=== PATIENT | female | born 1940 | race Hispanic/Latino ===

== ENCOUNTER 2018-08-01 18:04 | Emergency (ER) | payer OTHER ==
--- OUTSIDE RECORDS SUMMARY | 2018-08-01 18:07 | XMS REPORT | Clinical Summary ---
:1940 Author Organization [facility] Address [address] [place] [address] Care Team Providers Name Role Phone Asked, No Pcp Primary Care Provider Unavailable Allergies No Known Allergies Medications Medication Sig Dispensed Refills Start Date End Date Status traMADol (ULTRAM) 50 Take 50 mg by 0 Active mg tablet mouth every 6 (six) hours as needed for moderate pain. amLODIPine (NORVASC) Take 10 mg by 0 Active 10 MG tablet mouth daily. linagliptin Take 5 mg by mouth 0 Active (TRADJENTA) 5 mg daily with tablet breakfast. pantoprazole Take 40 mg by 0 Active (PROTONIX) 40 MG EC mouth daily. tablet aspirin (ECOTRIN) 81 Take 81 mg by 0 Active MG enteric coated mouth daily. tablet citalopram (CeleXA) 20 Take 20 mg by 0 Active MG tablet mouth daily. meloxicam (MOBIC) 7.5 Take 7.5 mg by 0 Active mg tablet mouth 2 (two) times a day. losartan (COZAAR) 25 Take 25 mg by 0 Active MG tablet mouth daily. Active Problems Problem Noted Date UTI (urinary tract infection) 02/22/2017 Lower GI bleed 09/24/2015 Social History Tobacco Use Types Packs/Day Years Used Date Never Smoker Smokeless Tobacco: Never Used Alcohol Use Drinks/Week oz/Week Comments No Sex Assigned at Date Recorded Not on file Job Start Date Occupation Industry Not on file Not on file Not on file Travel History Travel Start Travel End No recent travel history available. Last Filed Vital Signs Not on file Plan of Treatment Health Maintenance Due Date Last Done Comments COLONOSCOPY SCREENING 1992 SHINGLES VACCINES (#1) 1992 65+ PNEUMOCOCCAL VACCINE (1 of 2 - PCV13) 06/15/2007 INFLUENZA VACCINE 09/10/2018 Results Not on fileafter 07/31/2017 Insurance Payer Benefit Plan / Subscriber ID Effective Dates Phone Address Type Group [employer] [facility] Advance Directives Patient has advance care planning documents, and code status on file. For more information, please contact:Alireza Ford[address] [place] [id number] Code Status Date Activated Date Inactivated Comments Full Code 02/23/2017 9:24 AM 02/24/2017 7:40 PM Code Status decision reached by: Patient Full Code 09/24/2015 8:26 AM 09/29/2015 3:26 PM Code Status decision reached by: Patient
--- OUTSIDE RECORDS SUMMARY | 2018-08-01 18:08 | XMS REPORT | Clinical Summary ---
:1940 Author Organization [facility] Address [address] [place] [address] Care Team Providers Name Role Phone Sharpchava Primary Care Provider Allergies No Known Allergies Medications Medication Sig Dispensed Refills Start Date End Date Status metoprolol Take 50 mg by 0 Active (LOPRESSOR) 50 MG mouth 2 (two) tablet times daily. losartan (COZAAR) Take 100 mg by 0 Active 100 MG tablet mouth daily. citalopram Take 20 mg by 0 Active (CELEXA) 20 MG mouth daily. tablet rosuvastatin Take 10 mg by 0 Active (CRESTOR) 10 MG mouth daily. tablet amLODIPine Take 10 mg by 0 Active (NORVASC) 10 MG mouth daily. tablet acetaminophen-code Take 1 tablet 15 tablet 0 03/27/2015 Active ine (TYLENOL #3) by mouth 3 300-30 mg per (three) times tablet daily as needed for Pain. linagliptin Take 5 mg by 0 Active (TRADJENTA) 5 mg mouth. Tab metFORMIN Take 500 mg by 0 Active (GLUCOPHAGE) 500 mouth 2 (two) MG tablet times daily with breakfast and dinner. atorvastatin Take 10 mg by 0 Active (LIPITOR) 10 MG mouth daily. tablet aspirin 81 MG EC Take 81 mg by 0 Active tablet mouth daily. pantoprazole Take 40 mg by 0 Active (PROTONIX) 40 MG mouth daily. tablet cloNIDine HCl Take 0.1 mg by 0 Active (CATAPRES) 0.1 MG mouth 2 (two) tablet times daily. traMADol (ULTRAM) Take 50 mg by 0 Discontinued 50 mg tablet mouth every 6 8 (six) hours as needed for Pain. traMADol (ULTRAM) Take 1 tablet 15 tablet 0 08/22/2014 Discontinued 50 mg tablet (50 mg total) 8 by mouth every 6 (six) hours as needed for Pain (WARNING CAUSES SEDATION) for up to 15 doses. naproxen Take 500 mg by 0 Discontinued (NAPROSYN) 500 MG mouth 2 (two) 8 tablet times daily with breakfast and dinner. amoxicillin Take 500 mg by 0 Discontinued (AMOXIL) 500 MG mouth 3 (three) 8 capsule times daily. magnesium oxide Take 1 tablet 14 tablet 0 08/26/2017 (MAG-OX) 400 mg (400 mg total) 8 tablet by mouth daily for 14 doses. hydrALAZINE Take 1 tablet 60 tablet 0 08/26/2017 (APRESOLINE) 25 MG (25 mg total) 8 tablet by mouth 2 (two) times daily for 30 days. indomethacin Take 1 capsule 30 capsule 0 08/26/2017 (INDOCIN) 25 MG (25 mg total) 8 capsule by mouth 3 (three) times daily with meals for 10 days. Active Problems Problem Noted Date Small bowel obstruction 08/21/2017 Diabetes mellitus, type 2 08/21/2017 Hypertension 08/21/2017 Depression 08/21/2017 Renal insufficiency 08/21/2017 Encounters Date Type Specialty Care Team Description 08/21/2017 - Hospital Encounter General Internal Colin Sanchez Small bowel obstruction (HCC) (Primary Dx); 08/26/2017 Medicine MD Francesco Depression, unspecified depression type; Antonino Martin Type 2 diabetes mellitus with complication, without long- term current use of insulin (HCC); MD Kristopher Essential hypertension; Shamsee, Hypomagnesemia; Emanuel-Bennie Acute pain of left shoulder; MD Nimesh History of breast cancer; Hypokalemia after 07/31/2017 Social History Tobacco Use Types Packs/Day Years Used Date Never Smoker Smokeless Tobacco: Never Used Alcohol Use Drinks/Week oz/Week Comments No Sex Assigned at Date Recorded Not on file Job Start Date Occupation Industry Not on file Not on file Not on file Travel History Travel Start Travel End No recent travel history available. Last Filed Vital Signs Vital Sign Reading Time Taken Blood Pressure 161/67 08/26/2017 3:55 PM CDT Pulse 45 08/26/2017 3:55 PM CDT Temperature 36.7 C (98.1 F) 08/26/2017 3:55 PM CDT Respiratory Rate 19 08/26/2017 3:55 PM CDT Oxygen Saturation 98% 08/26/2017 3:55 PM CDT Inhaled Oxygen Concentration - - Weight 79.4 kg (175 lb 0.7 oz) 08/25/2017 6:26 AM CDT Height 152.4 cm (5') 08/21/2017 1:29 AM CDT Body Mass Index 34.19 08/25/2017 6:26 AM CDT Plan of Treatment Not on file Procedures Procedure Name Priority Date/Time Associated Comments Diagnosis POCT-GLUCOSE METER Routine 08/26/2017 12:24 Results for this PM CDT procedure are in the results section. POCT-GLUCOSE METER Routine 08/26/2017 8:07 Results for this AM CDT procedure are in the results section. MAGNESIUM Routine 08/26/2017 2:54 Results for this AM CDT procedure are in the results section. BASIC METABOLIC PANEL Routine 08/26/2017 2:54 Results for this (7) AM CDT procedure are in the results section. POCT-GLUCOSE METER Routine 08/25/2017 8:55 Results for this PM CDT procedure are in the results section. POCT-GLUCOSE METER Routine 08/25/2017 5:35 Results for this PM CDT procedure are in the results section. XR SHOULDER LEFT Routine 08/25/2017 12:53 Results for this COMPLETE MIN 2 VIEWS PM CDT procedure are in the results section. POCT-GLUCOSE METER Routine 08/25/2017 11:38 Results for this AM CDT procedure are in the results section. POCT-GLUCOSE METER Routine 08/25/2017 8:02 Results for this AM CDT procedure are in the results section. MAGNESIUM Routine 08/25/2017 5:53 Results for this AM CDT procedure are in the results section. BASIC METABOLIC PANEL Routine 08/25/2017 5:53 Results for this (7) AM CDT procedure are in the results section. POCT-GLUCOSE METER Routine 08/24/2017 8:49 Results for this PM CDT procedure are in the results section. POCT-GLUCOSE METER Routine 08/24/2017 4:51 Results for this PM CDT procedure are in the results section. POCT-GLUCOSE METER Routine 08/24/2017 12:01 Results for this PM CDT procedure are in the results section. XR SHOULDER LEFT Routine 08/24/2017 11:17 Results for this COMPLETE MIN 2 VIEWS AM CDT procedure are in the results section. POCT-GLUCOSE METER Routine 08/24/2017 7:32 Results for this AM CDT procedure are in the results section. CBC W/PLT COUNT & Routine 08/24/2017 4:38 Results for this AUTO DIFFERENTIAL AM CDT procedure are in the results section. CBC W/PLT COUNT & Routine 08/24/2017 4:38 Results for this AUTO DIFFERENTIAL AM CDT procedure are in the results section. MAGNESIUM Routine 08/24/2017 4:38 Results for this AM CDT procedure are in the results section. PHOSPHORUS Routine 08/24/2017 4:38 Results for this AM CDT procedure are in the results section. HEPATIC FUNCTION Routine 08/24/2017 4:38 Results for this PANEL AM CDT procedure are in the results section. BASIC METABOLIC PANEL Routine 08/24/2017 4:38 Results for this (7) AM CDT procedure are in the results section. POCT-GLUCOSE METER Routine 08/23/2017 8:20 Results for this PM CDT procedure are in the results section. POCT-GLUCOSE METER Routine 08/23/2017 5:16 Results for this PM CDT procedure are in the results section. POCT-GLUCOSE METER Routine 08/23/2017 12:06 Results for this PM CDT procedure are in the results section. POCT-GLUCOSE METER Routine 08/23/2017 7:49 Results for this AM CDT procedure are in the results section. CBC W/PLT COUNT & Routine 08/23/2017 4:43 Results for this AUTO DIFFERENTIAL AM CDT procedure are in the results section. CBC W/PLT COUNT & Routine 08/23/2017 4:43 Results for this AUTO DIFFERENTIAL AM CDT procedure are in the results section. MAGNESIUM Routine 08/23/2017 4:43 Results for this AM CDT procedure are in the results section. PHOSPHORUS Routine 08/23/2017 4:43 Results for this AM CDT procedure are in the results section. HEPATIC FUNCTION Routine 08/23/2017 4:43 Results for this PANEL AM CDT procedure are in the results section. BASIC METABOLIC PANEL Routine 08/23/2017 4:43 Results for this (7) AM CDT procedure are in the results section. POCT-GLUCOSE METER Routine 08/22/2017 9:17 Results for this PM CDT procedure are in the results section. POCT-GLUCOSE METER Routine 08/22/2017 4:25 Results for this PM CDT procedure are in the results section. POCT-GLUCOSE METER Routine 08/22/2017 12:43 Results for this PM CDT procedure are in the results section. XR CHEST 1 VIEW STAT 08/22/2017 9:16 Results for this PORTABLE/BEDSIDE AM CDT procedure are in the results section. ECG 12-LEAD STAT 08/22/2017 8:52 Results for this AM CDT procedure are in the results section. POCT-GLUCOSE METER Routine 08/22/2017 5:50 Results for this AM CDT procedure are in the results section. CBC W/PLT COUNT & Routine 08/22/2017 5:09 Results for this AUTO DIFFERENTIAL AM CDT procedure are in the results section. CBC W/PLT COUNT & Routine 08/22/2017 5:09 Results for this AUTO DIFFERENTIAL AM CDT procedure are in the results section. MAGNESIUM Routine 08/22/2017 5:09 Results for this AM CDT procedure are in the results section. PHOSPHORUS Routine 08/22/2017 5:09 Results for this AM CDT procedure are in the results section. HEPATIC FUNCTION Routine 08/22/2017 5:09 Results for this PANEL AM CDT procedure are in the results section. BASIC METABOLIC PANEL Routine 08/22/2017 5:09 Results for this (7) AM CDT procedure are in the results section. POCT-GLUCOSE METER Routine 08/21/2017 10:55 Results for this PM CDT procedure are in the results section. POCT-GLUCOSE METER Routine 08/21/2017 5:32 Results for this PM CDT procedure are in the results section. CREATINE KINASE (CK), Routine 08/21/2017 3:25 Results for this TOTAL AND MB PM CDT procedure are in the results section. TROPONIN I Routine 08/21/2017 3:25 Results for this PM CDT procedure are in the results section. POCT-GLUCOSE METER Routine 08/21/2017 2:19 Results for this PM CDT procedure are in the results section. C-REACTIVE PROTEIN Routine 08/21/2017 6:33 Results for this AM CDT procedure are in the results section. TSH/FREE T4 IF Routine 08/21/2017 6:33 Results for this INDICATED AM CDT procedure are in the results section. CREATINE KINASE (CK), Routine 08/21/2017 6:33 Results for this TOTAL AND MB AM CDT procedure are in the results section. TROPONIN I Routine 08/21/2017 6:33 Results for this AM CDT procedure are in the results section. HEMOGLOBIN A1C Routine 08/21/2017 6:33 Results for this AM CDT procedure are in the results section. LIPID PANEL Routine 08/21/2017 6:33 Results for this AM CDT procedure are in the results section. XR ABDOMEN 1 VIEW STAT 08/21/2017 5:55 Results for this AM CDT procedure are in the results section. CT ABDOMEN/PELVIS STAT 08/21/2017 4:26 Results for this WITHOUT IV CONTRAST AM CDT procedure are in the results section. CBC W/PLT COUNT & STAT 08/21/2017 2:25 Results for this AUTO DIFFERENTIAL AM CDT procedure are in the results section. CBC W/PLT COUNT & STAT 08/21/2017 2:25 Results for this AUTO DIFFERENTIAL AM CDT procedure are in the results section. LIPASE STAT 08/21/2017 2:25 Results for this AM CDT procedure are in the results section. AMYLASE STAT 08/21/2017 2:25 Results for this AM CDT procedure are in the results section. HEPATIC FUNCTION STAT 08/21/2017 2:25 Results for this PANEL AM CDT procedure are in the results section. BASIC METABOLIC PANEL STAT 08/21/2017 2:25 Results for this (7) AM CDT procedure are in the results section. after 07/31/2017 Results POC-Glucose meter (08/26/2017 12:24 PM CDT)Only the most recent of21 resultswithin the time period is included. POC-Glucose Meter 271 (H)Comment: TESTED AT 70 - 110 mg/dL [facility] [address] [facility] [address] Specimen Blood Performing Organization Address City/State/Zipcode Phone Number [address] [address] CENTER Magnesium (08/26/2017 2:54 AM CDT)Only the most recent of5 resultswithin the time period is included. Magnesium 1.7 1.6 - 2.6 mg/dL [facility] Specimen Blood Performing Organization Address City/[facility]/Zipcode Phone Number [address] [phone] [place] Basic Metabolic Panel (08/26/2017 2:54 AM CDT)Only the most recent of6 resultswithin the time period is included. Sodium 136 136 - 145 meq/L [facility] Potassium 3.8 3.5 - 5.1 meq/L [facility] Chloride 105 98 - 107 meq/L [facility] CO2 22 22 - 29 meq/L [facility] BUN 11 7 - 21 mg/dL [facility] Creatinine 0.81 0.57 - 1.25 mg/dL [facility] Glucose 131 (H) 70 - 105 mg/dL [facility] Calcium 8.6 8.4 - 10.2 mg/dL [facility] EGFR 69Comment: ESTIMATED GFR IS mL/min/1.73 sq m [facility] NOT ACCURATE CREATININE [facility] CLEARANCE IN PREDICTING GLOMERULAR FILTRATION RATE. ESTIMATED GFR IS NOT APPLICABLE FOR DIALYSIS PATIENTS. Specimen Blood Performing Organization Address City/[facility]/Zipcode Phone Number [address] [address] [phone] [place] XR shoulder complete 2 views min left (08/25/2017 12:53 PM CDT)Only the most recent of2 resultswithin the time period is included. Specimen Narrative Performed At FINAL REPORT [facility] Two axillary left shoulder images. Normal glenohumeral articulation. Chronic changes are seen about the greater tuberosity and the AC joint. No visible fracture, dislocation, destructive lesion. Signed: Yovani Zarate MD Report Verified Date/Time:08/25/2017 14:00:20 Reading Location: [facility] B1 [id number] Consult Reading Room Procedure Note Interface, External Ris In - 08/25/2017 2:02 PM CDT FINAL REPORT Two axillary left shoulder images. Normal glenohumeral articulation. Chronic changes are seen about the greater tuberosity and the AC joint. No visible fracture, dislocation, destructive lesion. Signed: Yovani Zarate MD Report Verified Date/Time: 08/25/2017 14:00:20 Reading Location: [facility] B1 [id number] Consult Reading Room Performing Organization Address City/State/Zipcode Phone Number GE RIS CBC with platelet count + automated diff (08/24/2017 4:38 AM CDT)Only the most recent of4 resultswithin the time period is included. WBC 7.9 3.5 - 10.5 K/L [facility] RBC 2.90 (L) 3.93 - 5.22 M/L [facility] Hemoglobin 8.8 (L) 11.2 - 15.7 GM/DL [facility] Hematocrit 27.9 (L) 34.1 - 44.9 % [facility] MCV 96.2 (H) 79.4 - 94.8 fL [facility] MCH 30.3 25.6 - 32.2 pg [facility] MCHC 31.5 (L) 32.2 - 35.5 GM/DL [facility] RDW 12.6 11.7 - 14.4 % [facility] Platelets 179 150 - 450 K/CU MM [facility] MPV 10.7 9.4 - 12.3 fL [facility] nRBC 0 0 - 0 /100 WBC [facility] % Neutros 60 % [facility] % Lymphs 27 % [facility] % Monos 10 % [facility] % Eos 2 % [facility] % Baso 0 % [facility] # Neutros 4.77 1.56 - 6.13 K/L [facility] # Lymphs 2.10 1.18 - 3.74 K/L [facility] # Monos 0.81 (H) 0.24 - 0.36 K/L [facility] # Eos 0.16 0.04 - 0.36 K/L [facility] # Baso 0.03 0.01 - 0.08 K/L [facility] Immature Granulocytes-Relative 0 0 - 1 % [facility] Specimen Blood Performing Organization Address City/State/Zipcode Phone Number [address] [address] [phone] CENTER Phosphorus (08/24/2017 4:38 AM CDT)Only the most recent of3 resultswithin the time period is included. Phosphorus 2.3 2.3 - 4.7 mg/dL [facility] Specimen Blood Performing Organization Address City/State/Zipcode Phone Number [address] [address] [phone] [place] Hepatic function panel (08/24/2017 4:38 AM CDT)Only the most recent of4 resultswithin the time period is included. Protein, Total 6.0 6.0 - 8.3 gm/dL [facility] Albumin 3.0 (L) 3.5 - 5.0 g/dL [facility] Total Bilirubin 0.8 0.2 - 1.2 mg/dL [facility] Bilirubin, Direct 0.4 0.1 - 0.5 mg/dL [facility] Alkaline Phosphatase 52 40 - 150 U/L [facility] AST 22 5 - 34 U/L [facility] ALT 10 6 - 55 U/L [facility] Specimen Blood Performing Organization Address City/State/Zipcode Phone Number [facility] [address] [place] [address] CENTER XR chest 1 view portable / bedside (08/22/2017 9:16 AM CDT) Specimen Narrative Performed At FINAL REPORT Se[facility] Chest one view compared to May 17, 2017 Discussion: There is mild cardiac prominence. Lungs clear. No effusion or pneumothorax. Mild degenerative shoulder changes. 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 IMPRESSIONS: No specific evidence of acute abnormal L2. Signed: Yovani Zarate MD Report Verified Date/Time:08/22/2017 10:00:44 Reading Location: [facility] Radiology Reading Room Procedure Note Interface, External Ris In - 08/22/2017 10:02 AM CDT FINAL REPORT Chest one view compared to May 17, 2017 Discussion: There is mild cardiac prominence. Lungs clear. No effusion or pneumothorax. Mild degenerative shoulder changes. 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 IMPRESSIONS: No specific evidence of acute abnormal L2. Signed: Yovani Zarate MD Report Verified Date/Time: 08/22/2017 10:00:44 Reading Location: [facility] Radiology Reading Room Performing Organization Address City/State/Zipcode Phone Number Seeder ECG 12 lead (08/22/2017 8:52 AM CDT) Specimen Narrative Performed At Ventricular Rate 60 BPM GE MUSE Atrial Rate 60 BPM P-R Interval 150 ms QRS Duration 92 ms Q-T Interval 300 ms QTC Calculation(Bazett) 300 ms P Chester 28 degrees R Chester -32 degrees T Chester 103 degrees Normal sinus rhythm Left axis deviation Nonspecific T wave abnormality Abnormal ECG When compared with ECG of 17-MAY-2017 02:13, Nonspecific T wave abnormality has replaced inverted T waves in Inferior leads Nonspecific T wave abnormality, worse in Lateral leads QT has shortened Confirmed by MD Hinds Roberto ([id number]) on 08/22/2017 1:24:26 PM Procedure Note Interface, External Ris In - 08/22/2017 1:24 PM CDT Ventricular Rate 60 BPM Atrial Rate 60 BPM P-R Interval 150 ms QRS Duration 92 ms Q-T Interval 300 ms QTC Calculation(Bazett) 300 ms P Chester 28 degrees R Chester -32 degrees T Chester 103 degrees Normal sinus rhythm Left axis deviation Nonspecific T wave abnormality Abnormal ECG When compared with ECG of 17-MAY-2017 02:13, Nonspecific T wave abnormality has replaced inverted T waves in Inferior leads Nonspecific T wave abnormality, worse in Lateral leads QT has shortened Confirmed by MD Hinds Roberto ([id number]) on 08/22/2017 1:24:26 PM Performing Organization Address City/[facility] Phone Number [facility] Troponin I (08/21/2017 3:25 PM CDT)Only the most recent of2 resultswithin the time period is included. Troponin I 0.01 0.00 - 0.03 ng/mL [facility] Specimen Blood Narrative Performed At [facility] Troponin I (TnI) levels must be interpreted in the context of the presenting symptoms and the clinical findings. Elevated TnI levels indicate myocardial damage, but are not specific for ischemic heart disease. Elevated TnI levels are seen in patients with other cardiac conditions (including myocarditis and congestive heart failure), and slight TnI elevations occur in patients with other conditions, including sepsis, renal failure, acidosis, acute neurological disease, and persistent tachyarrhythmia. Performing Organization Address City/[facility]/Zipcode Phone Number [facility] MED[facility] [address] [place] [phone] CENTER Creatine Kinase (CK), Total and MB (08/21/2017 3:25 PM CDT)Only the most recent of2 resultswithin the time period is included. Total CK 170 29 - 200 U/L [facility] CK-MB 3.7 0.0 - 6.6 ng/mL [facility] MB Relative Index 2.2 % [facility] Specimen Blood Narrative Performed At CK-MB Reference Range: [facility] <6.7Normal 6.7-10.0Borderline >10.0 Abnormal Performing Organization Address City/[facility] Cent[facility] Phone Number [address] [address] [place] TSH/Free T4 If Indicated (08/21/2017 6:33 AM CDT) TSH 3.77 0.35 - 4.94 uIU/mL [facility] Specimen Blood Performing Organization Address City/[facility] Phone Number [address] [address] CENTER C-Reactive Protein (08/21/2017 6:33 AM CDT) CRP 0.47 0.00 - 0.50 mg/dL [facility] Specimen Blood Performing Organization Address City/[facility] Phone Number [address] [address] CENTER Hemoglobin A1c (08/21/2017 6:33 AM CDT) Hemoglobin A1C 7.2 (H) 4.3 - 6.1 % [facility] Specimen Blood Performing Organization Address City/[facility] Phone Number [address] [address] CENTER Lipid panel (08/21/2017 6:33 AM CDT) Triglycerides 67 mg/dL [facility] Cholesterol 135 mg/dL [facility] HDL 47 mg/dL [facility] LDL Calculated 75 mg/dL [facility] Specimen Blood Narrative Performed At [facility] Triglyceride Reference Range: Low Risk <150 [id number] High Risk 200-499 Very High Risk>=500 Cholesterol Reference Range: Low Risk <200 [id number] High Risk>240 HDL Cholesterol Reference Range: Low Risk >=60 High Risk <40 LDL Cholesterol Reference Range: Optimal<100 Near [id number] [id number] Lysc199-150 Very High >=190 Performing Organization Address City/State/Zipcode Phone Number [facility] [address] [place] [address] [phone] CENTER XR abdomen / KUB 1 view (08/21/2017 5:55 AM CDT) Specimen Narrative Performed At FINAL REPORT GE RIS RAD, ABDOMEN/KUB, 1 VIEW AP CLINICAL INDICATION:"ABDOMINAL PAIN ng tube" COMPARISON: CT abdomen and pelvis from earlier tonight TECHNIQUE: 2 frontal radiographs of the abdomen. IMPRESSION: NG tube is curled in the expected location of the GE junction. This should be advanced by at least 7 cm. Dilated loops of small bowel in the abdomen. No pneumatosis or obvious pneumoperitoneum. No acute osseous abnormality. Signed: Leana Trevino MD Report Verified Date/Time:08/21/2017 06:00:54 Reading Location: [address] Transitional Reading Room Procedure Note Interface, External Ris In - 08/21/2017 6:03 AM CDT FINAL REPORT RAD, ABDOMEN/KUB, 1 VIEW AP CLINICAL INDICATION: "ABDOMINAL PAIN ng tube" COMPARISON: CT abdomen and pelvis from earlier tonight TECHNIQUE: 2 frontal radiographs of the abdomen. IMPRESSION: NG tube is curled in the expected location of the GE junction. This should be advanced by at least 7 cm. Dilated loops of small bowel in the abdomen. No pneumatosis or obvious pneumoperitoneum. No acute osseous abnormality. Signed: Leana Trevino MD Report Verified Date/Time: 08/21/2017 06:00:54 Reading Location: [facility] C0[facility] Transitional Reading Room Performing Organization Address City/State/Zipcode Phone Number GE RIS CT abdomen pelvis without contrast (08/21/2017 4:26 AM CDT) Specimen Narrative Performed At FINAL REPORT GE RIS CT, ABDOMEN \\T\\ PELVIS, WITHOUT IV CONTRAST INDICATION: "Abdominal pain, unspecified ABDOMINAL PAIN" COMPARISON: CT abdomen and pelvis in 2014 TECHNIQUE: Noncontrast axially oriented images were obtained from the diaphragms through the pelvis. Coronal and sagittal reformats were provided. DOSE REDUCTION: Dose modulation, iterative reconstruction, and/or weight-based adjustment of the mA/kV was utilized to reduce the radiation dose to as low as reasonably achievable. FINDINGS: Lung bases are grossly clear. No acute abnormality of the solid abdominal viscera. Surgically absent gallbladder. Early versus partial small bowel obstruction. The transition point is in the anterior, mid abdomen on axial image 50. No pneumatosis or pneumoperitoneum. The colon is unremarkable. No focal lytic or destructive bony process. IMPRESSION: Early versus partial small bowel obstruction. No pneumatosis or pneumoperitoneum. Signed: Leana Trevino MD Report Verified Date/Time:08/21/2017 04:39:32 Reading Location: [address] Transitional Reading Room Procedure Note Interface, External Ris In - 08/21/2017 10:[address] FINAL REPORT CT, ABDOMEN \\T\\ PELVIS, WITHOUT IV CONTRAST INDICATION: "Abdominal pain, unspecified ABDOMINAL PAIN" COMPARISON: CT abdomen and pelvis in 2014 TECHNIQUE: Noncontrast axially oriented images were obtained from the diaphragms through the pelvis. Coronal and sagittal reformats were provided. DOSE REDUCTION: Dose modulation, iterative reconstruction, and/or weight-based adjustment of the mA/kV was utilized to reduce the radiation dose to as low as reasonably achievable. FINDINGS: Lung bases are grossly clear. No acute abnormality of the solid abdominal viscera. Surgically absent gallbladder. Early versus partial small bowel obstruction. The transition point is in the anterior, mid abdomen on axial image 50. No pneumatosis or pneumoperitoneum. The colon is unremarkable. No focal lytic or destructive bony process. IMPRESSION: Early versus partial small bowel obstruction. No pneumatosis or pneumoperitoneum. Signed: Leana Trevino MD Report Verified Date/Time: 08/21/2017 04:39:32 Reading Location: [facility] Transitional Reading Room Performing Organization Address City/State/Zipcode Phone Number [facility] Lipase (08/21/2017 2:25 AM CDT) Lipase 43 8 - 78 U/L [facility] Specimen Blood Performing Organization Address City/State/Zipcode Phone Number [facility] [address] [place] [address] CENTER Amylase (08/21/2017 2:25 AM CDT) Amylase 97 25 - 125 U/L [facility] Specimen Blood Performing Organization Address [facility] Phone [facility] [address] [place] [address] [phone] CENTER after 07/31/2017 Insurance Payer Benefit Plan / Group Subscriber ID Type Phone Address [employer] - MEDICARE AARP/MEDICARE COMPLETE xxxxxxxxx [facility] CARE Advance Directives For more information, please contact:[address] [phone] Code Status Date Activated Date Inactivated Comments Full Code 08/21/2017 6:04 AM 08/26/2017 8:02 PM This code status was determined by: Patient
--- OUTSIDE RECORDS SUMMARY | 2018-08-01 18:09 | XMS REPORT ---
:1940 [facility] Gel[address] [place] [address] Care Team Providers Name Role Phone LIZANDRO ARAUJO Unavailable Unavailable Problems This patient has no known problems. Allergies, Adverse Reactions, Alerts This patient has no known allergies or adverse reactions. Medications This patient has no known medications. Results Test Description Test Time Test Comments Text Results Atomic Results Result Comments POCT-GLUCOSE METER 2017-08-26 12:26:00 Test Item Value Reference Range Comments POC-GLUCOSE METER (BEAKER) (test 271 mg/dL 70-110 TESTED AT [address] rysi=7220) [facility] [address] POCT-GLUCOSE [id number] 08:10:00 Test Item Value Reference Range Comments POC-GLUCOSE METER (BEAKER) 118 mg/dL 70-110 TESTED AT [address] (test zhzf=6413) [facility] [address] [id number] 03:40:00 Test Item Value Reference Range Comments MAGNESIUM (BEAKER) (test rjhs=841) 1.7 mg/dL 1.6-2.6 BASIC METABOLIC [id number] 03:40:00 Test Item Value Reference Range Comments SODIUM (BEAKER) (test 136 meq/L 136-145 kypo=913) POTASSIUM (BEAKER) (test 3.8 meq/L 3.5-5.1 jbto=606) CHLORIDE (BEAKER) (test 105 meq/L 98-107 shfy=848) CO2 (BEAKER) (test 22 meq/L 22-29 ixmd=463) BLOOD UREA NITROGEN 11 mg/dL 7-21 (BEAKER) (test gaib=595) CREATININE (BEAKER) (test 0.81 mg/dL 0.57-1.25 jtjl=123) GLUCOSE RANDOM (BEAKER) 131 mg/dL 70-105 (test iytu=244) CALCIUM (BEAKER) (test 8.6 mg/dL 8.4-10.2 znxo=664) EGFR (BEAKER) (test 69 mL/min/1.73 sq m ESTIMATED GFR IS NOT zmgd=4915) ACCURATE CREATININE CLEARANCE IN PREDICTING GLOMERULAR FILTRATION RATE. ESTIMATED GFR IS NOT APPLICABLE FOR DIALYSIS PATIENTS. POCT-GLUCOSE [id number] 21:00:00 Test Item Value Reference Range Comments POC-GLUCOSE METER (BEAKER) 169 mg/dL 70-110 TESTED AT [address] (test tbai=4074) [place] [address] POCT-GLUCOSE [id number] 17:46:00 Test Item Value Reference Range Comments POC-GLUCOSE METER (BEAKER) 201 mg/dL 70-110 TESTED AT [address] (test wfoy=8169) [place] [address] RAD, SHOULDER, COMPLETE (MIN 2 VIEWS), [id number] 14:00:00Reason for exam:-& gt;shoulder painReason for exam:->please obtain axillary lateral and call when completeFINAL REPORT Two axillary left shoulder images. Normal glenohumeral articulation. Chronic changes are seen about the greater tuberosity and the AC joint. No visible fracture, dislocation , destructive lesion. Signed: Yovani Zarate Verified Date/Time: 2017 14:00:20 Reading Location: [address] Consult Reading Room POCT- GLUCOSE [id number] 12:12:00 Test Item Value Reference Range Comments POC-GLUCOSE METER (BEAKER) 161 mg/dL 70-110 TESTED AT [address] (test jzco=1156) [place] [address] POCT-GLUCOSE [id number] 08:42:00 Test Item Value Reference Range Comments POC-GLUCOSE METER (BEAKER) 157 mg/dL 70-110 TESTED AT [address] (test hipg=3005) [place] [address] [id number] 06:27:00 Test Item Value Reference Range Comments MAGNESIUM (BEAKER) (test kdox=165) 1.7 mg/dL 1.6-2.6 BASIC METABOLIC [id number] 06:27:00 Test Item Value Reference Range Comments SODIUM (BEAKER) (test 134 meq/L 136-145 oekl=655) POTASSIUM (BEAKER) (test 3.7 meq/L 3.5-5.1 nkyq=448) CHLORIDE (BEAKER) (test 103 meq/L 98-107 qelt=968) CO2 (BEAKER) (test 22 meq/L 22-29 sxdx=524) BLOOD UREA NITROGEN 12 mg/dL 7-21 (BEAKER) (test schh=423) CREATININE (BEAKER) (test 0.84 mg/dL 0.57-1.25 tbyo=188) GLUCOSE RANDOM (BEAKER) 149 mg/dL 70-105 (test jmju=615) CALCIUM (BEAKER) (test 8.6 mg/dL 8.4-10.2 hxjy=934) EGFR (BEAKER) (test 66 mL/min/1.73 sq m ESTIMATED GFR IS NOT cxnn=3260) ACCURATE CREATININE CLEARANCE IN PREDICTING GLOMERULAR FILTRATION RATE. ESTIMATED GFR IS NOT APPLICABLE FOR DIALYSIS PATIENTS. POCT-GLUCOSE [id number] 21:07:00 Test Item Value Reference Range Comments POC-GLUCOSE METER (BEAKER) 233 mg/dL 70-110 TESTED AT [place] [id number] (test mvmh=9813) [place] [address] POCT-GLUCOSE [id number] 16:55:00 Test Item Value Reference Range Comments POC-GLUCOSE METER (BEAKER) 354 mg/dL 70-110 TESTED AT [address] (test mxef=4578) [place] [address] POCT-GLUCOSE [id number] 12:38:00 Test Item Value Reference Range Comments POC-GLUCOSE METER (BEAKER) 152 mg/dL 70-110 TESTED AT [address] (test sqvg=5559) [facility] [address] RAD, SHOULDER, COMPLETE (MIN 2 VIEWS), [id number] 12:21:00Reason for exam:-& gt;shoulder painFINAL REPORT COMPARISON: None TECHNIQUE: 3 views of the left shoulder. FINDINGS: There are no acute fractures or dislocations. No radiopaque foreign bodies. Joint spaces are maintained. No lytic or blastic lesions. Degenerative changes of the AC joint noted. IMPRESSION : No acute bony abnormality. Signed: Kerwin Canchola MDReport Verified Date/ Time: 08/24/2017 12:21:37 Reading Location: [address] Transitional Reading Room POCT-GLUCOSE [id number] 07:45:00 Test Item Value Reference Range Comments POC-GLUCOSE METER (BEAKER) 148 mg/dL 70-110 TESTED AT [facility] [address] [facility] (test ggvv=7499) [facility] [address] [id number] 06:06:00 Test Item Value Reference Range Comments PHOSPHORUS (BEAKER) (test ifhq=829) 2.3 mg/dL 2.3-4.7 [id number] 06:06:00 Test Item Value Reference Range Comments MAGNESIUM (BEAKER) (test daho=901) 1.8 mg/dL 1.6-2.6 BASIC METABOLIC [id number] 06:06:00 Test Item Value Reference Range Comments SODIUM (BEAKER) (test 136 meq/L 136-145 phrt=010) POTASSIUM (BEAKER) (test 3.5 meq/L 3.5-5.1 ipdd=645) CHLORIDE (BEAKER) (test 104 meq/L 98-107 wnox=654) CO2 (BEAKER) (test 24 meq/L 22-29 xcni=635) BLOOD UREA NITROGEN 10 mg/dL 7-21 (BEAKER) (test qdya=487) CREATININE (BEAKER) (test 0.81 mg/dL 0.57-1.25 ebpa=351) GLUCOSE RANDOM (BEAKER) 133 mg/dL 70-105 (test jdot=063) CALCIUM (BEAKER) (test 8.3 mg/dL 8.4-10.2 gmrw=842) EGFR (BEAKER) (test 69 mL/min/1.73 sq m ESTIMATED GFR IS NOT togm=7836) ACCURATE CREATININE CLEARANCE IN PREDICTING GLOMERULAR FILTRATION RATE. ESTIMATED GFR IS NOT APPLICABLE FOR DIALYSIS PATIENTS. HEPATIC FUNCTION [id number] 06:06:00 Test Item Value Reference Range Comments TOTAL PROTEIN (BEAKER) (test pfos=507) 6.0 gm/dL 6.0-8.3 ALBUMIN (BEAKER) (test ewpn=2065) 3.0 g/dL 3.5-5.0 BILIRUBIN TOTAL (BEAKER) (test xudu=024) 0.8 mg/dL 0.2-1.2 BILIRUBIN DIRECT (BEAKER) (test gsrq=701) 0.4 mg/dL 0.1-0.5 ALKALINE PHOSPHATASE (BEAKER) (test iftb=515) 52 U/L 40-150 AST (SGOT) (BEAKER) (test fbiq=377) 22 U/L 5-34 ALT (SGPT) (BEAKER) (test gqpm=961) 10 U/L 6-55 CBC W/PLT COUNT & AUTO [id number] 05:28:00 Test Item Value Reference Range Comments WHITE BLOOD CELL COUNT (BEAKER) (test vwvb=432) 7.9 K/ L 3.5-10.5 RED BLOOD CELL COUNT (BEAKER) (test hfwh=101) 2.90 M/ L 3.93-5.22 HEMOGLOBIN (BEAKER) (test qqpt=553) 8.8 GM/DL 11.2-15.7 HEMATOCRIT (BEAKER) (test utny=364) 27.9 % 34.1-44.9 MEAN CORPUSCULAR VOLUME (BEAKER) (test rryd=762) 96.2 fL 79.4-94.8 MEAN CORPUSCULAR HEMOGLOBIN (BEAKER) (test 30.3 pg 25.6-32.2 rhfy=449) MEAN CORPUSCULAR HEMOGLOBIN CONC (BEAKER) (test 31.5 GM/DL 32.2-35.5 ufod=014) RED CELL DISTRIBUTION WIDTH (BEAKER) (test 12.6 % 11.7-14.4 eytw=763) PLATELET COUNT (BEAKER) (test tfpp=874) 179 K/CU MM 150-450 MEAN PLATELET VOLUME (BEAKER) (test vxyj=439) 10.7 fL 9.4-12.3 NUCLEATED RED BLOOD CELLS (BEAKER) (test 0 /100 WBC 0-0 deiq=934) NEUTROPHILS RELATIVE PERCENT (BEAKER) (test 60 % uofo=258) LYMPHOCYTES RELATIVE PERCENT (BEAKER) (test 27 % smhx=118) MONOCYTES RELATIVE PERCENT (BEAKER) (test 10 % htri=595) EOSINOPHILS RELATIVE PERCENT (BEAKER) (test 2 % eiti=720) BASOPHILS RELATIVE PERCENT (BEAKER) (test 0 % ztib=511) NEUTROPHILS ABSOLUTE COUNT (BEAKER) (test 4.77 K/ L 1.56-6.13 knvh=905) LYMPHOCYTES ABSOLUTE COUNT (BEAKER) (test 2.10 K/ L 1.18-3.74 agfs=929) MONOCYTES ABSOLUTE COUNT (BEAKER) (test 0.81 K/ L 0.24-0.36 etly=133) EOSINOPHILS ABSOLUTE COUNT (BEAKER) (test 0.16 K/ L 0.04-0.36 hsgb=850) BASOPHILS ABSOLUTE COUNT (BEAKER) (test 0.03 K/ L 0.01-0.08 qxgd=821) IMMATURE GRANULOCYTES-RELATIVE PERCENT (BEAKER) 0 % 0-1 (test zwjx=7884) POCT-GLUCOSE [id number] 20:25:00 Test Item Value Reference Range Comments POC-GLUCOSE METER (BEAKER) 222 mg/dL 70-110 TESTED AT [address] (test rglz=5177) [place] [id number] POCT-GLUCOSE [id number] 17:25:00 Test Item Value Reference Range Comments POC-GLUCOSE METER (BEAKER) 153 mg/dL 70-110 TESTED AT [address] (test jgrd=3853) [place] [address] POCT-GLUCOSE [id number] 12:23:00 Test Item Value Reference Range Comments POC-GLUCOSE METER (BEAKER) 206 mg/dL 70-110 TESTED AT [address] (test tsyw=3913) [place] [address] POCT-GLUCOSE [id number] 07:52:00 Test Item Value Reference Range Comments POC-GLUCOSE METER (BEAKER) 143 mg/dL 70-110 TESTED AT [address] (test fscz=0980) [place] [address] [id number] 06:35:00 Test Item Value Reference Range Comments PHOSPHORUS (BEAKER) (test tnid=884) 2.3 mg/dL 2.3-4.7 [id number] 06:35:00 Test Item Value Reference Range Comments MAGNESIUM (BEAKER) (test hdli=695) 2.2 mg/dL 1.6-2.6 BASIC METABOLIC [id number] 06:35:00 Test Item Value Reference Range Comments SODIUM (BEAKER) (test 135 meq/L 136-145 jphp=973) POTASSIUM (BEAKER) (test 4.0 meq/L 3.5-5.1 kbft=106) CHLORIDE (BEAKER) (test 103 meq/L 98-107 zvip=849) CO2 (BEAKER) (test 25 meq/L 22-29 fidv=744) BLOOD UREA NITROGEN 11 mg/dL 7-21 (BEAKER) (test cohm=656) CREATININE (BEAKER) (test 0.79 mg/dL 0.57-1.25 cssx=980) GLUCOSE RANDOM (BEAKER) 132 mg/dL 70-105 (test avqz=344) CALCIUM (BEAKER) (test 8.3 mg/dL 8.4-10.2 wlep=352) EGFR (BEAKER) (test 71 mL/min/1.73 sq m ESTIMATED GFR IS NOT ykkg=0466) ACCURATE CREATININE CLEARANCE IN PREDICTING GLOMERULAR FILTRATION RATE. ESTIMATED GFR IS NOT APPLICABLE FOR DIALYSIS PATIENTS. HEPATIC FUNCTION [id number] 06:35:00 Test Item Value Reference Range Comments TOTAL PROTEIN (BEAKER) (test nfiz=096) 6.4 gm/dL 6.0-8.3 ALBUMIN (BEAKER) (test jupc=7366) 3.3 g/dL 3.5-5.0 BILIRUBIN TOTAL (BEAKER) (test kaqz=417) 0.8 mg/dL 0.2-1.2 BILIRUBIN DIRECT (BEAKER) (test ihbf=569) 0.4 mg/dL 0.1-0.5 ALKALINE PHOSPHATASE (BEAKER) (test tdll=223) 54 U/L 40-150 AST (SGOT) (BEAKER) (test sqjs=375) 20 U/L 5-34 ALT (SGPT) (BEAKER) (test vpxu=415) 8 U/L 6-55 CBC W/PLT COUNT & AUTO [id number] 06:28:00 Test Item Value Reference Range Comments WHITE BLOOD CELL COUNT (BEAKER) (test udcv=287) 8.8 K/ L 3.5-10.5 RED BLOOD CELL COUNT (BEAKER) (test fzbd=277) 3.11 M/ L 3.93-5.22 HEMOGLOBIN (BEAKER) (test oskm=056) 9.7 GM/DL 11.2-15.7 HEMATOCRIT (BEAKER) (test rmlt=419) 30.3 % 34.1-44.9 MEAN CORPUSCULAR VOLUME (BEAKER) (test qpdx=416) 97.4 fL 79.4-94.8 MEAN CORPUSCULAR HEMOGLOBIN (BEAKER) (test 31.2 pg 25.6-32.2 mliq=361) MEAN CORPUSCULAR HEMOGLOBIN CONC (BEAKER) (test 32.0 GM/DL 32.2-35.5 dbfi=275) RED CELL DISTRIBUTION WIDTH (BEAKER) (test 12.9 % 11.7-14.4 kvse=351) PLATELET COUNT (BEAKER) (test zkfc=818) 185 K/CU MM 150-450 MEAN PLATELET VOLUME (BEAKER) (test qfrz=544) 10.8 fL 9.4-12.3 NUCLEATED RED BLOOD CELLS (BEAKER) (test 0 /100 WBC 0-0 nrqj=387) NEUTROPHILS RELATIVE PERCENT (BEAKER) (test 67 % frlp=700) LYMPHOCYTES RELATIVE PERCENT (BEAKER) (test 22 % yqea=296) MONOCYTES RELATIVE PERCENT (BEAKER) (test 9 % jwtl=103) EOSINOPHILS RELATIVE PERCENT (BEAKER) (test 1 % gftp=544) BASOPHILS RELATIVE PERCENT (BEAKER) (test 0 % ddov=861) NEUTROPHILS ABSOLUTE COUNT (BEAKER) (test 5.93 K/ L 1.56-6.13 voho=679) LYMPHOCYTES ABSOLUTE COUNT (BEAKER) (test 1.95 K/ L 1.18-3.74 ctxp=115) MONOCYTES ABSOLUTE COUNT (BEAKER) (test 0.77 K/ L 0.24-0.36 yxfc=671) EOSINOPHILS ABSOLUTE COUNT (BEAKER) (test 0.12 K/ L 0.04-0.36 fgul=818) BASOPHILS ABSOLUTE COUNT (BEAKER) (test 0.02 K/ L 0.01-0.08 rcrk=824) IMMATURE GRANULOCYTES-RELATIVE PERCENT (BEAKER) 0 % 0-1 (test udqk=5903) POCT-GLUCOSE [id number] 21:33:00 Test Item Value Reference Range Comments POC-GLUCOSE METER (BEAKER) 123 mg/dL 70-110 TESTED AT [facility] [address] [facility] (test biyp=9902) [facility] [address] POCT-GLUCOSE [id number] 17:46:00 Test Item Value Reference Range Comments POC-GLUCOSE METER (BEAKER) 213 mg/dL 70-110 TESTED AT [facility] [address] [facility] (test soly=4967) [facility] [address] POCT-GLUCOSE [id number] 13:10:00 Test Item Value Reference Range Comments POC-GLUCOSE METER (BEAKER) 103 mg/dL 70-110 TESTED AT [facility] [address] [facility] (test tqyc=4557) [facility] [address] RAD, CHEST, 1 VIEW, NON [id number] 10:00:00Reason for exam:->sudden onset shoulder painShould this be performed at the bedside?->YesFINAL REPORT Chest one view compared to May 17, 2017 Discussion: There is mild cardiac prominence. Lungs clear. No effusion or pneumothorax. Mild degenerative shoulder changes. 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 IMPRESSIONS: No specific evidence of acute abnormal L2. Signed: Yovani Zarate Verified Date/Time: 08/22/2017 10:00:44 Reading Location: [facility] Radiology Reading Room [id number] 06:52:00 Test Item Value Reference Range Comments PHOSPHORUS (BEAKER) (test putx=940) 2.6 mg/dL 2.3-4.7 [id number] 06:52:00 Test Item Value Reference Range Comments MAGNESIUM (BEAKER) (test uvmg=642) 1.8 mg/dL 1.6-2.6 BASIC METABOLIC [id number] 06:52:00 Test Item Value Reference Range Comments SODIUM (BEAKER) (test 138 meq/L 136-145 zzqw=119) POTASSIUM (BEAKER) (test 3.9 meq/L 3.5-5.1 damx=997) CHLORIDE (BEAKER) (test 106 meq/L 98-107 nflo=767) CO2 (BEAKER) (test 24 meq/L 22-29 nxtw=409) BLOOD UREA NITROGEN 15 mg/dL 7-21 (BEAKER) (test nshy=199) CREATININE (BEAKER) (test 0.83 mg/dL 0.57-1.25 tvug=890) GLUCOSE RANDOM (BEAKER) 117 mg/dL 70-105 (test dcsk=546) CALCIUM (BEAKER) (test 8.3 mg/dL 8.4-10.2 epfd=685) EGFR (BEAKER) (test 67 mL/min/1.73 sq m ESTIMATED GFR IS NOT perf=0367) ACCURATE CREATININE CLEARANCE IN PREDICTING GLOMERULAR FILTRATION RATE. ESTIMATED GFR IS NOT APPLICABLE FOR DIALYSIS PATIENTS. HEPATIC FUNCTION [id number] 06:52:00 Test Item Value Reference Range Comments TOTAL PROTEIN (BEAKER) (test jsdt=941) 6.5 gm/dL 6.0-8.3 ALBUMIN (BEAKER) (test lgtz=1328) 3.4 g/dL 3.5-5.0 BILIRUBIN TOTAL (BEAKER) (test hqys=864) 0.7 mg/dL 0.2-1.2 BILIRUBIN DIRECT (BEAKER) (test sflp=486) 0.3 mg/dL 0.1-0.5 ALKALINE PHOSPHATASE (BEAKER) (test xiwk=882) 76 U/L 40-150 AST (SGOT) (BEAKER) (test fetk=205) 19 U/L 5-34 ALT (SGPT) (BEAKER) (test vfcq=175) < U/L 6-55 POCT-GLUCOSE [id number] 06:02:00 Test Item Value Reference Range Comments POC-GLUCOSE METER (BEAKER) 126 mg/dL 70-110 TESTED AT [facility] [address] [facility] (test tgte=9759) [facility] [address] CBC W/PLT COUNT & AUTO [id number] 05:32:00 Test Item Value Reference Range Comments WHITE BLOOD CELL COUNT (BEAKER) (test aewl=646) 7.7 K/ L 3.5-10.5 RED BLOOD CELL COUNT (BEAKER) (test uvkj=182) 3.25 M/ L 3.93-5.22 HEMOGLOBIN (BEAKER) (test ykfm=074) 9.9 GM/DL 11.2-15.7 HEMATOCRIT (BEAKER) (test krto=951) 32.1 % 34.1-44.9 MEAN CORPUSCULAR VOLUME (BEAKER) (test nmmu=092) 98.8 fL 79.4-94.8 MEAN CORPUSCULAR HEMOGLOBIN (BEAKER) (test 30.5 pg 25.6-32.2 pxpj=547) MEAN CORPUSCULAR HEMOGLOBIN CONC (BEAKER) (test 30.8 GM/DL 32.2-35.5 smdr=013) RED CELL DISTRIBUTION WIDTH (BEAKER) (test 13.2 % 11.7-14.4 efzm=973) PLATELET COUNT (BEAKER) (test gdnq=447) 215 K/CU MM 150-450 MEAN PLATELET VOLUME (BEAKER) (test mmrq=488) 10.4 fL 9.4-12.3 NUCLEATED RED BLOOD CELLS (BEAKER) (test 0 /100 WBC 0-0 qlka=463) NEUTROPHILS RELATIVE PERCENT (BEAKER) (test 61 % usbl=242) LYMPHOCYTES RELATIVE PERCENT (BEAKER) (test 27 % txqh=162) MONOCYTES RELATIVE PERCENT (BEAKER) (test 9 % jvco=206) EOSINOPHILS RELATIVE PERCENT (BEAKER) (test 3 % tgmp=562) BASOPHILS RELATIVE PERCENT (BEAKER) (test 0 % nqcw=840) NEUTROPHILS ABSOLUTE COUNT (BEAKER) (test 4.66 K/ L 1.56-6.13 tqqa=291) LYMPHOCYTES ABSOLUTE COUNT (BEAKER) (test 2.09 K/ L 1.18-3.74 yqez=740) MONOCYTES ABSOLUTE COUNT (BEAKER) (test 0.67 K/ L 0.24-0.36 oaeq=448) EOSINOPHILS ABSOLUTE COUNT (BEAKER) (test 0.22 K/ L 0.04-0.36 xpdz=636) BASOPHILS ABSOLUTE COUNT (BEAKER) (test 0.03 K/ L 0.01-0.08 nknw=967) IMMATURE GRANULOCYTES-RELATIVE PERCENT (BEAKER) 0 % 0-1 (test mems=1288) POCT-GLUCOSE [id number] 23:06:00 Test Item Value Reference Range Comments POC-GLUCOSE METER (BEAKER) 115 mg/dL 70-110 TESTED AT [address] (test kcpf=2696) [facility] [address] POCT-GLUCOSE [id number] 17:34:00 Test Item Value Reference Range Comments POC-GLUCOSE METER (BEAKER) 104 mg/dL 70-110 TESTED AT [address] (test treo=9674) [facility] [address] CREATINE KINASE (CK), TOTAL AND [id number] 16:09:00 Test Item Value Reference Range Comments CREATINE KINASE TOTAL (BEAKER) (test djfn=798) 170 U/L 29-200 CREATINE KINASE-MB (BEAKER) (test xcak=278) 3.7 ng/mL 0.0-6.6 CREATINE KINASE-MB INDEX (BEAKER) (test qwad=618) 2.2 % CK-MB Reference Range:<6.7 Normal6.7-10.0 Borderline>10.0 AbnormalTROPONIN [id number] 16:09:00 Test Item Value Reference Range Comments TROPONIN I (BEAKER) (test unpq=660) 0.01 ng/mL 0.00-0.03 Troponin I (TnI) levels must be interpreted [...] failure, acidosis, acute neurological disease, and persistent tachyarrhythmia.POCT-GLUCOSE [id number] 14:22:00 Test Item Value Reference Range Comments POC-GLUCOSE METER (BEAKER) 112 mg/dL 70-110 TESTED AT [facility] [address] [facility] (test gbpr=1188) [facility] [address] HEMOGLOBIN [id number] 13:25:00 Test Item Value Reference Range Comments HEMOGLOBIN A1C (BEAKER) (test khwe=912) 7.2 % 4.3-6.1 TSH/FREE T4 IF [id number] 07:32:00 Test Item Value Reference Range Comments THYROID STIMULATING HORMONE (BEAKER) (test 3.77 uIU/mL 0.35-4.94 slsh=545) CREATINE KINASE (CK), TOTAL AND [id number] 07:16:00 Test Item Value Reference Range Comments CREATINE KINASE TOTAL (BEAKER) (test kdzo=118) 137 U/L 29-200 CREATINE KINASE-MB (BEAKER) (test apol=807) 3.6 ng/mL 0.0-6.6 CREATINE KINASE-MB INDEX (BEAKER) (test dait=853) 2.6 % CK-MB Reference Range:<6.7 Normal6.7-10.0 Borderline>10.0 AbnormalTROPONIN [id number] 07:16:00 Test Item Value Reference Range Comments TROPONIN I (AKER) (test acml=816) < ng/mL 0.00-0.03 Troponin I (TnI) levels must be interpreted [...] failure, acidosis, acute neurological disease, and persistent tachyarrhythmia.LIPID [id number] 07:08:00 Test Item Value Reference Range Comments TRIGLYCERIDES (AKER) (test iujk=383) 67 mg/dL CHOLESTEROL (AKER) (test pixy=492) 135 mg/dL HDL CHOLESTEROL (AKER) (test tmku=941) 47 mg/dL LDL CHOLESTEROL CALCULATED (AKER) (test 75 mg/dL xjkx=630) Triglyceride Reference Range: Low Risk <150 Borderline 150- 199 High Risk 200-499 Very High Risk >=500Cholesterol Reference Range: Low Risk <200 Borderline 200-239 High Risk > 240HDL Cholesterol Reference Range: Low Risk >=60 High Risk <40LDL Cholesterol Reference Range: Optimal <100 Near Optimal 100-129 Borderline 130-159 High 160-189 Very High >=190C-REACTIVE [id number] 07:08:00 Test Item Value Reference Range Comments C-REACTIVE PROTEIN (AKER) (test wbbp=214) 0.47 mg/dL 0.00-0.50 RAD, ABDOMEN/KUB, 1 VIEW [id number] 06:00:00Reason for exam:->ABDOMINAL PAINReason for exam:->ng tubeFINAL REPORT RAD, ABDOMEN /KUB, 1 VIEW AP CLINICAL INDICATION: "ABDOMINAL PAINng tube" COMPARISON: CT abdomen and pelvis from earlier tonight TECHNIQUE: 2 frontal radiographs of the abdomen. IMPRESSION: NG tube is curled in the expected location of the GE junction. This should be advanced by at least 7 cm.Dilated loops of small bowel in the abdomen.No pneumatosis or obvious pneumoperitoneum.No acute osseous abnormality. Signed: Leana Sherwood MDReport Verified Date/Time: 08/21/2017 06 :00:54 Reading Location: [address] Transitional Reading Room CT, [id number] 04:39:00Reason for exam:->ABDOMINAL PAINWhat is the patient 's sedation requirement?->No SedationFINAL REPORT CT, ABDOMEN \\T\\ PELVIS, WITHOUT IV CONTRAST INDICATION: "Abdominal pain, unspecifiedABDOMINAL PAIN" COMPARISON: CT abdomen and pelvis in 2014 TECHNIQUE: Noncontrast axially oriented images were obtained from the diaphragms through the pelvis. Coronal and sagittal reformats were provided. DOSE REDUCTION: Dose modulation, iterative reconstruction, and/or weight-basedadjustment of the mA/ kV was utilized to reduce the radiation dose to as low as reasonably achievable. FINDINGS: Lung bases are grossly clear. No acute abnormality of the solid abdominal viscera.Surgically absent gallbladder. Early versus partial small bowel obstruction. The transition point is in the anterior, mid abdomen on axial image 50. No pneumatosis or pneumoperitoneum.The colon is unremarkable. No focal lytic or destructive bony process. IMPRESSION:Early versus partial small bowel obstruction.No pneumatosis or pneumoperitoneum. Signed: Leana Sherwood MDReport Verified Date/Time: 08/21/2017 04:39:32 Reading Location: [address] Transitional Reading Room [id number] 03:02:00 Test Item Value Reference Range Comments LIPASE (BEAKER) (test ydur=986) 43 U/L 8-78 [id number] 03:02:00 Test Item Value Reference Range Comments AMYLASE (BEAKER) (test xrjs=648) 97 U/L 25-125 BASIC METABOLIC [id number] 03:02:00 Test Item Value Reference Range Comments SODIUM (BEAKER) (test 135 meq/L 136-145 ydku=405) POTASSIUM (BEAKER) (test 4.4 meq/L 3.5-5.1 ymgh=416) CHLORIDE (BEAKER) (test 99 meq/L 98-107 whta=741) CO2 (BEAKER) (test 22 meq/L 22-29 hftj=970) BLOOD UREA NITROGEN 29 mg/dL 7-21 (BEAKER) (test ebug=297) CREATININE (BEAKER) (test 1.36 mg/dL 0.57-1.25 lmus=460) GLUCOSE RANDOM (BEAKER) 201 mg/dL 70-105 (test kzny=677) CALCIUM (BEAKER) (test 10.7 mg/dL 8.4-10.2 vlwk=789) EGFR (BEAKER) (test 38 mL/min/1.73 sq m ESTIMATED GFR IS NOT dblg=9616) ACCURATE CREATININE CLEARANCE IN PREDICTING GLOMERULAR FILTRATION RATE. ESTIMATED GFR IS NOT APPLICABLE FOR DIALYSIS PATIENTS. HEPATIC FUNCTION [id number] 03:02:00 Test Item Value Reference Range Comments TOTAL PROTEIN (BEAKER) (test zrby=338) 8.4 gm/dL 6.0-8.3 ALBUMIN (BEAKER) (test slam=6207) 4.3 g/dL 3.5-5.0 BILIRUBIN TOTAL (BEAKER) (test swzp=962) 0.5 mg/dL 0.2-1.2 BILIRUBIN DIRECT (BEAKER) (test onem=024) 0.2 mg/dL 0.1-0.5 ALKALINE PHOSPHATASE (BEAKER) (test rbia=419) 68 U/L 40-150 AST (SGOT) (BEAKER) (test kjhr=461) 20 U/L 5-34 ALT (SGPT) (BEAKER) (test ieze=352) 9 U/L 6-55 CBC W/PLT COUNT & AUTO [id number] 02:34:00 Test Item Value Reference Range Comments WHITE BLOOD CELL COUNT (BEAKER) (test qwsa=149) 10.9 K/ L 3.5-10.5 RED BLOOD CELL COUNT (BEAKER) (test pliu=256) 3.86 M/ L 3.93-5.22 HEMOGLOBIN (BEAKER) (test eilw=424) 11.8 GM/DL 11.2-15.7 HEMATOCRIT (BEAKER) (test gzib=459) 37.3 % 34.1-44.9 MEAN CORPUSCULAR VOLUME (BEAKER) (test rxpm=899) 96.6 fL 79.4-94.8 MEAN CORPUSCULAR HEMOGLOBIN (BEAKER) (test 30.6 pg 25.6-32.2 mqfm=339) MEAN CORPUSCULAR HEMOGLOBIN CONC (BEAKER) (test 31.6 GM/DL 32.2-35.5 nhay=997) RED CELL DISTRIBUTION WIDTH (BEAKER) (test 13.1 % 11.7-14.4 azwl=127) PLATELET COUNT (BEAKER) (test mfue=695) 254 K/CU MM 150-450 MEAN PLATELET VOLUME (BEAKER) (test llbd=254) 10.6 fL 9.4-12.3 NUCLEATED RED BLOOD CELLS (BEAKER) (test 0 /100 WBC 0-0 htey=619) NEUTROPHILS RELATIVE PERCENT (BEAKER) (test 77 % xxbm=603) LYMPHOCYTES RELATIVE PERCENT (BEAKER) (test 17 % usln=415) MONOCYTES RELATIVE PERCENT (BEAKER) (test 4 % edqr=253) EOSINOPHILS RELATIVE PERCENT (BEAKER) (test 1 % kgjq=618) BASOPHILS RELATIVE PERCENT (BEAKER) (test 1 % keho=964) NEUTROPHILS ABSOLUTE COUNT (BEAKER) (test 8.42 K/ L 1.56-6.13 gcje=683) LYMPHOCYTES ABSOLUTE COUNT (BEAKER) (test 1.84 K/ L 1.18-3.74 errl=506) MONOCYTES ABSOLUTE COUNT (BEAKER) (test 0.45 K/ L 0.24-0.36 lirc=607) EOSINOPHILS ABSOLUTE COUNT (BEAKER) (test 0.10 K/ L 0.04-0.36 tvts=644) BASOPHILS ABSOLUTE COUNT (BEAKER) (test 0.05 K/ L 0.01-0.08 qnka=422) IMMATURE GRANULOCYTES-RELATIVE PERCENT (BEAKER) 0 % 0-1 (test dqkn=0742) RAD, CHEST, 2 [id number] 01:32:00Reason for exam:->HYPERTENSIONReason for exam:->arm/chest painFINAL REPORT INDICATION: HYPERTENSIONarm/chest pain COMPARISON: March 27, 2015 TECHNIQUE: Frontal and lateral views of the chest. FINDINGS: Lungs and pleura: Clear lungs. No effusion.Heart and mediastinum: Increasing size of cardiac silhouette compared to the prior exam. Unremarkable mediastinal contours.Osseous structures: No acute abnormality.Additional findings: None. IMPRESSION: No acute intrathoracic abnormality. Worsening cardiomegaly. Signed: JR Frank, Cathy Dai Verified Date/Time: 05/17/2017 01:32:40 Reading Location: [facility] B1 C013Y CT Body Reading Room TROPONIN [id number] 01:30:00 Test Item Value Reference Range Comments TROPONIN I (BEAKER) (test chyp=353) < ng/mL 0.00-0.03 Troponin I (TnI) levels must be interpreted [...] failure, acidosis, acute neurological disease, and persistent tachyarrhythmia.BASIC METABOLIC [id number] 01:22:00 Test Item Value Reference Range Comments SODIUM (BEAKER) (test 137 meq/L 136-145 nkyq=104) POTASSIUM (BEAKER) (test 4.5 meq/L 3.5-5.1 rata=434) CHLORIDE (BEAKER) (test 105 meq/L 98-107 aisb=135) CO2 (BEAKER) (test 23 meq/L 22-29 piqw=794) BLOOD UREA NITROGEN 26 mg/dL 7-21 (BEAKER) (test gzmm=272) CREATININE (BEAKER) (test 1.03 mg/dL 0.57-1.25 wapx=843) GLUCOSE RANDOM (BEAKER) 92 mg/dL 70-105 (test abqt=616) CALCIUM (BEAKER) (test 9.3 mg/dL 8.4-10.2 jsbd=513) EGFR (BEAKER) (test 52 mL/min/1.73 sq m ESTIMATED GFR IS NOT ylbm=0146) ACCURATE CREATININE CLEARANCE IN PREDICTING GLOMERULAR FILTRATION RATE. ESTIMATED GFR IS NOT APPLICABLE FOR DIALYSIS PATIENTS. CBC W/PLT COUNT & AUTO [id number] 01:06:00 Test Item Value Reference Range Comments WHITE BLOOD CELL COUNT (BEAKER) (test izdl=751) 7.4 K/ L 3.5-10.5 RED BLOOD CELL COUNT (BEAKER) (test mnct=926) 3.51 M/ L 3.93-5.22 HEMOGLOBIN (BEAKER) (test qmeh=340) 10.8 GM/DL 11.2-15.7 HEMATOCRIT (BEAKER) (test xgpa=393) 33.7 % 34.1-44.9 MEAN CORPUSCULAR VOLUME (BEAKER) (test jpod=369) 96.0 fL 79.4-94.8 MEAN CORPUSCULAR HEMOGLOBIN (BEAKER) (test 30.8 pg 25.6-32.2 aiyk=913) MEAN CORPUSCULAR HEMOGLOBIN CONC (BEAKER) (test 32.0 GM/DL 32.2-35.5 hfzc=137) RED CELL DISTRIBUTION WIDTH (BEAKER) (test 13.6 % 11.7-14.4 rhpl=014) PLATELET COUNT (BEAKER) (test ubar=155) 207 K/CU MM 150-450 MEAN PLATELET VOLUME (BEAKER) (test hidb=535) 10.3 fL 9.4-12.3 NUCLEATED RED BLOOD CELLS (BEAKER) (test 0 /100 WBC 0-0 vmco=277) NEUTROPHILS RELATIVE PERCENT (BEAKER) (test 47 % voki=248) LYMPHOCYTES RELATIVE PERCENT (BEAKER) (test 40 % jctt=634) MONOCYTES RELATIVE PERCENT (BEAKER) (test 7 % jxtz=014) EOSINOPHILS RELATIVE PERCENT (BEAKER) (test 5 % qtye=429) BASOPHILS RELATIVE PERCENT (BEAKER) (test 1 % kthn=521) NEUTROPHILS ABSOLUTE COUNT (BEAKER) (test 3.42 K/ L 1.56-6.13 nher=519) LYMPHOCYTES ABSOLUTE COUNT (BEAKER) (test 2.97 K/ L 1.18-3.74 urom=833) MONOCYTES ABSOLUTE COUNT (BEAKER) (test 0.54 K/ L 0.24-0.36 kxga=668) EOSINOPHILS ABSOLUTE COUNT (BEAKER) (test 0.37 K/ L 0.04-0.36 holr=192) BASOPHILS ABSOLUTE COUNT (BEAKER) (test 0.07 K/ L 0.01-0.08 wmhf=682) IMMATURE GRANULOCYTES-RELATIVE PERCENT (BEAKER) 0 % 0-1 (test exlh=3342)
[2018-08-01] MEDS ORDERED: MEPERIDINE HCL 50 MG/ML AMP ONE (19:01)
[2018-08-01] MEDS ORDERED: PROMETHAZINE 25 MG/ML VIAL ONE (19:02)
--- NOTE | 2018-08-01 21:19 | ER ---
Nurse's Notes [facility] Name: Divya Parr Age: 78 yrs Sex: Female : 1940 Arrival Date: 08/01/2018 Time: 18:07 Bed 23 Private MD: Diagnosis: Fall due to bumping against object;2-part fracture of surgical neck of humerus Presentation: 08/01 18:29 Presenting complaint: Patient states: fell yesterday, from standing, feel onto right iw side, c/o increasing pain to right shoulder, right elbow and forearm, denies head or neck pain, pain 10/10, states she can't her arm up. Transition of care: patient was not received from another setting of care. Onset of symptoms was July 31, 2018. Risk Assessment: Do you want to hurt yourself or someone else? Patient reports no desire to harm self or others. Initial Sepsis Screen: Does the patient meet any 2 criteria? No. Patient's initial sepsis screen is negative. Does the patient have a suspected source of infection? No. Patient's initial sepsis screen is negative. Care prior to arrival: None. 18:29 Method Of Arrival: Wheelchair iw 18:29 Acuity: YVETTE 4 iw Historical: - Allergies: 18:29 NKDA; iw - Home Meds: 18:29 amlodipine 10 mg oral tab once daily [Active]; aspirin 81 mg Oral chew 1 tab once daily iw [Active]; gabapentin 300 mg oral cap 1 cap 3 times per day [Active]; losartan-hydrochlorothiazide 100-25 mg oral tab 1 tab once daily [Active]; ranitidine HCl 150 mg Oral cap 1 cap 2 times per day [Active]; sertraline 100 mg oral tab 1 tab once daily [Active]; - PMHx: 18:29 Cancer, Breast; Diabetes - NIDDM; Hypertension; iw - PSHx: 18:29 Hernia repair; Mastectomy, Right; iw - Immunization history: Last tetanus immunization: unknown. - Social history:: Smoking status: Patient/guardian denies using tobacco. - Ebola Screening: : Patient negative for fever greater than or equal to 101.5 degrees Fahrenheit, and additional compatible Ebola Virus Disease symptoms Patient denies exposure to infectious person Patient denies travel to an Ebola-affected area in the 21 days before illness onset No symptoms or risks identified at this time. - Family history:: not pertinent. Screenin:35 Abuse screen: Denies threats or abuse. Denies injuries from another. Nutritional ca1 screening: No deficits noted. Tuberculosis screening: No symptoms or risk factors identified. Fall Risk Fall in past 12 months (25 points). Assessment: 18:35 General: Appears in no apparent distress. uncomfortable, Behavior is calm, cooperative, ca1 appropriate for age. Pain: Complains of pain in right arm, right shoulder, back Pain currently is 10 out of 10 on a pain scale. Pain began 0300 today Aggravated by repositioning. Neuro: Level of Consciousness is awake, alert, obeys commands, Oriented to person, place, time, situation. Cardiovascular: Heart tones S1 S2 present Capillary refill < 3 seconds Patient's skin is warm and dry. Pulses are all present. Respiratory: Airway is patent Respiratory effort is even, unlabored, Respiratory pattern is regular, symmetrical, Breath sounds are clear bilaterally. Derm: Skin is intact, is healthy with good turgor, Skin is pink, warm \T\ dry. Musculoskeletal: Circulation, motion, and sensation intact. Capillary refill < 3 seconds, Range of motion: limited in right shoulder. 18:50 Reassessment: Ice pack applied to R shoulder. ca1 19:16 Reassessment: Patient appears in no apparent distress at this time. Patient and/or ca1 family updated on plan of care and expected duration. Pain level reassessed. Patient is alert, oriented x 3, equal unlabored respirations, skin warm/dry/pink. Pending Xray. Family at bedside. 20:15 Reassessment: Patient appears in no apparent distress at this time. Patient is alert, ca1 oriented x 3, equal unlabored respirations, skin warm/dry/pink. 21:18 Reassessment: Patient appears in no apparent distress at this time. Patient is alert, ca1 oriented x 3, equal unlabored respirations, skin warm/dry/pink. 21:50 Reassessment: Patient appears in no apparent distress at this time. Patient is alert, ca1 oriented x 3, equal unlabored respirations, skin warm/dry/pink. Pt requested Tylenol for pain before going home. Notified provider. Vital Signs: 18:35 BP 137 / 82; Pulse 52; Resp 18; Temp 98.2; Pulse Ox 97% on R/A; Weight 72.57 kg; Height iw 5 ft. 2 in. (157.48 cm); Pain 10/10; 19:15 BP 137 / 50; Pulse 52; Resp 16 S; Pulse Ox 98% on R/A; ca1 20:18 BP 113 / 52; Pulse 51; Resp 16 S; Temp 98(O); Pulse Ox 98% on R/A; ca1 21:19 BP 125 / 51; Pulse 52; Resp 17 S; Temp 98.1(O); Pulse Ox 99% ; ca1 21:50 BP 131 / 59; Pulse 55; Resp 16 S; Temp 98(O); Pulse Ox 97% on R/A; ca1 18:35 Body Mass Index 29.26 (72.57 kg, 157.48 cm) iw ED Course: 18:07 Patient arrived in ED. mr 18:18 Epifanio Rea MD is Attending Physician. anh 18:29 Mary Wilson, RN is Primary Nurse. ca1 18:35 Triage completed. iw 18:36 Arm band placed on. iw 18:37 Patient has correct armband on for positive identification. Bed in low position. Call ca1 light in reach. Side rails up X 1. Pulse ox on. NIBP on. Warm blanket given. 18:37 No provider procedures requiring assistance completed. ca1 18:54 Shoulder immobilizer applied on right shoulder. ca1 19:33 Georgi Kinsey PA is PHCP. jmm 19:48 Shoulder Right (2 View) XRAY In Process Unspecified. EDMS 19:48 Humerus Right XRAY In Process Unspecified. EDMS 20:12 Elbow Right 3 View XRAY In Process Unspecified. EDMS 21:11 Darinel wrap to right elbow and right wrist Orthoglass splint: posterior long arm splint jp3 applied to the right arm. Patient maintains SpO2 saturation greater than 95% on room air. 21:19 Frank Gaona MD is Referral Physician. jmm 21:58 Patient did not have IV access during this emergency room visit. ca1 Administered Medications: 18:45 Drug: Phenergan 25 mg Route: IM; Site: right deltoid; ca1 21:20 Follow up: Response: No adverse reaction; Nausea is decreased ca1 18:50 Drug: Demerol 50 mg Route: IM; Site: left deltoid; ca1 21:20 Follow up: Response: No adverse reaction; Pain is decreased ca1 21:57 Drug: Tylenol 650 mg Route: PO; ca1 21:57 Follow up: Response: Medication administered at discharge. ca1 Outcome: 21:19 Discharge ordered by . radha 21:58 Discharged to home via wheelchair, with family. ca1 21:58 Condition: stable 21:58 Discharge instructions given to patient, family, son-in-law Instructed on discharge instructions, follow up and referral plans. medication usage, Demonstrated understanding of instructions, follow-up care, medications, Prescriptions given X 2. 21:59 Patient left the ED. ca1 Signatures: Dispatcher [employer] EDMS Epifanio Rea MD MD cha Mickail, Joel, PA PA jmm Rivera, Mary mr Maki Martinez, RN RN iw Julio C Muñoz Cheryl, RN RN ca1 Corrections: (The following items were deleted from the chart) 18:38 18:35 Patient has correct armband on for positive identification. Bed in low position. ca1 Call light in reach. Side rails up X 1. ca1 18:38 18:35 Pulse ox on. NIBP on. ca1 ca1 18:38 18:35 Warm blanket given. ca1 ca1
--- NOTE | 2018-08-01 21:20 | EDPHYS ---
Physician Documentation [facility] Name: Divya Parr Age: 78 yrs Sex: Female : 1940 Arrival Date: 08/01/2018 Time: 18:07 Bed 23 Private MD: ED Physician Epifanio Rea HPI: 08/01 18:43 This 78 yrs old Female presents to ER via Wheelchair with complaints of Fall anh Injury. 18:43 Details of fall: The patient fell from an upright position, while walking. Onset: The anh symptoms/episode began/occurred just prior to arrival. Associated injuries: The patient sustained no obvious injury. Severity of symptoms: At their worst the symptoms were moderate, in the emergency department the symptoms are unchanged. The patient has not experienced similar symptoms in the past. Historical: - Allergies: 18:29 NKDA; iw - Home Meds: 18:29 amlodipine 10 mg oral tab once daily [Active]; aspirin 81 mg Oral chew 1 tab once daily iw [Active]; gabapentin 300 mg oral cap 1 cap 3 times per day [Active]; losartan-hydrochlorothiazide 100-25 mg oral tab 1 tab once daily [Active]; ranitidine HCl 150 mg Oral cap 1 cap 2 times per day [Active]; sertraline 100 mg oral tab 1 tab once daily [Active]; - PMHx: 18:29 Cancer, Breast; Diabetes - NIDDM; Hypertension; iw - PSHx: 18:29 Hernia repair; Mastectomy, Right; iw - Immunization history: Last tetanus immunization: unknown. - Social history:: Smoking status: Patient/guardian denies using tobacco. - Ebola Screening: : Patient negative for fever greater than or equal to 101.5 degrees Fahrenheit, and additional compatible Ebola Virus Disease symptoms Patient denies exposure to infectious person Patient denies travel to an Ebola-affected area in the 21 days before illness onset No symptoms or risks identified at this time. - Family history:: not pertinent. ROS: 18:43 Constitutional: Negative for fever, chills, and weight loss, Eyes: Negative for injury, anh pain, redness, and discharge, ENT: Negative for injury, pain, and discharge, Neck: Negative for injury, pain, and swelling, Cardiovascular: Negative for chest pain, palpitations, and edema, Respiratory: Negative for shortness of breath, cough, wheezing, and pleuritic chest pain, Abdomen/GI: Negative for abdominal pain, nausea, vomiting, diarrhea, and constipation, Back: Negative for injury and pain, : Negative for injury, bleeding, discharge, and swelling, Skin: Negative for injury, rash, and discoloration, Neuro: Negative for headache, weakness, numbness, tingling, and seizure, Psych: Negative for depression, anxiety, suicide ideation, homicidal ideation, and hallucinations, Allergy/Immunology: Negative for hives, rash, and allergies, Endocrine: Negative for neck swelling, polydipsia, polyuria, polyphagia, and marked weight changes, Hematologic/Lymphatic: Negative for swollen nodes, abnormal bleeding, and unusual bruising. 18:43 MS/extremity: Positive for decreased range of motion, pain, tenderness, of the anterior aspect of right shoulder and posterior aspect of right shoulder. Exam: 18:43 Constitutional: This is a well developed, well nourished patient who is awake, alert, anh and in no acute distress. Head/Face: Normocephalic, atraumatic. Eyes: Pupils equal round and reactive to light, extra-ocular motions intact. Lids and lashes normal. Conjunctiva and sclera are non-icteric and not injected. Cornea within normal limits. Periorbital areas with no swelling, redness, or edema. ENT: Nares patent. No nasal discharge, no septal abnormalities noted. Tympanic membranes are normal and external auditory canals are clear. Oropharynx with no redness, swelling, or masses, exudates, or evidence of obstruction, uvula midline. Mucous membranes moist. Neck: Trachea midline, no thyromegaly or masses palpated, and no cervical lymphadenopathy. Supple, full range of motion without nuchal rigidity, or vertebral point tenderness. No Meningismus. Chest/axilla: Normal chest wall appearance and motion. Nontender with no deformity. No lesions are appreciated. Cardiovascular: Regular rate and rhythm with a normal S1 and S2. No gallops, murmurs, or rubs. Normal PMI, no JVD. No pulse deficits. Respiratory: Lungs have equal breath sounds bilaterally, clear to auscultation and percussion. No rales, rhonchi or wheezes noted. No increased work of breathing, no retractions or nasal flaring. Abdomen/GI: Soft, non-tender, with normal bowel sounds. No distension or tympany. No guarding or rebound. No evidence of tenderness throughout. Back: No spinal tenderness. No costovertebral tenderness. Full range of motion. Skin: Warm, dry with normal turgor. Normal color with no rashes, no lesions, and no evidence of cellulitis. Neuro: Awake and alert, GCS 15, oriented to person, place, time, and situation. Cranial nerves II-XII grossly intact. Motor strength 5/5 in all extremities. Sensory grossly intact. Cerebellar exam normal. Normal gait. Psych: Awake, alert, with orientation to person, place and time. Behavior, mood, and affect are within normal limits. 18:43 Musculoskeletal/extremity: ROM: limited active range of motion due to pain, limited passive range of motion due to pain, in the anterior aspect of right shoulder, right antecubital area, posterior aspect of right shoulder and right elbow, Circulation is intact in all extremities. Sensation intact. Compartment Syndrome exam of affected extremity: is normal. DVT Exam: negative Homans' sign noted on exam, no appreciated bluish discoloration, no erythema, no increased warmth, pain, swelling, tenderness, that is moderate, of the anterior aspect of right shoulder, right antecubital area, posterior aspect of right shoulder and right elbow. Vital Signs: 18:35 BP 137 / 82; Pulse 52; Resp 18; Temp 98.2; Pulse Ox 97% on R/A; Weight 72.57 kg; Height iw 5 ft. 2 in. (157.48 cm); Pain 10/10; 19:15 BP 137 / 50; Pulse 52; Resp 16 S; Pulse Ox 98% on R/A; ca1 20:18 BP 113 / 52; Pulse 51; Resp 16 S; Temp 98(O); Pulse Ox 98% on R/A; ca1 21:19 BP 125 / 51; Pulse 52; Resp 17 S; Temp 98.1(O); Pulse Ox 99% ; ca1 21:50 BP 131 / 59; Pulse 55; Resp 16 S; Temp 98(O); Pulse Ox 97% on R/A; ca1 18:35 Body Mass Index 29.26 (72.57 kg, 157.48 cm) MDM: 18:29 Patient medically screened. [facility] 18:45 Data reviewed: vital signs, nurses notes, radiologic studies, plain films. [facility] 08/01 18:43 Order name: Shoulder Right (2 View) XRAY; Complete Time: 13:43 [facility] 08/01 18:43 Order name: Humerus Right XRAY; Complete Time: 13:43 [facility] 08/01 18:43 Order name: Elbow Right 3 View XRAY; Complete Time: 13:43 [facility] 08/01 18:43 Order name: Ice pack; Complete Time: 18:45 [facility] 08/01 18:43 Order name: Shoulder Immobilizer; Complete Time: 18:45 [facility] 08/01 19:55 Order name: Posterior Elbow Splint; Complete Time: 21:12 [facility] Administered Medications: 18:45 Drug: Phenergan 25 mg Route: IM; Site: right deltoid; ca1 21:20 Follow up: Response: No adverse reaction; Nausea is decreased ca1 18:50 Drug: Demerol 50 mg Route: IM; Site: left deltoid; ca1 21:20 Follow up: Response: No adverse reaction; Pain is decreased ca1 21:57 Drug: Tylenol 650 mg Route: PO; ca1 21:57 Follow up: Response: Medication administered at discharge. ca1 Disposition: 08/01/18 21:19 Discharged to Home. Impression: Fall due to bumping against object, 2-part fracture of surgical neck of humerus. - Condition is Stable. - Discharge Instructions: Fall Prevention in the Home, Humerus Fracture Treated With Immobilization, Shoulder Pain, Humerus Fracture Treated With Immobilization, Dibl-vn-Bsvt, Shoulder Pain, Wmvg-na-Ktds, Fall Prevention in the Home, Omax-fq-Ebkx. - Prescriptions for Ibuprofen 600 mg Oral Tablet - take 1 tablet by ORAL route every 8 hours As needed take with food; 21 tablet. Tylenol- Codeine #3 300-30 mg Oral Tablet - take 2 tablet by ORAL route every 6 hours As needed; 30 tablet. - Medication Reconciliation Form, Thank You Letter, Antibiotic Education, Prescription Opioid Use form. - Follow up: Private Physician; When: 2 - 3 days; Reason: Recheck today's complaints, Continuance of care, Re-evaluation by your physician. Follow up: Frank Gaona; When: 2 - 3 days; Reason: Recheck today's complaints, Continuance of care, Re-evaluation by your physician. - Problem is new. - Symptoms have improved. Signatures: Dispatcher [employer] EDMS ÁlvaroEpifanio MD MD cha Mickail, Joel, PA PA jmm Williams, Irene, MARIE RN iw Mary Wilson RN RN ca1 Corrections: (The following items were deleted from the chart) 21:59 21:19 08/01/2018 21:19 Discharged to Home. Impression: Fall due to bumping against ca1 object; 2-part fracture of surgical neck of humerus. Condition is Stable. Discharge Instructions: Fall Prevention in the Home, Humerus Fracture Treated With Immobilization, Shoulder Pain, Humerus Fracture Treated With Immobilization, Roxe-wo-Cybw, Shoulder Pain, Ditg-cs-Oqzy, Fall Prevention in the Home, Bzzn-xo-Qhnm. Prescriptions for Ibuprofen 600 mg Oral Tablet - take 1 tablet by ORAL route every 8 hours As needed take with food; 21 tablet, Tylenol-Codeine #3 300-30 mg Oral Tablet - take 2 tablet by ORAL route every 6 hours As needed; 30 tablet. and Forms are Medication Reconciliation Form, Thank You Letter, Antibiotic Education, Prescription Opioid Use. Follow up: Private Physician; When: 2 - 3 days; Reason: Recheck today's complaints, Continuance of care, Re-evaluation by your physician. Follow up: Frank Gaona; When: 2 - 3 days; Reason: Recheck today's complaints, Continuance of care, Re-evaluation by your physician. Problem is new. Symptoms have improved. radha
[2018-08-01] MEDS ORDERED: ACETAMINOPHEN 325 MG TABLET ONE (22:04)
[2018-08-01 23:07] VITALS: BP 131/59; TEMP 98; O2SAT 97
--- NOTE | 2018-08-02 08:01 | RAD REPORT ---
EXAM DESCRIPTION: RAD - Elbow Right 3 View - 08/01/2018 8:12 pm CLINICAL HISTORY: Fall, right elbow pain COMPARISON: November 2013 FINDINGS: No fracture is identified and no elevated posterior fat pad. There is no dislocation or pe riosteal reaction noted. No foreign body or other soft tissue abnormality. Vascular calcifications ar e present. IMPRESSION: No fracture confirmed and no acute joint effusion evident. Repeat imaging of the elbow can be performed in 7 days if the patient remains symptomatic for fractur e.
--- NOTE | 2018-08-02 08:03 | RAD REPORT ---
EXAM DESCRIPTION: Shoulder Right 2 View - 08/01/2018 7:48 pm CLINICAL HISTORY: Fall, shoulder pain, decreased range of motion COMPARISON: November 2013 right shoulder TECHNIQUE: Internal and external rotation views of the right shoulder were obtained. FINDINGS: No acute fracture seen and no dislocation. Patient has prominent degenerative change at t he AC joint and along the undersurface of the acromion. Soft tissue calcifications seen lateral aspec t of the acromial humeral joint space. Soft tissue calcifications and degenerative changes are signif icantly progressive from 2014. IMPRESSION: No fracture or dislocation identified. 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 Degenerative or posttraumatic tendon calcinosis. Rotator cuff tear is certainly possible. Follow-up M R imaging can be performed as clinical findings warrant.
--- NOTE | 2018-08-02 08:04 | RAD REPORT ---
EXAM DESCRIPTION: RAD - Humerus Right - 08/01/2018 7:48 pm CLINICAL HISTORY: Fall, arm pain COMPARISON: November 2013 FINDINGS: Elbow joint and shoulder joint are separately detailed. Shaft of the right humerus shows n o fracture or acute finding.
== END 2018-08-01 21:59 | disposition home or self-care (01) ==
LOC: ER 18:04
PROC: 2W38X1Z Immobilization of Right Upper Extremity using Splint (ICD-10-PCS; principal; 2018-08-01)
DX: S42.221A 2-part displaced fracture of surgical neck of right humerus, initial encounter for closed fracture (principal); W18.00XA Striking against unspecified object with subsequent fall, initial encounter; Y93.9 Activity, unspecified; Y92.9 Unspecified place or not applicable; Z79.82 Long term (current) use of aspirin; Z85.3 Personal history of malignant neoplasm of breast; Z90.11 Acquired absence of right breast and nipple; I10 Essential (primary) hypertension; E11.9 Type 2 diabetes mellitus without complications
CPT/HCPCS: 73080; 73060; 73030; 29105; J2550; J2175; 96372; 99284

== ENCOUNTER 2018-09-03 18:13 | Emergency (ER) | payer OTHER ==
--- OUTSIDE RECORDS SUMMARY | 2018-09-03 18:15 | XMS REPORT | Clinical Summary ---
:1940 Author Organization [employer] [facility] Address [address] [place] [address] Care Team Providers Name Role Phone Asked, [...] INFLUENZA VACCINE 09/10/2018 Results Not on fileafter 09/02/2017 Insurance Payer Benefit Plan / Subscriber ID Effective Dates Phone Address Type Group [employer] x[facility]xxx [facility] Advance Directives Patient has advance care planning documents, and code status on file. For more information, please contact:Alireza Ford[address] [place] [id number] Code Status Date Activated Date Inactivated Comments Full Code 02/23/2017 9:24 AM 02/24/2017 7:40 PM Code Status decision reached by: Patient Full Code 09/24/2015 8:26 AM 09/29/2015 3:26 PM Code Status decision reached by: Patient
--- OUTSIDE RECORDS SUMMARY | 2018-09-03 18:16 | XMS REPORT | Clinical Summary ---
:1940 Author Organization [facility] Address [address] [place] [address] Care Team Providers Name Role Phone Sharpchava Primary Care Provider Allergies No Known Allergies Medications Medication Sig Dispensed Refills Start Date End Date Status metoprolol Take 50 mg by 0 Active (LOPRESSOR) 50 MG mouth 2 (two) tablet times daily. losartan (COZAAR) Take 100 mg by 0 Active 100 MG tablet mouth daily. citalopram (CELEXA) Take 20 mg by 0 Active 20 MG tablet mouth daily. rosuvastatin Take 10 mg by 0 Active (CRESTOR) 10 MG mouth daily. tablet amLODIPine (NORVASC) Take 10 mg by 0 Active 10 MG tablet mouth daily. acetaminophen-codein Take 1 tablet by 15 tablet 0 03/27/2015 Active e (TYLENOL #3) mouth 3 (three) 300-30 mg per tablet times daily as needed for Pain. linagliptin Take 5 mg by 0 Active (TRADJENTA) 5 mg Tab mouth. metFORMIN Take 500 mg by 0 Active (GLUCOPHAGE) 500 MG mouth 2 (two) tablet times daily with breakfast and dinner. atorvastatin Take 10 mg by 0 Active (LIPITOR) 10 MG mouth daily. tablet aspirin 81 MG EC Take 81 mg by 0 Active tablet mouth daily. pantoprazole Take 40 mg by 0 Active (PROTONIX) 40 MG mouth daily. tablet cloNIDine HCl Take 0.1 mg by 0 Active (CATAPRES) 0.1 MG mouth 2 (two) tablet times daily. magnesium oxide Take 1 tablet 14 tablet 0 08/26/2017 09/09/2017 (MAG-OX) 400 mg (400 mg total) tablet by mouth daily for 14 doses. hydrALAZINE Take 1 tablet 60 tablet 0 08/26/2017 09/25/2017 (APRESOLINE) 25 MG (25 mg total) by tablet mouth 2 (two) times daily for 30 days. indomethacin Take 1 capsule 30 capsule 0 08/26/2017 09/05/2017 (INDOCIN) 25 MG (25 mg total) by capsule mouth 3 (three) times daily with meals for 10 days. Active Problems Problem Noted Date Small bowel obstruction 08/21/2017 Diabetes mellitus, type 2 08/21/2017 Hypertension 08/21/2017 Depression 08/21/2017 Renal insufficiency 08/21/2017 Social History Tobacco Use Types Packs/Day Years [...] Signs Not on file Plan of Treatment Not on file Results Not on fileafter 09/02/2017 Insurance Payer Benefit Plan / Group Subscriber ID Type Phone Address [employer] - MEDICARE AARP/MEDICARE COMPLETE xxxxxxxxx [facility] Advance Directives For more information, please contact:[address] [phone] Code Status Date Activated Date Inactivated Comments Full Code 08/21/2017 6:04 AM 08/26/2017 8:02 PM This code status was determined by: Patient
--- OUTSIDE RECORDS SUMMARY | 2018-09-03 18:17 | XMS REPORT ---
:1940 [facility] Gelacio Cotter [address] [place] [address] Care Team Providers Name Role Phone LIZANDRO [...] (BEAKER) (test 271 mg/dL 70-110 TESTED AT [address] aoic=4494) [facility] [address] POCT-GLUCOSE [id number] 08:10:00 Test Item Value Reference Range Comments POC-GLUCOSE METER (BEAKER) 118 mg/dL 70-110 TESTED AT [address] (test jbju=2583) [facility] [address] [id number] 03:40:00 Test Item Value Reference Range Comments MAGNESIUM (BEAKER) (test axjj=691) 1.7 mg/dL 1.6-2.6 BASIC METABOLIC [id number] 03:40:00 Test Item Value Reference Range Comments SODIUM (BEAKER) (test 136 meq/L 136-145 icoz=342) POTASSIUM (BEAKER) (test 3.8 meq/L 3.5-5.1 becu=891) CHLORIDE (BEAKER) (test 105 meq/L 98-107 jgjb=401) CO2 (BEAKER) (test 22 meq/L 22-29 kunj=586) BLOOD UREA NITROGEN 11 mg/dL 7-21 (BEAKER) (test oudt=693) CREATININE (BEAKER) (test 0.81 mg/dL 0.57-1.25 qopz=954) GLUCOSE RANDOM (BEAKER) 131 mg/dL 70-105 (test whno=462) CALCIUM (BEAKER) (test 8.6 mg/dL 8.4-10.2 cfcn=196) EGFR (BEAKER) (test 69 mL/min/1.73 sq m ESTIMATED GFR IS NOT elsg=4632) ACCURATE CREATININE CLEARANCE IN PREDICTING GLOMERULAR FILTRATION RATE. ESTIMATED GFR IS NOT APPLICABLE FOR DIALYSIS PATIENTS. POCT-GLUCOSE [id number] 21:00:00 Test Item Value Reference Range Comments POC-GLUCOSE METER (BEAKER) 169 mg/dL 70-110 TESTED AT [address] (test rvee=7263) [place] [address] POCT-GLUCOSE [id number] 17:46:00 Test Item Value Reference Range Comments POC-GLUCOSE METER (BEAKER) 201 mg/dL 70-110 TESTED AT [address] (test semn=7630) [place] [address] RAD, SHOULDER, COMPLETE (MIN 2 VIEWS), [id number] 14:00:00Reason for exam:-& gt;shoulder painReason for exam:->please obtain axillary lateral and call when completeFINAL REPORT Two axillary left shoulder images. Normal glenohumeral articulation. Chronic changes are seen about the greater tuberosity and the AC joint. No visible fracture, dislocation , destructive lesion. Signed: Yovani Zarate Verified Date/Time: 2017 14:00:20 Reading Location: [address] Consult Reading Room POCT- GLUCOSE [id number] 12:12:00 Test Item Value Reference Range Comments POC-GLUCOSE METER (BEAKER) 161 mg/dL 70-110 TESTED AT [address] (test hypj=2054) [place] [address] POCT-GLUCOSE [id number] 08:42:00 Test Item Value Reference Range Comments POC-GLUCOSE METER (BEAKER) 157 mg/dL 70-110 TESTED AT [address] (test zgew=6784) [place] [address] [id number] 06:27:00 Test Item Value Reference Range Comments MAGNESIUM (BEAKER) (test gtjn=861) 1.7 mg/dL 1.6-2.6 BASIC METABOLIC [id number] 06:27:00 Test Item Value Reference Range Comments SODIUM (BEAKER) (test 134 meq/L 136-145 ozct=361) POTASSIUM (BEAKER) (test 3.7 meq/L 3.5-5.1 ikhb=366) CHLORIDE (BEAKER) (test 103 meq/L 98-107 piti=840) CO2 (BEAKER) (test 22 meq/L 22-29 wymf=245) BLOOD UREA NITROGEN 12 mg/dL 7-21 (BEAKER) (test bwse=463) CREATININE (BEAKER) (test 0.84 mg/dL 0.57-1.25 yuwc=017) GLUCOSE RANDOM (BEAKER) 149 mg/dL 70-105 (test tdbz=649) CALCIUM (BEAKER) (test 8.6 mg/dL 8.4-10.2 szzi=091) EGFR (BEAKER) (test 66 mL/min/1.73 sq m ESTIMATED GFR IS NOT pwfr=3465) ACCURATE CREATININE CLEARANCE IN PREDICTING GLOMERULAR FILTRATION RATE. ESTIMATED GFR IS NOT APPLICABLE FOR DIALYSIS PATIENTS. POCT-GLUCOSE [id number] 21:07:00 Test Item Value Reference Range Comments POC-GLUCOSE METER (BEAKER) 233 mg/dL 70-110 TESTED AT [place] [id number] [facility] (test mhxb=7647) [place] [address] POCT-GLUCOSE [id number] 16:55:00 Test Item Value Reference Range Comments POC-GLUCOSE METER (BEAKER) 354 mg/dL 70-110 TESTED AT [address] (test nzeo=8197) [place] [address] POCT-GLUCOSE [id number] 12:38:00 Test Item Value Reference Range Comments POC-GLUCOSE METER (BEAKER) 152 mg/dL 70-110 TESTED AT [address] (test vvso=7981) [facility] [address] RAD, SHOULDER, COMPLETE (MIN 2 VIEWS), [id number] 12:21:00Reason for exam:-& gt;shoulder painFINAL REPORT COMPARISON: None TECHNIQUE: 3 views of the left shoulder. FINDINGS: There are no acute fractures or dislocations. No radiopaque foreign bodies. Joint spaces are maintained. No lytic or blastic lesions. Degenerative changes of the AC joint noted. IMPRESSION : No acute bony abnormality. Signed: Kerwin Canchola MDReport Verified Date/ Time: 08/24/2017 12:21:37 Reading Location: [facility] Transitional Reading Room POCT-GLUCOSE [id number] 07:45:00 Test Item Value Reference Range Comments POC-GLUCOSE METER (BEAKER) 148 mg/dL 70-[address] [facility] [address] [facility] (test fnoa=1156) [facility] [address] [id number] 06:06:00 Test Item Value Reference Range Comments PHOSPHORUS (BEAKER) (test mroj=389) 2.3 mg/dL 2.3-4.7 [id number] 06:06:00 Test Item Value Reference Range Comments MAGNESIUM (BEAKER) (test yefh=320) 1.8 mg/dL 1.6-2.6 BASIC METABOLIC [id number] 06:06:00 Test Item Value Reference Range Comments SODIUM (BEAKER) (test 136 meq/L 136-145 bgem=210) POTASSIUM (BEAKER) (test 3.5 meq/L 3.5-5.1 tlrc=382) CHLORIDE (BEAKER) (test 104 meq/L 98-107 aiiv=867) CO2 (BEAKER) (test 24 meq/L 22-29 djbv=757) BLOOD UREA NITROGEN 10 mg/dL 7-21 (BEAKER) (test wbqe=302) CREATININE (BEAKER) (test 0.81 mg/dL 0.57-1.25 zsmn=378) GLUCOSE RANDOM (BEAKER) 133 mg/dL 70-105 (test vgdb=592) CALCIUM (BEAKER) (test 8.3 mg/dL 8.4-10.2 lkhn=415) EGFR (BEAKER) (test 69 mL/min/1.73 sq m ESTIMATED GFR IS NOT kkjx=8901) ACCURATE CREATININE CLEARANCE IN PREDICTING GLOMERULAR FILTRATION RATE. ESTIMATED GFR IS NOT APPLICABLE FOR DIALYSIS PATIENTS. HEPATIC FUNCTION [id number] 06:06:00 Test Item Value Reference Range Comments TOTAL PROTEIN (BEAKER) (test qfyz=771) 6.0 gm/dL 6.0-8.3 ALBUMIN (BEAKER) (test ijag=6299) 3.0 g/dL 3.5-5.0 BILIRUBIN TOTAL (BEAKER) (test ibho=376) 0.8 mg/dL 0.2-1.2 BILIRUBIN DIRECT (BEAKER) (test rlpa=918) 0.4 mg/dL 0.1-0.5 ALKALINE PHOSPHATASE (BEAKER) (test psvk=212) 52 U/L 40-150 AST (SGOT) (BEAKER) (test rebb=180) 22 U/L 5-34 ALT (SGPT) (BEAKER) (test qxqg=554) 10 U/L 6-55 CBC W/PLT COUNT & AUTO [id number] 05:28:00 Test Item Value Reference Range Comments WHITE BLOOD CELL COUNT (BEAKER) (test nple=167) 7.9 K/ L 3.5-10.5 RED BLOOD CELL COUNT (BEAKER) (test ihyf=265) 2.90 M/ L 3.93-5.22 HEMOGLOBIN (BEAKER) (test bndt=025) 8.8 GM/DL 11.2-15.7 HEMATOCRIT (BEAKER) (test vlqx=200) 27.9 % 34.1-44.9 MEAN CORPUSCULAR VOLUME (BEAKER) (test thdz=980) 96.2 fL 79.4-94.8 MEAN CORPUSCULAR HEMOGLOBIN (BEAKER) (test 30.3 pg 25.6-32.2 tfwt=425) MEAN CORPUSCULAR HEMOGLOBIN CONC (BEAKER) (test 31.5 GM/DL 32.2-35.5 rmon=659) RED CELL DISTRIBUTION WIDTH (BEAKER) (test 12.6 % 11.7-14.4 zhct=846) PLATELET COUNT (BEAKER) (test hvbp=321) 179 K/CU MM 150-450 MEAN PLATELET VOLUME (BEAKER) (test mgli=253) 10.7 fL 9.4-12.3 NUCLEATED RED BLOOD CELLS (BEAKER) (test 0 /100 WBC 0-0 xana=976) NEUTROPHILS RELATIVE PERCENT (BEAKER) (test 60 % vgfy=492) LYMPHOCYTES RELATIVE PERCENT (BEAKER) (test 27 % fvxv=441) MONOCYTES RELATIVE PERCENT (BEAKER) (test 10 % gyah=634) EOSINOPHILS RELATIVE PERCENT (BEAKER) (test 2 % adkj=892) BASOPHILS RELATIVE PERCENT (BEAKER) (test 0 % ewaz=437) NEUTROPHILS ABSOLUTE COUNT (BEAKER) (test 4.77 K/ L 1.56-6.13 yrwf=137) LYMPHOCYTES ABSOLUTE COUNT (BEAKER) (test 2.10 K/ L 1.18-3.74 ivna=276) MONOCYTES ABSOLUTE COUNT (BEAKER) (test 0.81 K/ L 0.24-0.36 temt=915) EOSINOPHILS ABSOLUTE COUNT (BEAKER) (test 0.16 K/ L 0.04-0.36 jvnb=679) BASOPHILS ABSOLUTE COUNT (BEAKER) (test 0.03 K/ L 0.01-0.08 wjio=751) IMMATURE GRANULOCYTES-RELATIVE PERCENT (BEAKER) 0 % 0-1 (test hbig=3069) POCT-GLUCOSE [id number] 20:25:00 Test Item Value Reference Range Comments POC-GLUCOSE METER (BEAKER) 222 mg/dL 70-110 TESTED AT [address] (test dmdr=6686) [place] [address] POCT-GLUCOSE [id number] 17:25:00 Test Item Value Reference Range Comments POC-GLUCOSE METER (BEAKER) 153 mg/dL 70-110 TESTED AT [address] (test ijba=3236) [place] [address] POCT-GLUCOSE [id number] 12:23:00 Test Item Value Reference Range Comments POC-GLUCOSE METER (BEAKER) 206 mg/dL 70-110 TESTED AT [address] (test roih=5217) [place] [address] POCT-GLUCOSE [id number] 07:52:00 Test Item Value Reference Range Comments POC-GLUCOSE METER (BEAKER) 143 mg/dL 70-110 TESTED AT [address] (test tksc=7094) [place] [address] [id number] 06:35:00 Test Item Value Reference Range Comments PHOSPHORUS (BEAKER) (test cjfk=294) 2.3 mg/dL 2.3-4.7 [id number] 06:35:00 Test Item Value Reference Range Comments MAGNESIUM (BEAKER) (test ojyi=114) 2.2 mg/dL 1.6-2.6 BASIC METABOLIC [id number] 06:35:00 Test Item Value Reference Range Comments SODIUM (BEAKER) (test 135 meq/L 136-145 lels=930) POTASSIUM (BEAKER) (test 4.0 meq/L 3.5-5.1 ljhz=631) CHLORIDE (BEAKER) (test 103 meq/L 98-107 ahpp=617) CO2 (BEAKER) (test 25 meq/L 22-29 zwqq=490) BLOOD UREA NITROGEN 11 mg/dL 7-21 (BEAKER) (test qqcx=380) CREATININE (BEAKER) (test 0.79 mg/dL 0.57-1.25 bdxs=873) GLUCOSE RANDOM (BEAKER) 132 mg/dL 70-105 (test vzah=089) CALCIUM (BEAKER) (test 8.3 mg/dL 8.4-10.2 ptjl=393) EGFR (BEAKER) (test 71 mL/min/1.73 sq m ESTIMATED GFR IS NOT pecl=7771) ACCURATE CREATININE CLEARANCE IN PREDICTING GLOMERULAR FILTRATION RATE. ESTIMATED GFR IS NOT APPLICABLE FOR DIALYSIS PATIENTS. HEPATIC FUNCTION [id number] 06:35:00 Test Item Value Reference Range Comments TOTAL PROTEIN (BEAKER) (test cnrh=717) 6.4 gm/dL 6.0-8.3 ALBUMIN (BEAKER) (test oyiy=1264) 3.3 g/dL 3.5-5.0 BILIRUBIN TOTAL (BEAKER) (test jtxu=069) 0.8 mg/dL 0.2-1.2 BILIRUBIN DIRECT (BEAKER) (test dkye=064) 0.4 mg/dL 0.1-0.5 ALKALINE PHOSPHATASE (BEAKER) (test vhay=682) 54 U/L 40-150 AST (SGOT) (BEAKER) (test husj=322) 20 U/L 5-34 ALT (SGPT) (BEAKER) (test koce=545) 8 U/L 6-55 CBC W/PLT COUNT & AUTO [id number] 06:28:00 Test Item Value Reference Range Comments WHITE BLOOD CELL COUNT (BEAKER) (test scol=212) 8.8 K/ L 3.5-10.5 RED BLOOD CELL COUNT (BEAKER) (test xgbi=937) 3.11 M/ L 3.93-5.22 HEMOGLOBIN (BEAKER) (test zelf=622) 9.7 GM/DL 11.2-15.7 HEMATOCRIT (BEAKER) (test xnge=958) 30.3 % 34.1-44.9 MEAN CORPUSCULAR VOLUME (BEAKER) (test yvhh=261) 97.4 fL 79.4-94.8 MEAN CORPUSCULAR HEMOGLOBIN (BEAKER) (test 31.2 pg 25.6-32.2 jvry=079) MEAN CORPUSCULAR HEMOGLOBIN CONC (BEAKER) (test 32.0 GM/DL 32.2-35.5 icbv=479) RED CELL DISTRIBUTION WIDTH (BEAKER) (test 12.9 % 11.7-14.4 aczl=949) PLATELET COUNT (BEAKER) (test lthh=643) 185 K/CU MM 150-450 MEAN PLATELET VOLUME (BEAKER) (test qdpd=140) 10.8 fL 9.4-12.3 NUCLEATED RED BLOOD CELLS (BEAKER) (test 0 /100 WBC 0-0 hrfj=003) NEUTROPHILS RELATIVE PERCENT (BEAKER) (test 67 % cnlw=530) LYMPHOCYTES RELATIVE PERCENT (BEAKER) (test 22 % adss=478) MONOCYTES RELATIVE PERCENT (BEAKER) (test 9 % wxwc=282) EOSINOPHILS RELATIVE PERCENT (BEAKER) (test 1 % gffc=681) BASOPHILS RELATIVE PERCENT (BEAKER) (test 0 % kthc=169) NEUTROPHILS ABSOLUTE COUNT (BEAKER) (test 5.93 K/ L 1.56-6.13 pcnf=580) LYMPHOCYTES ABSOLUTE COUNT (BEAKER) (test 1.95 K/ L 1.18-3.74 cewm=055) MONOCYTES ABSOLUTE COUNT (BEAKER) (test 0.77 K/ L 0.24-0.36 qmyv=576) EOSINOPHILS ABSOLUTE COUNT (BEAKER) (test 0.12 K/ L 0.04-0.36 qblb=390) BASOPHILS ABSOLUTE COUNT (BEAKER) (test 0.02 K/ L 0.01-0.08 nuww=305) IMMATURE GRANULOCYTES-RELATIVE PERCENT (BEAKER) 0 % 0-1 (test qfeh=1462) POCT-GLUCOSE [id number] 21:33:00 Test Item Value Reference Range Comments POC-GLUCOSE METER (BEAKER) 123 mg/dL 70-[address] [facility] [address] [facility] (test cnbb=4439) [facility] [address] POCT-GLUCOSE [id number] 17:46:00 Test Item Value Reference Range Comments POC-GLUCOSE METER (BEAKER) 213 mg/dL 70-[address] [facility] [address] [facility] (test vdbf=9451) [facility] [address] POCT-GLUCOSE [id number] 13:10:00 Test Item Value Reference Range Comments POC-GLUCOSE METER (BEAKER) 103 mg/dL 70-[address] [facility] [address] [facility] (test gfom=8601) [facility] [address] RAD, CHEST, 1 VIEW, NON [id number] 10:00:00Reason for exam:->sudden onset shoulder painShould this be performed at the bedside?->YesFINAL REPORT Chest one view compared to May 17, 2017 Discussion: There is mild cardiac prominence. Lungs clear. No effusion or pneumothorax. Mild degenerative shoulder changes. 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 IMPRESSIONS: No specific evidence of acute abnormal L2. Signed: Yovani Zarate Verified Date/Time: 08/22/2017 10:00:44 Reading Location: [facility] Radiology Reading Room [id number] 06:52:00 Test Item Value Reference Range Comments PHOSPHORUS (BEAKER) (test vbmb=094) 2.6 mg/dL 2.3-4.7 [id number] 06:52:00 Test Item Value Reference Range Comments MAGNESIUM (BEAKER) (test erdj=537) 1.8 mg/dL 1.6-2.6 BASIC METABOLIC [id number] 06:52:00 Test Item Value Reference Range Comments SODIUM (BEAKER) (test 138 meq/L 136-145 uawq=442) POTASSIUM (BEAKER) (test 3.9 meq/L 3.5-5.1 hqql=904) CHLORIDE (BEAKER) (test 106 meq/L 98-107 sfnk=532) CO2 (BEAKER) (test 24 meq/L 22-29 ghia=514) BLOOD UREA NITROGEN 15 mg/dL 7-21 (BEAKER) (test yagc=045) CREATININE (BEAKER) (test 0.83 mg/dL 0.57-1.25 zuki=967) GLUCOSE RANDOM (BEAKER) 117 mg/dL 70-105 (test qjbs=283) CALCIUM (BEAKER) (test 8.3 mg/dL 8.4-10.2 oiak=721) EGFR (BEAKER) (test 67 mL/min/1.73 sq m ESTIMATED GFR IS NOT clre=5504) ACCURATE CREATININE CLEARANCE IN PREDICTING GLOMERULAR FILTRATION RATE. ESTIMATED GFR IS NOT APPLICABLE FOR DIALYSIS PATIENTS. HEPATIC FUNCTION [id number] 06:52:00 Test Item Value Reference Range Comments TOTAL PROTEIN (BEAKER) (test xmto=144) 6.5 gm/dL 6.0-8.3 ALBUMIN (BEAKER) (test oczp=5291) 3.4 g/dL 3.5-5.0 BILIRUBIN TOTAL (BEAKER) (test bmda=318) 0.7 mg/dL 0.2-1.2 BILIRUBIN DIRECT (BEAKER) (test bnef=044) 0.3 mg/dL 0.1-0.5 ALKALINE PHOSPHATASE (BEAKER) (test jbtv=100) 76 U/L 40-150 AST (SGOT) (BEAKER) (test fvzc=669) 19 U/L 5-34 ALT (SGPT) (BEAKER) (test zkrb=346) < U/L 6-55 POCT-GLUCOSE [id number] 06:02:00 Test Item Value Reference Range Comments POC-GLUCOSE METER (BEAKER) 126 mg/dL 70-[address] [facility] [address] [facility] (test crsp=2870) [facility] [address] CBC W/PLT COUNT & AUTO [id number] 05:32:00 Test Item Value Reference Range Comments WHITE BLOOD CELL COUNT (BEAKER) (test qhjb=157) 7.7 K/ L 3.5-10.5 RED BLOOD CELL COUNT (BEAKER) (test gkie=936) 3.25 M/ L 3.93-5.22 HEMOGLOBIN (BEAKER) (test nvag=181) 9.9 GM/DL 11.2-15.7 HEMATOCRIT (BEAKER) (test twml=891) 32.1 % 34.1-44.9 MEAN CORPUSCULAR VOLUME (BEAKER) (test xvil=402) 98.8 fL 79.4-94.8 MEAN CORPUSCULAR HEMOGLOBIN (BEAKER) (test 30.5 pg 25.6-32.2 jhly=642) MEAN CORPUSCULAR HEMOGLOBIN CONC (BEAKER) (test 30.8 GM/DL 32.2-35.5 wcbx=657) RED CELL DISTRIBUTION WIDTH (BEAKER) (test 13.2 % 11.7-14.4 rqrj=924) PLATELET COUNT (BEAKER) (test lqvy=606) 215 K/CU MM 150-450 MEAN PLATELET VOLUME (BEAKER) (test ekyw=003) 10.4 fL 9.4-12.3 NUCLEATED RED BLOOD CELLS (BEAKER) (test 0 /100 WBC 0-0 xkzy=904) NEUTROPHILS RELATIVE PERCENT (BEAKER) (test 61 % clnp=142) LYMPHOCYTES RELATIVE PERCENT (BEAKER) (test 27 % fhwc=534) MONOCYTES RELATIVE PERCENT (BEAKER) (test 9 % jrkf=683) EOSINOPHILS RELATIVE PERCENT (BEAKER) (test 3 % ykop=294) BASOPHILS RELATIVE PERCENT (BEAKER) (test 0 % qznv=002) NEUTROPHILS ABSOLUTE COUNT (BEAKER) (test 4.66 K/ L 1.56-6.13 kaon=213) LYMPHOCYTES ABSOLUTE COUNT (BEAKER) (test 2.09 K/ L 1.18-3.74 itmf=014) MONOCYTES ABSOLUTE COUNT (BEAKER) (test 0.67 K/ L 0.24-0.36 hqhq=488) EOSINOPHILS ABSOLUTE COUNT (BEAKER) (test 0.22 K/ L 0.04-0.36 sfww=416) BASOPHILS ABSOLUTE COUNT (BEAKER) (test 0.03 K/ L 0.01-0.08 rtiz=132) IMMATURE GRANULOCYTES-RELATIVE PERCENT (BEAKER) 0 % 0-1 (test ctcw=8724) POCT-GLUCOSE [id number] 23:06:00 Test Item Value Reference Range Comments POC-GLUCOSE METER (BEAKER) 115 mg/dL 70-110 TESTED AT [address] (test ydug=6667) [facility] [address] POCT-GLUCOSE [id number] 17:34:00 Test Item Value Reference Range Comments POC-GLUCOSE METER (BEAKER) 104 mg/dL 70-110 TESTED AT [address] (test kool=8283) [facility] [address] CREATINE KINASE (CK), TOTAL AND [id number] 16:09:00 Test Item Value Reference Range Comments CREATINE KINASE TOTAL (BEAKER) (test buvf=947) 170 U/L 29-200 CREATINE KINASE-MB (BEAKER) (test qeqw=560) 3.7 ng/mL 0.0-6.6 CREATINE KINASE-MB INDEX (BEAKER) (test hjqt=704) 2.2 % CK-MB Reference Range:<6.7 Normal6.7-10.0 Borderline>10.0 AbnormalTROPONIN [id number] 16:09:00 Test Item Value Reference Range Comments TROPONIN I (BEAKER) (test qvmz=475) 0.01 ng/mL 0.00-0.03 Troponin I (TnI) levels [...] acidosis, acute neurological disease, and persistent tachyarrhythmia.POCT-GLUCOSE [id number] 14:22:00 Test Item Value Reference Range Comments POC-GLUCOSE METER (BEAKER) 112 mg/dL 70-[address] [facility] [address] [place] [address] (test aqeg=7358) [facility] [address] HEMOGLOBIN [id number] 13:25:00 Test Item Value Reference Range Comments HEMOGLOBIN A1C (BEAKER) (test djkw=428) 7.2 % 4.3-6.1 TSH/FREE T4 IF [id number] 07:32:00 Test Item Value Reference Range Comments THYROID STIMULATING HORMONE (BEAKER) (test 3.77 uIU/mL 0.35-4.94 gpyq=624) CREATINE KINASE (CK), TOTAL AND [id number] 07:16:00 Test Item Value Reference Range Comments CREATINE KINASE TOTAL (BEAKER) (test opet=288) 137 U/L 29-200 CREATINE KINASE-MB (BEAKER) (test fwtr=009) 3.6 ng/mL 0.0-6.6 CREATINE KINASE-MB INDEX (BEAKER) (test vqhn=289) 2.6 % CK-MB Reference Range:<6.7 Normal6.7-10.0 Borderline>10.0 AbnormalTROPONIN [id number] 07:16:00 Test Item Value Reference Range Comments TROPONIN I (CESILIAAKER) (test ihby=751) < ng/mL 0.00-0.03 Troponin I (TnI) levels [...] acidosis, acute neurological disease, and persistent tachyarrhythmia.LIPID [id number] 07:08:00 Test Item Value Reference Range Comments TRIGLYCERIDES (CESILIAAKER) (test vatd=308) 67 mg/dL CHOLESTEROL (AKER) (test nocj=665) 135 mg/dL HDL CHOLESTEROL (AKER) (test jfje=112) 47 mg/dL LDL CHOLESTEROL CALCULATED (AKER) (test 75 mg/dL ctfy=994) Triglyceride Reference Range: Low Risk <150 Borderline 150- 199 High Risk 200-499 Very High Risk >=500Cholesterol Reference Range: Low Risk <200 Borderline 200-239 High Risk > 240HDL Cholesterol Reference Range: Low Risk >=60 High Risk <40LDL Cholesterol Reference Range: Optimal <100 Near Optimal 100-129 Borderline 130-159 High 160-189 Very High >=190C-REACTIVE [id number] 07:08:00 Test Item Value Reference Range Comments C-REACTIVE PROTEIN (CESILIAAKER) (test ivhr=046) 0.47 mg/dL 0.00-0.50 RAD, ABDOMEN/KUB, 1 VIEW [id number] 06:00:00Reason for exam:->ABDOMINAL PAINReason for exam:->ng tubeFINAL [...] Verified Date/Time: 08/21/2017 06 :00:54 Reading Location: [address] Transitional Reading Room CT, [id number] 04:39:00Reason for exam:->ABDOMINAL PAINWhat is the patient [...] bowel obstruction.No pneumatosis or pneumoperitoneum. Signed: Leana hSerwood MDReport Verified Date/Time: 08/21/2017 04:39:32 Reading Location: [address] Transitional Reading Room [id number] 03:02:00 Test Item Value Reference Range Comments LIPASE (BEAKER) (test ztqk=792) 43 U/L 8-78 [id number] 03:02:00 Test Item Value Reference Range Comments AMYLASE (BEAKER) (test zoxm=292) 97 U/L 25-125 BASIC METABOLIC [id number] 03:02:00 Test Item Value Reference Range Comments SODIUM (BEAKER) (test 135 meq/L 136-145 sakh=463) POTASSIUM (BEAKER) (test 4.4 meq/L 3.5-5.1 dnpb=448) CHLORIDE (BEAKER) (test 99 meq/L 98-107 txzw=257) CO2 (BEAKER) (test 22 meq/L 22-29 rpkg=508) BLOOD UREA NITROGEN 29 mg/dL 7-21 (BEAKER) (test mbeq=627) CREATININE (BEAKER) (test 1.36 mg/dL 0.57-1.25 plhh=422) GLUCOSE RANDOM (BEAKER) 201 mg/dL 70-105 (test gist=842) CALCIUM (BEAKER) (test 10.7 mg/dL 8.4-10.2 sxmp=205) EGFR (BEAKER) (test 38 mL/min/1.73 sq m ESTIMATED GFR IS NOT vywg=1940) ACCURATE CREATININE CLEARANCE IN PREDICTING GLOMERULAR FILTRATION RATE. ESTIMATED GFR IS NOT APPLICABLE FOR DIALYSIS PATIENTS. HEPATIC FUNCTION [id number] 03:02:00 Test Item Value Reference Range Comments TOTAL PROTEIN (BEAKER) (test iqbw=538) 8.4 gm/dL 6.0-8.3 ALBUMIN (BEAKER) (test kocy=0019) 4.3 g/dL 3.5-5.0 BILIRUBIN TOTAL (BEAKER) (test jhhe=276) 0.5 mg/dL 0.2-1.2 BILIRUBIN DIRECT (BEAKER) (test rohx=691) 0.2 mg/dL 0.1-0.5 ALKALINE PHOSPHATASE (BEAKER) (test joic=171) 68 U/L 40-150 AST (SGOT) (BEAKER) (test tdcq=193) 20 U/L 5-34 ALT (SGPT) (BEAKER) (test uvab=159) 9 U/L 6-55 CBC W/PLT COUNT & AUTO [id number] 02:34:00 Test Item Value Reference Range Comments WHITE BLOOD CELL COUNT (BEAKER) (test ydbd=054) 10.9 K/ L 3.5-10.5 RED BLOOD CELL COUNT (BEAKER) (test jncm=078) 3.86 M/ L 3.93-5.22 HEMOGLOBIN (BEAKER) (test jguo=902) 11.8 GM/DL 11.2-15.7 HEMATOCRIT (BEAKER) (test qklk=041) 37.3 % 34.1-44.9 MEAN CORPUSCULAR VOLUME (BEAKER) (test zwnq=360) 96.6 fL 79.4-94.8 MEAN CORPUSCULAR HEMOGLOBIN (BEAKER) (test 30.6 pg 25.6-32.2 auyv=849) MEAN CORPUSCULAR HEMOGLOBIN CONC (BEAKER) (test 31.6 GM/DL 32.2-35.5 kvtq=791) RED CELL DISTRIBUTION WIDTH (BEAKER) (test 13.1 % 11.7-14.4 regq=893) PLATELET COUNT (BEAKER) (test pell=861) 254 K/CU MM 150-450 MEAN PLATELET VOLUME (BEAKER) (test seod=435) 10.6 fL 9.4-12.3 NUCLEATED RED BLOOD CELLS (BEAKER) (test 0 /100 WBC 0-0 mues=436) NEUTROPHILS RELATIVE PERCENT (BEAKER) (test 77 % ozqo=960) LYMPHOCYTES RELATIVE PERCENT (BEAKER) (test 17 % ttfi=131) MONOCYTES RELATIVE PERCENT (BEAKER) (test 4 % mbhr=610) EOSINOPHILS RELATIVE PERCENT (BEAKER) (test 1 % iwqq=324) BASOPHILS RELATIVE PERCENT (BEAKER) (test 1 % rqnp=031) NEUTROPHILS ABSOLUTE COUNT (BEAKER) (test 8.42 K/ L 1.56-6.13 tbll=599) LYMPHOCYTES ABSOLUTE COUNT (BEAKER) (test 1.84 K/ L 1.18-3.74 ojwi=375) MONOCYTES ABSOLUTE COUNT (BEAKER) (test 0.45 K/ L 0.24-0.36 tmge=159) EOSINOPHILS ABSOLUTE COUNT (BEAKER) (test 0.10 K/ L 0.04-0.36 ayyx=826) BASOPHILS ABSOLUTE COUNT (BEAKER) (test 0.05 K/ L 0.01-0.08 zfbi=431) IMMATURE GRANULOCYTES-RELATIVE PERCENT (BEAKER) 0 % 0-1 (test zutk=9608) RAD, CHEST, 2 [id number] 01:32:00Reason for exam:->HYPERTENSIONReason for exam:->arm/chest painFINAL REPORT [...] Dai Verified Date/Time: 05/17/2017 01:32:40 Reading Location: [facility] B1 C013Y CT Body Reading Room TROPONIN [id number] 01:30:00 Test Item Value Reference Range Comments TROPONIN I (BEAKER) (test ybgd=341) < ng/mL 0.00-0.03 Troponin I (TnI) levels [...] acute neurological disease, and persistent tachyarrhythmia.BASIC METABOLIC [id number] 01:22:00 Test Item Value Reference Range Comments SODIUM (BEAKER) (test 137 meq/L 136-145 jrvb=694) POTASSIUM (BEAKER) (test 4.5 meq/L 3.5-5.1 gehg=850) CHLORIDE (BEAKER) (test 105 meq/L 98-107 ufyc=862) CO2 (BEAKER) (test 23 meq/L 22-29 hynw=683) BLOOD UREA NITROGEN 26 mg/dL 7-21 (BEAKER) (test fogm=102) CREATININE (BEAKER) (test 1.03 mg/dL 0.57-1.25 afmy=197) GLUCOSE RANDOM (BEAKER) 92 mg/dL 70-105 (test misl=468) CALCIUM (BEAKER) (test 9.3 mg/dL 8.4-10.2 ijya=805) EGFR (BEAKER) (test 52 mL/min/1.73 sq m ESTIMATED GFR IS NOT nidi=3536) ACCURATE CREATININE CLEARANCE IN PREDICTING GLOMERULAR FILTRATION RATE. ESTIMATED GFR IS NOT APPLICABLE FOR DIALYSIS PATIENTS. CBC W/PLT COUNT & AUTO [id number] 01:06:00 Test Item Value Reference Range Comments WHITE BLOOD CELL COUNT (BEAKER) (test lgmf=880) 7.4 K/ L 3.5-10.5 RED BLOOD CELL COUNT (BEAKER) (test yxnf=422) 3.51 M/ L 3.93-5.22 HEMOGLOBIN (BEAKER) (test cfvz=310) 10.8 GM/DL 11.2-15.7 HEMATOCRIT (BEAKER) (test uyku=024) 33.7 % 34.1-44.9 MEAN CORPUSCULAR VOLUME (BEAKER) (test hvsh=518) 96.0 fL 79.4-94.8 MEAN CORPUSCULAR HEMOGLOBIN (BEAKER) (test 30.8 pg 25.6-32.2 isil=041) MEAN CORPUSCULAR HEMOGLOBIN CONC (BEAKER) (test 32.0 GM/DL 32.2-35.5 nhmn=516) RED CELL DISTRIBUTION WIDTH (BEAKER) (test 13.6 % 11.7-14.4 oamg=517) PLATELET COUNT (BEAKER) (test tqkw=869) 207 K/CU MM 150-450 MEAN PLATELET VOLUME (BEAKER) (test rgto=583) 10.3 fL 9.4-12.3 NUCLEATED RED BLOOD CELLS (BEAKER) (test 0 /100 WBC 0-0 uoeq=121) NEUTROPHILS RELATIVE PERCENT (BEAKER) (test 47 % skle=894) LYMPHOCYTES RELATIVE PERCENT (BEAKER) (test 40 % zvxj=656) MONOCYTES RELATIVE PERCENT (BEAKER) (test 7 % nult=472) EOSINOPHILS RELATIVE PERCENT (BEAKER) (test 5 % hqxc=678) BASOPHILS RELATIVE PERCENT (BEAKER) (test 1 % arni=286) NEUTROPHILS ABSOLUTE COUNT (BEAKER) (test 3.42 K/ L 1.56-6.13 fyyi=782) LYMPHOCYTES ABSOLUTE COUNT (BEAKER) (test 2.97 K/ L 1.18-3.74 vaft=364) MONOCYTES ABSOLUTE COUNT (BEAKER) (test 0.54 K/ L 0.24-0.36 ggpt=996) EOSINOPHILS ABSOLUTE COUNT (BEAKER) (test 0.37 K/ L 0.04-0.36 jehz=065) BASOPHILS ABSOLUTE COUNT (BEAKER) (test 0.07 K/ L 0.01-0.08 ibey=475) IMMATURE GRANULOCYTES-RELATIVE PERCENT (BEAKER) 0 % 0-1 (test utho=6430) MRI BRAIN WOCLINICAL INDICATION: R26.81 Unsteadiness on feet, history breast cancerMODALITY: [employer] [place] 1.2 Radha High Field Open MRITECHNIQUE: Multiplanar SE, FSE and inversion recovery pulse sequences of the brain were performed without contrast enhancement. Diffusion weighted imaging was utilized. There is some limitation due to motion.IMPRESSION:1. Numerous periventricular and subcortical nonspecific white matter hyperintense foci which can be seen with chronic microvascular ischemic changes stable. No evidence of acute intracranial pathology.2. No evidence of metastatic disease to the brain.FINDINGS:COMPARISON: noneNumerous periventricular and subcortical nonspecific white matter hyperintensefoci which can be seen with chronic small vessel ischemic changes.The ventricles, cisterns, fissuresand sulci are of normal caliber and contour. There is no evidence of mass, mass effect or extra- axial collection. The midline structures including the corpus callosum, pituitary and pineal region areunremarkable.Visualized portions of the orbits are normal. The cranio-cervical junction is normal.No significant white matter abnormalities are identified.Normal flow voids are seen intracranially in carotid and vertebrobasilar systems, as well as, the sagittal sinus.No evidence of abnormal diffusionrestriction.CR - XRAY XRAY DEXA BONE DENSITYCLINICAL INDICATION: R26.81 Unsteadiness on feet TECHNIQUE: Bone densitometry is performed using the Hologic Dexa. Imaging of the spine and hip are performed. Quantitative analysis is accomplished.FINDINGS:COMPARISON: NoneThe BMD at the left femoral neck is 0.7 gms/cm.sq. This is consistent withyoung adult T-score of -1.0 and age matched Z-score of 1.0.The BMD at the right femoral neck is 0.8 gms/cm.sq. This is consistent with young adult T-score of 0.6 and age matched Z- score of 1.6.Average bone mineral density of L1 - L4 is 1.1 gms/cm.sq. This is consistent with young adult T-score of 0.6 and age matched Z-score of 3.0.IMPRESSION:WHO diagnostic category is normal based upon lumbar spine and osteopenia for the femoral neck..Recommendation: Follow-up in 2 years for reevaluation. -0.5CT ABDOMEN AND PELVIS W/O CONTRASTCLINICAL INDICATION: R10.9 Unspecified abdominal painMODALITY: ticckle CT (Iterative dose reduction techniques are utilized.)TECHNIQUE: Helical imaging of the abdomen and pelvis is performed. Oral contrast is administered. Computed Tomography Dose Index: 22.39 mGy. IMPRESSION:1. Mild thickening of the duodenum and proximal jejunum. Consider duodenitis/jejunitis2. Apparent changes of right mastectomy.3. Status post cholecystectomy.FINDINGS:COMPARISON: NoneThe lung bases are clear. No pleural disease is present. Changes of right mastectomy are noted. The heart size is mildly enlarged.The liver is normal in size and contour with no focal attenuation defect suspicious for replacement lesion. Hepatic veins, portal venous system and biliary tree are normal. The gallbladder is absent; cholecystectomy clips are visible.Stomach is unremarkable. The spleen is normal in size and contour. Nopancreatic mass, pancreatic duct dilatation or peripancreatic edema is visible.Adrenal glands and kidneys are normal. There are no renal calculi, hydronephrosis or masses noted. Neither retrocrural norretroperitoneal adenopathy is present. Vascular structures are within normal limits.There is mild diffuse thickening of the duodenum and proximal jejunum. Contrast traverses beyond this region into thedistal ileum. The terminal ileum is not opacified by contrast. The visualized colon is unremarkable.A normal appendix is seen. Omentum and mesentery are unremarkable.The uterus is unremarkable. No adnexal masses are visible.Abdominal wall is intact.No ascites visualized.No lytic or blastic osseous lesions are observed.PQRS 436: [id number] (For official use only.)
--- NOTE | 2018-09-03 19:02 | RAD REPORT ---
EXAM DESCRIPTION: CT - Head C Spine Mpr Wo Con - 09/03/2018 6:45 pm CLINICAL HISTORY: Head and neck injury status post fall. Head and neck pain COMPARISON: 2013 TECHNIQUE: Computed axial tomography of the head and cervical spine was obtained. Sagittal and coronal reconstruction was performed. All CT scans are performed using dose optimization technique as appropriate and may include automated exposure control or mA/KV adjustment according to patient size. FINDINGS: An intracranial bleed is not seen. Mild low-density areas within periventricular, deep and subcortical white matter may represent ischemic changes secondary to small vessel disease. The ventricles are normal in caliber. An extra-axial fluid collection is not noted.Fluid within the v isualized sinuses and mastoids is not seen A cervical fracture is not visualized. No dislocation is noted. Spondylosis involves the cervical spi ne IMPRESSION: No acute intracranial abnormality is seen. A cervical fracture is not visualized. If the patient continues to have symptoms to suggest intracra nial /spinal cord pathology then MRI would be recommended
--- NOTE | 2018-09-03 19:21 | EDPHYS ---
Physician Documentation [facility] Name: Divya Parr Age: 78 yrs Sex: Female : 1940 Arrival Date: 09/03/2018 Time: 18:17 Bed 23 Private MD: ED Physician Stephon Farley HPI: 09/03 18:31 This 78 yrs old Female presents to ER via Ambulatory with complaints of Neck pm1 and Upper Back Pain. 18:31 The patient or guardian complains of pain. The symptoms are located diffusely. Onset: pm1 The symptoms/episode began/occurred 3 day(s) ago. Context: The problem was sustained at the hospital, The neck injury/problem resulted from Fall backwards while sitting on chair. Associated signs and symptoms: The patient has no apparent associated signs or symptoms, Pertinent positives: pain radiates down both arms, Pertinent negatives: fever, headache, numbness, tingling, weakness. Severity of symptoms: in the emergency department the symptoms are unchanged. The patient has not experienced similar symptoms in the past. Historical: - Allergies: 18:21 NKDA; hj - PMHx: 18:21 Cancer, Breast; Diabetes - NIDDM; Hypertension; hj - PSHx: 18:21 Hernia repair; Mastectomy, Right; hj - Immunization history:: Flu vaccine status is unknown. - Social history:: Smoking status: unknown. - Ebola Screening: : No symptoms or risks identified at this time. ROS: 18:31 Constitutional: Negative for fever, chills, and weight loss, Eyes: Negative for injury, pm1 pain, redness, and discharge, ENT: Negative for injury, pain, and discharge. 18:31 Cardiovascular: Negative for chest pain, palpitations, and edema, Respiratory: Negative for shortness of breath, cough, wheezing, and pleuritic chest pain, Abdomen/GI: Negative for abdominal pain, nausea, vomiting, diarrhea, and constipation, Back: Negative for injury and pain, MS/Extremity: Negative for injury and deformity, Skin: Negative for injury, rash, and discoloration. 18:31 Neuro: Negative for headache, weakness, numbness, tingling, and seizure. 18:31 Neck: Positive for of the left trapezius and right trapezius. Exam: 18:31 Constitutional: This is a well developed, well nourished patient who is awake, alert, pm1 and in no acute distress. Head/Face: Normocephalic, atraumatic. Chest/axilla: Normal chest wall appearance and motion. Nontender with no deformity. No lesions are appreciated. Cardiovascular: Regular rate and rhythm with a normal S1 and S2. No gallops, murmurs, or rubs. Normal PMI, no JVD. No pulse deficits. Respiratory: Lungs have equal breath sounds bilaterally, clear to auscultation and percussion. No rales, rhonchi or wheezes noted. No increased work of breathing, no retractions or nasal flaring. Abdomen/GI: Soft, non-tender, with normal bowel sounds. No distension or tympany. No guarding or rebound. No evidence of tenderness throughout. 18:31 Back: No spinal tenderness. No costovertebral tenderness. Full range of motion. Skin: Warm, dry with normal turgor. Normal color with no rashes, no lesions, and no evidence of cellulitis. MS/ Extremity: Pulses equal, no cyanosis. Neurovascular intact. Full, normal range of motion. 18:31 Neck: External neck: tenderness, of the left trapezius and right trapezius, C-spine: vertebral tenderness, is not appreciated. 18:31 Neuro: Orientation: is normal, Motor: moves all fours, strength is 5/5 in all extremities. Vital Signs: 18:22 BP 187 / 97; Pulse 58; Resp 18; Temp 97.2; Pulse Ox 100% on R/A; Weight 72.57 kg; hj Height 5 ft. 1 in. (154.94 cm); Pain 8/10; 19:43 BP 175 / 70; Pulse 58; Resp 18; Temp 98; Pulse Ox 100% on R/A; mg2 18:22 Body Mass Index 30.23 (72.57 kg, 154.94 cm) hj MDM: 18:26 Patient medically screened. pm1 19:20 Data reviewed: vital signs. Data interpreted: Pulse oximetry: on room air is 100 %. pm1 Interpretation: normal. Counseling: I had a detailed discussion with the patient and/or guardian regarding: the historical points, exam findings, and any diagnostic results supporting the discharge/admit diagnosis, radiology results, the need for outpatient follow up, to return to the emergency department if symptoms worsen or persist or if there are any questions or concerns that arise at home. 09/03 18:29 Order name: CT Head C Spine; Complete Time: 19:13 pm1 Administered Medications: 19:42 Drug: traMADol 50 mg Route: PO; mg2 19:43 Follow up: Response: No adverse reaction; Medication administered at discharge. mg2 Disposition: 09/04 06:59 Co-signature as Attending Physician, Stephon Farley MD I agree with the assessment and kdr plan of care. Disposition: 09/03/18 19:21 Discharged to Home. Impression: Contusion of unspecified part of neck, Radiculopathy, cervical region. - Condition is Stable. - Discharge Instructions: Cervical Radiculopathy, Neck Contusion. - Prescriptions for Tramadol 50 mg Oral Tablet - take 1 tablet by ORAL route every 8 hours as needed; 12 tablet. - Medication Reconciliation Form, Thank You Letter, Antibiotic Education, Prescription Opioid Use form. - Follow up: Emergency Department; When: As needed; Reason: Worsening of condition. Follow up: Private Physician; When: 2 - 3 days; Reason: Recheck today's complaints, Continuance of care, Re-evaluation by your physician. - Problem is new. - Symptoms have improved. Signatures: Dispatcher [employer] EDMS Stephon Farley MD MD [facility] Tristan Rosales RN RN Lito Kelsey NP CLINICAL TEAM MANAGER pm1 Jae Henriquez RN RN mg2 Corrections: (The following items were deleted from the chart) 09/03 19:23 19:21 09/03/2018 19:21 Discharged to Home. Impression: Contusion of unspecified part of pm1 neck. Condition is Stable. Forms are Medication Reconciliation Form, Thank You Letter, Antibiotic Education, Prescription Opioid Use. Follow up: Emergency Department; When: As needed; Reason: Worsening of condition. Follow up: Private Physician; When: 2 - 3 days; Reason: Recheck today's complaints, Continuance of care, Re-evaluation by your physician. Problem is new. Symptoms have improved. pm1 19:49 19:23 09/03/2018 19:21 Discharged to Home. Impression: Contusion of unspecified part of mg2 neck; Radiculopathy, cervical region. Condition is Stable. Discharge Instructions: Cervical Radiculopathy, Neck Contusion. Forms are Medication Reconciliation Form, Thank You Letter, Antibiotic Education, Prescription Opioid Use. Follow up: Emergency Department; When: As needed; Reason: Worsening of condition. Follow up: Private Physician; When: 2 - 3 days; Reason: Recheck today's complaints, Continuance of care, Re-evaluation by your physician. Problem is new. Symptoms have improved. pm1
--- NOTE | 2018-09-03 19:21 | ER ---
Nurse's Notes [facility] Name: Divya Parr Age: 78 yrs Sex: Female : 1940 Arrival Date: 09/03/2018 Time: 18:17 Bed 23 Private MD: Diagnosis: Contusion of unspecified part of neck;Radiculopathy, cervical region Presentation: 09/03 18:17 Presenting complaint: Patient states: canadian speaking only (language line being used): hj my neck is hurting and my upper back area and my arms are hurting as well, it started days ago; i fell, i fall back in a chair and hit the area, denies LOC;. Transition of care: patient was not received from another setting of care. Onset of symptoms was September 03, 2018. Risk Assessment: Do you want to hurt yourself or someone else? Patient reports no desire to harm self or others. Initial Sepsis Screen: Does the patient meet any 2 criteria? No. Patient's initial sepsis screen is negative. Does the patient have a suspected source of infection? No. Patient's initial sepsis screen is negative. Care prior to arrival: None. 18:17 Method Of Arrival: Ambulatory 18:17 Acuity: YVETTE 4 hj Historical: - Allergies: 18:21 NKDA; hj - PMHx: 18:21 Cancer, Breast; Diabetes - NIDDM; Hypertension; hj - PSHx: 18:21 Hernia repair; Mastectomy, Right; hj - Immunization history:: Flu vaccine status is unknown. - Social history:: Smoking status: unknown. - Ebola Screening: : No symptoms or risks identified at this time. Screenin:04 Abuse screen: Denies threats or abuse. Denies injuries from another. Nutritional mg2 screening: No deficits noted. Tuberculosis screening: No symptoms or risk factors identified. Fall Risk Assessment: 19:04 General: Appears in no apparent distress. comfortable, Behavior is calm, cooperative. mg2 Pain: Complains of pain in neck and upper back Pain does not radiate. Pain Quality of pain is described as aching. Neuro: Level of Consciousness is awake, alert, obeys commands, Oriented to person, place, time, situation. Cardiovascular: Capillary refill < 3 seconds Patient's skin is warm and dry. Respiratory: Airway is patent Respiratory effort is even, unlabored, Respiratory pattern is regular, symmetrical. GI: No signs and/or symptoms were reported involving the gastrointestinal system. : No signs and/or symptoms were reported regarding the genitourinary system. EENT: No signs and/or symptoms were reported regarding the EENT system. Derm: Skin is intact, is healthy with good turgor, Skin is pink, warm \T\ dry. normal. Musculoskeletal: Circulation, motion, and sensation intact. Capillary refill < 3 seconds, Reports pain in back and neck. 19:42 Reassessment: online chief concierge used for discharging the patient. mg2 Vital Signs: 18:22 BP 187 / 97; Pulse 58; Resp 18; Temp 97.2; Pulse Ox 100% on R/A; Weight 72.57 kg; hj Height 5 ft. 1 in. (154.94 cm); Pain 8/10; 19:43 BP 175 / 70; Pulse 58; Resp 18; Temp 98; Pulse Ox 100% on R/A; mg2 18:22 Body Mass Index 30.23 (72.57 kg, 154.94 cm) ED Course: 18:17 Patient arrived in ED. as 18:21 Triage completed. 18:22 Arm band placed on left wrist. 18:26 Lito Kelsey NP is PHCP. pm1 18:26 Stephon Farley MD is Attending Physician. pm1 18:[address] or 18:47 CT Head C Spine In Process Unspecified. EDMS 19:03 Jae Henriquez RN is Primary Nurse. mg2 19:04 No provider procedures requiring assistance completed. Patient did not have IV access mg2 during this emergency room visit. 19:09 Patient has correct armband on for positive identification. mg2 Administered Medications: 19:42 Drug: traMADol 50 mg Route: PO; mg2 19:43 Follow up: Response: No adverse reaction; Medication administered at discharge. mg2 Outcome: 19:21 Discharge ordered by . pm1 19:49 Patient left the ED. mg2 Signatures: Dispatcher [employer] EDMS Ambika Rothman Henry, RN RN Lito Kelsey NP TELETYPE CLERK pm1 Tay Adrian Michele, RN RN mg2 Corrections: (The following items were deleted from the chart) 18:23 18:17 Presenting complaint: Patient states: canadian speaking only (language line being hj used): my neck is hurting and my arms are hurting as well, it started days ago; i fell, i fall back in a chair and hit the area, denies LOC; hj 18:24 18:22 72.57 kg; Height 5 ft. 1 in.; BMI: 30.2; Pain 8/10; hj hj 18:25 18:22 Pulse 58bpm; Resp 18bpm; Pulse Ox 97% RA; Temp 97.2F; 72.57 kg; Height 5 ft. 1 hj in.; BMI: 30.2; Pain 8/10; hj
[2018-09-03] MEDS ORDERED: TRAMADOL HCL 50 MG TAB ONE (19:45)
[2018-09-03 20:25] VITALS: O2SAT 100
[2018-09-03 20:27] VITALS: BP 175/70; TEMP 98
== END 2018-09-03 19:49 | disposition home or self-care (01) ==
LOC: ER 18:13
DX: S10.93XA Contusion of unspecified part of neck, initial encounter (principal); W18.30XA Fall on same level, unspecified, initial encounter; M54.12 Radiculopathy, cervical region; E11.9 Type 2 diabetes mellitus without complications; I10 Essential (primary) hypertension
CPT/HCPCS: 70450; 72125; 99284

== ENCOUNTER 2018-12-13 17:22 | Emergency (ER) | payer MEDICARE, OTHER ==
[2018-12-13] MEDS ORDERED: ACETAMINOPHEN 325 MG TABLET ONE (18:21)
[2018-12-13] MEDS ORDERED: TRAMADOL HCL 50 MG TAB ONE (18:21)
[2018-12-13] MEDS ORDERED: IBUPROFEN 400 MG TAB ONE (18:21)
--- NOTE | 2018-12-13 18:58 | RAD REPORT ---
EXAM DESCRIPTION: RAD - Knee Right 3 View - 12/13/2018 6:44 pm CLINICAL HISTORY: PAIN Pain and swelling to right knee COMPARISON: Knee Right 2 View dated 02/15/2011 FINDINGS: Mild to moderate tricompartmental osteoarthritis with mild meniscal chondrocalcinosis. A s mall suprapatellar joint effusion. No fracture or dislocation seen.
--- NOTE | 2018-12-13 18:59 | RAD REPORT ---
EXAM DESCRIPTION: RAD - Knee Left 3 View - 12/13/2018 6:44 pm CLINICAL HISTORY: PAIN COMPARISON: Knee Left 2 View dated 02/15/2011 FINDINGS: Advanced osteoarthritis of the medial joint compartment is seen with near [id number]. Sm all suprapatellar joint effusion. No acute fracture or dislocation.
--- NOTE | 2018-12-13 19:28 | RAD REPORT ---
EXAM DESCRIPTION: US - Extrem Venous W Compress Tarik - 12/13/2018 7:21 pm CLINICAL HISTORY: PAIN Bilateral leg edema and swelling. COMPARISON: <Comparisons> TECHNIQUE: Real-time sonographic interrogation of the left and right lower extremity deep venous sys tems was performed. FINDINGS: Normal compressibility, flow augmentation, phasic flow and spontaneous flow is identified in both the left and right lower extremity deep venous systems. IMPRESSION: No sonographic evidence of left or right lower extremity deep venous thrombosis.
--- NOTE | 2018-12-13 19:32 | ER ---
Nurse's Notes [facility] Name: Divya Parr Age: 78 yrs Sex: Female : 1940 Arrival Date: 12/13/2018 Time: 17:23 Bed 17 Private MD: Unknown, Unknown Diagnosis: Pain in knee-bilateral Presentation: 12/13 17:28 Presenting complaint: Patient states: throbbing pain in hao knees X 3 days, today was iw worse, has been taking tylenol, pain increases with standing. Transition of care: patient was not received from another setting of care. Onset of symptoms was December 10, 2018. Risk Assessment: Do you want to hurt yourself or someone else? Patient reports no desire to harm self or others. Initial Sepsis Screen: Does the patient meet any 2 criteria? No. Patient's initial sepsis screen is negative. Does the patient have a suspected source of infection? No. Patient's initial sepsis screen is negative. Care prior to arrival: None. 17:28 Method Of Arrival: Wheelchair iw 17:28 Acuity: YVETTE 4 iw Historical: - Allergies: 17:31 NKDA; iw - Home Meds: 17:31 amlodipine 10 mg tab once daily [Active]; aspirin 81 mg Oral chew 1 tab once daily iw [Active]; citalopram 20 mg tab 1 tab once daily [Active]; gabapentin 300 mg Oral cap 1 cap 3 times per day [Active]; losartan 100 mg Oral tab 1 tab once daily [Active]; lisinopril Oral [Active]; losartan-hydrochlorothiazide 100-25 mg Oral tab 1 tab once daily [Active]; Lyrica Oral [Active]; meloxicam 15 mg Oral tab 1 tab once daily [Active]; metformin 1,000 mg Oral tab 0.5 tab 2 times per day [Active]; metoprolol tartrate 25 mg Oral tab 2 times per day [Active]; ranitidine HCl 150 mg Oral cap 1 cap 2 times per day [Active]; sertraline 100 mg Oral tab 1 tab once daily [Active]; tramadol 50 mg Oral tab 1 tab every 6 hours [Active]; - PMHx: 17:31 Cancer, Breast; Diabetes - NIDDM; Hypertension; iw - PSHx: 17:31 Hernia repair; Mastectomy, Right; iw - Immunization history:: Adult Immunizations up to date. - Social history:: Smoking status: Patient/guardian denies using tobacco. - Ebola Screening: : Patient negative for fever greater than or equal to 101.5 degrees Fahrenheit, and additional compatible Ebola Virus Disease symptoms Patient denies exposure to infectious person Patient denies travel to an Ebola-affected area in the 21 days before illness onset No symptoms or risks identified at this time. Screenin:00 Abuse screen: Denies threats or abuse. Denies injuries from another. Nutritional em screening: No deficits noted. Tuberculosis screening: No symptoms or risk factors identified. Fall Risk None identified. Assessment: 18:00 General: Appears in no apparent distress. uncomfortable, Behavior is calm, cooperative. em Pain: Complains of pain in right leg Pain currently is 8 out of 10 on a pain scale. Neuro: Level of Consciousness is awake, alert, obeys commands, Oriented to person, place, time, situation, Appropriate for age. Cardiovascular: Capillary refill < 3 seconds Patient's skin is warm and dry. Respiratory: Airway is patent Respiratory effort is even, unlabored, Respiratory pattern is regular, symmetrical. Derm: Skin is intact, is healthy with good turgor, Skin is pink, warm \T\ dry. Musculoskeletal: Capillary refill < 3 seconds, Range of motion: limited in right knee Reports tripping about 1 week ago Denies. 19:15 Reassessment: Patient appears in no apparent distress at this time. Patient and/or cc3 family updated on plan of care and expected duration. Pain level reassessed. Patient is alert, oriented x 3, equal unlabored respirations, skin warm/dry/pink. Received this female patient from morning shift [facility] as a case of right leg pain, electromechanical assembly technician at bedside. No IV cannula in situ. Patient denies pain at this time. Patient states feeling better. Patient states symptoms have improved. General: Appears in no apparent distress. comfortable, Behavior is calm, cooperative, appropriate for age. Pain: Complains of pain in right knee and right leg. Neuro: Level of Consciousness is awake, alert, obeys commands, Oriented to person, place, time, situation, Appropriate for age. Cardiovascular: Denies chest pain, Heart tones S1 S2 present Capillary refill < 3 seconds in bilateral fingers Patient's skin is warm and dry. Respiratory: Airway is patent Respiratory effort is even, unlabored, Respiratory pattern is regular, symmetrical, Breath sounds are clear bilaterally. GI: Abdomen is round non-distended, Bowel sounds present X 4 quads. : No signs and/or symptoms were reported regarding the genitourinary system. EENT: No signs and/or symptoms were reported regarding the EENT system. Derm: Skin is intact, is healthy with good turgor, Skin is pink, warm \T\ dry. normal. Musculoskeletal: Circulation, motion, and sensation intact. Range of motion: limited in right leg and right knee. 19:55 Reassessment: Patient appears in no apparent distress at this time. Patient and/or cc3 family updated on plan of care and expected duration. Pain level reassessed. Patient is alert, oriented x 3, equal unlabored respirations, skin warm/dry/pink. STERLING Lagos discharged the patient home with prescriptions given. No IV cannula in situ. Patient's daughter informed that the patient is discharged home. Patient left ER vitally stable by wheelchair escorted by technician assistant [place] and patient's family. No valuables left in the patient's room. Patient denies pain at this time. Patient states feeling better. Patient states symptoms have improved. Vital Signs: 17:31 BP 153 / 67; Pulse 89; Resp 16; Temp 99.1; Pulse Ox 97% on R/A; Weight 72.57 kg; Height iw 4 ft. 10 in. (147.32 cm); Pain 10/10; 18:26 BP 180 / 67; Pulse 59; Resp 18; Pulse Ox 99% on R/A; Pain 8/10; em 19:58 BP 102 / 83; Pulse 56; Resp 18; Pulse Ox 98% on R/A; wh 17:31 Body Mass Index 33.44 (72.57 kg, 147.32 cm) iw ED Course: 17:23 Patient arrived in ED. ag5 17:24 Unknown, Unknown is Private Physician. ag5 17:30 Triage completed. iw 17:31 Arm band placed on. iw 17:40 Epifanio Lagos PA is PHCP. cp 17:40 Demetris Dennison MD is Attending Physician. cp 17:51 Jack Metz LVN is Primary Nurse. em 18:00 Patient has correct armband on for positive identification. Bed in low position. Call em light in reach. Side rails up X2. Adult w/ patient. Pulse ox on. NIBP on. 18:45 XRAY Knee LEFT 3 view In Process Unspecified. EDMS 18:45 XRAY Knee RIGHT 3 view In Process Unspecified. EDMS 19:22 US Extremity Venous W Compression Hao In Process Unspecified. EDMS 19:31 Frank Gaona MD is Referral Physician. cp 19:56 No provider procedures requiring assistance completed. Patient did not have IV access during this emergency room visit. Administered Medications: 18:32 Drug: Ibuprofen 800 mg Route: PO; em 19:57 Follow up: Response: No adverse reaction; Pain is decreased 18:32 Drug: traMADol 50 mg Route: PO; em 19:57 Follow up: Response: No adverse reaction; Pain is decreased 19:57 Follow up: Response: RASS: Alert and Calm (0) 18:32 Drug: Tylenol 650 mg Route: PO; em 19:57 Follow up: Response: No adverse reaction; Pain is decreased Outcome: 19:32 Discharge ordered by MD. cp 19:56 Discharged to home via wheelchair, with family. 19:56 Condition: stable 19:56 Discharge instructions given to patient, family, Instructed on discharge instructions, follow up and referral plans. no drinking with medication, no driving heavy equipment, medication usage, POC Knee pain translated through phone call with nimarvin Demonstrated understanding of instructions, follow-up care, medications, POC Prescriptions given X 2. 19:57 Patient left the ED. Signatures: Dispatcher [employer] EDDC Jack Metz, COMMISSARY PRODUCTION SUPERVISOR COMMISSARY PRODUCTION SUPERVISOR em Maki Martinez, MARIE RN Epifanio Valero, STERLING PA Kannan Funes Mary Ardon 3 Teresita, Judy 5
--- NOTE | 2018-12-13 19:32 | EDPHYS ---
Physician Documentation [facility] Name: Divya Parr Age: 78 yrs Sex: Female : 1940 Arrival Date: 12/13/2018 Time: 17:23 Bed 17 Private MD: Unknown, Unknown ED Physician Demetris Dennison HPI: 12/13 18:20 This 78 yrs old Female presents to ER via Wheelchair with complaints of Leg cp Pain. 18:20 The patient presents with pain, that is acute, tenderness. cp 18:20 The complaints affect the right knee and right leg, left knee and left lower leg. cp Context: resulted from an unknown cause, the patient can fully bear weight, the patient is able to ambulate, with mild difficulty, Problem is a result from a previous injury: No. Onset: The symptoms/episode began/occurred 3 day(s) ago. Modifying factors: the symptoms are aggravated by movement, weight bearing. Associated signs and symptoms: Pertinent positives: calf tenderness, Pertinent negatives fever, numbness, warmth, chills. Treatment prior to arrival includes: over the counter medications, Tylenol. Severity of symptoms: in the emergency department the symptoms are unchanged, despite home interventions. Historical: - Allergies: 17:31 NKDA; iw - Home Meds: 17:31 amlodipine 10 mg tab once daily [Active]; aspirin 81 mg Oral chew 1 tab once daily iw [Active]; citalopram 20 mg tab 1 tab once daily [Active]; gabapentin 300 mg Oral cap 1 cap 3 times per day [Active]; losartan 100 mg Oral tab 1 tab once daily [Active]; lisinopril Oral [Active]; losartan-hydrochlorothiazide 100-25 mg Oral tab 1 tab once daily [Active]; Lyrica Oral [Active]; meloxicam 15 mg Oral tab 1 tab once daily [Active]; metformin 1,000 mg Oral tab 0.5 tab 2 times per day [Active]; metoprolol tartrate 25 mg Oral tab 2 times per day [Active]; ranitidine HCl 150 mg Oral cap 1 cap 2 times per day [Active]; sertraline 100 mg Oral tab 1 tab once daily [Active]; tramadol 50 mg Oral tab 1 tab every 6 hours [Active]; - PMHx: 17:31 Cancer, Breast; Diabetes - NIDDM; Hypertension; iw - PSHx: 17:31 Hernia repair; Mastectomy, Right; iw - Immunization history:: Adult Immunizations up to date. - Social history:: Smoking status: Patient/guardian denies using tobacco. - Ebola Screening: : Patient negative for fever greater than or equal to 101.5 degrees Fahrenheit, and additional compatible Ebola Virus Disease symptoms Patient denies exposure to infectious person Patient denies travel to an Ebola-affected area in the 21 days before illness onset No symptoms or risks identified at this time. ROS: 18:30 Constitutional: Negative for body aches, chills, fever, poor PO intake. cp 18:30 Eyes: Negative for injury, pain, redness, and discharge. cp 18:30 ENT: Negative for drainage from ear(s), ear pain, sore throat, difficulty swallowing, difficulty handling secretions. 18:30 Cardiovascular: Negative for chest pain, palpitations. 18:30 Respiratory: Negative for cough, shortness of breath, wheezing. 18:30 Abdomen/GI: Negative for abdominal pain, nausea, vomiting, and diarrhea. 18:30 Back: Negative for pain at rest, pain with movement. 18:30 MS/extremity: Positive for pain, tenderness, of the right knee and right lower leg and left knee and left lower leg, Negative for injury or acute deformity, decreased range of motion, paresthesias. 18:30 Skin: Negative for rash. 18:30 Neuro: Negative for altered mental status, dizziness, headache, weakness. 18:30 All other systems are negative. Exam: 18:35 Constitutional: The patient appears in no acute distress, alert, awake, non-toxic, well cp developed, well nourished. 18:35 Head/Face: Normocephalic, atraumatic. cp 18:35 Eyes: Periorbital structures: appear normal, Conjunctiva: normal, no exudate, no injection, Sclera: no appreciated abnormality, Lids and lashes: appear normal, bilaterally. 18:35 ENT: External ear(s): are unremarkable, Nose: is normal, Mouth: Lips: moist, Oral mucosa: pink and intact, moist, Posterior pharynx: is normal, airway is patent, no erythema, no exudate. 18:35 Neck: ROM/movement: is normal, is supple, without pain, no range of motions limitations, no nuchal rigidity. 18:35 Chest/axilla: Inspection: normal. 18:35 Cardiovascular: Rate: bradycardic, Rhythm: regular, Edema: is not appreciated, JVD: is not appreciated. 18:35 Respiratory: the patient does not display signs of respiratory distress, Respirations: normal, no use of accessory muscles, no retractions, no splinting, no tachypnea, labored breathing, is not present. 18:35 Abdomen/GI: Exam negative for discomfort, distension, guarding, Inspection: abdomen appears normal. 18:35 Back: pain, is absent, ROM is normal. 18:35 Musculoskeletal/extremity: Joints: All joints are normal except the left knee and right knee displays painful range of motion, swelling, tenderness, DVT Exam: no erythema, no increased warmth, pain, that is mild, of the right leg, of the left leg, tenderness, that is mild, of the right leg, of the left leg, positive Homans' sign noted on exam. 18:35 Skin: cellulitis, is not appreciated, no rash present. 18:35 Neuro: Orientation: to person, place \T\ time. Mentation: is normal, Motor: moves all fours, strength is normal. Vital Signs: 17:31 BP 153 / 67; Pulse 89; Resp 16; Temp 99.1; Pulse Ox 97% on R/A; Weight 72.57 kg; Height iw 4 ft. 10 in. (147.32 cm); Pain 10/10; 18:26 BP 180 / 67; Pulse 59; Resp 18; Pulse Ox 99% on R/A; Pain 8/10; em 19:58 BP 102 / 83; Pulse 56; Resp 18; Pulse Ox 98% on R/A; wh 17:31 Body Mass Index 33.44 (72.57 kg, 147.32 cm) iw MDM: 18:04 Patient medically screened. cp 18:40 Differential diagnosis: closed fracture, tendonitis, DVT, cellulitis. cp 19:29 ED course: US tech reports US of lower extremities negative for DVT. cp 19:31 Data reviewed: vital signs, nurses notes, radiologic studies, plain films. cp 19:31 Test interpretation: by ED physician or midlevel provider: plain radiologic studies. cp Counseling: I had a detailed discussion with the patient and/or guardian regarding: the historical points, exam findings, and any diagnostic results supporting the discharge/admit diagnosis, radiology results, the need for outpatient follow up, a orthopedic surgeon, to return to the emergency department if symptoms worsen or persist or if there are any questions or concerns that arise at home. Response to treatment: the patient's symptoms have markedly improved after treatment, VSS. Pain improved with meds. Will discharge to home for continued monitoring. 12/13 18:14 Order name: XRAY Knee LEFT 3 view; Complete Time: 19:28 cp 12/13 19:29 Interpretation: Report reviewed. cp 12/13 18:14 Order name: XRAY Knee RIGHT 3 view; Complete Time: 19:28 cp 12/13 19:29 Interpretation: Report reviewed. cp 12/13 18:14 Order name: US Extremity Venous W Compression Tarik; Complete Time: 19:33 cp 12/13 19:33 Interpretation: Report reviewed. cp Administered Medications: 18:32 Drug: Ibuprofen 800 mg Route: PO; em 19:57 Follow up: Response: No adverse reaction; Pain is decreased wh 18:32 Drug: traMADol 50 mg Route: PO; em 19:57 Follow up: Response: No adverse reaction; Pain is decreased wh 19:57 Follow up: Response: RASS: Alert and Calm (0) wh 18:32 Drug: Tylenol 650 mg Route: PO; em 19:57 Follow up: Response: No adverse reaction; Pain is decreased wh Disposition: 12/13/18 19:32 Discharged to Home. Impression: Pain in knee - bilateral. - Condition is Stable. - Discharge Instructions: Knee Pain. - Prescriptions for Mobic 7.5 mg Oral Tablet - take 1 tablet by ORAL route once daily take with food; 30 tablet. Tramadol 50 mg Oral Tablet - take 1 tablet by ORAL route every 8 hours as needed; 20 tablet. - Medication Reconciliation Form, Thank You Letter, Antibiotic Education, Prescription Opioid Use form. - Follow up: Frank Gaona MD; When: 2 - 3 days; Reason: Recheck today's complaints. - Problem is new. - Symptoms have improved. Addendum: 12/16/2018 00:43 Co-signature as Attending Physician, Demetris Dennison MD. r n Signatures: Dispatcher [employer] Jack Jon, PERSONAL PROPERTY ASSESSOR PERSONAL PROPERTY ASSESSOR em Maki Martinez RN RN iw Nieto, Roman, MD MD rn Page, Corey PA PA cp Kannan Lamb Corrections: (The following items were deleted from the chart) 12/13 19:57 19:32 12/13/2018 19:32 Discharged to Home. Impression: Pain in knee - bilateral. Condition is Stable. Forms are Medication Reconciliation Form, Thank You Letter, Antibiotic Education, Prescription Opioid Use. Follow up: Frank Gaona; When: 2 - 3 days; Reason: Recheck today's complaints. Problem is new. Symptoms have improved. cp
[2018-12-13 22:16] VITALS: TEMP 99.1
[2018-12-13 22:27] VITALS: BP 102/83; O2SAT 98
== END 2018-12-13 19:57 | disposition home or self-care (01) ==
LOC: ER 17:22
DX: M25.562 Pain in left knee (principal); M25.561 Pain in right knee; E11.9 Type 2 diabetes mellitus without complications; I10 Essential (primary) hypertension; Z85.3 Personal history of malignant neoplasm of breast
CPT/HCPCS: 93970; 99284

== ENCOUNTER 2019-04-03 15:09 | Emergency (ER) | payer MEDICARE ==
--- OUTSIDE RECORDS SUMMARY | 2019-04-03 15:12 | XMS REPORT ---
:1940 [facility] [address] [place] [address] Care Team Providers Name Role Phone YOVANI THOMAS SANGITA Unavailable Unavailable Leny, Carol Foster Unavailable Unavailable SAMWAYS, LIZANDRO MAYS Unavailable Unavailable Problems This patient has no known problems. Allergies, Adverse Reactions, Alerts This patient has no known allergies or adverse reactions. Medications This patient has no known medications. Results Test Description Test Time Test Comments Text Results Atomic Results Result Comments POCT-GLUCOSE METER 2019-01-26 09:21:00 Test Item Value Reference Range Comments POC-GLUCOSE METER (BEAKER) 129 mg/dL 70-110 : TESTED AT [facility] [address] (test dflo=8876) [place], [address]: Department Operations Manager/Utility Worker [place] UX=[id number] for AUSTEN CHRISTIAN [id number] 04:31:00 Test Item Value Reference Range Comments MAGNESIUM (BEAKER) (test hwmx=747) 1.7 mg/dL 1.6-2.6 BASIC METABOLIC [id number] 04:31:00 Test Item Value Reference Range Comments SODIUM (BEAKER) (test 139 meq/L 136-145 ajpa=430) POTASSIUM (BEAKER) (test 3.9 meq/L 3.5-5.1 kwin=178) CHLORIDE (BEAKER) (test 108 meq/L 98-107 wura=186) CO2 (BEAKER) (test 27 meq/L 22-29 uhxo=748) BLOOD UREA NITROGEN 9 mg/dL 7-21 (BEAKER) (test ayaz=630) CREATININE (BEAKER) (test 0.82 mg/dL 0.57-1.25 qbow=253) GLUCOSE RANDOM (BEAKER) 124 mg/dL 70-105 (test hgla=542) CALCIUM (BEAKER) (test 8.3 mg/dL 8.4-10.2 ftvz=097) EGFR (BEAKER) (test 68 mL/min/1.73 sq m ESTIMATED GFR IS NOT edjz=9192) ACCURATE CREATININE CLEARANCE IN PREDICTING GLOMERULAR FILTRATION RATE. ESTIMATED GFR IS NOT APPLICABLE FOR DIALYSIS PATIENTS. CBC W/PLT COUNT & AUTO [id number] 04:01:00 Test Item Value Reference Range Comments WHITE BLOOD CELL COUNT (BEAKER) (test gqwc=605) 6.0 K/ L 3.5-10.5 RED BLOOD CELL COUNT (BEAKER) (test mhdi=388) 3.07 M/ L 3.93-5.22 HEMOGLOBIN (BEAKER) (test vdum=378) 9.6 GM/DL 11.2-15.7 HEMATOCRIT (BEAKER) (test pljk=719) 30.1 % 34.1-44.9 MEAN CORPUSCULAR VOLUME (BEAKER) (test svvk=959) 98.0 fL 79.4-94.8 MEAN CORPUSCULAR HEMOGLOBIN (BEAKER) (test 31.3 pg 25.6-32.2 gnxh=103) MEAN CORPUSCULAR HEMOGLOBIN CONC (BEAKER) (test 31.9 GM/DL 32.2-35.5 vple=144) RED CELL DISTRIBUTION WIDTH (BEAKER) (test 12.8 % 11.7-14.4 eylk=925) PLATELET COUNT (BEAKER) (test cokc=083) 197 K/CU MM 150-450 MEAN PLATELET VOLUME (BEAKER) (test zyft=544) 10.1 fL 9.4-12.3 NUCLEATED RED BLOOD CELLS (BEAKER) (test 0 /100 WBC 0-0 lxms=887) NEUTROPHILS RELATIVE PERCENT (BEAKER) (test 54 % hjaw=053) LYMPHOCYTES RELATIVE PERCENT (BEAKER) (test 32 % hnzq=120) MONOCYTES RELATIVE PERCENT (BEAKER) (test 7 % vdax=126) EOSINOPHILS RELATIVE PERCENT (BEAKER) (test 6 % yzlx=958) BASOPHILS RELATIVE PERCENT (BEAKER) (test 1 % ziqh=828) NEUTROPHILS ABSOLUTE COUNT (BEAKER) (test 3.25 K/ L 1.56-6.13 jyqz=116) LYMPHOCYTES ABSOLUTE COUNT (BEAKER) (test 1.95 K/ L 1.18-3.74 hqkn=777) MONOCYTES ABSOLUTE COUNT (BEAKER) (test 0.41 K/ L 0.24-0.36 swyq=894) EOSINOPHILS ABSOLUTE COUNT (BEAKER) (test 0.36 K/ L 0.04-0.36 dybi=269) BASOPHILS ABSOLUTE COUNT (BEAKER) (test 0.05 K/ L 0.01-0.08 xbrj=936) IMMATURE GRANULOCYTES-RELATIVE PERCENT (BEAKER) 0 % 0-1 (test eprm=4996) POCT-GLUCOSE [id number] 01:14:00 Test Item Value Reference Range Comments POC-GLUCOSE METER (BEAKER) 108 mg/dL 70-110 : TESTED AT [address] (test qxgd=1465) [facility], [address]: Department Operations Manager/Utility Worker [place] QZ=[id number] for KRAMER, ABDI POCT-GLUCOSE [id number] 17:50:00 Test Item Value Reference Range Comments POC-GLUCOSE METER (BEAKER) 139 mg/dL 70-110 : TESTED AT [address] (test kcep=4920) [facility], [address]: Department Operations Manager/Utility Worker [place] [id number] for AUSTEN CHRISTIAN POCT-GLUCOSE [id number] 12:22:00 Test Item Value Reference Range Comments POC-GLUCOSE METER (BEAKER) 213 mg/dL 70-110 : TESTED AT [address] (test tjka=5099) [facility], [address]: Department Operations Manager/Utility Worker [place] GZ=[id number] for MICHAEL - THUAN, AUSTEN [id number] 08:25:00 Test Item Value Reference Range Comments PHOSPHORUS (BEAKER) (test nzbd=076) 2.1 mg/dL 2.3-4.7 [id number] 08:25:00 Test Item Value Reference Range Comments MAGNESIUM (BEAKER) (test xbck=909) 1.6 mg/dL 1.6-2.6 BASIC METABOLIC [id number] 08:25:00 Test Item Value Reference Range Comments SODIUM (BEAKER) (test 142 meq/L 136-145 urbc=966) POTASSIUM (BEAKER) (test 3.4 meq/L 3.5-5.1 cqge=348) CHLORIDE (BEAKER) (test 110 meq/L 98-107 bhjz=980) CO2 (BEAKER) (test 28 meq/L 22-29 cvxb=363) BLOOD UREA NITROGEN 9 mg/dL 7-21 (BEAKER) (test mqtp=614) CREATININE (BEAKER) (test 0.75 mg/dL 0.57-1.25 gbqx=867) GLUCOSE RANDOM (BEAKER) 145 mg/dL 70-105 (test huhr=960) CALCIUM (BEAKER) (test 8.2 mg/dL 8.4-10.2 cmnt=418) EGFR (BEAKER) (test 75 mL/min/1.73 sq m ESTIMATED GFR IS NOT fuaj=7019) ACCURATE CREATININE CLEARANCE IN PREDICTING GLOMERULAR FILTRATION RATE. ESTIMATED GFR IS NOT APPLICABLE FOR DIALYSIS PATIENTS. POCT-GLUCOSE [id number] 06:48:00 Test Item Value Reference Range Comments POC-GLUCOSE METER (BEAKER) 132 mg/dL 70-110 : TESTED AT [facility] [address] [facility] (test jbeu=6332) [facility], [address]: Department Operations Manager/Utility Worker [place] SQ=[id number] for MARICRUZ YOSSI CBC W/PLT COUNT & AUTO [id number] 06:17:00 Test Item Value Reference Range Comments WHITE BLOOD CELL COUNT (BEAKER) (test ifpk=854) 5.9 K/ L 3.5-10.5 RED BLOOD CELL COUNT (BEAKER) (test ibme=532) 3.16 M/ L 3.93-5.22 HEMOGLOBIN (BEAKER) (test qqms=611) 9.8 GM/DL 11.2-15.7 HEMATOCRIT (BEAKER) (test zqdp=455) 31.5 % 34.1-44.9 MEAN CORPUSCULAR VOLUME (BEAKER) (test ujbi=302) 99.7 fL 79.4-94.8 MEAN CORPUSCULAR HEMOGLOBIN (BEAKER) (test 31.0 pg 25.6-32.2 knhz=466) MEAN CORPUSCULAR HEMOGLOBIN CONC (BEAKER) (test 31.1 GM/DL 32.2-35.5 gipp=099) RED CELL DISTRIBUTION WIDTH (BEAKER) (test 12.8 % 11.7-14.4 ytwt=477) PLATELET COUNT (BEAKER) (test ovge=498) 185 K/CU MM 150-450 MEAN PLATELET VOLUME (BEAKER) (test mjlb=914) 10.4 fL 9.4-12.3 NUCLEATED RED BLOOD CELLS (BEAKER) (test 0 /100 WBC 0-0 noww=712) NEUTROPHILS RELATIVE PERCENT (BEAKER) (test 57 % ospn=981) LYMPHOCYTES RELATIVE PERCENT (BEAKER) (test 28 % lmzc=282) MONOCYTES RELATIVE PERCENT (BEAKER) (test 9 % uazc=326) EOSINOPHILS RELATIVE PERCENT (BEAKER) (test 5 % lnsd=403) BASOPHILS RELATIVE PERCENT (BEAKER) (test 1 % yldb=632) NEUTROPHILS ABSOLUTE COUNT (BEAKER) (test 3.33 K/ L 1.56-6.13 qfxv=315) LYMPHOCYTES ABSOLUTE COUNT (BEAKER) (test 1.66 K/ L 1.18-3.74 nuxf=562) MONOCYTES ABSOLUTE COUNT (BEAKER) (test 0.54 K/ L 0.24-0.36 dlqw=790) EOSINOPHILS ABSOLUTE COUNT (BEAKER) (test 0.31 K/ L 0.04-0.36 rdrc=992) BASOPHILS ABSOLUTE COUNT (BEAKER) (test 0.03 K/ L 0.01-0.08 kcps=787) IMMATURE GRANULOCYTES-RELATIVE PERCENT (BEAKER) 0 % 0-1 (test dwmq=6629) CALCIUM, [id number] 06:02:00 Test Item Value Reference Range Comments CALCIUM IONIZED (BEAKER) (test gtpz=700) 1.10 mmol/L 1.12-1.27 PH, BLOOD (BEAKER) (test ebin=0676) 7.44 POCT-GLUCOSE [id number] 01:23:00 Test Item Value Reference Range Comments POC-GLUCOSE METER (BEAKER) 137 mg/dL 70-110 : TESTED AT [address] (test guyo=9625) [facility], [address]: Department Operations Manager/Utility Worker [place] AD=[id number] for YOSSI ALCANTARA POCT-GLUCOSE [id number] 18:24:00 Test Item Value Reference Range Comments POC-GLUCOSE METER (BEAKER) 168 mg/dL 70-110 : TESTED AT [place] [id number] [facility] (test arte=3627) [facility], [address]: Department Operations Manager/Utility Worker [place] EL=[id number] for SERINA ELIZABETH DECLAN, SMALL BOWEL [id number] 11:18:00Reason for exam:->Small bowel obstructionFINAL REPORT Small bowel follow-through. Clinical history: Small bowel obstruction. COMPARISON STUDY: CT scan dated October 23, 2018. FINDINGS: Quality Improvement Coordinator radiograph demonstrates a nasogastric tube in place. There are mildly dilated small bowel loops measuring up to 3.5 cm. Gas is seen in the colon. Cholecystectomy clips are noted. Degenerative changes are seen. This film is insensitive for the detection of free air. 240 cc of Gastrografin was instilled through the patient's nasogastric tube. There is rapid transit of progression through the small bowel into the colon with contrast entering the colon at approximately 40 minutes. Contrast is present in the rectum at one hour. IMPRESSION:1. No evidence of residual small bowel obstruction with normal transit time. No fluoroscopy was utilized. Signed: Mike Travis MDReport Verified Date/Time: 01/24/2019 11:18:59 Reading Location: [place] [id number] [facility] Consult Reading Room POCT-GLUCOSE [id number] 00:42: 00 Test Item Value Reference Range Comments POC-GLUCOSE METER (BEAKER) 148 mg/dL 70-110 : TESTED AT [address] (test rhaw=6201) [facility], [address]: Department Operations Manager/Utility Worker [place] OK=[id number] for YOSSI ALCANTARA POCT-GLUCOSE [id number] 21:22:00 Test Item Value Reference Range Comments POC-GLUCOSE METER (BEAKER) 159 mg/dL 70-110 : TESTED AT [address] (test ptmh=3032) [facility], [address]: Department Operations Manager/Utility Worker [place] IT=[id number] for NASH FIELD POCT-GLUCOSE [id number] 17:25:00 Test Item Value Reference Range Comments POC-GLUCOSE METER (BEAKER) 129 mg/dL 70-110 : TESTED AT [address] (test nxal=2060) [facility], [address]: Department Operations Manager/Utility Worker [place] JD=[id number] for NASH FIELD HEMOGLOBIN [id number] 09:20:00 Test Item Value Reference Range Comments HEMOGLOBIN A1C (BEAKER) (test zlrj=911) 6.3 % 4.3-6.1 POCT-GLUCOSE [id number] 06:04:00 Test Item Value Reference Range Comments POC-GLUCOSE METER (BEAKER) 172 mg/dL 70-110 : TESTED AT [facility] [address] (test nvff=6108) [facility], [address]: Department Operations Manager/Utility Worker [place] GB=[id number] for GHADA DIOR [id number] 05:51:00 Test Item Value Reference Range Comments MAGNESIUM (BEAKER) (test 1.9 mg/dL 1.6-2.6 Specimen moderately hemolyzed iksu=979) [id number] 05:51:00 Test Item Value Reference Range Comments PHOSPHORUS (BEAKER) (test 3.2 mg/dL 2.3-4.7 Specimen moderately hemolyzed zhlc=649) BASIC METABOLIC [id number] 05:51:00 Test Item Value Reference Range Comments SODIUM (BEAKER) (test 135 meq/L 136-145 rjtl=639) POTASSIUM (BEAKER) (test 4.9 meq/L 3.5-5.1 Specimen moderately tnkb=235) hemolyzed CHLORIDE (BEAKER) (test 101 meq/L 98-107 bkxo=660) CO2 (BEAKER) (test 29 meq/L 22-29 ljch=733) BLOOD UREA NITROGEN 27 mg/dL 7-21 (BEAKER) (test pbeo=665) CREATININE (BEAKER) (test 1.05 mg/dL 0.57-1.25 Specimen moderately ntjh=364) hemolyzed GLUCOSE RANDOM (BEAKER) 202 mg/dL 70-105 (test cnuj=473) CALCIUM (BEAKER) (test 8.6 mg/dL 8.4-10.2 eqeo=692) EGFR (BEAKER) (test 51 mL/min/1.73 sq m ESTIMATED GFR IS NOT saud=8063) ACCURATE CREATININE CLEARANCE IN PREDICTING GLOMERULAR FILTRATION RATE. ESTIMATED GFR IS NOT APPLICABLE FOR DIALYSIS PATIENTS. LIPID [id number] 05:51:00 Test Item Value Reference Range Comments TRIGLYCERIDES (BEAKER) (test 109 mg/dL Specimen moderately ixju=536) hemolyzed CHOLESTEROL (BEAKER) (test 183 mg/dL Specimen moderately nbsa=181) hemolyzed HDL CHOLESTEROL (BEAKER) (test 49 mg/dL bhge=699) LDL CHOLESTEROL CALCULATED 112 mg/dL (BEAKER) (test jmsg=488) Triglyceride Reference Range: Low Risk <150 Borderline 150- 199 High Risk 200-499 Very High Risk >=500Cholesterol Reference Range: Low Risk <200 Borderline 200-239 High Risk > 240HDL Cholesterol Reference Range: Low Risk >=60 High Risk <40LDL Cholesterol Reference Range: Optimal <100 Near Optimal 100-129 Borderline 130-159 High 160-189 Very High >=190CALCIUM, [id number] 05:47:00 Test Item Value Reference Range Comments CALCIUM IONIZED (BEAKER) (test wkyg=627) 1.12 mmol/L 1.12-1.27 PH, BLOOD (BEAKER) (test fkku=4249) 7.32 CBC W/PLT COUNT & AUTO [id number] 05:24:00 Test Item Value Reference Range Comments WHITE BLOOD CELL COUNT (BEAKER) (test ugoy=747) 7.6 K/ L 3.5-10.5 RED BLOOD CELL COUNT (BEAKER) (test dimp=182) 3.35 M/ L 3.93-5.22 HEMOGLOBIN (BEAKER) (test vngo=323) 10.6 GM/DL 11.2-15.7 HEMATOCRIT (BEAKER) (test lzux=594) 33.4 % 34.1-44.9 MEAN CORPUSCULAR VOLUME (BEAKER) (test rkdr=828) 99.7 fL 79.4-94.8 MEAN CORPUSCULAR HEMOGLOBIN (BEAKER) (test 31.6 pg 25.6-32.2 qysi=426) MEAN CORPUSCULAR HEMOGLOBIN CONC (BEAKER) (test 31.7 GM/DL 32.2-35.5 yxez=062) RED CELL DISTRIBUTION WIDTH (BEAKER) (test 13.0 % 11.7-14.4 dtfy=519) PLATELET COUNT (BEAKER) (test ivbh=305) 227 K/CU MM 150-450 MEAN PLATELET VOLUME (BEAKER) (test lzpi=334) 10.2 fL 9.4-12.3 NUCLEATED RED BLOOD CELLS (BEAKER) (test 0 /100 WBC 0-0 bjbn=036) NEUTROPHILS RELATIVE PERCENT (BEAKER) (test 77 % hhaz=245) LYMPHOCYTES RELATIVE PERCENT (BEAKER) (test 13 % xmib=872) MONOCYTES RELATIVE PERCENT (BEAKER) (test 8 % urxx=392) EOSINOPHILS RELATIVE PERCENT (BEAKER) (test 1 % ckmi=031) BASOPHILS RELATIVE PERCENT (BEAKER) (test 0 % hcww=017) NEUTROPHILS ABSOLUTE COUNT (BEAKER) (test 5.85 K/ L 1.56-6.13 lubw=399) LYMPHOCYTES ABSOLUTE COUNT (BEAKER) (test 1.01 K/ L 1.18-3.74 oufb=990) MONOCYTES ABSOLUTE COUNT (BEAKER) (test 0.62 K/ L 0.24-0.36 vrhr=985) EOSINOPHILS ABSOLUTE COUNT (BEAKER) (test 0.09 K/ L 0.04-0.36 wdxi=536) BASOPHILS ABSOLUTE COUNT (BEAKER) (test 0.03 K/ L 0.01-0.08 gzfd=465) IMMATURE GRANULOCYTES-RELATIVE PERCENT (BEAKER) 0 % 0-1 (test nmhi=2364) POCT-GLUCOSE [id number] 23:54:00 Test Item Value Reference Range Comments POC-GLUCOSE METER (BEAKER) 178 mg/dL 70-110 : TESTED AT [facility] [address] [place] [address] (test zubm=0574) [facility], [address]: Department Operations Manager/Utility Worker [place] [id number] for GHADA DIOR POCT-GLUCOSE [id number] 18:40:00 Test Item Value Reference Range Comments POC-GLUCOSE METER (BEAKER) 166 mg/dL 70-110 : TESTED AT [address] (test yqkf=1793) [facility], [address]: Department Operations Manager/Utility Worker [place] EB=[id number] for NASH FIELD CT, [id number] 13:08:00Reason for exam:->ABDOMINAL PAINWhat is the patient's sedation requirement?->No SedationFINAL REPORT INDICATION:Periumbilical abdominal pain. COMPARISON: August 21, 2017 TECHNIQUE: CT of the Abdomen and Pelvis WITH intravenous contrast. Enteric contrast was not used. The exam was performed according to our department dose- optimization protocol, which includes automated exposure control, adjustments of mA and kV according to patient size. Iterative reconstructions are also sometimes employed. FINDINGS:There is a small bowel obstruction with transition point in the anterior mid abdomen and completely collapsed distal small bowel with little gas in the colon. No hypoenhancing small bowel, pneumatosis, or peritoneal fluid is demonstrated. Patient is status post cholecystectomy and there is no biliary ductal dilation. Liver, pancreas, spleen, adrenal glands, kidneys,bladder, and uterus are unremarkable. Lower thorax and osseous structures unremarkable. IMPRESSION: High-grade small bowel obstruction. Signed : Crow Jarrell MDReport Verified Date/Time: 01/22/201913:08:05 Reading Location: [facility] B1 C013Y CT Body Reading Room [id number] 09:34:00 Test Item Value Reference Range Comments LIPASE (BEAKER) (test vrit=558) 30 U/L 8-78 BASIC METABOLIC [id number] 09:34:00 Test Item Value Reference Range Comments SODIUM (BEAKER) (test 133 meq/L 136-145 aifc=775) POTASSIUM (BEAKER) (test 4.7 meq/L 3.5-5.1 Specimen slightly qavo=435) hemolyzed CHLORIDE (BEAKER) (test 97 meq/L 98-107 ghbf=375) CO2 (BEAKER) (test 27 meq/L 22-29 hojl=269) BLOOD UREA NITROGEN 37 mg/dL 7-21 (BEAKER) (test gbxf=963) CREATININE (BEAKER) (test 1.30 mg/dL 0.57-1.25 Specimen slightly pftz=277) hemolyzed GLUCOSE RANDOM (BEAKER) 174 mg/dL 70-105 (test cwel=424) CALCIUM (BEAKER) (test 9.0 mg/dL 8.4-10.2 roql=791) EGFR (BEAKER) (test 40 mL/min/1.73 sq m ESTIMATED GFR IS NOT ddur=3811) ACCURATE CREATININE CLEARANCE IN PREDICTING GLOMERULAR FILTRATION RATE. ESTIMATED GFR IS NOT APPLICABLE FOR DIALYSIS PATIENTS. HEPATIC FUNCTION [id number] 09:34:00 Test Item Value Reference Range Comments TOTAL PROTEIN (BEAKER) (test 7.4 gm/dL 6.0-8.3 Specimen slightly hemolyzed rfhi=886) ALBUMIN (BEAKER) (test 3.8 g/dL 3.5-5.0 Specimen slightly hemolyzed kclp=0825) BILIRUBIN TOTAL (BEAKER) (test 0.5 mg/dL 0.2-1.2 Specimen slightly hemolyzed ldax=528) BILIRUBIN DIRECT (BEAKER) (test 0.2 mg/dL 0.1-0.5 Specimen slightly hemolyzed jaig=593) ALKALINE PHOSPHATASE (BEAKER) 62 U/L 40-150 (test naky=368) AST (SGOT) (BEAKER) (test 29 U/L 5-34 Specimen slightly hemolyzed ivty=404) ALT (SGPT) (BEAKER) (test 16 U/L 6-55 Specimen slightly hemolyzed twwf=666) URINALYSIS W/ REFLEX URINE [id number] 09:30:00 Test Item Value Reference Range Comments COLOR (BEAKER) (test dyjd=984) Yellow CLARITY (BEAKER) (test nqtq=755) Clear SPECIFIC GRAVITY UA (BEAKER) (test tgas=469) 1.023 1.001-1.035 PH UA (BEAKER) (test eumi=236) 5.5 5.0-8.0 PROTEIN UA (BEAKER) (test dtxw=647) 20 mg/dL Negative GLUCOSE UA (BEAKER) (test fuaj=406) Negative Negative KETONES UA (BEAKER) (test gigr=312) Negative Negative BILIRUBIN UA (BEAKER) (test qbss=571) Negative Negative BLOOD UA (BEAKER) (test jzud=975) Negative Negative NITRITE UA (BEAKER) (test mgcs=969) Negative Negative LEUKOCYTE ESTERASE UA (BEAKER) (test kpqy=926) Small Negative UROBILINOGEN UA (BEAKER) (test uzmy=606) 0.2 mg/dL 0.2-1.0 RBC UA (BEAKER) (test kydo=373) < /HPF WBC UA (BEAKER) (test xgqx=902) 1 /HPF MUCUS (BEAKER) (test kiti=2506) Rare SQUAMOUS EPITHELIAL (BEAKER) (test butv=289) 2 /HPF HYALINE CASTS (BEAKER) (test hghy=596) 1 /LPF SOURCE(BEAKER) (test ztfx=6825) CBC W/PLT COUNT & AUTO [id number] 09:06:00 Test Item Value Reference Range Comments WHITE BLOOD CELL COUNT (BEAKER) (test ppcq=774) 8.5 K/ L 3.5-10.5 RED BLOOD CELL COUNT (BEAKER) (test wbkm=567) 3.55 M/ L 3.93-5.22 HEMOGLOBIN (BEAKER) (test ulyb=937) 11.0 GM/DL 11.2-15.7 HEMATOCRIT (BEAKER) (test kfpz=483) 35.1 % 34.1-44.9 MEAN CORPUSCULAR VOLUME (BEAKER) (test vmoa=605) 98.9 fL 79.4-94.8 MEAN CORPUSCULAR HEMOGLOBIN (BEAKER) (test 31.0 pg 25.6-32.2 vcnr=468) MEAN CORPUSCULAR HEMOGLOBIN CONC (BEAKER) (test 31.3 GM/DL 32.2-35.5 lrdf=882) RED CELL DISTRIBUTION WIDTH (BEAKER) (test 12.9 % 11.7-14.4 xwci=126) PLATELET COUNT (BEAKER) (test tobt=167) 226 K/CU MM 150-450 MEAN PLATELET VOLUME (BEAKER) (test noaa=210) 10.3 fL 9.4-12.3 NUCLEATED RED BLOOD CELLS (BEAKER) (test 0 /100 WBC 0-0 yljn=959) NEUTROPHILS RELATIVE PERCENT (BEAKER) (test 80 % mgez=638) LYMPHOCYTES RELATIVE PERCENT (BEAKER) (test 14 % ierx=269) MONOCYTES RELATIVE PERCENT (BEAKER) (test 5 % wdni=896) EOSINOPHILS RELATIVE PERCENT (BEAKER) (test 0 % jqwf=681) BASOPHILS RELATIVE PERCENT (BEAKER) (test 0 % ksly=416) NEUTROPHILS ABSOLUTE COUNT (BEAKER) (test 6.77 K/ L 1.56-6.13 oecd=309) LYMPHOCYTES ABSOLUTE COUNT (BEAKER) (test 1.18 K/ L 1.18-3.74 zbkd=089) MONOCYTES ABSOLUTE COUNT (BEAKER) (test 0.46 K/ L 0.24-0.36 qahn=165) EOSINOPHILS ABSOLUTE COUNT (BEAKER) (test 0.03 K/ L 0.04-0.36 uofr=009) BASOPHILS ABSOLUTE COUNT (BEAKER) (test 0.03 K/ L 0.01-0.08 fvpj=255) IMMATURE GRANULOCYTES-RELATIVE PERCENT (BEAKER) 0 % 0-1 (test qqwe=8490) US CAROTID [id number] 20:10:03CLINICAL INDICATION: I10 Essential ( primary) hypertensionTECHNIQUE: Realtime sonographic imaging, color and spectral doppler evaluation of the extracranial carotid circulation of the neck were performed bilaterally using the Siemens Elizabeth . Intima-media thickness determination is performed as well.COMPARISON: No prior study.FINDINGS:There are no significant visualized carotid stenoses noted in either right or left carotid systems.Velocities in both right and left common and internal carotidarteries are as follows:Peak systolic velocity, right CCA, 85 cm/sec. Right ICA, 65 cm/sec. Less than 50% stenosis.Peak systolic velocity, left CCA, 69 cm/sec. Left ICA, 74 cm/sec. Less than 50% stenosis.The flow velocity ratio is right 0.76, left 1.07. There are no visible arterial dissections.External carotid arteries are patent and normal.Vertebral flow is antegrade and normal bilaterally.Carotid intima-media thickness is 0.7-0.8 mm right, 0.8-1.0 mm left.IMPRESSION:1. Right: ICA stenosis less than 50 % by velocity criteria.2. Left: ICA stenosis less than 50 % by velocity criteria. Consensus Panel Doppler US Criteria for diagnosis of ICA stenosis 50%: ICA PSV 125 cm/sec, ICA/CCA ratio 2.050-69%:ICA PSV 125-230 cm/sec, ICA/CCA ratio 2.0-4.0 70%: ICA PSV 230 cm/sec, ICA/CCA ratio 4.0Carotid stenosis measurement - PQRS 195: 3100F For official use onlyPOCT-GLUCOSE [id number] 12:26:00 Test Item Value Reference Range Comments POC-GLUCOSE METER (BEAKER) 271 mg/dL 70-110 TESTED AT [address] (test ovzu=4568) [facility] [address] POCT-GLUCOSE [id number] 08:10:00 Test Item Value Reference Range Comments POC-GLUCOSE METER (BEAKER) 118 mg/dL 70-110 TESTED AT [address] (test fyko=1483) [place] [id number] 03:40:00 Test Item Value Reference Range Comments MAGNESIUM (BEAKER) (test apdg=241) 1.7 mg/dL 1.6-2.6 BASIC METABOLIC [id number] 03:40:00 Test Item Value Reference Range Comments SODIUM (BEAKER) (test 136 meq/L 136-145 mtwg=350) POTASSIUM (BEAKER) (test 3.8 meq/L 3.5-5.1 bqnh=015) CHLORIDE (BEAKER) (test 105 meq/L 98-107 vxdb=287) CO2 (BEAKER) (test 22 meq/L 22-29 pkrr=650) BLOOD UREA NITROGEN 11 mg/dL 7-21 (BEAKER) (test ejrd=989) CREATININE (BEAKER) (test 0.81 mg/dL 0.57-1.25 nrxr=881) GLUCOSE RANDOM (BEAKER) 131 mg/dL 70-105 (test xyjw=514) CALCIUM (BEAKER) (test 8.6 mg/dL 8.4-10.2 knru=286) EGFR (BEAKER) (test 69 mL/min/1.73 sq m ESTIMATED GFR IS NOT gjxs=3751) ACCURATE CREATININE CLEARANCE IN PREDICTING GLOMERULAR FILTRATION RATE. ESTIMATED GFR IS NOT APPLICABLE FOR DIALYSIS PATIENTS. POCT-GLUCOSE [id number] 21:00:00 Test Item Value Reference Range Comments POC-GLUCOSE METER (BEAKER) 169 mg/dL 70-[address] [facility] [address] [facility] (test mqjq=3548) [place] [address] POCT-GLUCOSE [id number] 17:46:00 Test Item Value Reference Range Comments POC-GLUCOSE METER (BEAKER) 201 mg/dL 70-110 TESTED AT [place] [id number] [facility] (test hhhy=5645) [place] [id number] RAD, SHOULDER, COMPLETE (MIN 2 VIEWS), [id number] 14:00:00Reason for exam:-& gt;shoulder painReason for exam:->please obtain axillary lateral and call [phone] when completeFINAL REPORT Two axillary left shoulder images. Normal glenohumeral articulation. Chronic changes are seen about the greater tuberosity and the AC joint. No visible fracture, dislocation , destructive lesion. Signed: Yovani Zarateort Verified Date/Time: 2017 14:00:20 Reading Location: [facility] C0[facility] Consult Reading Room POCT- GLUCOSE [id number] 12:12:00 Test Item Value Reference Range Comments POC-GLUCOSE METER (BEAKER) 161 mg/dL 70-110 TESTED AT [address] (test ctyk=8799) [place] [id number] POCT-GLUCOSE [id number] 08:42:00 Test Item Value Reference Range Comments POC-GLUCOSE METER (BEAKER) 157 mg/dL 70-110 TESTED AT [address] (test lqwb=5193) [place] [address] [id number] 06:27:00 Test Item Value Reference Range Comments MAGNESIUM (BEAKER) (test uhsk=844) 1.7 mg/dL 1.6-2.6 BASIC METABOLIC [id number] 06:27:00 Test Item Value Reference Range Comments SODIUM (BEAKER) (test 134 meq/L 136-145 cimi=521) POTASSIUM (BEAKER) (test 3.7 meq/L 3.5-5.1 ckag=551) CHLORIDE (BEAKER) (test 103 meq/L 98-107 qouk=828) CO2 (BEAKER) (test 22 meq/L 22-29 iccf=486) BLOOD UREA NITROGEN 12 mg/dL 7-21 (BEAKER) (test rgei=748) CREATININE (BEAKER) (test 0.84 mg/dL 0.57-1.25 zshv=424) GLUCOSE RANDOM (BEAKER) 149 mg/dL 70-105 (test sdvv=894) CALCIUM (BEAKER) (test 8.6 mg/dL 8.4-10.2 taig=667) EGFR (BEAKER) (test 66 mL/min/1.73 sq m ESTIMATED GFR IS NOT nvkh=0120) ACCURATE CREATININE CLEARANCE IN PREDICTING GLOMERULAR FILTRATION RATE. ESTIMATED GFR IS NOT APPLICABLE FOR DIALYSIS PATIENTS. POCT-GLUCOSE [id number] 21:07:00 Test Item Value Reference Range Comments POC-GLUCOSE METER (BEAKER) 233 mg/dL 70-110 TESTED AT [address] (test lrcp=0594) [facility] [address] POCT-GLUCOSE [id number] 16:55:00 Test Item Value Reference Range Comments POC-GLUCOSE METER (BEAKER) 354 mg/dL 70-110 TESTED AT [address] (test xmdm=4089) [facility] [address] POCT-GLUCOSE [id number] 12:38:00 Test Item Value Reference Range Comments POC-GLUCOSE METER (BEAKER) 152 mg/dL 70-110 TESTED AT [address] (test tfwo=4983) [facility] [address] RAD, SHOULDER, COMPLETE (MIN 2 VIEWS), [id number] 12:21:00Reason for exam:-& gt;shoulder painFINAL REPORT COMPARISON: None TECHNIQUE: 3 views of the left shoulder. FINDINGS: There are no acute fractures or dislocations. No radiopaque foreign bodies. Joint spaces are maintained. No lytic or blastic lesions. Degenerative changes of the AC joint noted. IMPRESSION : No acute bony abnormality. Signed: Nakul Canchola Verified Date/ Time: 08/24/2017 12:21:37 Reading Location: [address] Transitional Reading Room POCT-GLUCOSE [id number] 07:45:00 Test Item Value Reference Range Comments POC-GLUCOSE METER (BEAKER) 148 mg/dL 70-110 TESTED AT [address] (test gpit=0014) [place] [address] [id number] 06:06:00 Test Item Value Reference Range Comments PHOSPHORUS (BEAKER) (test ctdz=586) 2.3 mg/dL 2.3-4.7 [id number] 06:06:00 Test Item Value Reference Range Comments MAGNESIUM (BEAKER) (test fmqo=689) 1.8 mg/dL 1.6-2.6 BASIC METABOLIC [id number] 06:06:00 Test Item Value Reference Range Comments SODIUM (BEAKER) (test 136 meq/L 136-145 htuo=749) POTASSIUM (BEAKER) (test 3.5 meq/L 3.5-5.1 hcyz=722) CHLORIDE (BEAKER) (test 104 meq/L 98-107 vaxm=132) CO2 (BEAKER) (test 24 meq/L 22-29 qfcz=500) BLOOD UREA NITROGEN 10 mg/dL 7-21 (BEAKER) (test mjev=466) CREATININE (BEAKER) (test 0.81 mg/dL 0.57-1.25 uxmt=661) GLUCOSE RANDOM (BEAKER) 133 mg/dL 70-105 (test vlhn=693) CALCIUM (BEAKER) (test 8.3 mg/dL 8.4-10.2 rdka=757) EGFR (BEAKER) (test 69 mL/min/1.73 sq m ESTIMATED GFR IS NOT fbmk=1821) ACCURATE CREATININE CLEARANCE IN PREDICTING GLOMERULAR FILTRATION RATE. ESTIMATED GFR IS NOT APPLICABLE FOR DIALYSIS PATIENTS. HEPATIC FUNCTION [id number] 06:06:00 Test Item Value Reference Range Comments TOTAL PROTEIN (BEAKER) (test nwxj=422) 6.0 gm/dL 6.0-8.3 ALBUMIN (BEAKER) (test hkpm=7512) 3.0 g/dL 3.5-5.0 BILIRUBIN TOTAL (BEAKER) (test cjfi=890) 0.8 mg/dL 0.2-1.2 BILIRUBIN DIRECT (BEAKER) (test mmer=374) 0.4 mg/dL 0.1-0.5 ALKALINE PHOSPHATASE (BEAKER) (test ftkm=183) 52 U/L 40-150 AST (SGOT) (BEAKER) (test nrlh=032) 22 U/L 5-34 ALT (SGPT) (BEAKER) (test pxsa=436) 10 U/L 6-55 CBC W/PLT COUNT & AUTO [id number] 05:28:00 Test Item Value Reference Range Comments WHITE BLOOD CELL COUNT (BEAKER) (test undd=770) 7.9 K/ L 3.5-10.5 RED BLOOD CELL COUNT (BEAKER) (test gzej=692) 2.90 M/ L 3.93-5.22 HEMOGLOBIN (BEAKER) (test dsqa=531) 8.8 GM/DL 11.2-15.7 HEMATOCRIT (BEAKER) (test wlha=484) 27.9 % 34.1-44.9 MEAN CORPUSCULAR VOLUME (BEAKER) (test gaar=800) 96.2 fL 79.4-94.8 MEAN CORPUSCULAR HEMOGLOBIN (BEAKER) (test 30.3 pg 25.6-32.2 hvex=518) MEAN CORPUSCULAR HEMOGLOBIN CONC (BEAKER) (test 31.5 GM/DL 32.2-35.5 fguf=806) RED CELL DISTRIBUTION WIDTH (BEAKER) (test 12.6 % 11.7-14.4 wdgu=097) PLATELET COUNT (BEAKER) (test ibrc=586) 179 K/CU MM 150-450 MEAN PLATELET VOLUME (BEAKER) (test jwjf=107) 10.7 fL 9.4-12.3 NUCLEATED RED BLOOD CELLS (BEAKER) (test 0 /100 WBC 0-0 wokx=770) NEUTROPHILS RELATIVE PERCENT (BEAKER) (test 60 % odjx=647) LYMPHOCYTES RELATIVE PERCENT (BEAKER) (test 27 % cknj=505) MONOCYTES RELATIVE PERCENT (BEAKER) (test 10 % drpv=583) EOSINOPHILS RELATIVE PERCENT (BEAKER) (test 2 % jfnq=862) BASOPHILS RELATIVE PERCENT (BEAKER) (test 0 % zzhp=017) NEUTROPHILS ABSOLUTE COUNT (BEAKER) (test 4.77 K/ L 1.56-6.13 erhv=622) LYMPHOCYTES ABSOLUTE COUNT (BEAKER) (test 2.10 K/ L 1.18-3.74 spba=322) MONOCYTES ABSOLUTE COUNT (BEAKER) (test 0.81 K/ L 0.24-0.36 cpwe=440) EOSINOPHILS ABSOLUTE COUNT (BEAKER) (test 0.16 K/ L 0.04-0.36 gpqv=958) BASOPHILS ABSOLUTE COUNT (BEAKER) (test 0.03 K/ L 0.01-0.08 flkz=485) IMMATURE GRANULOCYTES-RELATIVE PERCENT (BEAKER) 0 % 0-1 (test esrl=8970) POCT-GLUCOSE [id number] 20:25:00 Test Item Value Reference Range Comments POC-GLUCOSE METER (BEAKER) 222 mg/dL 70-110 TESTED AT [address] (test cbou=0319) [facility] [address] POCT-GLUCOSE [id number] 17:25:00 Test Item Value Reference Range Comments POC-GLUCOSE METER (BEAKER) 153 mg/dL 70-110 TESTED AT [address] (test ytex=3644) [facility] [address] POCT-GLUCOSE [id number] 12:23:00 Test Item Value Reference Range Comments POC-GLUCOSE METER (BEAKER) 206 mg/dL 70-110 TESTED AT [address] (test lwmn=1388) [place] [id number] POCT-GLUCOSE [id number] 07:52:00 Test Item Value Reference Range Comments POC-GLUCOSE METER (BEAKER) 143 mg/dL 70-[address] [facility] [address] [facility] (test wcsa=1916) [facility] [address] [id number] 06:35:00 Test Item Value Reference Range Comments PHOSPHORUS (BEAKER) (test fkvl=775) 2.3 mg/dL 2.3-4.7 [id number] 06:35:00 Test Item Value Reference Range Comments MAGNESIUM (BEAKER) (test jfqf=547) 2.2 mg/dL 1.6-2.6 BASIC METABOLIC [id number] 06:35:00 Test Item Value Reference Range Comments SODIUM (BEAKER) (test 135 meq/L 136-145 czqt=900) POTASSIUM (BEAKER) (test 4.0 meq/L 3.5-5.1 kkwb=930) CHLORIDE (BEAKER) (test 103 meq/L 98-107 rywd=031) CO2 (BEAKER) (test 25 meq/L 22-29 xzmv=063) BLOOD UREA NITROGEN 11 mg/dL 7-21 (BEAKER) (test mhfq=516) CREATININE (BEAKER) (test 0.79 mg/dL 0.57-1.25 fkfs=977) GLUCOSE RANDOM (BEAKER) 132 mg/dL 70-105 (test ueam=115) CALCIUM (BEAKER) (test 8.3 mg/dL 8.4-10.2 brri=652) EGFR (BEAKER) (test 71 mL/min/1.73 sq m ESTIMATED GFR IS NOT kjsh=4787) ACCURATE CREATININE CLEARANCE IN PREDICTING GLOMERULAR FILTRATION RATE. ESTIMATED GFR IS NOT APPLICABLE FOR DIALYSIS PATIENTS. HEPATIC FUNCTION [id number] 06:35:00 Test Item Value Reference Range Comments TOTAL PROTEIN (BEAKER) (test qmpl=372) 6.4 gm/dL 6.0-8.3 ALBUMIN (BEAKER) (test ipoe=8605) 3.3 g/dL 3.5-5.0 BILIRUBIN TOTAL (BEAKER) (test vlvg=861) 0.8 mg/dL 0.2-1.2 BILIRUBIN DIRECT (BEAKER) (test akbp=159) 0.4 mg/dL 0.1-0.5 ALKALINE PHOSPHATASE (BEAKER) (test auhs=645) 54 U/L 40-150 AST (SGOT) (BEAKER) (test pqmx=917) 20 U/L 5-34 ALT (SGPT) (BEAKER) (test mcuw=540) 8 U/L 6-55 CBC W/PLT COUNT & AUTO [id number] 06:28:00 Test Item Value Reference Range Comments WHITE BLOOD CELL COUNT (BEAKER) (test rvtc=090) 8.8 K/ L 3.5-10.5 RED BLOOD CELL COUNT (BEAKER) (test mnza=107) 3.11 M/ L 3.93-5.22 HEMOGLOBIN (BEAKER) (test ztgx=554) 9.7 GM/DL 11.2-15.7 HEMATOCRIT (BEAKER) (test zfni=451) 30.3 % 34.1-44.9 MEAN CORPUSCULAR VOLUME (BEAKER) (test lhsb=355) 97.4 fL 79.4-94.8 MEAN CORPUSCULAR HEMOGLOBIN (BEAKER) (test 31.2 pg 25.6-32.2 rjkf=076) MEAN CORPUSCULAR HEMOGLOBIN CONC (BEAKER) (test 32.0 GM/DL 32.2-35.5 kokp=866) RED CELL DISTRIBUTION WIDTH (BEAKER) (test 12.9 % 11.7-14.4 aiis=699) PLATELET COUNT (BEAKER) (test aofr=166) 185 K/CU MM 150-450 MEAN PLATELET VOLUME (BEAKER) (test vkmp=430) 10.8 fL 9.4-12.3 NUCLEATED RED BLOOD CELLS (BEAKER) (test 0 /100 WBC 0-0 xgde=043) NEUTROPHILS RELATIVE PERCENT (BEAKER) (test 67 % ldsn=237) LYMPHOCYTES RELATIVE PERCENT (BEAKER) (test 22 % wwyk=341) MONOCYTES RELATIVE PERCENT (BEAKER) (test 9 % nkmk=712) EOSINOPHILS RELATIVE PERCENT (BEAKER) (test 1 % eefy=803) BASOPHILS RELATIVE PERCENT (BEAKER) (test 0 % dmkw=312) NEUTROPHILS ABSOLUTE COUNT (BEAKER) (test 5.93 K/ L 1.56-6.13 pmiz=299) LYMPHOCYTES ABSOLUTE COUNT (BEAKER) (test 1.95 K/ L 1.18-3.74 oefo=020) MONOCYTES ABSOLUTE COUNT (BEAKER) (test 0.77 K/ L 0.24-0.36 znku=465) EOSINOPHILS ABSOLUTE COUNT (BEAKER) (test 0.12 K/ L 0.04-0.36 vpru=664) BASOPHILS ABSOLUTE COUNT (BEAKER) (test 0.02 K/ L 0.01-0.08 jgpj=392) IMMATURE GRANULOCYTES-RELATIVE PERCENT (BEAKER) 0 % 0-1 (test lrdy=2639) POCT-GLUCOSE [id number] 21:33:00 Test Item Value Reference Range Comments POC-GLUCOSE METER (BEAKER) 123 mg/dL 70-110 TESTED AT [address] (test azwv=3213) [place] [id number] POCT-GLUCOSE [id number] 17:46:00 Test Item Value Reference Range Comments POC-GLUCOSE METER (BEAKER) 213 mg/dL 70-110 TESTED AT [address] (test slzm=9352) [place] [address] POCT-GLUCOSE [id number] 13:10:00 Test Item Value Reference Range Comments POC-GLUCOSE METER (BEAKER) 103 mg/dL 70-110 TESTED AT [address] (test uwvs=3400) [facility] [address] RAD, CHEST, 1 VIEW, NON [id number] 10:00:00Reason for exam:->sudden onset shoulder painShould this be performed at the bedside?->YesFINAL REPORT Chest one view compared to May 17, 2017 Discussion: There is mild cardiac prominence. Lungs clear. No effusion or pneumothorax. Mild degenerative shoulder changes. 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 IMPRESSIONS: No specific evidence of acute abnormal L2. Signed: Yovani Zarate Verified Date/Time: 08/22/2017 10:00:44 Reading Location: [facility] Radiology Reading Room [id number] 06:52:00 Test Item Value Reference Range Comments PHOSPHORUS (BEAKER) (test dsyu=096) 2.6 mg/dL 2.3-4.7 [id number] 06:52:00 Test Item Value Reference Range Comments MAGNESIUM (BEAKER) (test qkmr=296) 1.8 mg/dL 1.6-2.6 BASIC METABOLIC [id number] 06:52:00 Test Item Value Reference Range Comments SODIUM (BEAKER) (test 138 meq/L 136-145 ygah=879) POTASSIUM (BEAKER) (test 3.9 meq/L 3.5-5.1 rfnl=785) CHLORIDE (BEAKER) (test 106 meq/L 98-107 kyke=159) CO2 (BEAKER) (test 24 meq/L 22-29 offm=568) BLOOD UREA NITROGEN 15 mg/dL 7-21 (BEAKER) (test espf=661) CREATININE (BEAKER) (test 0.83 mg/dL 0.57-1.25 bdnj=147) GLUCOSE RANDOM (BEAKER) 117 mg/dL 70-105 (test jaxq=031) CALCIUM (BEAKER) (test 8.3 mg/dL 8.4-10.2 doxt=347) EGFR (BEAKER) (test 67 mL/min/1.73 sq m ESTIMATED GFR IS NOT mrlh=5962) ACCURATE CREATININE CLEARANCE IN PREDICTING GLOMERULAR FILTRATION RATE. ESTIMATED GFR IS NOT APPLICABLE FOR DIALYSIS PATIENTS. HEPATIC FUNCTION [id number] 06:52:00 Test Item Value Reference Range Comments TOTAL PROTEIN (BEAKER) (test ojjx=673) 6.5 gm/dL 6.0-8.3 ALBUMIN (BEAKER) (test cybe=0227) 3.4 g/dL 3.5-5.0 BILIRUBIN TOTAL (BEAKER) (test mmaq=922) 0.7 mg/dL 0.2-1.2 BILIRUBIN DIRECT (BEAKER) (test tvnl=184) 0.3 mg/dL 0.1-0.5 ALKALINE PHOSPHATASE (BEAKER) (test wivw=408) 76 U/L 40-150 AST (SGOT) (BEAKER) (test hkwm=763) 19 U/L 5-34 ALT (SGPT) (BEAKER) (test yevw=449) < U/L 6-55 POCT-GLUCOSE [id number] 06:02:00 Test Item Value Reference Range Comments POC-GLUCOSE METER (BEAKER) 126 mg/dL 70-[address] [facility] [address] [facility] (test riag=9395) [facility] [address] CBC W/PLT COUNT & AUTO [id number] 05:32:00 Test Item Value Reference Range Comments WHITE BLOOD CELL COUNT (BEAKER) (test ugbw=255) 7.7 K/ L 3.5-10.5 RED BLOOD CELL COUNT (BEAKER) (test dwxu=157) 3.25 M/ L 3.93-5.22 HEMOGLOBIN (BEAKER) (test tzhb=402) 9.9 GM/DL 11.2-15.7 HEMATOCRIT (BEAKER) (test lqcz=402) 32.1 % 34.1-44.9 MEAN CORPUSCULAR VOLUME (BEAKER) (test svje=820) 98.8 fL 79.4-94.8 MEAN CORPUSCULAR HEMOGLOBIN (BEAKER) (test 30.5 pg 25.6-32.2 ktmc=623) MEAN CORPUSCULAR HEMOGLOBIN CONC (BEAKER) (test 30.8 GM/DL 32.2-35.5 crvc=386) RED CELL DISTRIBUTION WIDTH (BEAKER) (test 13.2 % 11.7-14.4 swiq=550) PLATELET COUNT (BEAKER) (test hbjt=374) 215 K/CU MM 150-450 MEAN PLATELET VOLUME (BEAKER) (test vqsv=353) 10.4 fL 9.4-12.3 NUCLEATED RED BLOOD CELLS (BEAKER) (test 0 /100 WBC 0-0 desz=761) NEUTROPHILS RELATIVE PERCENT (BEAKER) (test 61 % wlku=813) LYMPHOCYTES RELATIVE PERCENT (BEAKER) (test 27 % vcee=101) MONOCYTES RELATIVE PERCENT (BEAKER) (test 9 % juix=554) EOSINOPHILS RELATIVE PERCENT (BEAKER) (test 3 % vlkx=251) BASOPHILS RELATIVE PERCENT (BEAKER) (test 0 % zebu=944) NEUTROPHILS ABSOLUTE COUNT (BEAKER) (test 4.66 K/ L 1.56-6.13 asmy=965) LYMPHOCYTES ABSOLUTE COUNT (BEAKER) (test 2.09 K/ L 1.18-3.74 ojcq=843) MONOCYTES ABSOLUTE COUNT (BEAKER) (test 0.67 K/ L 0.24-0.36 vhjy=384) EOSINOPHILS ABSOLUTE COUNT (BEAKER) (test 0.22 K/ L 0.04-0.36 pmaw=135) BASOPHILS ABSOLUTE COUNT (BEAKER) (test 0.03 K/ L 0.01-0.08 egel=844) IMMATURE GRANULOCYTES-RELATIVE PERCENT (BEAKER) 0 % 0-1 (test ydxq=5707) POCT-GLUCOSE [id number] 23:06:00 Test Item Value Reference Range Comments POC-GLUCOSE METER (BEAKER) 115 mg/dL 70-110 TESTED AT [address] (test bmfy=4359) [place] [address] POCT-GLUCOSE [id number] 17:34:00 Test Item Value Reference Range Comments POC-GLUCOSE METER (BEAKER) 104 mg/dL 70-110 TESTED AT [address] (test ijdj=9797) [place] [address] CREATINE KINASE (CK), TOTAL AND [id number] 16:09:00 Test Item Value Reference Range Comments CREATINE KINASE TOTAL (BEAKER) (test rpum=173) 170 U/L 29-200 CREATINE KINASE-MB (BEAKER) (test rfew=250) 3.7 ng/mL 0.0-6.6 CREATINE KINASE-MB INDEX (BEAKER) (test pmtq=400) 2.2 % CK-MB Reference Range:<6.7 Normal6.7-10.0 Borderline>10.0 AbnormalTROPONIN [id number] 16:09:00 Test Item Value Reference Range Comments TROPONIN I (BEAKER) (test snxz=569) 0.01 ng/mL 0.00-0.03 Troponin I (TnI) levels [...] acidosis, acute neurological disease, and persistent tachyarrhythmia.POCT-GLUCOSE [id number] 14:22:00 Test Item Value Reference Range Comments POC-GLUCOSE METER (BEAKER) 112 mg/dL 70-110 TESTED AT [address] (test eatl=5870) [place] [address] HEMOGLOBIN [id number] 13:25:00 Test Item Value Reference Range Comments HEMOGLOBIN A1C (BEAKER) (test czkx=421) 7.2 % 4.3-6.1 TSH/FREE T4 IF [id number] 07:32:00 Test Item Value Reference Range Comments THYROID STIMULATING HORMONE (BEAKER) (test 3.77 uIU/mL 0.35-4.94 vuwl=288) CREATINE KINASE (CK), TOTAL AND [id number] 07:16:00 Test Item Value Reference Range Comments CREATINE KINASE TOTAL (BEAKER) (test dehi=103) 137 U/L 29-200 CREATINE KINASE-MB (BEAKER) (test swqz=665) 3.6 ng/mL 0.0-6.6 CREATINE KINASE-MB INDEX (BEAKER) (test olsl=654) 2.6 % CK-MB Reference Range:<6.7 Normal6.7-10.0 Borderline>10.0 AbnormalTROPONIN [id number] 07:16:00 Test Item Value Reference Range Comments TROPONIN I (BEAKER) (test ffme=886) < ng/mL 0.00-0.03 Troponin I (TnI) levels [...] acidosis, acute neurological disease, and persistent tachyarrhythmia.LIPID [id number] 07:08:00 Test Item Value Reference Range Comments TRIGLYCERIDES (BEAKER) (test nddn=099) 67 mg/dL CHOLESTEROL (BEAKER) (test luol=333) 135 mg/dL HDL CHOLESTEROL (BEAKER) (test mego=971) 47 mg/dL LDL CHOLESTEROL CALCULATED (BEAKER) (test 75 mg/dL bhsg=553) Triglyceride Reference Range: Low Risk <150 Borderline 150- 199 High Risk 200-499 Very High Risk >=500Cholesterol Reference Range: Low Risk <200 Borderline 200-239 High Risk > 240HDL Cholesterol Reference Range: Low Risk >=60 High Risk <40LDL Cholesterol Reference Range: Optimal <100 Near Optimal 100-129 Borderline 130-159 High 160-189 Very High >=190C-REACTIVE [id number] 07:08:00 Test Item Value Reference Range Comments C-REACTIVE PROTEIN (SARAH) (test znve=022) 0.47 mg/dL 0.00-0.50 RAD, ABDOMEN/KUB, 1 VIEW [id number] 06:00:00Reason for exam:->ABDOMINAL PAINReason for exam:->ng tubeFINAL [...] Verified Date/Time: 08/21/2017 06 :00:54 Reading Location: [address] Transitional Reading Room CT, [id number] 04:39:00Reason for exam:->ABDOMINAL PAINWhat is the patient [...] MDReport Verified Date/Time: 08/21/2017 04:39:32 Reading Location: [place] [id number] Transitional Reading Room [id number] 03:02:00 Test Item Value Reference Range Comments LIPASE (BEAKER) (test papy=568) 43 U/L 8-78 [id number] 03:02:00 Test Item Value Reference Range Comments AMYLASE (BEAKER) (test uqff=134) 97 U/L 25-125 BASIC METABOLIC [id number] 03:02:00 Test Item Value Reference Range Comments SODIUM (BEAKER) (test 135 meq/L 136-145 fles=310) POTASSIUM (BEAKER) (test 4.4 meq/L 3.5-5.1 rapo=438) CHLORIDE (BEAKER) (test 99 meq/L 98-107 zikc=033) CO2 (BEAKER) (test 22 meq/L 22-29 awgo=933) BLOOD UREA NITROGEN 29 mg/dL 7-21 (BEAKER) (test bfcy=786) CREATININE (BEAKER) (test 1.36 mg/dL 0.57-1.25 pbfy=734) GLUCOSE RANDOM (BEAKER) 201 mg/dL 70-105 (test epce=791) CALCIUM (BEAKER) (test 10.7 mg/dL 8.4-10.2 pbee=792) EGFR (BEAKER) (test 38 mL/min/1.73 sq m ESTIMATED GFR IS NOT gniw=2962) ACCURATE CREATININE CLEARANCE IN PREDICTING GLOMERULAR FILTRATION RATE. ESTIMATED GFR IS NOT APPLICABLE FOR DIALYSIS PATIENTS. HEPATIC FUNCTION [id number] 03:02:00 Test Item Value Reference Range Comments TOTAL PROTEIN (BEAKER) (test pdhn=860) 8.4 gm/dL 6.0-8.3 ALBUMIN (BEAKER) (test bypf=4577) 4.3 g/dL 3.5-5.0 BILIRUBIN TOTAL (BEAKER) (test nvli=233) 0.5 mg/dL 0.2-1.2 BILIRUBIN DIRECT (BEAKER) (test whhp=958) 0.2 mg/dL 0.1-0.5 ALKALINE PHOSPHATASE (BEAKER) (test lith=368) 68 U/L 40-150 AST (SGOT) (BEAKER) (test myay=556) 20 U/L 5-34 ALT (SGPT) (BEAKER) (test qwiw=566) 9 U/L 6-55 CBC W/PLT COUNT & AUTO [id number] 02:34:00 Test Item Value Reference Range Comments WHITE BLOOD CELL COUNT (BEAKER) (test phup=960) 10.9 K/ L 3.5-10.5 RED BLOOD CELL COUNT (BEAKER) (test joky=002) 3.86 M/ L 3.93-5.22 HEMOGLOBIN (BEAKER) (test dhnj=821) 11.8 GM/DL 11.2-15.7 HEMATOCRIT (BEAKER) (test ijng=235) 37.3 % 34.1-44.9 MEAN CORPUSCULAR VOLUME (BEAKER) (test sqxr=519) 96.6 fL 79.4-94.8 MEAN CORPUSCULAR HEMOGLOBIN (BEAKER) (test 30.6 pg 25.6-32.2 sudc=393) MEAN CORPUSCULAR HEMOGLOBIN CONC (BEAKER) (test 31.6 GM/DL 32.2-35.5 avuh=886) RED CELL DISTRIBUTION WIDTH (BEAKER) (test 13.1 % 11.7-14.4 miji=754) PLATELET COUNT (BEAKER) (test mzny=554) 254 K/CU MM 150-450 MEAN PLATELET VOLUME (BEAKER) (test ncon=031) 10.6 fL 9.4-12.3 NUCLEATED RED BLOOD CELLS (BEAKER) (test 0 /100 WBC 0-0 sgbk=107) NEUTROPHILS RELATIVE PERCENT (BEAKER) (test 77 % huva=786) LYMPHOCYTES RELATIVE PERCENT (BEAKER) (test 17 % slqh=102) MONOCYTES RELATIVE PERCENT (BEAKER) (test 4 % amgd=543) EOSINOPHILS RELATIVE PERCENT (BEAKER) (test 1 % ihmu=735) BASOPHILS RELATIVE PERCENT (BEAKER) (test 1 % nrne=792) NEUTROPHILS ABSOLUTE COUNT (BEAKER) (test 8.42 K/ L 1.56-6.13 qtsy=071) LYMPHOCYTES ABSOLUTE COUNT (BEAKER) (test 1.84 K/ L 1.18-3.74 stpo=366) MONOCYTES ABSOLUTE COUNT (BEAKER) (test 0.45 K/ L 0.24-0.36 shbi=787) EOSINOPHILS ABSOLUTE COUNT (BEAKER) (test 0.10 K/ L 0.04-0.36 oxip=213) BASOPHILS ABSOLUTE COUNT (BEAKER) (test 0.05 K/ L 0.01-0.08 bwbr=588) IMMATURE GRANULOCYTES-RELATIVE PERCENT (BEAKER) 0 % 0-1 (test ntvc=9879) RAD, CHEST, 2 [id number] 01:32:00Reason for exam:->HYPERTENSIONReason for exam:->arm/chest painFINAL REPORT INDICATION: HYPERTENSIONarm/chest pain COMPARISON: March 27, 2015 TECHNIQUE: Frontal and lateral views of the chest. FINDINGS: Lungs and pleura: Clear lungs. No effusion.Heart and mediastinum: Increasing size of cardiac silhouette compared to the prior exam. Unremarkable mediastinal contours.Osseous structures: No acute abnormality.Additional findings: None. IMPRESSION: No acute intrathoracic abnormality. Worsening cardiomegaly. Signed: JR Marie Robert MDReport Verified Date/Time: 05/17/2017 01:32:40 Reading Location: [address] Body Reading Room TROPONIN [id number] 01:30:00 Test Item Value Reference Range Comments TROPONIN I (BEAKER) (test self=622) < ng/mL 0.00-0.03 Troponin I (TnI) levels [...] acute neurological disease, and persistent tachyarrhythmia.BASIC METABOLIC [id number] 01:22:00 Test Item Value Reference Range Comments SODIUM (BEAKER) (test 137 meq/L 136-145 tumb=710) POTASSIUM (BEAKER) (test 4.5 meq/L 3.5-5.1 fhaw=183) CHLORIDE (BEAKER) (test 105 meq/L 98-107 kbbs=792) CO2 (BEAKER) (test 23 meq/L 22-29 pizd=613) BLOOD UREA NITROGEN 26 mg/dL 7-21 (BEAKER) (test lgtq=815) CREATININE (BEAKER) (test 1.03 mg/dL 0.57-1.25 hggc=010) GLUCOSE RANDOM (BEAKER) 92 mg/dL 70-105 (test ylxh=333) CALCIUM (BEAKER) (test 9.3 mg/dL 8.4-10.2 xadl=419) EGFR (BEAKER) (test 52 mL/min/1.73 sq m ESTIMATED GFR IS NOT iaeb=6852) ACCURATE CREATININE CLEARANCE IN PREDICTING GLOMERULAR FILTRATION RATE. ESTIMATED GFR IS NOT APPLICABLE FOR DIALYSIS PATIENTS. CBC W/PLT COUNT & AUTO [id number] 01:06:00 Test Item Value Reference Range Comments WHITE BLOOD CELL COUNT (BEAKER) (test geoe=665) 7.4 K/ L 3.5-10.5 RED BLOOD CELL COUNT (BEAKER) (test xxtq=101) 3.51 M/ L 3.93-5.22 HEMOGLOBIN (BEAKER) (test hgvs=427) 10.8 GM/DL 11.2-15.7 HEMATOCRIT (BEAKER) (test npwl=194) 33.7 % 34.1-44.9 MEAN CORPUSCULAR VOLUME (BEAKER) (test wurh=714) 96.0 fL 79.4-94.8 MEAN CORPUSCULAR HEMOGLOBIN (BEAKER) (test 30.8 pg 25.6-32.2 ojkp=831) MEAN CORPUSCULAR HEMOGLOBIN CONC (BEAKER) (test 32.0 GM/DL 32.2-35.5 hzbd=204) RED CELL DISTRIBUTION WIDTH (BEAKER) (test 13.6 % 11.7-14.4 jfib=923) PLATELET COUNT (BEAKER) (test eyty=945) 207 K/CU MM 150-450 MEAN PLATELET VOLUME (BEAKER) (test scwb=092) 10.3 fL 9.4-12.3 NUCLEATED RED BLOOD CELLS (BEAKER) (test 0 /100 WBC 0-0 kepr=844) NEUTROPHILS RELATIVE PERCENT (BEAKER) (test 47 % sqsq=938) LYMPHOCYTES RELATIVE PERCENT (BEAKER) (test 40 % qlpu=514) MONOCYTES RELATIVE PERCENT (BEAKER) (test 7 % azlb=469) EOSINOPHILS RELATIVE PERCENT (BEAKER) (test 5 % gyfh=927) BASOPHILS RELATIVE PERCENT (BEAKER) (test 1 % kbtw=721) NEUTROPHILS ABSOLUTE COUNT (BEAKER) (test 3.42 K/ L 1.56-6.13 vqbk=269) LYMPHOCYTES ABSOLUTE COUNT (BEAKER) (test 2.97 K/ L 1.18-3.74 shtd=568) MONOCYTES ABSOLUTE COUNT (BEAKER) (test 0.54 K/ L 0.24-0.36 rlpo=554) EOSINOPHILS ABSOLUTE COUNT (BEAKER) (test 0.37 K/ L 0.04-0.36 qqiy=141) BASOPHILS ABSOLUTE COUNT (BEAKER) (test 0.07 K/ L 0.01-0.08 dpaj=879) IMMATURE GRANULOCYTES-RELATIVE PERCENT (BEAKER) 0 % 0-1 (test riko=7369) MRI BRAIN WOCLINICAL INDICATION: R26.81 Unsteadiness on feet, history breast cancerMODALITY: [facility] [place] 1.2 [place] Open MRITECHNIQUE: Multiplanar [...] W/O CONTRASTCLINICAL INDICATION: R10.9 Unspecified abdominal painMODALITY: [place] CT (Iterative dose reduction techniques are utilized.)TECHNIQUE: [...]
[2019-04-03] MEDS ORDERED: DIAZEPAM 5 MG TABLET ONE ×2 (15:38→15:50)
[2019-04-03] MEDS ORDERED: HYDROCODONE/APAP 5/325 MG TAB ONE ×2 (15:38→15:50)
--- NOTE | 2019-04-03 17:45 | RAD REPORT ---
EXAM DESCRIPTION: CT - Stone Protocol - 04/03/2019 5:35 pm CLINICAL HISTORY: Pain COMPARISON: Abdomen Pelvis W Contrast dated 09/11/2015 TECHNIQUE: Axial 5 mm thick images were obtained without oral or IV contrast. The rvcqw-fa-[id number] span s the entirety of the system including uppermost abdomen and lung bases. All CT scans are performed using dose optimization technique as appropriate and may include automated exposure control or mA/KV adjustment according to patient size. FINDINGS: No hydronephrosis is present and no obstructing ureteral calculi. No suspicious renal mass es. Isodense masses and pyelonephritis are not excluded on a stone protocol CT scan. No urinary bladd er suspicious finding. No significant adrenal finding. Uterus and ovaries show no suspicious findings . Imaged portions of the liver, spleen and pancreas show no suspicious findings on non-contrast imaging . Cholecystectomy clips are present. No biliary tree dilatation. No acute stomach or small bowel finding. No acute or active colon process seen. Soft tissues at the r ectal anal junction are prominent. This is an area that is inherently limited in assessment on CT franko ging. No hernia, mass or bulky lymphadenopathy noted. No free air, free fluid or inflammatory stranding. No acute bone finding identifiable. IMPRESSION: No hydronephrosis, obstructing calculus or acute finding. Isodense masses and pyelonephritis are not excluded on stone protocol technique.
--- NOTE | 2019-04-03 18:10 | ER ---
Nurse's Notes [facility] Name: Divya Parr Age: 78 yrs Sex: Female : 1940 Arrival Date: 04/03/2019 Time: 15:10 Bed 13 Private MD: Diagnosis: Low back pain;Muscle spasm of back-radiation to right thigh Presentation: 04/03 15:28 Presenting complaint: Patient states: Lower back pain that started last night. Denies aj1 any recent fall. States the pain woke her up at 0300. Denies fever. Reports that pain comes and goes but is severe when it is there. Transition of care: patient was not received from another setting of care. Onset of symptoms was April 03, 2019 at 03:00. Risk Assessment: Do you want to hurt yourself or someone else? Patient reports no desire to harm self or others. Initial Sepsis Screen: Does the patient meet any 2 criteria? No. Patient's initial sepsis screen is negative. Does the patient have a suspected source of infection? Yes: Dysuria/Frequency/Urgency/UTI. Care prior to arrival: None. 15:28 Method Of Arrival: Wheelchair aj1 15:28 Acuity: YVETTE 3 aj1 Triage Assessment: 15:30 General: Appears uncomfortable, Behavior is cooperative, restless. Pain: Complains of aj1 pain in low back area. Neuro: Level of Consciousness is awake, alert, obeys commands. Cardiovascular: Patient's skin is warm and dry. Respiratory: Airway is patent Respiratory effort is even, unlabored, Respiratory pattern is regular, symmetrical. Musculoskeletal: Range of motion: intact in all extremities. Historical: - Allergies: 15:30 NKDA; aj1 - PMHx: 15:30 Cancer, Breast; Diabetes - NIDDM; Hypertension; aj1 - PSHx: 15:30 Cholecystectomy; Mastectomy, Right; aj1 - Immunization history:: Flu vaccine is up to date. - Coronavirus screen:: The patient has NOT traveled to [place] in the past 14 days. - Social history:: Smoking status: Patient/guardian denies using tobacco. - Ebola Screening: : Patient denies travel to an Ebola-affected area in the 21 days before illness onset. Screenin:40 Abuse screen: Denies threats or abuse. Denies injuries from another. Nutritional ph screening: No deficits noted. Tuberculosis screening: No symptoms or risk factors identified. Fall Risk None identified. Assessment: 16:36 General: Appears in no apparent distress. uncomfortable, Behavior is calm, cooperative, ph appropriate for age. Pain: Complains of pain in right mid back Pain radiates to buttocks and right low back. Neuro: Level of Consciousness is awake, alert, obeys commands, Oriented to person, place, time, situation. Cardiovascular: Capillary refill < 3 seconds in bilateral fingers Patient's skin is warm and dry. Respiratory: Airway is patent Respiratory effort is even, unlabored, Respiratory pattern is regular, symmetrical. Derm: Skin is intact, Skin is pink, warm \T\ dry. Musculoskeletal: Circulation, motion, and sensation intact. Range of motion: intact in all extremities. 17:30 Reassessment: Patient appears in no apparent distress at this time. Patient and/or ph family updated on plan of care and expected duration. Pain level reassessed. Patient is alert, oriented x 3, equal unlabored respirations, skin warm/dry/pink. 18:38 Reassessment: Patient appears in no apparent distress at this time. Patient and/or ph family updated on plan of care and expected duration. Pain level reassessed. Patient is alert, oriented x 3, equal unlabored respirations, skin warm/dry/pink. Patient states symptoms have improved. Vital Signs: 15:30 Pulse 71; Resp 18; Temp 98.3; Pulse Ox 100% on R/A; Weight 78.93 kg (R); Height 4 ft. aj1 11 in. (149.86 cm) (R); Pain 10/10; 15:39 BP 157 / 57; lt1 18:39 BP 157 / 65; Pulse 78; Resp 18; Temp 97.9; Pulse Ox 98% ; Pain 4/10; ph 15:30 Body Mass Index 35.14 (78.93 kg, 149.86 cm) aj1 ED Course: 15:10 Patient arrived in ED. as 15:29 Triage completed. aj1 15:30 Arm band placed on. aj1 15:34 Gretel Carranza FNP-C is [facility]. snw 15:34 Demetris Dennison MD is Attending Physician. snw 15:38 Echo Coe RN is Primary Nurse. aj1 16:40 Patient has correct armband on for positive identification. Bed in low position. Call ph light in reach. Side rails up X 1. Pulse ox on. NIBP on. Door closed. Noise minimized. Warm blanket given. 17:35 CT completed. Patient tolerated procedure well. Patient moved back from CT. mw3 18:39 No provider procedures requiring assistance completed. Patient did not have IV access ph during this emergency room visit. Administered Medications: 16:14 Drug: [place] 5 mg-325 mg 1 tabs Route: PO; ph 16:14 Drug: Valium 5 mg Route: PO; ph Outcome: 18:09 Discharge ordered by . rocky 18:40 Discharged to home with family. ph 18:40 Condition: good 18:40 Discharge instructions given to patient, family, Instructed on discharge instructions, follow up and referral plans. medication usage, Demonstrated understanding of instructions, follow-up care, medications, Prescriptions given X 1. 18:40 Patient left the ED. ph Signatures: Echo Coe RN RN aj1 Gretel Carranza, WAVE SOLDER OFFBEARER-C WAVE SOLDER OFFBEARER-Csnw Ambika Rothman Patricia, MARIE RN ph Pamela Prince mw3 Loren Parsons 1
--- NOTE | 2019-04-03 18:12 | EDPHYS ---
Physician Documentation [facility] Name: Divya Parr Age: 78 yrs Sex: Female : 1940 Arrival Date: 04/03/2019 Time: 15:10 Bed 13 Private MD: ED Physician Demetris Dennison HPI: 04/03 16:22 This 78 yrs old Female presents to ER via Wheelchair with complaints of Back snw Pain. 16:22 The patient presents with pain that is acute, with no known mechanism of injury. The snw symptoms are located in the low back, right mid back. Onset: The symptoms/episode began/occurred suddenly, 0300. Associated signs and symptoms: The patient has no apparent associated signs or symptoms. The problem was sustained from unknown cause. Severity of symptoms: At their worst the symptoms were moderate. The patient has not experienced similar symptoms in the past. It is unknown whether or not the patient has recently seen a physician. Historical: - Allergies: 15:30 NKDA; aj1 - PMHx: 15:30 Cancer, Breast; Diabetes - NIDDM; Hypertension; aj1 - PSHx: 15:30 Cholecystectomy; Mastectomy, Right; aj1 - Immunization history:: Flu vaccine is up to date. - Coronavirus screen:: The patient has NOT traveled to [place] in the past 14 days. - Social history:: Smoking status: Patient/guardian denies using tobacco. - Ebola Screening: : Patient denies travel to an Ebola-affected area in the 21 days before illness onset. ROS: 16:20 Eyes: Negative for injury, pain, redness, and discharge, ENT: Negative for injury, snw pain, and discharge, Neck: Negative for injury, pain, and swelling, Cardiovascular: Negative for chest pain, palpitations, and edema, Respiratory: Negative for shortness of breath, cough, wheezing, and pleuritic chest pain, Abdomen/GI: Negative for abdominal pain, nausea, vomiting, diarrhea, and constipation, : Negative for injury, bleeding, discharge, and swelling, Skin: Negative for injury, rash, and discoloration, Neuro: Negative for headache, weakness, numbness, tingling, and seizure. 16:20 Constitutional: Positive for body aches, awoke with severe right lower back and leg pain/spasms. 16:20 Back: Positive for flank pain, radiated pain. 16:20 MS/extremity: Positive for pain, spasms. Exam: 16:19 Constitutional: This is a well developed, well nourished patient who is awake, alert, snw and in no acute distress. Head/Face: Normocephalic, atraumatic. Eyes: Pupils equal round and reactive to light, extra-ocular motions intact. Lids and lashes normal. Conjunctiva and sclera are non-icteric and not injected. Cornea within normal limits. Periorbital areas with no swelling, redness, or edema. ENT: Nares patent. No nasal discharge, no septal abnormalities noted. Tympanic membranes are normal and external auditory canals are clear. Oropharynx with no redness, swelling, or masses, exudates, or evidence of obstruction, uvula midline. Mucous membranes moist. Neck: Trachea midline, no thyromegaly or masses palpated, and no cervical lymphadenopathy. Supple, full range of motion without nuchal rigidity, or vertebral point tenderness. No Meningismus. Chest/axilla: Normal chest wall appearance and motion. Nontender with no deformity. No lesions are appreciated. Cardiovascular: Regular rate and rhythm with a normal S1 and S2. No gallops, murmurs, or rubs. Normal PMI, no JVD. No pulse deficits. Respiratory: Lungs have equal breath sounds bilaterally, clear to auscultation and percussion. No rales, rhonchi or wheezes noted. No increased work of breathing, no retractions or nasal flaring. Abdomen/GI: Soft, non-tender, with normal bowel sounds. No distension or tympany. No guarding or rebound. No evidence of tenderness throughout. Skin: Warm, dry with normal turgor. Normal color with no rashes, no lesions, and no evidence of cellulitis. Neuro: Awake and alert, GCS 15, oriented to person, place, time, and situation. Cranial nerves II-XII grossly intact. Motor strength 5/5 in all extremities. Sensory grossly intact. Cerebellar exam normal. Normal gait. Psych: Awake, alert, with orientation to person, place and time. Behavior, mood, and affect are within normal limits. 16:19 Back: pain, that is moderate, that is severe, of the right mid back and right low back, ROM is painful, with all movement, right lower ext. CVA tenderness, is absent, muscle spasm, is appreciated in the low back area. Vital Signs: 15:30 Pulse 71; Resp 18; Temp 98.3; Pulse Ox 100% on R/A; Weight 78.93 kg (R); Height 4 ft. aj1 11 in. (149.86 cm) (R); Pain 10/10; 15:39 BP 157 / 57; lt1 18:39 BP 157 / 65; Pulse 78; Resp 18; Temp 97.9; Pulse Ox 98% ; Pain 4/10; ph 15:30 Body Mass Index 35.14 (78.93 kg, 149.86 cm) aj1 MDM: 15:36 Patient medically screened. snw 18:11 Data reviewed: vital signs, nurses notes. Data interpreted: Pulse oximetry: on room air snw is 100 %. Interpretation: normal. Response to treatment: the patient's symptoms have markedly improved after treatment. Special discussion: I have referred the patient to see his PCP for further evaluation of high blood pressure. Based on the history and exam findings, there is no indication for further emergent testing or inpatient evaluation. I discussed with the patient/guardian the need to see the primary care provider for further evaluation of the symptoms. 04/03 15:37 Order name: Stone Protocol CT snw Administered Medications: 16:14 Drug: [place] 5 mg-325 mg 1 tabs Route: PO; ph 16:14 Drug: Valium 5 mg Route: PO; ph Disposition: 04/04 07:02 Co-signature as Attending Physician, Demetris Dennison MD. rn Disposition: 04/03/19 18:09 Discharged to Home. Impression: Low back pain, Muscle spasm of back - radiation to right thigh. - Condition is Stable. - Discharge Instructions: Back Pain, Adult, Musculoskeletal Pain, Muscle Cramps and Spasms, Aabe-ib-Ahcm, Heat Therapy, Rehydration, Elderly, Back Injury Prevention. - Prescriptions for orphenadrine citrate 100 mg Oral Tablet Sustained Release - take 1 tablet by ORAL route 2 times per day As needed; 20 tablet. - Medication Reconciliation Form, Thank You Letter, Antibiotic Education, Prescription Opioid Use form. - Follow up: Emergency Department; When: As needed; Reason: Worsening of condition. Follow up: Private Physician; When: 2 - 3 days; Reason: Recheck today's complaints, Continuance of care, Re-evaluation by your physician. Signatures: Dispatcher [employer] Echo Sloan RN RN aj1 Gretel Carranza, TEACHER ADULT EDUCATION-C TEACHER ADULT EDUCATION-Csnw Demetris Dennison MD MD rn Hall, Patricia, RN RN ph Corrections: (The following items were deleted from the chart) 04/03 18:40 18:09 04/03/2019 18:09 Discharged to Home. Impression: Low back pain; Muscle spasm of ph back - radiation to right thigh. Condition is Stable. Forms are Medication Reconciliation Form, Thank You Letter, Antibiotic Education, Prescription Opioid Use. Follow up: Emergency Department; When: As needed; Reason: Worsening of condition. Follow up: Private Physician; When: 2 - 3 days; Reason: Recheck today's complaints, Continuance of care, Re-evaluation by your physician. snw
[2019-04-03 19:38] VITALS: BP 157/65; TEMP 97.9; O2SAT 98
== END 2019-04-03 18:40 | disposition home or self-care (01) ==
LOC: ER 15:09
DX: M62.830 Muscle spasm of back (principal)
CPT/HCPCS: 74176; 76377; 99284

== ENCOUNTER 2021-03-06 17:44 | Emergency (ER) | payer MEDICARE, OTHER ==
--- OUTSIDE RECORDS SUMMARY | 2021-03-06 17:50 | XMS REPORT | Continuity of Care Document ---
:1940 Author Organization [facility] t Address [address] [place] [address] Care Team Providers Name Role Phone MARGOTH Attending Clinician Unavailable SANGITA THOMAS Attending Clinician Unavailable DAVON ARAUJO Attending Clinician Unavailable GEOFF Admitting Clinician Unavailable FRANNIE CARTER Admitting Clinician Unavailable Problems This patient has no known problems. Allergies, Adverse Reactions, Alerts Allergy Allergy Status Severity Reaction(s) Onset Inactive Treating Comm ents Source Name Type Date Date Clinician NO KNOWN Allergy Active [facility] Medications This patient has no known medications. Procedures This patient has no known procedures. Encounters Start End Encounter Admission Attending Care Care Encounter Source Date/Time Date/Time Type Type Clinicians Facility Department ID 2020-06-04 2020-06-05 Emergency MARGOTH [facility] 064 [id number] [address] [place] 00:00:00 00:00:00 GREG Cano Method i st Results Test Description Test Time Test Comments Results Result Comments Source POCT-GLUCOSE METER 2019-01-26 09:21:00 Test Item Value Reference Range Interpretation Comme nts POC-GLUCOSE METER (BEAKER) 129 mg/dL 70-110 H : TESTED AT [facility] [address] [facility] (test code = 1538) [place] T X, [address]: Crate Liner/Techni alejandra ID = [id number] for MICHAEL Carmita FITZGERALD IS AUSTEN [id number] 04:31:00 Test Item Value Reference Range Interpretation Comments MAGNESIUM (BEAKER) (test code = 1.7 mg/dL 1.6-2.6 627) BASIC METABOLIC [id number] 04:31:00 Test Item Value Reference Range Interpretation Comments SODIUM (BEAKER) 139 meq/L 136-145 (test code = 381) POTASSIUM (BEAKER) 3.9 meq/L 3.5-5.1 (test code = 379) CHLORIDE (BEAKER) 108 meq/L 98-107 H (test code = 382) CO2 (BEAKER) (test 27 meq/L 22-29 code = 355) BLOOD UREA NITROGEN 9 mg/dL 7-21 (BEAKER) (test code = 354) CREATININE (BEAKER) 0.82 mg/dL 0.57-1.25 (test code = 358) GLUCOSE RANDOM 124 mg/dL 70-105 H (BEAKER) (test code = 652) CALCIUM (BEAKER) 8.3 mg/dL 8.4-10.2 L (test code = 697) EGFR (BEAKER) (test 68 mL/min/1.73 ESTIMA ELOISA GFR IS code = 1092) sq m NOT ACCURATE CREATININE CLEARANCE IN PREDICTING GLOMERULAR FILTRATION RATE . ESTIMATED GFR I S NOT APPLICABLE FOR DIALYSIS PATIEN TS. CBC W/PLT COUNT & AUTO [id number] 04:01:00 Test Item Value Reference Range Interpretation Comments WHITE BLOOD CELL COUNT (BEAKER) 6.0 K/ L 3.5-10.5 (test code = 775) RED BLOOD CELL COUNT (BEAKER) 3.07 M/ L 3.93-5.22 L (test code = 761) HEMOGLOBIN (BEAKER) (test code = 9.6 GM/DL 11.2-15.7 L 410) HEMATOCRIT (BEAKER) (test code = 30.1 % 34.1-44.9 L 411) MEAN CORPUSCULAR VOLUME (BEAKER) 98.0 fL 79.4-94.8 H (test code = 753) MEAN CORPUSCULAR HEMOGLOBIN 31.3 pg 25.6-32.2 (BEAKER) (test code = 751) MEAN CORPUSCULAR HEMOGLOBIN CONC 31.9 GM/DL 32.2-35.5 L (BEAKER) (test code = 752) RED CELL DISTRIBUTION WIDTH 12.8 % 11.7-14.4 (BEAKER) (test code = 412) PLATELET COUNT (BEAKER) (test 197 K/CU MM 150-450 code = 756) MEAN PLATELET VOLUME (BEAKER) 10.1 fL 9.4-12.3 (test code = 754) NUCLEATED RED BLOOD CELLS 0 /100 WBC 0-0 (BEAKER) (test code = 413) NEUTROPHILS RELATIVE PERCENT 54 % (BEAKER) (test code = 429) LYMPHOCYTES RELATIVE PERCENT 32 % (BEAKER) (test code = 430) MONOCYTES RELATIVE PERCENT 7 % (BEAKER) (test code = 431) EOSINOPHILS RELATIVE PERCENT 6 % (BEAKER) (test code = 432) BASOPHILS RELATIVE PERCENT 1 % (BEAKER) (test code = 437) NEUTROPHILS ABSOLUTE COUNT 3.25 K/ L 1.56-6.13 (BEAKER) (test code = 670) LYMPHOCYTES ABSOLUTE COUNT 1.95 K/ L 1.18-3.74 (BEAKER) (test code = 414) MONOCYTES ABSOLUTE COUNT (BEAKER) 0.41 K/ L 0.24-0.36 H (test code = 415) EOSINOPHILS ABSOLUTE COUNT 0.36 K/ L 0.04-0.36 (BEAKER) (test code = 416) BASOPHILS ABSOLUTE COUNT (BEAKER) 0.05 K/ L 0.01-0.08 (test code = 417) IMMATURE GRANULOCYTES-RELATIVE 0 % 0-1 PERCENT (BEAKER) (test code = 2801) POCT-GLUCOSE [id number] 01:14:00 Test Item Value Reference Range Interpretation Comments POC-GLUCOSE METER 108 mg/dL 70-110 : TESTED A T [facility] [address] (BEAKER) (test code = [facility], 1538) [address]: Crate Liner/Techni alejandra ID = [id number] for CA RBAJAL, ABDI POCT-GLUCOSE [id number] 17:50:00 Test Item Value Reference Range Interpretation Comments POC-GLUCOSE METER 139 mg/dL 70-110 H : TESTED A T [facility] [address] (BEAKER) (test code [facility], = 1538) [address]: Crate Liner/Techni alejandra ID = [id number] for LATT IMORE - THUAN, AUSTEN POCT-GLUCOSE [id number] 12:22:00 Test Item Value Reference Range Interpretation Comments POC-GLUCOSE METER 213 mg/dL 70-110 H : TESTED A T [facility] [address] (BEAKER) (test code [facility], = 1538) [address]: Crate Liner/Techni alejandra ID = [id number] for LATT IMORE - THUAN, AUSTEN [id number] 08:25:00 Test Item Value Reference Range Interpretation Comments PHOSPHORUS (BEAKER) (test code = 2.1 mg/dL 2.3-4.7 L 604) [id number] 08:25:00 Test Item Value Reference Range Interpretation Comments MAGNESIUM (BEAKER) (test code = 1.6 mg/dL 1.6-2.6 627) BASIC METABOLIC [id number] 08:25:00 Test Item Value Reference Range Interpretation Comments SODIUM (BEAKER) 142 meq/L 136-145 (test code = 381) POTASSIUM (BEAKER) 3.4 meq/L 3.5-5.1 L (test code = 379) CHLORIDE (BEAKER) 110 meq/L 98-107 H (test code = 382) CO2 (BEAKER) (test 28 meq/L 22-29 code = 355) BLOOD UREA NITROGEN 9 mg/dL 7-21 (BEAKER) (test code = 354) CREATININE (BEAKER) 0.75 mg/dL 0.57-1.25 (test code = 358) GLUCOSE RANDOM 145 mg/dL 70-105 H (BEAKER) (test code = 652) CALCIUM (BEAKER) 8.2 mg/dL 8.4-10.2 L (test code = 697) EGFR (BEAKER) (test 75 mL/min/1.73 ESTIMA ELOISA GFR IS code = 1092) sq m NOT ACCURATE CREATININE CLEARANCE IN PREDICTING GLOMERULAR FILTRATION RATE . ESTIMATED GFR I S NOT APPLICABLE FOR DIALYSIS PATIEN TS. POCT-GLUCOSE [id number] 06:48:00 Test Item Value Reference Range Interpretation Comments POC-GLUCOSE METER 132 mg/dL 70-110 H : TESTED A T [facility] [address] (BEAKER) (test code = [place], 1538) [address]: Crate Liner/Techni alejandra ID = [id number] for YOSSI GILBERT CBC W/PLT COUNT & AUTO [id number] 06:17:00 Test Item Value Reference Range Interpretation Comments WHITE BLOOD CELL COUNT (BEAKER) 5.9 K/ L 3.5-10.5 (test code = 775) RED BLOOD CELL COUNT (BEAKER) 3.16 M/ L 3.93-5.22 L (test code = 761) HEMOGLOBIN (BEAKER) (test code = 9.8 GM/DL 11.2-15.7 L 410) HEMATOCRIT (BEAKER) (test code = 31.5 % 34.1-44.9 L 411) MEAN CORPUSCULAR VOLUME (BEAKER) 99.7 fL 79.4-94.8 H (test code = 753) MEAN CORPUSCULAR HEMOGLOBIN 31.0 pg 25.6-32.2 (BEAKER) (test code = 751) MEAN CORPUSCULAR HEMOGLOBIN CONC 31.1 GM/DL 32.2-35.5 L (BEAKER) (test code = 752) RED CELL DISTRIBUTION WIDTH 12.8 % 11.7-14.4 (BEAKER) (test code = 412) PLATELET COUNT (BEAKER) (test 185 K/CU MM 150-450 code = 756) MEAN PLATELET VOLUME (BEAKER) 10.4 fL 9.4-12.3 (test code = 754) NUCLEATED RED BLOOD CELLS 0 /100 WBC 0-0 (BEAKER) (test code = 413) NEUTROPHILS RELATIVE PERCENT 57 % (BEAKER) (test code = 429) LYMPHOCYTES RELATIVE PERCENT 28 % (BEAKER) (test code = 430) MONOCYTES RELATIVE PERCENT 9 % (BEAKER) (test code = 431) EOSINOPHILS RELATIVE PERCENT 5 % (BEAKER) (test code = 432) BASOPHILS RELATIVE PERCENT 1 % (BEAKER) (test code = 437) NEUTROPHILS ABSOLUTE COUNT 3.33 K/ L 1.56-6.13 (BEAKER) (test code = 670) LYMPHOCYTES ABSOLUTE COUNT 1.66 K/ L 1.18-3.74 (BEAKER) (test code = 414) MONOCYTES ABSOLUTE COUNT (BEAKER) 0.54 K/ L 0.24-0.36 H (test code = 415) EOSINOPHILS ABSOLUTE COUNT 0.31 K/ L 0.04-0.36 (BEAKER) (test code = 416) BASOPHILS ABSOLUTE COUNT (BEAKER) 0.03 K/ L 0.01-0.08 (test code = 417) IMMATURE GRANULOCYTES-RELATIVE 0 % 0-1 PERCENT (BEAKER) (test code = 2801) CALCIUM, [id number] 06:02:00 Test Item Value Reference Range Interpretation Comments CALCIUM IONIZED (BEAKER) (test 1.10 mmol/L 1.12-1.27 L code = 698) PH, BLOOD (BEAKER) (test code = 7.44 1810) POCT-GLUCOSE [id number] 01:23:00 Test Item Value Reference Range Interpretation Comments POC-GLUCOSE METER 137 mg/dL 70-110 H : TESTED A T [facility] 67[address] (BEAKER) (test code = [facility] [place] [facility], 1538) [address]: Crate Liner/Techni alejandra ID = [id number] for YOSSI GILBERT POCT-GLUCOSE [id number] 18:24:00 Test Item Value Reference Range Interpretation Comments POC-GLUCOSE METER 168 mg/dL 70-110 H : TESTED A T [facility] 6720 (BECHANTELL) (test code = [facility] [place] [facility], 1538) [address]: Crate Liner/Techni alejandra ID = [id number] for DIANNA BAILEY, SERINA FL, SMALL BOWEL [id number] 11:18:00Reason for exam:->Small bowel obstructionFINAL REPORT Small bowel follow-through. Clinical history: Small bowel obstruction. COMPARISON STUDY: CT scan dated October 23, 2018. FINDINGS: Tim[employer]iser radiograph demonstrates a nasogastric tube in place. [...] the small bowel into the colon with contra st entering the colon at approximately 40 minutes. Contrast is present in the rectum at one hour. IMPRESSION:1. No evidence of residual small bowel obstruction with normal transit time. No fluoroscopy was utilized. Signed: Mike Travis MDRepcox south Verified Date/Time: 01/24/2019 11:18:59 Reading Locati on: [facility] B1 [id number] [facility] Consult Reading Room POCT-GLUCOSE [id number] 00:42:00 Test Item Value Reference Range Interpretation Comments POC-GLUCOSE METER 148 mg/dL 70-110 H : TESTED A T [facility] 67[address] (BEAKER) (test code = [facility] [place] [facility], 1538) [address]: Crate Liner/Techni alejandra ID = [id number] for YOSSI GILBERT POCT-GLUCOSE [id number] 21:22:00 Test Item Value Reference Range Interpretation Comments POC-GLUCOSE METER 159 mg/dL 70-110 H : TESTED A T [facility] 67[address] (BEAKER) (test code = [facility], 1538) [address]: Crate Liner/Techni alejandra ID = [id number] for NASH ROY POCT-GLUCOSE [id number] 17:25:00 Test Item Value Reference Range Interpretation Comments POC-GLUCOSE METER 129 mg/dL 70-110 H : TESTED A T [facility] [address] (BEAKER) (test code = [facility], 1538) [address]: Crate Liner/Techni alejandra ID = [id number] for NASH ROY HEMOGLOBIN [id number] 09:20:00 Test Item Value Reference Range Interpretation Comments HEMOGLOBIN A1C (BEAKER) (test code = 6.3 % 4.3-6.1 H 368) POCT-GLUCOSE [id number] 06:04:00 Test Item Value Reference Range Interpretation Comments POC-GLUCOSE METER 172 mg/dL 70-110 H : TESTED A T [facility] [address] (BEAKER) (test code = [facility], 1538) [address]: Crate Liner/Techni alejandra ID = [id number] for GHADA KELLEY [id number] 05:51:00 Test Item Value Reference Range Interpretation Comments MAGNESIUM (BEAKER) 1.9 mg/dL 1.6-2.6 Specimen moderately (test code = 627) hemolyzed [id number] 05:51:00 Test Item Value Reference Range Interpretation Comments PHOSPHORUS (BEAKER) 3.2 mg/dL 2.3-4.7 Specimen moderately (test code = 604) hemolyzed BASIC METABOLIC [id number] 05:51:00 Test Item Value Reference Range Interpretation Comments SODIUM (BEAKER) 135 meq/L 136-145 L (test code = 381) POTASSIUM (BEAKER) 4.9 meq/L 3.5-5.1 Specimen moderately (test code = 379) hemolyzed CHLORIDE (BEAKER) 101 meq/L 98-107 (test code = 382) CO2 (BEAKER) (test 29 meq/L 22-29 code = 355) BLOOD UREA NITROGEN 27 mg/dL 7-21 H (BEAKER) (test code = 354) CREATININE (BEAKER) 1.05 mg/dL 0.57-1.25 Specimen moderately (test code = 358) hemolyzed GLUCOSE RANDOM 202 mg/dL 70-105 H (BEAKER) (test code = 652) CALCIUM (BEAKER) 8.6 mg/dL 8.4-10.2 (test code = 697) EGFR (BEAKER) (test 51 mL/min/1.73 ESTIMA ELOISA GFR IS code = 1092) sq m NOT ACCURATE CREATININE CLEARANCE IN PREDICTING GLOMERULAR FILTRATION RATE . ESTIMATED GFR I S NOT APPLICABLE FOR DIALYSIS PATIEN TS. LIPID [id number] 05:51:00 Test Item Value Reference Range Interpretation Comments TRIGLYCERIDES (BEAKER) 109 mg/dL Speci men moderately (test code = 540) hemolyzed CHOLESTEROL (BEAKER) 183 mg/dL Specime n moderately (test code = 631) hemolyzed HDL CHOLESTEROL (BEAKER) 49 mg/dL (test code = 976) LDL CHOLESTEROL 112 mg/dL CALCULATED (BEAKER) (test code = 633) Triglyceride Reference Range: Low Risk <150 Borderline 150-199 High Risk 200-499 Very High Risk >=500Cholesterol Reference Range: Low Risk <200 Borderline 200-239 High Risk >240HDL Cholesterol Reference Range: Low Risk >=60 High Risk <40LDL Cholesterol Reference Range: Optimal <100 Near Optimal 100-129 Borderline 130-159 High 160-189 Very High >=190CALCIUM, [id number] 05:47:00 Test Item Value Reference Range Interpretation Comments CALCIUM IONIZED (BEAKER) (test 1.12 mmol/L 1.12-1.27 code = 698) PH, BLOOD (BEAKER) (test code = 7.32 1810) CBC W/PLT COUNT & AUTO [id number] 05:24:00 Test Item Value Reference Range Interpretation Comments WHITE BLOOD CELL COUNT (BEAKER) 7.6 K/ L 3.5-10.5 (test code = 775) RED BLOOD CELL COUNT (BEAKER) 3.35 M/ L 3.93-5.22 L (test code = 761) HEMOGLOBIN (BEAKER) (test code = 10.6 GM/DL 11.2-15.7 L 410) HEMATOCRIT (BEAKER) (test code = 33.4 % 34.1-44.9 L 411) MEAN CORPUSCULAR VOLUME (BEAKER) 99.7 fL 79.4-94.8 H (test code = 753) MEAN CORPUSCULAR HEMOGLOBIN 31.6 pg 25.6-32.2 (BEAKER) (test code = 751) MEAN CORPUSCULAR HEMOGLOBIN CONC 31.7 GM/DL 32.2-35.5 L (BEAKER) (test code = 752) RED CELL DISTRIBUTION WIDTH 13.0 % 11.7-14.4 (BEAKER) (test code = 412) PLATELET COUNT (BEAKER) (test 227 K/CU MM 150-450 code = 756) MEAN PLATELET VOLUME (BEAKER) 10.2 fL 9.4-12.3 (test code = 754) NUCLEATED RED BLOOD CELLS 0 /100 WBC 0-0 (BEAKER) (test code = 413) NEUTROPHILS RELATIVE PERCENT 77 % (BEAKER) (test code = 429) LYMPHOCYTES RELATIVE PERCENT 13 % (BEAKER) (test code = 430) MONOCYTES RELATIVE PERCENT 8 % (BEAKER) (test code = 431) EOSINOPHILS RELATIVE PERCENT 1 % (BEAKER) (test code = 432) BASOPHILS RELATIVE PERCENT 0 % (BEAKER) (test code = 437) NEUTROPHILS ABSOLUTE COUNT 5.85 K/ L 1.56-6.13 (BEAKER) (test code = 670) LYMPHOCYTES ABSOLUTE COUNT 1.01 K/ L 1.18-3.74 L (BEAKER) (test code = 414) MONOCYTES ABSOLUTE COUNT (BEAKER) 0.62 K/ L 0.24-0.36 H (test code = 415) EOSINOPHILS ABSOLUTE COUNT 0.09 K/ L 0.04-0.36 (BEAKER) (test code = 416) BASOPHILS ABSOLUTE COUNT (BEAKER) 0.03 K/ L 0.01-0.08 (test code = 417) IMMATURE GRANULOCYTES-RELATIVE 0 % 0-1 PERCENT (BEAKER) (test code = 2801) POCT-GLUCOSE [id number] 23:54:00 Test Item Value Reference Range Interpretation Comments POC-GLUCOSE METER 178 mg/dL 70-110 H : TESTED A T [facility] [address] (BEAKER) (test code = [place], 1538) [address]: Crate Liner/Techni alejandra ID = [id number] for GHADA KELLEY POCT-GLUCOSE [id number] 18:40:00 Test Item Value Reference Range Interpretation Comments POC-GLUCOSE METER 166 mg/dL 70-110 H : [facility] (BEAKER) (test code = [place], 1538) [address]: Crate Liner/Techni alejandra ID = [id number] for NASH ROY CT, [id number] 13:08:00Reason for exam:->ABDOMINAL PAINWhat is the patient's [...] structures unremarkable. IMPRESSION: High-grade small bowel obstruction. Signed: Crow Jarrell Verified Date/Time: 01/22/201913:08:05 Reading Location: [address] Body Reading Room [id number] 09:34:00 Test Item Value Reference Range Interpretation Comments LIPASE (BEAKER) (test code = 749) 30 U/L 8-78 BASIC METABOLIC [id number] 09:34:00 Test Item Value Reference Range Interpretation Comments SODIUM (BEAKER) 133 meq/L 136-145 L (test code = 381) POTASSIUM (BEAKER) 4.7 meq/L 3.5-5.1 Specimen slightly (test code = 379) hemolyzed CHLORIDE (BEAKER) 97 meq/L 98-107 L (test code = 382) CO2 (BEAKER) (test 27 meq/L 22-29 code = 355) BLOOD UREA NITROGEN 37 mg/dL 7-21 H (BEAKER) (test code = 354) CREATININE (BEAKER) 1.30 mg/dL 0.57-1.25 H Specimen slightly (test code = 358) hemolyzed GLUCOSE RANDOM 174 mg/dL 70-105 H (BEAKER) (test code = 652) CALCIUM (BEAKER) 9.0 mg/dL 8.4-10.2 (test code = 697) EGFR (BEAKER) (test 40 mL/min/1.73 ESTIMA ELOISA GFR IS code = 1092) sq m NOT ACCURATE CREATININE CLEARANCE IN PREDICTING GLOMERULAR FILTRATION RATE . ESTIMATED GFR I S NOT APPLICABLE FOR DIALYSIS PATIEN TS. HEPATIC FUNCTION [id number] 09:34:00 Test Item Value Reference Range Interpretation Comments TOTAL PROTEIN (BEAKER) 7.4 gm/dL 6.0-8.3 Speci men slightly (test code = 770) hemolyzed ALBUMIN (BEAKER) (test 3.8 g/dL 3.5-5.0 Speci men slightly code = 1145) hemolyzed BILIRUBIN TOTAL 0.5 mg/dL 0.2-1.2 Specimen sli ghtly (BEAKER) (test code = hemoly zed 377) BILIRUBIN DIRECT 0.2 mg/dL 0.1-0.5 Specimen sl ightly (BEAKER) (test code = hemoly zed 706) ALKALINE PHOSPHATASE 62 U/L 40-150 (BEAKER) (test code = 346) AST (SGOT) (BEAKER) 29 U/L 5-34 Specimen slightly (test code = 353) hemolyzed ALT (SGPT) (BEAKER) 16 U/L 6-55 Specimen slightly (test code = 347) hemolyzed URINALYSIS W/ REFLEX URINE [id number] 09:30:00 Test Item Value Reference Range Interpretation Comments COLOR (BEAKER) (test code = 470) Yellow CLARITY (BEAKER) (test code = 469) Clear SPECIFIC GRAVITY UA (BEAKER) (test 1.023 1.001-1.035 code = 468) PH UA (BEAKER) (test code = 467) 5.5 5.0-8.0 PROTEIN UA (BEAKER) (test code = 20 mg/dL Negative A 464) GLUCOSE UA (BEAKER) (test code = Negative Negative 365) KETONES UA (BEAKER) (test code = Negative Negative 371) BILIRUBIN UA (BEAKER) (test code = Negative Negative 462) BLOOD UA (BEAKER) (test code = 461) Negative Negative NITRITE UA (BEAKER) (test code = Negative Negative 465) LEUKOCYTE ESTERASE UA (BEAKER) Small Negative A (test code = 466) UROBILINOGEN UA (BEAKER) (test code 0.2 mg/dL 0.2-1.0 = 463) RBC UA (BEAKER) (test code = 519) < /HPF WBC UA (BEAKER) (test code = 520) 1 /HPF MUCUS (BEAKER) (test code = 1574) Rare SQUAMOUS EPITHELIAL (BEAKER) (test 2 /HPF code = 516) HYALINE CASTS (BEAKER) (test code = 1 /LPF 514) SOURCE(BEAKER) (test code = 2795) CBC W/PLT COUNT & AUTO [id number] 09:06:00 Test Item Value Reference Range Interpretation Comments WHITE BLOOD CELL COUNT (BEAKER) 8.5 K/ L 3.5-10.5 (test code = 775) RED BLOOD CELL COUNT (BEAKER) 3.55 M/ L 3.93-5.22 L (test code = 761) HEMOGLOBIN (BEAKER) (test code = 11.0 GM/DL 11.2-15.7 L 410) HEMATOCRIT (BEAKER) (test code = 35.1 % 34.1-44.9 411) MEAN CORPUSCULAR VOLUME (BEAKER) 98.9 fL 79.4-94.8 H (test code = 753) MEAN CORPUSCULAR HEMOGLOBIN 31.0 pg 25.6-32.2 (BEAKER) (test code = 751) MEAN CORPUSCULAR HEMOGLOBIN CONC 31.3 GM/DL 32.2-35.5 L (BEAKER) (test code = 752) RED CELL DISTRIBUTION WIDTH 12.9 % 11.7-14.4 (BEAKER) (test code = 412) PLATELET COUNT (BEAKER) (test 226 K/CU MM 150-450 code = 756) MEAN PLATELET VOLUME (BEAKER) 10.3 fL 9.4-12.3 (test code = 754) NUCLEATED RED BLOOD CELLS 0 /100 WBC 0-0 (BEAKER) (test code = 413) NEUTROPHILS RELATIVE PERCENT 80 % (BEAKER) (test code = 429) LYMPHOCYTES RELATIVE PERCENT 14 % (BEAKER) (test code = 430) MONOCYTES RELATIVE PERCENT 5 % (BEAKER) (test code = 431) EOSINOPHILS RELATIVE PERCENT 0 % (BEAKER) (test code = 432) BASOPHILS RELATIVE PERCENT 0 % (BEAKER) (test code = 437) NEUTROPHILS ABSOLUTE COUNT 6.77 K/ L 1.56-6.13 H (BEAKER) (test code = 670) LYMPHOCYTES ABSOLUTE COUNT 1.18 K/ L 1.18-3.74 (BEAKER) (test code = 414) MONOCYTES ABSOLUTE COUNT (BEAKER) 0.46 K/ L 0.24-0.36 H (test code = 415) EOSINOPHILS ABSOLUTE COUNT 0.03 K/ L 0.04-0.36 L (BEAKER) (test code = 416) BASOPHILS ABSOLUTE COUNT (BEAKER) 0.03 K/ L 0.01-0.08 (test code = 417) IMMATURE GRANULOCYTES-RELATIVE 0 % 0-1 PERCENT (BEAKER) (test code = 2801) POCT-GLUCOSE [id number] 12:26:00 Test Item Value Reference Range Interpretation Comments POC-GLUCOSE METER 271 mg/dL 70-110 H TESTED AT [facility] 6720 (BEAKER) (test code = [facility] 1538) [address] POCT-GLUCOSE [id number] 08:10:00 Test Item Value Reference Range Interpretation Comments POC-GLUCOSE METER 118 mg/dL 70-110 H TESTED AT [facility] 6720 (BEAKER) (test code = [facility] 1538) [address] [id number] 03:40:00 Test Item Value Reference Range Interpretation Comments MAGNESIUM (BEAKER) (test code = 1.7 mg/dL 1.6-2.6 627) BASIC METABOLIC [id number] 03:40:00 Test Item Value Reference Range Interpretation Comments SODIUM (BEAKER) 136 meq/L 136-145 (test code = 381) POTASSIUM (BEAKER) 3.8 meq/L 3.5-5.1 (test code = 379) CHLORIDE (BEAKER) 105 meq/L 98-107 (test code = 382) CO2 (BEAKER) (test 22 meq/L 22-29 code = 355) BLOOD UREA NITROGEN 11 mg/dL 7-21 ([facility]) (test code = 354) CREATININE ([facility]) 0.81 mg/dL 0.57-1.25 (test code = 358) GLUCOSE RANDOM 131 mg/dL 70-105 H ([facility]) (test code = 652) CALCIUM ([facility]) 8.6 mg/dL 8.4-10.2 (test code = 697) EGFR ([facility]) (test 69 mL/min/1.73 ESTIMA ELOISA GFR IS code = 1092) sq m NOT ACCURATE CREATININE CLEARANCE IN PREDICTING GLOMERULAR FILTRATION RATE . ESTIMATED GFR I S NOT APPLICABLE FOR DIALYSIS PATIEN TS. POCT-GLUCOSE [id number] 21:00:00 Test Item Value Reference Range Interpretation Comments POC-GLUCOSE METER 169 mg/dL 70-110 H TESTED AT [place] [address] ([facility]) (test code = DEANASAAD Justin [facility] 1538) [id number] POCT-GLUCOSE [id number] 17:46:00 Test Item Value Reference Range Interpretation Comments POC-GLUCOSE METER 201 mg/dL 70-110 H TESTED AT [place] [address] ([facility]) (test code = TREVIN Justin [facility] 1538) [id number] RAD, SHOULDER, COMPLETE (MIN 2 VIEWS), [id number] 14:00:00Reason for exam:- >shoulder painReason for exam:->please obtain axillary lateral and call [phone] when completeFINAL REPORT Two axillary left shoulder images. Normal glenohumeral articulation. Chronic changes are seen about the greater tuberosity and the AC joint. No visible fracture, dislocation, destructive lesion. Signed: Yovani Zarateeport Verified Date/Time: 08/25/2017 14:00:20 Reading Location: [address] Consult Reading Room POCT-GLUCOSE [id number] 12:12:00 Test Item Value Reference Range Interpretation Comments POC-GLUCOSE METER 161 mg/dL 70-110 H TESTED AT [place] [address] ([facility]) (test code = TREVIN Justin [facility] 1538) [id number] POCT-GLUCOSE [id number] 08:42:00 Test Item Value Reference Range Interpretation Comments POC-GLUCOSE METER 157 mg/dL 70-110 H TESTED AT [facility] [address] ([facility]) (test code = TREVIN Justin [facility] 1538) [id number] 06:27:00 Test Item Value Reference Range Interpretation Comments MAGNESIUM (BEAKER) (test code = 1.7 mg/dL 1.6-2.6 627) BASIC METABOLIC [id number] 06:27:00 Test Item Value Reference Range Interpretation Comments SODIUM (BEAKER) 134 meq/L 136-145 L (test code = 381) POTASSIUM (BEAKER) 3.7 meq/L 3.5-5.1 (test code = 379) CHLORIDE (BEAKER) 103 meq/L 98-107 (test code = 382) CO2 (BEAKER) (test 22 meq/L 22-29 code = 355) BLOOD UREA NITROGEN 12 mg/dL 7-21 (BEAKER) (test code = 354) CREATININE (BEAKER) 0.84 mg/dL 0.57-1.25 (test code = 358) GLUCOSE RANDOM 149 mg/dL 70-105 H (BEAKER) (test code = 652) CALCIUM (BEAKER) 8.6 mg/dL 8.4-10.2 (test code = 697) EGFR (BEAKER) (test 66 mL/min/1.73 ESTIMA ELOISA GFR IS code = 1092) sq m NOT ACCURATE CREATININE CLEARANCE IN PREDICTING GLOMERULAR FILTRATION RATE . ESTIMATED GFR I S NOT APPLICABLE FOR DIALYSIS PATIEN TS. POCT-GLUCOSE [id number] 21:07:00 Test Item Value Reference Range Interpretation Comments POC-GLUCOSE METER 233 mg/dL 70-110 H TESTED AT [facility] [address] (BEAKER) (test code = TREVIN Justin [facility] 1538) [id number] POCT-GLUCOSE [id number] 16:55:00 Test Item Value Reference Range Interpretation Comments POC-GLUCOSE METER 354 mg/dL 70-110 H TESTED AT [facility] 6720 (BEAKER) (test code = TREVIN Justin [facility] 1538) [address] POCT-GLUCOSE [id number] 12:38:00 Test Item Value Reference Range Interpretation Comments POC-GLUCOSE METER 152 mg/dL 70-110 H TESTED AT [place] [id number] (BEAKER) (test code = [facility] Margoth [facility] 1538) [address] RAD, SHOULDER, COMPLETE (MIN 2 VIEWS), [id number] 12:21:00Reason for exam:- >shoulder painFINAL REPORT COMPARISON: None TECHNIQUE: 3 views of the left shoulder. FINDINGS: There are no acute fractures or dislocations. No radiopaque foreign bodies. Joint spaces are maintained. No lytic or blastic lesions. Degenerative changes of the AC joint noted. IMPRESSION: No acute bony abnormality. Signed: Nakul Aleman MDReport Verified Date/Time: 08/24/2017 12:21:37 Reading Location: [address] Reading Room POCT-GLUCOSE [id number] 07:45:00 Test Item Value Reference Range Interpretation Comments POC-GLUCOSE METER 148 mg/dL 70-110 H TESTED AT [facility] 67 ([facility]) (test code = [facility] Margoth [facility] 1538) [address] [id number] 06:06:00 Test Item Value Reference Range Interpretation Comments PHOSPHORUS (BEAKER) (test code = 2.3 mg/dL 2.3-4.7 604) [id number] 06:06:00 Test Item Value Reference Range Interpretation Comments MAGNESIUM (BEAKER) (test code = 1.8 mg/dL 1.6-2.6 627) BASIC METABOLIC [id number] 06:06:00 Test Item Value Reference Range Interpretation Comments SODIUM (BEAKER) 136 meq/L 136-145 (test code = 381) POTASSIUM (BEAKER) 3.5 meq/L 3.5-5.1 (test code = 379) CHLORIDE (BEAKER) 104 meq/L 98-107 (test code = 382) CO2 (BEAKER) (test 24 meq/L 22-29 code = 355) BLOOD UREA NITROGEN 10 mg/dL 7-21 (BEAKER) (test code = 354) CREATININE (BEAKER) 0.81 mg/dL 0.57-1.25 (test code = 358) GLUCOSE RANDOM 133 mg/dL 70-105 H (BEAKER) (test code = 652) CALCIUM (BEAKER) 8.3 mg/dL 8.4-10.2 L (test code = 697) EGFR (BEAKER) (test 69 mL/min/1.73 ESTIMA ELOISA GFR IS code = 1092) sq m NOT ACCURATE CREATININE CLEARANCE IN PREDICTING GLOMERULAR FILTRATION RATE . ESTIMATED GFR I S NOT APPLICABLE FOR DIALYSIS PATIEN TS. HEPATIC FUNCTION [id number] 06:06:00 Test Item Value Reference Range Interpretation Comments TOTAL PROTEIN (BEAKER) (test code = 6.0 gm/dL 6.0-8.3 770) ALBUMIN (BEAKER) (test code = 1145) 3.0 g/dL 3.5-5.0 L BILIRUBIN TOTAL (BEAKER) (test code 0.8 mg/dL 0.2-1.2 = 377) BILIRUBIN DIRECT (BEAKER) (test 0.4 mg/dL 0.1-0.5 code = 706) ALKALINE PHOSPHATASE (BEAKER) (test 52 U/L 40-150 code = 346) AST (SGOT) (BEAKER) (test code = 22 U/L 5-34 353) ALT (SGPT) (BEAKER) (test code = 10 U/L 6-55 347) CBC W/PLT COUNT & AUTO [id number] 05:28:00 Test Item Value Reference Range Interpretation Comments WHITE BLOOD CELL COUNT (BEAKER) 7.9 K/ L 3.5-10.5 (test code = 775) RED BLOOD CELL COUNT (BEAKER) 2.90 M/ L 3.93-5.22 L (test code = 761) HEMOGLOBIN (BEAKER) (test code = 8.8 GM/DL 11.2-15.7 L 410) HEMATOCRIT (BEAKER) (test code = 27.9 % 34.1-44.9 L 411) MEAN CORPUSCULAR VOLUME (BEAKER) 96.2 fL 79.4-94.8 H (test code = 753) MEAN CORPUSCULAR HEMOGLOBIN 30.3 pg 25.6-32.2 (BEAKER) (test code = 751) MEAN CORPUSCULAR HEMOGLOBIN CONC 31.5 GM/DL 32.2-35.5 L (BEAKER) (test code = 752) RED CELL DISTRIBUTION WIDTH 12.6 % 11.7-14.4 (BEAKER) (test code = 412) PLATELET COUNT (BEAKER) (test 179 K/CU MM 150-450 code = 756) MEAN PLATELET VOLUME (BEAKER) 10.7 fL 9.4-12.3 (test code = 754) NUCLEATED RED BLOOD CELLS 0 /100 WBC 0-0 (BEAKER) (test code = 413) NEUTROPHILS RELATIVE PERCENT 60 % (BEAKER) (test code = 429) LYMPHOCYTES RELATIVE PERCENT 27 % (BEAKER) (test code = 430) MONOCYTES RELATIVE PERCENT 10 % (BEAKER) (test code = 431) EOSINOPHILS RELATIVE PERCENT 2 % (BEAKER) (test code = 432) BASOPHILS RELATIVE PERCENT 0 % (BEAKER) (test code = 437) NEUTROPHILS ABSOLUTE COUNT 4.77 K/ L 1.56-6.13 (BEAKER) (test code = 670) LYMPHOCYTES ABSOLUTE COUNT 2.10 K/ L 1.18-3.74 (BEAKER) (test code = 414) MONOCYTES ABSOLUTE COUNT (BEAKER) 0.81 K/ L 0.24-0.36 H (test code = 415) EOSINOPHILS ABSOLUTE COUNT 0.16 K/ L 0.04-0.36 (BEAKER) (test code = 416) BASOPHILS ABSOLUTE COUNT (BEAKER) 0.03 K/ L 0.01-0.08 (test code = 417) IMMATURE GRANULOCYTES-RELATIVE 0 % 0-1 PERCENT (BEAKER) (test code = 2801) POCT-GLUCOSE [id number] 20:25:00 Test Item Value Reference Range Interpretation Comments POC-GLUCOSE METER 222 mg/dL 70-110 H TESTED AT [place] [address] ([facility]) (test code = TREVIN Justin [facility] 1538) [address] POCT-GLUCOSE [id number] 17:25:00 Test Item Value Reference Range Interpretation Comments POC-GLUCOSE METER 153 mg/dL 70-110 H TESTED AT [place] [address] ([facility]) (test code = TREVIN Justin [place] 1538) [address] POCT-GLUCOSE [id number] 12:23:00 Test Item Value Reference Range Interpretation Comments POC-GLUCOSE METER 206 mg/dL 70-110 H TESTED AT [place] [address] ([facility]) (test code = TREVIN Justin [place] 1538) [address] POCT-GLUCOSE [id number] 07:52:00 Test Item Value Reference Range Interpretation Comments POC-GLUCOSE METER 143 mg/dL 70-110 H TESTED AT [facility] 6720 (BEAKER) (test code = TREVIN YOUNG 1533) [address] [id number] 06:35:00 Test Item Value Reference Range Interpretation Comments PHOSPHORUS (BEAKER) (test code = 2.3 mg/dL 2.3-4.7 604) [id number] 06:35:00 Test Item Value Reference Range Interpretation Comments MAGNESIUM (BEAKER) (test code = 2.2 mg/dL 1.6-2.6 627) BASIC METABOLIC [id number] 06:35:00 Test Item Value Reference Range Interpretation Comments SODIUM (BEAKER) 135 meq/L 136-145 L (test code = 381) POTASSIUM (BEAKER) 4.0 meq/L 3.5-5.1 (test code = 379) CHLORIDE (BEAKER) 103 meq/L 98-107 (test code = 382) CO2 (BEAKER) (test 25 meq/L 22-29 code = 355) BLOOD UREA NITROGEN 11 mg/dL 7-21 (BEAKER) (test code = 354) CREATININE (BEAKER) 0.79 mg/dL 0.57-1.25 (test code = 358) GLUCOSE RANDOM 132 mg/dL 70-105 H (BEAKER) (test code = 652) CALCIUM (BEAKER) 8.3 mg/dL 8.4-10.2 L (test code = 697) EGFR (BEAKER) (test 71 mL/min/1.73 ESTIMA ELOISA GFR IS code = 1092) sq m NOT ACCURATE CREATININE CLEARANCE IN PREDICTING GLOMERULAR FILTRATION RATE . ESTIMATED GFR I S NOT APPLICABLE FOR DIALYSIS PATIEN TS. HEPATIC FUNCTION [id number] 06:35:00 Test Item Value Reference Range Interpretation Comments TOTAL PROTEIN (BEAKER) (test code = 6.4 gm/dL 6.0-8.3 770) ALBUMIN (BEAKER) (test code = 1145) 3.3 g/dL 3.5-5.0 L BILIRUBIN TOTAL (BEAKER) (test code 0.8 mg/dL 0.2-1.2 = 377) BILIRUBIN DIRECT (BEAKER) (test 0.4 mg/dL 0.1-0.5 code = 706) ALKALINE PHOSPHATASE (BEAKER) (test 54 U/L 40-150 code = 346) AST (SGOT) (BEAKER) (test code = 20 U/L 5-34 353) ALT (SGPT) (BEAKER) (test code = 8 U/L 6-55 347) CBC W/PLT COUNT & AUTO [id number] 06:28:00 Test Item Value Reference Range Interpretation Comments WHITE BLOOD CELL COUNT (BEAKER) 8.8 K/ L 3.5-10.5 (test code = 775) RED BLOOD CELL COUNT (BEAKER) 3.11 M/ L 3.93-5.22 L (test code = 761) HEMOGLOBIN (BEAKER) (test code = 9.7 GM/DL 11.2-15.7 L 410) HEMATOCRIT (BEAKER) (test code = 30.3 % 34.1-44.9 L 411) MEAN CORPUSCULAR VOLUME (BEAKER) 97.4 fL 79.4-94.8 H (test code = 753) MEAN CORPUSCULAR HEMOGLOBIN 31.2 pg 25.6-32.2 (BEAKER) (test code = 751) MEAN CORPUSCULAR HEMOGLOBIN CONC 32.0 GM/DL 32.2-35.5 L (BEAKER) (test code = 752) RED CELL DISTRIBUTION WIDTH 12.9 % 11.7-14.4 (BEAKER) (test code = 412) PLATELET COUNT (BEAKER) (test 185 K/CU MM 150-450 code = 756) MEAN PLATELET VOLUME (BEAKER) 10.8 fL 9.4-12.3 (test code = 754) NUCLEATED RED BLOOD CELLS 0 /100 WBC 0-0 (BEAKER) (test code = 413) NEUTROPHILS RELATIVE PERCENT 67 % (BEAKER) (test code = 429) LYMPHOCYTES RELATIVE PERCENT 22 % (BEAKER) (test code = 430) MONOCYTES RELATIVE PERCENT 9 % (BEAKER) (test code = 431) EOSINOPHILS RELATIVE PERCENT 1 % (BEAKER) (test code = 432) BASOPHILS RELATIVE PERCENT 0 % (BEAKER) (test code = 437) NEUTROPHILS ABSOLUTE COUNT 5.93 K/ L 1.56-6.13 (BEAKER) (test code = 670) LYMPHOCYTES ABSOLUTE COUNT 1.95 K/ L 1.18-3.74 (BEAKER) (test code = 414) MONOCYTES ABSOLUTE COUNT (BEAKER) 0.77 K/ L 0.24-0.36 H (test code = 415) EOSINOPHILS ABSOLUTE COUNT 0.12 K/ L 0.04-0.36 (BEAKER) (test code = 416) BASOPHILS ABSOLUTE COUNT (AKER) 0.02 K/ L 0.01-0.08 (test code = 417) IMMATURE GRANULOCYTES-RELATIVE 0 % 0-1 PERCENT (AKER) (test code = 2801) POCT-GLUCOSE [id number] 21:33:00 Test Item Value Reference Range Interpretation Comments POC-GLUCOSE METER 123 mg/dL 70-110 H TESTED AT [place] [address] ([facility]) (test code = [facility] Margoth [facility] 1538) [address] POCT-GLUCOSE [id number] 17:46:00 Test Item Value Reference Range Interpretation Comments POC-GLUCOSE METER 213 mg/dL 70-110 H TESTED AT [place] [address] ([facility]) (test code = [facility] Marg[place] [facility] 1538) [address] POCT-GLUCOSE [id number] 13:10:00 Test Item Value Reference Range Interpretation Comments POC-GLUCOSE METER 103 mg/dL 70-110 TESTED AT [place] [address] ([facility]) (test code = [facility] 1538) [address] RAD, CHEST, 1 VIEW, NON [id number] 10:00:00Reason for exam:->sudden onset shoulder painShould this be performed at the bedside?->YesFINAL REPORT Chest one view compared to May 17, 2017 Discussion: There is mild cardiac prominence. Lungs clear. No effusion or pneumothorax. Mild degenerative shoulder changes. 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 IMPRESSIONS: No specific evidence of acute abnormal L2. Signed: Yovani Zarate MDReport Verified Date/Time: 08/22/2017 10:00:44 Reading Location: [facility] Radiology Reading Room [id number] 06:52:00 Test Item Value Reference Range Interpretation Comments PHOSPHORUS (BEAKER) (test code = 2.6 mg/dL 2.3-4.7 604) [id number] 06:52:00 Test Item Value Reference Range Interpretation Comments MAGNESIUM (BEAKER) (test code = 1.8 mg/dL 1.6-2.6 627) BASIC METABOLIC [id number] 06:52:00 Test Item Value Reference Range Interpretation Comments SODIUM (BEAKER) 138 meq/L 136-145 (test code = 381) POTASSIUM (BEAKER) 3.9 meq/L 3.5-5.1 (test code = 379) CHLORIDE (BEAKER) 106 meq/L 98-107 (test code = 382) CO2 (BEAKER) (test 24 meq/L 22-29 code = 355) BLOOD UREA NITROGEN 15 mg/dL 7-21 (BEAKER) (test code = 354) CREATININE (BEAKER) 0.83 mg/dL 0.57-1.25 (test code = 358) GLUCOSE RANDOM 117 mg/dL 70-105 H (BEAKER) (test code = 652) CALCIUM (BEAKER) 8.3 mg/dL 8.4-10.2 L (test code = 697) EGFR (BEAKER) (test 67 mL/min/1.73 ESTIMA ELOISA GFR IS code = 1092) sq m NOT ACCURATE CREATININE CLEARANCE IN PREDICTING GLOMERULAR FILTRATION RATE . ESTIMATED GFR I S NOT APPLICABLE FOR DIALYSIS PATIEN TS. HEPATIC FUNCTION [id number] 06:52:00 Test Item Value Reference Range Interpretation Comments TOTAL PROTEIN (BEAKER) (test code = 6.5 gm/dL 6.0-8.3 770) ALBUMIN (BEAKER) (test code = 1145) 3.4 g/dL 3.5-5.0 L BILIRUBIN TOTAL (BEAKER) (test code 0.7 mg/dL 0.2-1.2 = 377) BILIRUBIN DIRECT (BEAKER) (test 0.3 mg/dL 0.1-0.5 code = 706) ALKALINE PHOSPHATASE (BEAKER) (test 76 U/L 40-150 code = 346) AST (SGOT) (BEAKER) (test code = 19 U/L 5-34 353) ALT (SGPT) (BEAKER) (test code = < U/L 6-55 L 347) POCT-GLUCOSE [id number] 06:02:00 Test Item Value Reference Range Interpretation Comments POC-GLUCOSE METER 126 mg/dL 70-110 H TESTED AT [facility] 6720 (BEAKER) (test code = [place] 1538) [address] CBC W/PLT COUNT & AUTO [id number] 05:32:00 Test Item Value Reference Range Interpretation Comments WHITE BLOOD CELL COUNT (BEAKER) 7.7 K/ L 3.5-10.5 (test code = 775) RED BLOOD CELL COUNT (BEAKER) 3.25 M/ L 3.93-5.22 L (test code = 761) HEMOGLOBIN (BEAKER) (test code = 9.9 GM/DL 11.2-15.7 L 410) HEMATOCRIT (BEAKER) (test code = 32.1 % 34.1-44.9 L 411) MEAN CORPUSCULAR VOLUME (BEAKER) 98.8 fL 79.4-94.8 H (test code = 753) MEAN CORPUSCULAR HEMOGLOBIN 30.5 pg 25.6-32.2 (BEAKER) (test code = 751) MEAN CORPUSCULAR HEMOGLOBIN CONC 30.8 GM/DL 32.2-35.5 L (BEAKER) (test code = 752) RED CELL DISTRIBUTION WIDTH 13.2 % 11.7-14.4 (BEAKER) (test code = 412) PLATELET COUNT (BEAKER) (test 215 K/CU MM 150-450 code = 756) MEAN PLATELET VOLUME (BEAKER) 10.4 fL 9.4-12.3 (test code = 754) NUCLEATED RED BLOOD CELLS 0 /100 WBC 0-0 (BEAKER) (test code = 413) NEUTROPHILS RELATIVE PERCENT 61 % (BEAKER) (test code = 429) LYMPHOCYTES RELATIVE PERCENT 27 % (BEAKER) (test code = 430) MONOCYTES RELATIVE PERCENT 9 % (BEAKER) (test code = 431) EOSINOPHILS RELATIVE PERCENT 3 % (BEAKER) (test code = 432) BASOPHILS RELATIVE PERCENT 0 % (BEAKER) (test code = 437) NEUTROPHILS ABSOLUTE COUNT 4.66 K/ L 1.56-6.13 (BEAKER) (test code = 670) LYMPHOCYTES ABSOLUTE COUNT 2.09 K/ L 1.18-3.74 (BEAKER) (test code = 414) MONOCYTES ABSOLUTE COUNT (BEAKER) 0.67 K/ L 0.24-0.36 H (test code = 415) EOSINOPHILS ABSOLUTE COUNT 0.22 K/ L 0.04-0.36 (BEAKER) (test code = 416) BASOPHILS ABSOLUTE COUNT ([facility]) 0.03 K/ L 0.01-0.08 (test code = 417) IMMATURE GRANULOCYTES-RELATIVE 0 % 0-1 PERCENT ([facility]) (test code = 2801) POCT-GLUCOSE [id number] 23:06:00 Test Item Value Reference Range Interpretation Comments POC-GLUCOSE METER 115 mg/dL 70-110 H TESTED AT [facility] 67 ([facility]) (test code = [facility] 1538) [address] POCT-GLUCOSE [id number] 17:34:00 Test Item Value Reference Range Interpretation Comments POC-GLUCOSE METER 104 mg/dL 70-110 TESTED AT [place] [address] ([facility]) (test code = [facility] 1538) [address] CREATINE KINASE (CK), TOTAL AND [id number] 16:09:00 Test Item Value Reference Range Interpretation Comments CREATINE KINASE TOTAL ([facility]) 170 U/L 29-200 (test code = 380) CREATINE KINASE-MB ([facility]) (test 3.7 ng/mL 0.0-6.6 code = 750) CREATINE KINASE-MB INDEX ([facility]) 2.2 % (test code = 395) CK-MB Reference Range:<6.7 Normal6.7-10.0 Borderline>10.0 AbnormalTROPONIN [id number] 16:09:00 Test Item Value Reference Range Interpretation Comments TROPONIN I ([facility]) (test code = 0.01 ng/mL 0.00-0.03 397) Troponin I (TnI) levels must be interpreted [...] acidosis, acute neurological disease, and persistent tachyarrhythmia.POCT-GLUCOSE [id number] 14:22:00 Test Item Value Reference Range Interpretation Comments POC-GLUCOSE METER 112 mg/dL 70-110 H TESTED AT [facility] 6720 ([facility]) (test code = [facility] 1538) [address] HEMOGLOBIN [id number] 13:25:00 Test Item Value Reference Range Interpretation Comments HEMOGLOBIN A1C (BEAKER) (test code = 7.2 % 4.3-6.1 H 368) TSH/FREE T4 IF [id number] 07:32:00 Test Item Value Reference Range Interpretation Comments THYROID STIMULATING HORMONE 3.77 uIU/mL 0.35-4.94 (BEAKER) (test code = 772) CREATINE KINASE (CK), TOTAL AND [id number] 07:16:00 Test Item Value Reference Range Interpretation Comments CREATINE KINASE TOTAL (BEAKER) 137 U/L 29-200 (test code = 380) CREATINE KINASE-MB (BEAKER) (test 3.6 ng/mL 0.0-6.6 code = 750) CREATINE KINASE-MB INDEX (BEAKER) 2.6 % (test code = 395) CK-MB Reference Range:<6.7 Normal6.7-10.0 Borderline>10.0 AbnormalTROPONIN [id number] 07:16:00 Test Item Value Reference Range Interpretation Comments TROPONIN I (BEAKER) (test code = 397) < ng/mL 0.00-0.03 Troponin I (TnI) levels [...] acidosis, acute neurological disease, and persistent tachyarrhythmia.LIPID [id number] 07:08:00 Test Item Value Reference Range Interpretation Comments TRIGLYCERIDES (BEAKER) (test code = 67 mg/dL 540) CHOLESTEROL (BEAKER) (test code = 135 mg/dL 631) HDL CHOLESTEROL (BEAKER) (test code 47 mg/dL = 976) LDL CHOLESTEROL CALCULATED (BEAKER) 75 mg/dL (test code = 633) Triglyceride Reference Range: Low Risk <150 Borderline 150-199 High Risk 200-499 Very High Risk >=500Cholesterol Reference Range: Low Risk <200 Borderline 200-239 High Risk >240HDL Cholesterol Reference Range: Low Risk >=60 High Risk <40LDL Cholesterol Reference Range: Optimal <100 Near Optimal 100-129 Borderline 130-159 High 160-189 Very High >=190C-REACTIVE [id number] 07:08:00 Test Item Value Reference Range Interpretation Comments C-REACTIVE PROTEIN (BEAKER) (test 0.47 mg/dL 0.00-0.50 code = 676) RAD, ABDOMEN/KUB, 1 VIEW [id number] 06:00:00Reason for exam:->ABDOMINAL PAINReason for exam:->ng tubeFINAL REPORT RAD, ABDOMEN/KUB, 1 VIEW AP CLINICAL INDICATION: "ABDOMINAL PAINng tube" COMPARISON: CT abdomen and pelvis from earlier tonight TECHNIQUE: 2 frontal radiographs of the abdomen. IMPRESSION: NG tube is curled in the expected location of the GE junction. This should be advanced by at least 7 cm.Dilated loops of small bowel in the abdomen.No pneumatosis or obvious p neumoperitoneum.No acute osseous abnormality. Signed: Leana Sherwood MDReport Verified Date/Time: 08/21/2017 06:00:54 Reading Location: [address] Transitional Reading Room CT, [id number] 04:39:00Reason for exam:->ABDOMINAL PAINWhat is the patient's sedation requirement?->No SedationFINAL REPORT CT, ABDOMEN \\T\\ [...] MDReport Verified Date/Time: 08/21/2017 04:39:32 Reading Location: [address] Transitional Reading Room [id number] 03:02:00 Test Item Value Reference Range Interpretation Comments LIPASE (BEAKER) (test code = 749) 43 U/L 8-78 [id number] 03:02:00 Test Item Value Reference Range Interpretation Comments AMYLASE (BEAKER) (test code = 349) 97 U/L 25-125 BASIC METABOLIC [id number] 03:02:00 Test Item Value Reference Range Interpretation Comments SODIUM (BEAKER) 135 meq/L 136-145 L (test code = 381) POTASSIUM (BEAKER) 4.4 meq/L 3.5-5.1 (test code = 379) CHLORIDE (BEAKER) 99 meq/L 98-107 (test code = 382) CO2 (BEAKER) (test 22 meq/L 22-29 code = 355) BLOOD UREA NITROGEN 29 mg/dL 7-21 H (BEAKER) (test code = 354) CREATININE (BEAKER) 1.36 mg/dL 0.57-1.25 H (test code = 358) GLUCOSE RANDOM 201 mg/dL 70-105 H (BEAKER) (test code = 652) CALCIUM (BEAKER) 10.7 mg/dL 8.4-10.2 H (test code = 697) EGFR (BEAKER) (test 38 mL/min/1.73 ESTIMA ELOISA GFR IS code = 1092) sq m NOT ACCURATE CREATININE CLEARANCE IN PREDICTING GLOMERULAR FILTRATION RATE . ESTIMATED GFR I S NOT APPLICABLE FOR DIALYSIS PATIEN TS. HEPATIC FUNCTION [id number] 03:02:00 Test Item Value Reference Range Interpretation Comments TOTAL PROTEIN (BEAKER) (test code = 8.4 gm/dL 6.0-8.3 H 770) ALBUMIN (BEAKER) (test code = 1145) 4.3 g/dL 3.5-5.0 BILIRUBIN TOTAL (BEAKER) (test code 0.5 mg/dL 0.2-1.2 = 377) BILIRUBIN DIRECT (BEAKER) (test 0.2 mg/dL 0.1-0.5 code = 706) ALKALINE PHOSPHATASE (BEAKER) (test 68 U/L 40-150 code = 346) AST (SGOT) (BEAKER) (test code = 20 U/L 5-34 353) ALT (SGPT) (BEAKER) (test code = 9 U/L 6-55 347) CBC W/PLT COUNT & AUTO [id number] 02:34:00 Test Item Value Reference Range Interpretation Comments WHITE BLOOD CELL COUNT (BEAKER) 10.9 K/ L 3.5-10.5 H (test code = 775) RED BLOOD CELL COUNT (BEAKER) 3.86 M/ L 3.93-5.22 L (test code = 761) HEMOGLOBIN (BEAKER) (test code = 11.8 GM/DL 11.2-15.7 410) HEMATOCRIT (BEAKER) (test code = 37.3 % 34.1-44.9 411) MEAN CORPUSCULAR VOLUME (BEAKER) 96.6 fL 79.4-94.8 H (test code = 753) MEAN CORPUSCULAR HEMOGLOBIN 30.6 pg 25.6-32.2 (BEAKER) (test code = 751) MEAN CORPUSCULAR HEMOGLOBIN CONC 31.6 GM/DL 32.2-35.5 L (BEAKER) (test code = 752) RED CELL DISTRIBUTION WIDTH 13.1 % 11.7-14.4 (BEAKER) (test code = 412) PLATELET COUNT (BEAKER) (test 254 K/CU MM 150-450 code = 756) MEAN PLATELET VOLUME (BEAKER) 10.6 fL 9.4-12.3 (test code = 754) NUCLEATED RED BLOOD CELLS 0 /100 WBC 0-0 (BEAKER) (test code = 413) NEUTROPHILS RELATIVE PERCENT 77 % (BEAKER) (test code = 429) LYMPHOCYTES RELATIVE PERCENT 17 % (BEAKER) (test code = 430) MONOCYTES RELATIVE PERCENT 4 % (BEAKER) (test code = 431) EOSINOPHILS RELATIVE PERCENT 1 % (BEAKER) (test code = 432) BASOPHILS RELATIVE PERCENT 1 % (BEAKER) (test code = 437) NEUTROPHILS ABSOLUTE COUNT 8.42 K/ L 1.56-6.13 H (BEAKER) (test code = 670) LYMPHOCYTES ABSOLUTE COUNT 1.84 K/ L 1.18-3.74 (BEAKER) (test code = 414) MONOCYTES ABSOLUTE COUNT (BEAKER) 0.45 K/ L 0.24-0.36 H (test code = 415) EOSINOPHILS ABSOLUTE COUNT 0.10 K/ L 0.04-0.36 (BEAKER) (test code = 416) BASOPHILS ABSOLUTE COUNT (BEAKER) 0.05 K/ L 0.01-0.08 (test code = 417) IMMATURE GRANULOCYTES-RELATIVE 0 % 0-1 PERCENT (BEAKER) (test code = 2801) RAD, CHEST, 2 [id number] 01:32:00Reason for exam:->HYPERTENSIONReason for exam:->arm/chest painFINAL REPORT INDICATION: HYPERTENSIONarm/chest pain COMPARISON: March 27, 2015 TECHNIQUE: Frontal and lateral views of the chest. FINDINGS: Lungs and pleura: Clear lungs. No ef fusion.Heart and mediastinum: Increasing size of cardiac silhouette compared to the prior exam. Unremarkable mediastinal contours.Osseous structures: No acute abnormality.Additional findings: None. IMPRESSION: No acute intrathoracic abnormality. Worsening cardiomegaly. Signed: JR Marie Robert MDReport Verified Date/Time: 05/17/2017 01:32:40 Reading Location: [address] Body Reading Room TROPONIN [id number] 01:30:00 Test Item Value Reference Range Interpretation Comments TROPONIN I (BEAKER) (test code = 397) < ng/mL 0.00-0.03 Troponin I (TnI) levels [...] acute neurological disease, and persistent tachyarrhythmia.BASIC METABOLIC [id number] 01:22:00 Test Item Value Reference Range Interpretation Comments SODIUM (BEAKER) 137 meq/L 136-145 (test code = 381) POTASSIUM (BEAKER) 4.5 meq/L 3.5-5.1 (test code = 379) CHLORIDE (BEAKER) 105 meq/L 98-107 (test code = 382) CO2 (BEAKER) (test 23 meq/L 22-29 code = 355) BLOOD UREA NITROGEN 26 mg/dL 7-21 H (BEAKER) (test code = 354) CREATININE (BEAKER) 1.03 mg/dL 0.57-1.25 (test code = 358) GLUCOSE RANDOM 92 mg/dL 70-105 (BEAKER) (test code = 652) CALCIUM (BEAKER) 9.3 mg/dL 8.4-10.2 (test code = 697) EGFR (BEAKER) (test 52 mL/min/1.73 ESTIMA ELOISA GFR IS code = 1092) sq m NOT ACCURATE CREATININE CLEARANCE IN PREDICTING GLOMERULAR FILTRATION RATE . ESTIMATED GFR I S NOT APPLICABLE FOR DIALYSIS PATIEN TS. CBC W/PLT COUNT & AUTO [id number] 01:06:00 Test Item Value Reference Range Interpretation Comments WHITE BLOOD CELL COUNT (BEAKER) 7.4 K/ L 3.5-10.5 (test code = 775) RED BLOOD CELL COUNT (BEAKER) 3.51 M/ L 3.93-5.22 L (test code = 761) HEMOGLOBIN (BEAKER) (test code = 10.8 GM/DL 11.2-15.7 L 410) HEMATOCRIT (BEAKER) (test code = 33.7 % 34.1-44.9 L 411) MEAN CORPUSCULAR VOLUME (BEAKER) 96.0 fL 79.4-94.8 H (test code = 753) MEAN CORPUSCULAR HEMOGLOBIN 30.8 pg 25.6-32.2 (BEAKER) (test code = 751) MEAN CORPUSCULAR HEMOGLOBIN CONC 32.0 GM/DL 32.2-35.5 L (BEAKER) (test code = 752) RED CELL DISTRIBUTION WIDTH 13.6 % 11.7-14.4 (BEAKER) (test code = 412) PLATELET COUNT (BEAKER) (test 207 K/CU MM 150-450 code = 756) MEAN PLATELET VOLUME (BEAKER) 10.3 fL 9.4-12.3 (test code = 754) NUCLEATED RED BLOOD CELLS 0 /100 WBC 0-0 (BEAKER) (test code = 413) NEUTROPHILS RELATIVE PERCENT 47 % (BEAKER) (test code = 429) LYMPHOCYTES RELATIVE PERCENT 40 % (BEAKER) (test code = 430) MONOCYTES RELATIVE PERCENT 7 % (BEAKER) (test code = 431) EOSINOPHILS RELATIVE PERCENT 5 % (BEAKER) (test code = 432) BASOPHILS RELATIVE PERCENT 1 % (BEAKER) (test code = 437) NEUTROPHILS ABSOLUTE COUNT 3.42 K/ L 1.56-6.13 (BEAKER) (test code = 670) LYMPHOCYTES ABSOLUTE COUNT 2.97 K/ L 1.18-3.74 (BEAKER) (test code = 414) MONOCYTES ABSOLUTE COUNT (BEAKER) 0.54 K/ L 0.24-0.36 H (test code = 415) EOSINOPHILS ABSOLUTE COUNT 0.37 K/ L 0.04-0.36 H (BEAKER) (test code = 416) BASOPHILS ABSOLUTE COUNT (BEAKER) 0.07 K/ L 0.01-0.08 (test code = 417) IMMATURE GRANULOCYTES-RELATIVE 0 % 0-1 PERCENT (BEAKER) (test code = 5016)
[2021-03-06] MEDS ORDERED: NA CHLORIDE 0.9% 1,000 ML ONE (18:28)
[2021-03-06] MEDS ORDERED: MORPHINE 4 MG/ML SYR ONE (18:28)
[2021-03-06] MEDS ORDERED: ONDANSETRON 4 MG/2 ML VIAL ONE (18:28)
[2021-03-06 18:32] LABS: Absolute Lymphocytes (CBC) 1.3 K/uL (0.7-4.9); Hematocrit 34.2 % (36.0-45.0); Lymphocytes % 20.7 % (15.3-44.8); MPV 7.9 fL (7.6-11.3); RBC Red Blood Cell Count 3.65 M/uL (3.86-4.86)
[2021-03-06 18:49] LABS: Bicarbonate 26 mmol/L (21-32); Glucose Level 242 mg/dL (74-106); Potassium 4.6 mmol/L (3.5-5.1); Sodium Level 136 mmol/L (136-145)
[2021-03-06 18:50] LABS: ALT/SGPT 17 U/L (12-78); AST/SGOT 15 U/L (15-37); Alkaline Phosphatase 72 U/L (45-117); BUN Blood Urea Nitrogen 35 mg/dL (7-18); Bilirubin Direct < 0.1 mg/dL (0-0.2); Bilirubin Total 0.3 mg/dL (0.2-1.0); Lipase 222 U/L (73-393); Protein, Total 7.3 g/dL (6.4-8.2)
--- NOTE | 2021-03-06 20:43 | RAD REPORT ---
EXAM DESCRIPTION: CTAbdomen Pelvis W Contrast - 03/06/2021 8:15 pm CLINICAL HISTORY: Abdominal pain. ABD PAIN COMPARISON: Abdomen Pelvis W Contrast dated 09/11/2015; CT ABD PELVIS W CONTRAST dated 04/08/2015; CT ABD PELVIS W CONTRAST dated 09/05/2012; CT ABD PELVIS W CONTRAST dated 04/28/2011; [facility] Protocol date d 04/03/2019 TECHNIQUE: Biphasic CT imaging of the abdomen and pelvis was performed with 100 ml non-ionic IV cont rast. All CT scans are performed using dose optimization technique as appropriate and may include automated exposure control or mA/KV adjustment according to patient size. FINDINGS: The lung bases are clear. Tiny liver lesions are present likely benign cysts but too small fully characterize. Cholecystectomy is noted. The spleen, pancreas, adrenal glands and kidneys are within normal limits. A few mildly prominent small bowel loops in the left abdomen probably represent mild ileus. Normal ap pendix. No free air or free fluid is seen. No evidence of significant lymphadenopathy. Mild lumbosacral degenerative changes. IMPRESSION: Mildly prominent small bowel loops in the left abdomen may represent a mild adynamic ile us. Normal appendix.
[2021-03-06 22:10] LABS: Urine Blood Trace-intact (Negative); Urine Glucose Negative (Negative); Urine Protein Negative (Negative)
--- NOTE | 2021-03-06 22:17 | ER ---
Nurse's Notes [facility] Name: Divya Parr Age: 80 yrs Sex: Female : 1940 Arrival Date: 03/06/2021 Time: 17:55 Bed 18 Private MD: Diagnosis: Ileus Presentation: 03/06 17:55 Chief complaint: EMS states: "She has been having this stomach pain for 3 years and jd3 today in the last 3 hours it has gotten worse. she says she has been to the ER for this pain before. Nausea and abdominal pain that is in the middle in the stomach.". Coronavirus screen: At this time, the client does not indicate any symptoms associated with coronavirus-19. Ebola Screen: No symptoms or risks identified at this time. Initial Sepsis Screen: Does the patient meet any 2 criteria? No. Patient's initial sepsis screen is negative. Does the patient have a suspected source of infection? No. Patient's initial sepsis screen is negative. Risk Assessment: Do you want to hurt yourself or someone else? Patient reports no desire to harm self or others. Onset of symptoms was March 06, 2021. 17:55 Method Of Arrival: EMS: [facility] jd3 17:55 Acuity: YVETTE 3 jd3 Historical: - Allergies: 17:57 NKDA; jd3 - PMHx: 17:57 Cancer, Breast; Diabetes - NIDDM; Hypertension; jd3 - Immunization history:: Adult Immunizations up to date. - Social history:: Smoking status: Patient denies any tobacco usage or history of. Screenin:59 Abuse screen: Denies threats or abuse. Nutritional screening: No deficits noted. jd3 Tuberculosis screening: No symptoms or risk factors identified. Fall Risk Ambulatory Aid- None/Bed Rest/Nurse Assist (0 pts). Gait- Normal/Bed Rest/Wheelchair (0 pts) Mental Status- Oriented to own ability (0 pts). Total Clemente Fall Scale indicates No Risk (0-24 pts). Assessment: 17:58 General: Appears in no apparent distress. comfortable, Behavior is calm, cooperative, jd3 appropriate for age. Pain: Complains of pain in abdomen Quality of pain is described as dull, squeezing. Neuro: Level of Consciousness is awake, alert, obeys commands, Oriented to person, place, time, situation. Cardiovascular: Denies chest pain, Capillary refill < 3 seconds Patient's skin is warm and dry. Respiratory: Airway is patent Respiratory effort is even, unlabored, Respiratory pattern is regular, symmetrical, Denies cough, shortness of breath. GI: Abdomen is round Abd is soft and non tender X 4 quads. Reports lower abdominal pain, upper abdominal pain, nausea. : No signs and/or symptoms were reported regarding the genitourinary system. EENT: No signs and/or symptoms were reported regarding the EENT system. Derm: Skin is intact, Skin is dry, Skin is normal, Skin temperature is warm. Musculoskeletal: Circulation, motion, and sensation intact. Range of motion: intact in all extremities. 18:48 Reassessment: Patient appears in no apparent distress at this time. No changes from jd3 previously documented assessment. Patient and/or family updated on plan of care and expected duration. Pain level reassessed. Patient is alert, oriented x 3, equal unlabored respirations, skin warm/dry/pink. 19:29 General: Appears in no apparent distress. comfortable, Behavior is calm, cooperative, al4 appropriate for age. Pain: Denies pain. Neuro: Level of Consciousness is awake, alert, Oriented to person, place. Cardiovascular: Capillary refill < 3 seconds Patient's skin is warm and dry. Respiratory: Airway is patent Respiratory effort is even, unlabored, Respiratory pattern is regular, symmetrical. GI: Abdomen is round Abd is soft and non tender. : No signs and/or symptoms were reported regarding the genitourinary system. EENT: No signs and/or symptoms were reported regarding the EENT system. Derm: Skin is intact, Skin is dry, Skin is pink, warm \\T\\ dry. Musculoskeletal: Circulation, motion, and sensation intact. Range of motion: intact in all extremities. 19:49 General: completed assessment with virtual fire chief, Christina López al4 21:00 Reassessment: Patient is confused, VS stable, patient keeps trying to get out of bed. al4 22:00 General: urine collected and sent off by MARIE Mayorga . al4 22:30 Reassessment: Virtual fire chief used to assess patients needs. Patients VS stable, al4 patient is resting comfortably in bed. 22:54 General: Daughter and Patient educated and informed on patients condition. Daughter and al4 Patient both educated before signing AMA form. Both Daughter and Patient persistent on wanting to go home. . Vital Signs: 17:58 BP 168 / 67; Pulse 65; Resp 18 S; Temp 98.1(TE); Pulse Ox 99% on R/A; Weight 81.65 kg jd3 (R); Height 4 ft. 11 in. (149.86 cm) (R); Pain 8/10; 18:48 BP 141 / 53; Pulse 60; Resp 18 S; Pulse Ox 95% on R/A; jd3 19:12 BP 136 / 56; Pulse 61; Resp 18 S; Pulse Ox 94% on R/A; al4 21:18 BP 161 / 72; Pulse 73; al4 21:30 BP 174 / 63; Pulse 71; Resp 18; Pulse Ox 99% ; al4 22:30 Pulse 76; Pulse Ox 96% ; al4 17:58 Body Mass Index 36.36 (81.65 kg, 149.86 cm) jd3 ED Course: 17:55 Patient arrived in ED. jd3 17:55 INTERPRET FOR NURSE AND PROVIDER SERBIAN AND SPANISH . [facility] 17:57 Triage completed. jd3 17:58 Arm band placed on. jd3 17:58 Patient has correct armband on for positive identification. Bed in low position. Call mh5 light in reach. Side rails up X2. Warm blanket given. Pulse ox on. NIBP on. 18:01 Gisselle Guzmán FNP-C is PHCP. kb 18:01 Leslie Woodard MD is Attending Physician. kb 18:07 Russ Monique RN is Primary Nurse. jd3 18:32 Inserted saline lock: 20 gauge in right antecubital area, using aseptic technique. jd3 Blood collected. 19:27 IV discontinued, intact, bleeding controlled, No redness/swelling at site. Pressure al4 dressing applied. 19:28 Inserted saline lock: 20 gauge in left antecubital area, using aseptic technique. al4 20:15 CT Abd/Pelvis - IV Contrast Only In Process Unspecified. EDMS 20:56 Attending Physician role handed off by Leslie Woodard MD rn 20:56 Demetris Dennison MD is Attending Physician. rn 22:16 Matt Grimm MD is Hospitalizing Provider. kb 22:55 IV discontinued, intact, bleeding controlled, No redness/swelling at site. Pressure al4 dressing applied. Administered Medications: 18:32 Drug: NS 0.9% 1000 ml Route: IV; Rate: 1000 ml; Site: right antecubital; jd3 22:58 Follow up: IV Status: Completed infusion; IV Intake: 1000ml al4 18:32 Drug: Zofran (Ondansetron) 4 mg Route: IVP; Site: right antecubital; jd3 18:50 Follow up: Response: No adverse reaction jd3 18:32 Drug: morphine 4 mg Route: IVP; Site: right antecubital; jd3 18:50 Follow up: Response: No adverse reaction; RASS: Alert and Calm (0) jd3 Intake: 22:58 IV: 1000ml; Total: 1000ml. al4 Outcome: 22:16 Decision to Hospitalize by Provider. kb 22:54 AMA AMA form signed al4 22:54 Condition: stable 22:54 Condition: stable 22:54 Discharge instructions given to patient, family, Instructed on the need for admit, Demonstrated understanding of instructions. 23:13 Patient left the ED. al4 Signatures: Dispatcher [employer] EDMS Gisselle Guzmán, CLINICAL DOCUMENT IMPROVEMENT EDUCATOR-C CLINICAL DOCUMENT IMPROVEMENT EDUCATOR-Ckb Demetris Dennison MD MD rn Martinez, Maria [facility] Russ Monique RN RN jd3 Ledbetter, Alexis al4 Corrections: (The following items were deleted from the chart) 23:05 19:29 Neuro: Level of Consciousness is awake, alert, obeys commands, Oriented to al4 person, place, time, situation, al4 23:06 19:29 Neuro: Level of Consciousness is awake, alert, obeys commands, Oriented to al4 person, place, al4
--- NOTE | 2021-03-06 22:17 | EDPHYS ---
Physician Documentation [facility] Name: Divya Parr Age: 80 yrs Sex: Female : 1940 Arrival Date: 03/06/2021 Time: 17:55 Bed 18 Private MD: ED Physician Demetris Dennison HPI: 03/06 19:26 This 80 yrs old Female presents to ER via EMS with complaints of abd pain. kb 19:26 The patient presents with abdominal pain that is diffuse. Onset: The symptoms/episode kb began/occurred 3 year(s) ago. The symptoms do not radiate. Associated signs and symptoms: Pertinent positives: nausea, Pertinent negatives: diarrhea, fever, vomiting. The symptoms are described as constant. Modifying factors: The symptoms are alleviated by nothing, the symptoms are aggravated by nothing. Severity of pain: At its worst the pain was moderate in the emergency department the pain is unchanged. The patient has experienced similar episodes in the past. The patient has been recently seen by a physician:. Historical: - Allergies: 17:57 NKDA; jd3 - PMHx: 17:57 Cancer, Breast; Diabetes - NIDDM; Hypertension; jd3 - Immunization history:: Adult Immunizations up to date. - Social history:: Smoking status: Patient denies any tobacco usage or history of. ROS: 19:26 Constitutional: Negative for fever, chills, and weight loss. kb 19:26 Abdomen/GI: Positive for abdominal pain, nausea, Negative for vomiting, diarrhea. 19:26 All other systems are negative. Exam: 19:26 Constitutional: This is a well developed, well nourished patient who is awake, alert, kb and in no acute distress. Head/Face: Normocephalic, atraumatic. ENT: Moist Mucous membranes Cardiovascular: Regular rate and rhythm with a normal S1 and S2. No gallops, murmurs, or rubs. No pulse deficits. Respiratory: Respirations even and unlabored. No increased work of breathing. Talking in full sentences Back: No spinal tenderness. No costovertebral tenderness. Full range of motion. Skin: Warm, dry with normal turgor. Normal color. MS/ Extremity: Pulses equal, no cyanosis. Neurovascular intact. Full, normal range of motion. Neuro: Awake and alert, GCS 15, oriented to person, place, time, and situation. Moves all extremities. Normal gait. Psych: Awake, alert, with orientation to person, place and time. Behavior, mood, and affect are within normal limits. 19:26 Abdomen/GI: Inspection: abdomen appears normal, Bowel sounds: normal, in all quadrants, Palpation: soft, in all quadrants, mild abdominal tenderness, in all quadrants. Vital Signs: 17:58 BP 168 / 67; Pulse 65; Resp 18 S; Temp 98.1(TE); Pulse Ox 99% on R/A; Weight 81.65 kg jd3 (R); Height 4 ft. 11 in. (149.86 cm) (R); Pain 8/10; 18:48 BP 141 / 53; Pulse 60; Resp 18 S; Pulse Ox 95% on R/A; jd3 19:12 BP 136 / 56; Pulse 61; Resp 18 S; Pulse Ox 94% on R/A; al4 21:18 BP 161 / 72; Pulse 73; al4 21:30 BP 174 / 63; Pulse 71; Resp 18; Pulse Ox 99% ; al4 22:30 Pulse 76; Pulse Ox 96% ; al4 17:58 Body Mass Index 36.36 (81.65 kg, 149.86 cm) jd3 MDM: 18:01 Patient medically screened. kb 19:27 Data reviewed: vital signs, nurses notes. Data interpreted: Pulse oximetry: on room air kb is 95 %. Interpretation: normal. 21:29 Counseling: I had a detailed discussion with the patient and/or guardian regarding: the kb historical points, exam findings, and any diagnostic results supporting the discharge/admit diagnosis, lab results, radiology results, the need for further work-up and treatment in the hospital. 22:13 Physician consultation: Johnson KAZT was contacted at 22:16, regarding admission, to the medical/surgical unit. patient's condition, and will see patient in ED. 22:43 ED course: Daughter now at bedside and wants to take pt home. Pt wants to leave, is kb denying any pain, is nontender upon exam at this time. Educated on risks of leaving and reason for wanting to observe pt in the hospital. Daughter will bring pt back if symptoms progress. . 03/06 18:01 Order name: Basic Metabolic Panel; Complete Time: 18:50 kb 03/06 18:01 Order name: CBC with Diff; Complete Time: 18:38 kb 03/06 18:01 Order name: Hepatic Function; Complete Time: 18:50 kb 03/06 18:01 Order name: Lipase; Complete Time: 18:50 kb 03/06 21:30 Order name: COVID-19 SARS RT PCR (Document "Date of Onset" if Symptomatic); Complete kb Time: 22:43 03/06 22:10 Order name: Urine Dipstick-Ancillary; Complete Time: 22:11 EDMS 03/06 18:01 Order name: IV Saline Lock; Complete Time: 18:32 kb 03/06 18:01 Order name: Labs collected and sent; Complete Time: 18:32 kb 03/06 18:12 Order name: CT Abd/Pelvis - IV Contrast Only; Complete Time: 20:47 kb 03/06 22:10 Order name: Urine Microscopic Only; Complete Time: 22:59 mw2 03/06 22:10 Order name: Urine Culture [facility] 03/06 20:56 Order name: Urine Dipstick-Ancillary (obtain specimen); Complete Time: 22:25 kb Administered Medications: 18:32 Drug: NS 0.9% 1000 ml Route: IV; Rate: 1000 ml; Site: right antecubital; jd3 22:58 Follow up: IV Status: Completed infusion; IV Intake: 1000ml al4 18:32 Drug: Zofran (Ondansetron) 4 mg Route: IVP; Site: right antecubital; jd3 18:50 Follow up: Response: No adverse reaction jd3 18:32 Drug: morphine 4 mg Route: IVP; Site: right antecubital; jd3 18:50 Follow up: Response: No adverse reaction; RASS: Alert and Calm (0) jd3 Disposition: 03/07 00:42 Co-signature as Attending Physician, Demetris Dennison MD I agree with the assessment and rn plan of care. Attestation: The patient's history, exam findings, diagnostics, and a summary of any interventions or procedures was reviewed in detail with Gisselle PAUL. Disposition Summary: 03/06/21 22:45 Left Against Medical Advice Location: Home(03/06/21 22:45) kb Problem: new(03/06/21 22:45) kb Symptoms: are unchanged(03/06/21 22:45) kb Condition: Stable(03/06/21 22:45) kb Diagnosis - Ileus kb Followup: kb - With: Emergency Department - When: As needed - Reason: Worsening of condition Followup: kb - With: Private Physician - When: 2 - 3 days - Reason: Recheck today's complaints, Continuance of care, Re-evaluation by your physician Signatures: Dispatcher [employer] EDGisselle Myers, BEVERLY ROYAL-Demetris Spencer MD MD rn Garcia, Cindy, RN RN cg Davies, Jonathon, RN RN jd3 Ledbetter, Alexis al4 Corrections: (The following items were deleted from the chart) 03/06 22:43 22:16 Telemetry/MedSurg (observation) kb cg 22:43 22:16 kb cg 22:44 22:16 Observation kb kb 22:44 22:16 Matt Grimm kb kb 22:44 22:16 Stable kb kb 22:44 22:16 new kb kb 22:44 22:16 are unchanged kb kb 22:44 22:16 Standard kb kb 22:44 22:16 Ileus kb kb 22:44 22:43 [facility] ER HOLD cg kb 22:44 22:43 ERHOLD- cg kb
[2021-03-06 22:58] LABS: Urine RBC <5 /HPF (NONE SEEN); Urine Urothelial Cells <5 /HPF (NONE SEEN)
[2021-03-06 22:59] LABS: Urine Bacteria 20-50 /HPF (<20)
[2021-03-06 23:21] VITALS: TEMP 98.1
[2021-03-06 23:25] VITALS: BP 174/63
[2021-03-06 23:27] VITALS: O2SAT 96
== END 2021-03-06 23:13 | disposition left against medical advice (07) ==
LOC: ER 17:44
DX: K56.7 Ileus, unspecified (principal); Z20.822 Contact with and (suspected) exposure to COVID-19; I10 Essential (primary) hypertension; Z85.3 Personal history of malignant neoplasm of breast
CPT/HCPCS: 87088; 85025; 87086; 80048; 36415; 80076; 83690; 74177; U0003; Q9967; J7030; J2405; 81003; 81015

== ENCOUNTER 2021-05-12 20:42 | Emergency (ER) | payer OTHER ==
--- OUTSIDE RECORDS SUMMARY | 2021-05-12 22:25 | XMS REPORT | Continuity of Care Document ---
:1940 Author Organization [facility] t Address [address] [place] [address] Care Team Providers Name Role Phone MARGOTH Attending Clinician Unavailable SANGITA THOMAS Attending Clinician Unavailable DAVON ARAUJO Attending Clinician Unavailable GEOFF Admitting Clinician Unavailable FRANNIE CARTER Admitting Clinician Unavailable Problems This patient has no known problems. Allergies, Adverse Reactions, Alerts Allergy Allergy Status Severity Reaction(s) Onset Inactive Treating Comm ents Source Name Type Date Date Clinician NO KNOWN Allergy Active [facility] Medications This patient has no known medications. Procedures This patient has no known procedures. Encounters Start End Encounter Admission Attending Care Care Encounter Source Date/Time Date/Time Type Type Clinicians Facility Department ID 2020-06-04 2020-06-05 Emergency MARGOTH [facility] 064 [id number] 31 [place] 00:00:00 00:00:00 GREG Cano Method i st Results Test Description Test Time Test Comments Results Result Comments Source POCT-GLUCOSE METER 2019-01-26 09:21:00 Test Item Value Reference Range Interpretation Comme nts POC-GLUCOSE METER (BEAKER) 129 mg/dL 70-110 H : TESTED AT [facility] [address] [facility] (test code = 1538) [place], [address]: Soap Drier Operator/Techni alejandra ID = [id number] for MICHAEL Carmita FITZGERALD IS [place] [id number] 04:31:00 Test Item Value Reference Range Interpretation Comments MAGNESIUM (BEAKER) (test code = 1.7 mg/dL 1.6-2.6 627) BASIC METABOLIC [id number] 04:31:00 Test Item Value Reference Range Interpretation [...] PATIEN TS. CBC W/PLT COUNT & AUTO [id number] 04:01:00 Test Item Value Reference Range Interpretation [...] PERCENT (BEAKER) (test code = 2801) POCT-GLUCOSE [id number] 01:14:00 Test Item Value Reference Range Interpretation Comments POC-GLUCOSE METER 108 mg/dL 70-110 : TESTED A T [facility] 6720 (BEAKER) (test code = [facility], 1538) [address]: Soap Drier Operator/Techni alejandra ID = [id number] for CA RBAJAL, ABDI POCT-GLUCOSE [id number] 17:50:00 Test Item Value Reference Range Interpretation Comments POC-GLUCOSE METER 139 mg/dL 70-110 H : TESTED A T [facility] 6720 (BEAKER) (test code [facility], = 1538) [address]: Soap Drier Operator/Techni alejandra ID = [id number] for LATT IMORE - THUAN, AUSTEN POCT-GLUCOSE [id number] 12:22:00 Test Item Value Reference Range Interpretation Comments POC-GLUCOSE METER 213 mg/dL 70-110 H : TESTED A T [facility] 6720 (BEAKER) (test code [facility], = 1538) [address]: Soap Drier Operator/Techni alejandra ID = [id number] for LATT IMORE - THUAN, AUSTEN [id number] 08:25:00 Test Item Value Reference Range Interpretation Comments PHOSPHORUS (BEAKER) (test code = 2.1 mg/dL 2.3-4.7 L 604) [id number] 08:25:00 Test Item Value Reference Range Interpretation Comments MAGNESIUM (BEAKER) (test code = 1.6 mg/dL 1.6-2.6 627) BASIC METABOLIC [id number] 08:25:00 Test Item Value Reference Range Interpretation [...] NOT APPLICABLE FOR DIALYSIS PATIEN TS. POCT-GLUCOSE [id number] 06:48:00 Test Item Value Reference Range Interpretation Comments POC-GLUCOSE METER 132 mg/dL 70-110 H : TESTED A T [facility] 6720 (BEAKER) (test code = [place], 1538) [address]: Soap Drier Operator/Techni alejandra ID = [id number] for YOSSI GILBERT CBC W/PLT COUNT & AUTO [id number] 06:17:00 Test Item Value Reference Range Interpretation [...] PERCENT (BEAKER) (test code = 2801) CALCIUM, [id number] 06:02:00 Test Item Value Reference Range Interpretation Comments CALCIUM IONIZED (BEAKER) (test 1.10 mmol/L 1.12-1.27 L code = 698) PH, BLOOD (BEAKER) (test code = 7.44 1810) POCT-GLUCOSE [id number] 01:23:00 Test Item Value Reference Range Interpretation Comments POC-GLUCOSE METER 137 mg/dL 70-110 H : TESTED A T [facility] 6720 (BEAKER) (test code = [facility] [place] [facility], 1538) [address]: Soap Drier Operator/Techni alejandra ID = [id number] for YOSSI GILBERT POCT-GLUCOSE [id number] 18:24:00 Test Item Value Reference Range Interpretation Comments POC-GLUCOSE METER 168 mg/dL 70-110 H : TESTED A T [facility] 6720 (BECHANTELL) (test code = [facility] [place] [facility], 1538) [address]: Soap Drier Operator/Techni alejandra ID = [id number] for DIANNA BAILEY, ESRINA FL, SMALL BOWEL [id number] 11:18:00Reason for exam:->Small bowel obstructionFINAL REPORT Small bowel follow-through. Clinical history: Small bowel obstruction. COMPARISON STUDY: CT scan dated October 23, 2018. FINDINGS: Chiropractor Assistant radiograph demonstrates a nasogastric tube in place. [...] No fluoroscopy was utilized. Signed: Mike Travis MDRepun[facility] Verified Date/Time: 01/24/2019 11:18:59 Reading Locati on: [facility] B1 [id number] [facility] Consult Reading Room POCT-GLUCOSE [id number] 00:42:00 Test Item Value Reference Range Interpretation Comments POC-GLUCOSE METER 148 mg/dL 70-110 H : TESTED A T [facility] 6720 (BEAKER) (test code = [facility] [place] [facility], 1538) 75[address]: Soap Drier Operator/Techni alejandra ID = [id number] for YOSSI GILBERT POCT-GLUCOSE [id number] 21:22:00 Test Item Value Reference Range Interpretation Comments POC-GLUCOSE METER 159 mg/dL 70-110 H : TESTED A T [facility] 6720 (BEAKER) (test code = [facility], 1538) [address]: Soap Drier Operator/Techni alejandra ID = [id number] for NASH ROY POCT-GLUCOSE [id number] 17:25:00 Test Item Value Reference Range Interpretation Comments POC-GLUCOSE METER 129 mg/dL 70-110 H : TESTED A T [facility] 6720 (BEAKER) (test code = [facility], 1538) 20172: Soap Drier Operator/Techni alejandra ID = [id number] for NASH ROY HEMOGLOBIN [id number] 09:20:00 Test Item Value Reference Range Interpretation Comments HEMOGLOBIN A1C (BEAKER) (test code = 6.3 % 4.3-6.1 H 368) POCT-GLUCOSE [id number] 06:04:00 Test Item Value Reference Range Interpretation Comments POC-GLUCOSE METER 172 mg/dL 70-110 H : TESTED A T [facility] 6720 (BEAKER) (test code = [facility], 1538) 83165: Soap Drier Operator/Techni alejandra ID = [id number] for GHADA KELLEY [id number] 05:51:00 Test Item Value Reference Range Interpretation Comments MAGNESIUM (BEAKER) 1.9 mg/dL 1.6-2.6 Specimen moderately (test code = 627) hemolyzed [id number] 05:51:00 Test Item Value Reference Range Interpretation Comments PHOSPHORUS (BEAKER) 3.2 mg/dL 2.3-4.7 Specimen moderately (test code = 604) hemolyzed BASIC METABOLIC [id number] 05:51:00 Test Item Value Reference Range Interpretation [...] NOT APPLICABLE FOR DIALYSIS PATIEN TS. LIPID [id number] 05:51:00 Test Item Value Reference Range Interpretation [...] Borderline 130-159 High 160-189 Very High >=190CALCIUM, [id number] 05:47:00 Test Item Value Reference Range Interpretation Comments CALCIUM IONIZED (BEAKER) (test 1.12 mmol/L 1.12-1.27 code = 698) PH, BLOOD (BEAKER) (test code = 7.32 1810) CBC W/PLT COUNT & AUTO [id number] 05:24:00 Test Item Value Reference Range Interpretation [...] PERCENT (BEAKER) (test code = 2801) POCT-GLUCOSE [id number] 23:54:00 Test Item Value Reference Range Interpretation Comments POC-GLUCOSE METER 178 mg/dL 70-110 H : TESTED A T [facility] 67[address] (BEAKER) (test code = [place], 1538) [address]: Soap Drier Operator/Techni alejandra ID = [id number] for GHADA KELLEY POCT-GLUCOSE [id number] 18:40:00 Test Item Value Reference Range Interpretation Comments POC-GLUCOSE METER 166 mg/dL 70-110 H : [facility] ([facility]ER[facility] (test code = [place], 1538) [address]: Soap Drier Operator/Techni alejandra ID = [id number] for NASH ROY CT, [id number] 13:08:00Reason for exam:->ABDOMINAL PAINWhat is the patient's [...] Crow Jarrell Verified Date/Time: 01/22/201913:08:05 Reading Location: [address] Body Reading Room [id number] 09:34:00 Test Item Value Reference Range Interpretation Comments LIPASE (BEAKER) (test code = 749) 30 U/L 8-78 BASIC METABOLIC [id number] 09:34:00 Test Item Value Reference Range Interpretation [...] APPLICABLE FOR DIALYSIS PATIEN TS. HEPATIC FUNCTION [id number] 09:34:00 Test Item Value Reference Range Interpretation [...] = 347) hemolyzed URINALYSIS W/ REFLEX URINE [id number] 09:30:00 Test Item Value Reference Range Interpretation [...] = 2795) CBC W/PLT COUNT & AUTO [id number] 09:06:00 Test Item Value Reference Range Interpretation [...] PERCENT (BEAKER) (test code = 2801) POCT-GLUCOSE [id number] 12:26:00 Test Item Value Reference Range Interpretation Comments POC-GLUCOSE METER 271 mg/dL 70-110 H TESTED AT [facility] 6720 (BEAKER) (test code = [facility] 1538) [address] POCT-GLUCOSE [id number] 08:10:00 Test Item Value Reference Range Interpretation Comments POC-GLUCOSE METER 118 mg/dL 70-110 H TESTED AT [facility] 6720 (BEAKER) (test code = [facility] 1538) [address] [id number] 03:40:00 Test Item Value Reference Range Interpretation Comments MAGNESIUM (BEAKER) (test code = 1.7 mg/dL 1.6-2.6 627) BASIC METABOLIC [id number] 03:40:00 Test Item Value Reference Range Interpretation Comments SODIUM (BEAKER) 136 meq/L 136-145 (test code = 381) POTASSIUM (BEAKER) 3.8 meq/L 3.5-5.1 (test code = 379) CHLORIDE (BEAKER) 105 meq/L 98-107 (test code = 382) CO2 (BEAKER) (test 22 meq/L 22-29 code = 355) BLOOD UREA NITROGEN 11 mg/dL 7-21 (BANNER) (test code = 354) CREATININE (BANNER) 0.81 mg/dL 0.57-1.25 (test code = 358) GLUCOSE RANDOM 131 mg/dL 70-105 H ([facility]ANNER) (test code = 652) CALCIUM (BANNER) 8.6 mg/dL 8.4-10.2 (test code = 697) EGFR (BANNER) (test 69 mL/min/1.73 ESTIMA ELOISA GFR IS code = 1092) sq m NOT ACCURATE CREATININE CLEARANCE IN PREDICTING GLOMERULAR FILTRATION RATE . ESTIMATED GFR I S NOT APPLICABLE FOR DIALYSIS PATIEN TS. POCT-GLUCOSE [id number] 21:00:00 Test Item Value Reference Range Interpretation Comments POC-GLUCOSE METER 169 mg/dL 70-110 H TESTED AT [place] [address] (BANNER) (test code = DEANASAAD Justin [facility] 1538) [address] POCT-GLUCOSE [id number] 17:46:00 Test Item Value Reference Range Interpretation Comments POC-GLUCOSE METER 201 mg/dL 70-110 H TESTED AT [place] [address] (BANNER) (test code = [place] [facility] 1538) [address] RAD, SHOULDER, COMPLETE (MIN 2 VIEWS), [id number] 14:00:00Reason for exam:- >shoulder painReason for exam:->please obtain axillary lateral and call [phone] when completeFINAL REPORT Two axillary left shoulder images. Normal glenohumeral articulation. Chronic changes are seen about the greater tuberosity and the AC joint. No visible fracture, dislocation, destructive lesion. Signed: Yovani Zarateeport Verified Date/Time: 08/25/2017 14:00:20 Reading Location: [address] Consult Reading Room POCT-GLUCOSE [id number] 12:12:00 Test Item Value Reference Range Interpretation Comments POC-GLUCOSE METER 161 mg/dL 70-110 H TESTED AT [place] [address] (BANNER) (test code = [place]VIN Justin [facility] 1538) [address] POCT-GLUCOSE [id number] 08:42:00 Test Item Value Reference Range Interpretation Comments POC-GLUCOSE METER 157 mg/dL 70-110 H TESTED AT [facility] 67[address] ([place]) (test code = [place] Justin [facility] 1538) [address] [id number] 06:27:00 Test Item Value Reference Range Interpretation Comments MAGNESIUM (BEAKER) (test code = 1.7 mg/dL 1.6-2.6 627) BASIC METABOLIC [id number] 06:27:00 Test Item Value Reference Range Interpretation [...] NOT APPLICABLE FOR DIALYSIS PATIEN TS. POCT-GLUCOSE [id number] 21:07:00 Test Item Value Reference Range Interpretation Comments POC-GLUCOSE METER 233 mg/dL 70-110 H TESTED AT [facility] 67[address] (BEAKER) (test code = [place] [facility] 1538) [address] POCT-GLUCOSE [id number] 16:55:00 Test Item Value Reference Range Interpretation Comments POC-GLUCOSE METER 354 mg/dL 70-110 H TESTED AT [facility] 67[address] (BEAKER) (test code = [place] [facility] 1538) [address] POCT-GLUCOSE [id number] 12:38:00 Test Item Value Reference Range Interpretation Comments POC-GLUCOSE METER 152 mg/dL 70-110 H TESTED AT [place] [id number] (BEAKER) (test code = [facility] [place] [facility] 1538) [address] RAD, SHOULDER, COMPLETE (MIN 2 VIEWS), [id number] 12:21:00Reason for exam:- >shoulder painFINAL REPORT COMPARISON: None TECHNIQUE: 3 views of the left shoulder. FINDINGS: There are no acute fractures or dislocations. No radiopaque foreign bodies. Joint spaces are maintained. No lytic or blastic lesions. Degenerative changes of the AC joint noted. IMPRESSION: No acute bony abnormality. Signed: Nakul Aleman MDReport Verified Date/Time: 08/24/2017 12:21:37 Reading Location: [address] Reading Room POCT-GLUCOSE [id number] 07:45:00 Test Item Value Reference Range Interpretation Comments POC-GLUCOSE METER 148 mg/dL 70-110 H TESTED AT [facility] 67 (BANNER) (test code = [facility] [place] [facility] 1538) [address] [id number] 06:06:00 Test Item Value Reference Range Interpretation Comments PHOSPHORUS (BEAKER) (test code = 2.3 mg/dL 2.3-4.7 604) [id number] 06:06:00 Test Item Value Reference Range Interpretation Comments MAGNESIUM (BEAKER) (test code = 1.8 mg/dL 1.6-2.6 627) BASIC METABOLIC [id number] 06:06:00 Test Item Value Reference Range Interpretation [...] APPLICABLE FOR DIALYSIS PATIEN TS. HEPATIC FUNCTION [id number] 06:06:00 Test Item Value Reference Range Interpretation [...] 6-55 347) CBC W/PLT COUNT & AUTO [id number] 05:28:00 Test Item Value Reference Range Interpretation [...] PERCENT (BEAKER) (test code = 2801) POCT-GLUCOSE [id number] 20:25:00 Test Item Value Reference Range Interpretation Comments POC-GLUCOSE METER 222 mg/dL 70-110 H TESTED AT [place] [address] (BANNER) (test code = [place] [facility] 1538) [address] POCT-GLUCOSE [id number] 17:25:00 Test Item Value Reference Range Interpretation Comments POC-GLUCOSE METER 153 mg/dL 70-110 H TESTED AT [place] [address] (BANNER) (test code = [place] 1538) [address] POCT-GLUCOSE [id number] 12:23:00 Test Item Value Reference Range Interpretation Comments POC-GLUCOSE METER 206 mg/dL 70-110 H TESTED AT [place] [address] ([place]) (test code = [place] 1538) [address] POCT-GLUCOSE [id number] 07:52:00 Test Item Value Reference Range Interpretation Comments POC-GLUCOSE METER 143 mg/dL 70-110 H TESTED AT [facility] 6720 (BEAKER) (test code = [place] 1536) [address] [id number] 06:35:00 Test Item Value Reference Range Interpretation Comments PHOSPHORUS (BEAKER) (test code = 2.3 mg/dL 2.3-4.7 604) [id number] 06:35:00 Test Item Value Reference Range Interpretation Comments MAGNESIUM (BEAKER) (test code = 2.2 mg/dL 1.6-2.6 627) BASIC METABOLIC [id number] 06:35:00 Test Item Value Reference Range Interpretation [...] APPLICABLE FOR DIALYSIS PATIEN TS. HEPATIC FUNCTION [id number] 06:35:00 Test Item Value Reference Range Interpretation [...] 6-55 347) CBC W/PLT COUNT & AUTO [id number] 06:28:00 Test Item Value Reference Range Interpretation [...] PERCENT (AKER) (test code = 2801) POCT-GLUCOSE [id number] 21:33:00 Test Item Value Reference Range Interpretation Comments POC-GLUCOSE METER 123 mg/dL 70-110 H TESTED AT [place] [address] ([facility]ANNER) (test code = [facility] [place] [facility] 1538) [address] POCT-GLUCOSE [id number] 17:46:00 Test Item Value Reference Range Interpretation Comments POC-GLUCOSE METER 213 mg/dL 70-110 H TESTED AT [place] [address] ([facility]ANNER) (test code = [facility] [place] [facility] 1538) [address] POCT-GLUCOSE [id number] 13:10:00 Test Item Value Reference Range Interpretation Comments POC-GLUCOSE METER 103 mg/dL 70-110 TESTED AT [place] [address] ([facility]ANNER) (test code = [facility] 1538) [address] RAD, CHEST, 1 VIEW, NON [id number] 10:00:00Reason for exam:->sudden onset shoulder painShould this be performed at the bedside?->YesFINAL REPORT Chest one view compared to May 17, 2017 Discussion: There is mild cardiac prominence. Lungs clear. No effusion or pneumothorax. Mild degenerative shoulder changes. 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 IMPRESSIONS: No specific evidence of acute abnormal L2. Signed: Yovani Zarate MDReport Verified Date/Time: 08/22/2017 10:00:44 Reading Location: [facility] Radiology Reading Room [id number] 06:52:00 Test Item Value Reference Range Interpretation Comments PHOSPHORUS (BEAKER) (test code = 2.6 mg/dL 2.3-4.7 604) [id number] 06:52:00 Test Item Value Reference Range Interpretation Comments MAGNESIUM (BEAKER) (test code = 1.8 mg/dL 1.6-2.6 627) BASIC METABOLIC [id number] 06:52:00 Test Item Value Reference Range Interpretation [...] APPLICABLE FOR DIALYSIS PATIEN TS. HEPATIC FUNCTION [id number] 06:52:00 Test Item Value Reference Range Interpretation [...] = < U/L 6-55 L 347) POCT-GLUCOSE [id number] 06:02:00 Test Item Value Reference Range Interpretation Comments POC-GLUCOSE METER 126 mg/dL 70-110 H TESTED AT [facility] 6720 (BEAKER) (test code = [place] 1538) [address] CBC W/PLT COUNT & AUTO [id number] 05:32:00 Test Item Value Reference Range Interpretation [...] (test code = 416) BASOPHILS ABSOLUTE COUNT ([facility]) 0.03 K/ L 0.01-0.08 (test code = 417) IMMATURE GRANULOCYTES-RELATIVE 0 % 0-1 PERCENT (BANNER) (test code = 2801) POCT-GLUCOSE [id number] 23:06:00 Test Item Value Reference Range Interpretation Comments POC-GLUCOSE METER 115 mg/dL 70-110 H TESTED AT [facility] 67 (BANNER) (test code = [facility] 1538) [address] POCT-GLUCOSE [id number] 17:34:00 Test Item Value Reference Range Interpretation Comments POC-GLUCOSE METER 104 mg/dL 70-110 TESTED AT [place] [address] (BANNER) (test code = [facility] 1538) [address] CREATINE KINASE (CK), TOTAL AND [id number] 16:09:00 Test Item Value Reference Range Interpretation Comments CREATINE KINASE TOTAL (BANNER) 170 U/L 29-200 (test code = 380) CREATINE KINASE-MB (BANNER) (test 3.7 ng/mL 0.0-6.6 code = 750) CREATINE KINASE-MB INDEX (BANNER) 2.2 % (test code = 395) CK-MB Reference Range:<6.7 Normal6.7-10.0 Borderline>10.0 AbnormalTROPONIN [id number] 16:09:00 Test Item Value Reference Range Interpretation Comments TROPONIN I ([facility]ANNER) (test code = 0.01 ng/mL 0.00-0.03 397) [...] acidosis, acute neurological disease, and persistent tachyarrhythmia.POCT-GLUCOSE [id number] 14:22:00 Test Item Value Reference Range Interpretation Comments POC-GLUCOSE METER 112 mg/dL 70-110 H TESTED AT [facility] 6720 (BANNER) (test code = [facility] 1538) [address] HEMOGLOBIN [id number] 13:25:00 Test Item Value Reference Range Interpretation Comments HEMOGLOBIN A1C (BEAKER) (test code = 7.2 % 4.3-6.1 H 368) TSH/FREE T4 IF [id number] 07:32:00 Test Item Value Reference Range Interpretation Comments THYROID STIMULATING HORMONE 3.77 uIU/mL 0.35-4.94 (BEAKER) (test code = 772) CREATINE KINASE (CK), TOTAL AND [id number] 07:16:00 Test Item Value Reference Range Interpretation Comments CREATINE KINASE TOTAL (BEAKER) 137 U/L 29-200 (test code = 380) CREATINE KINASE-MB (BEAKER) (test 3.6 ng/mL 0.0-6.6 code = 750) CREATINE KINASE-MB INDEX (BEAKER) 2.6 % (test code = 395) CK-MB Reference Range:<6.7 Normal6.7-10.0 Borderline>10.0 AbnormalTROPONIN [id number] 07:16:00 Test Item Value Reference Range Interpretation [...] acidosis, acute neurological disease, and persistent tachyarrhythmia.LIPID [id number] 07:08:00 Test Item Value Reference Range Interpretation [...] Borderline 130-159 High 160-189 Very High >=190C-REACTIVE [id number] 07:08:00 Test Item Value Reference Range Interpretation Comments C-REACTIVE PROTEIN (BEAKER) (test 0.47 mg/dL 0.00-0.50 code = 676) RAD, ABDOMEN/KUB, 1 VIEW [id number] 06:00:00Reason for exam:->ABDOMINAL PAINReason for exam:->ng tubeFINAL [...] MDReport Verified Date/Time: 08/21/2017 06:00:54 Reading Location: [address] Transitional Reading Room CT, [id number] 04:39:00Reason for exam:->ABDOMINAL PAINWhat is the patient's [...] MDReport Verified Date/Time: 08/21/2017 04:39:32 Reading Location: [address] Transitional Reading Room [id number] 03:02:00 Test Item Value Reference Range Interpretation Comments LIPASE (BEAKER) (test code = 749) 43 U/L 8-78 [id number] 03:02:00 Test Item Value Reference Range Interpretation Comments AMYLASE (BEAKER) (test code = 349) 97 U/L 25-125 BASIC METABOLIC [id number] 03:02:00 Test Item Value Reference Range Interpretation [...] APPLICABLE FOR DIALYSIS PATIEN TS. HEPATIC FUNCTION [id number] 03:02:00 Test Item Value Reference Range Interpretation [...] 6-55 347) CBC W/PLT COUNT & AUTO [id number] 02:34:00 Test Item Value Reference Range Interpretation [...] (test code = 2801) RAD, CHEST, 2 [id number] 01:32:00Reason for exam:->HYPERTENSIONReason for exam:->arm/chest painFINAL REPORT [...] MDReport Verified Date/Time: 05/17/2017 01:32:40 Reading Location: [address] Body Reading Room TROPONIN [id number] 01:30:00 Test Item Value Reference Range Interpretation [...] acute neurological disease, and persistent tachyarrhythmia.BASIC METABOLIC [id number] 01:22:00 Test Item Value Reference Range Interpretation [...] PATIEN TS. CBC W/PLT COUNT & AUTO [id number] 01:06:00 Test Item Value Reference Range Interpretation [...] % 0-1 PERCENT (BEAKER) (test code = 1552)
[2021-05-12 23:19] LABS: Absolute Lymphocytes (CBC) 2.1 K/uL (0.7-4.9); Hematocrit 35.3 % (36.0-45.0); MPV 8.2 fL (7.6-11.3)
[2021-05-12] MEDS ORDERED: NA CHLORIDE 0.9% 500 ML ONE (23:20)
[2021-05-12] MEDS ORDERED: ONDANSETRON 4 MG/2 ML VIAL ONE (23:20)
[2021-05-12] MEDS ORDERED: FAMOTIDINE 20 MG/2 ML VIAL IV ONE (23:20)
[2021-05-12 23:21] LABS: Protime INR 0.93
[2021-05-12 23:39] LABS: ALT/SGPT 21 U/L (12-78); AST/SGOT 21 U/L (15-37); Albumin 3.5 g/dL (3.4-5.0); Alkaline Phosphatase 68 U/L (45-117); BUN Blood Urea Nitrogen 23 mg/dL (7-18); Bicarbonate 28 mmol/L (21-32); Bilirubin Direct < 0.1 mg/dL (0-0.2); Bilirubin Total 0.3 mg/dL (0.2-1.0); Glucose Level 185 mg/dL (74-106); Lipase 206 U/L (73-393); Magnesium 2.2 mg/dL (1.8-2.4); NT PRO-BNP 147 pg/mL (<450); Potassium 3.9 mmol/L (3.5-5.1); Protein, Total 7.8 g/dL (6.4-8.2); Sodium Level 134 mmol/L (136-145); Troponin High Sensitivity 10.5 pg/mL (<58.9)
[2021-05-12 23:45] LABS: Urine Blood Negative (Negative); Urine Glucose Trace (Negative); Urine Protein Trace (Negative)
[2021-05-13 00:35] LABS: Urine Bacteria 20-50 /HPF (<20)
[2021-05-13] MEDS ORDERED: CEFTRIAXONE 1000 MG/VIAL ONE (01:04)
[2021-05-13] MEDS ORDERED: NA CHLORIDE 0.9% 100 ML IV ONE (01:04)
--- NOTE | 2021-05-13 01:46 | EDPHYS ---
Physician Documentation [facility] Name: Divya Parr Age: 80 yrs Sex: Female : 1940 Arrival Date: 05/12/2021 Time: 20:44 Bed 15 Private MD: ED Physician Zaid Mcgrath HPI: 05/12 23:00 This 80 yrs old Female presents to ER via Wheelchair with complaints of mh7 Abdominal Cramping. 23:00 The patient presents with abdominal pain in the left upper quadrant, in the left lower mh7 quadrant. Onset: The symptoms/episode began/occurred 2 day(s) ago. The symptoms do not radiate. Associated signs and symptoms: Pertinent positives: Dizziness, Pertinent negatives: nausea, vomiting, and diarrhea, anorexia, blood in stools, chest pain, constipation, diarrhea, dysuria, fever, headache, hematuria, nausea, palpitations, shortness of breath, vaginal discharge, vomiting, vomiting blood. The symptoms are described as intermittent, vague, waxing/waning. Modifying factors: The symptoms are alleviated by nothing, the symptoms are aggravated by nothing. Severity of pain: At its worst the pain was moderate 2 day(s) ago, in the emergency department the pain has improved moderately. Historical: - Allergies: 21:08 NKDA; ld1 - PMHx: 21:08 Cancer, Breast; Diabetes - NIDDM; Hypertension; ld1 - PSHx: 21:08 None; ld1 - Immunization history:: Client reports having NOT received the Covid vaccine. - Social history:: Smoking status: Patient denies any tobacco usage or history of. Patient/guardian denies using alcohol. ROS: 23:00 Constitutional: Negative for fever, chills, and weight loss, Eyes: Negative for injury, mh7 pain, redness, and discharge, ENT: Negative for injury, pain, and discharge, Neck: Negative for injury, pain, and swelling, Cardiovascular: Negative for chest pain, palpitations, and edema, Respiratory: Negative for shortness of breath, cough, wheezing, and pleuritic chest pain, Back: Negative for injury and pain, : Negative for injury, bleeding, discharge, and swelling, MS/Extremity: Negative for injury and deformity, Skin: Negative for injury, rash, and discoloration, Neuro: Negative for headache, weakness, numbness, tingling, and seizure, Psych: Negative for depression, anxiety, suicide ideation, homicidal ideation, and hallucinations, Allergy/Immunology: Negative for hives, rash, and allergies, Endocrine: Negative for neck swelling, polydipsia, polyuria, polyphagia, and marked weight changes, Hematologic/Lymphatic: Negative for swollen nodes, abnormal bleeding, and unusual bruising. Exam: 23:00 Constitutional: This is a well developed, well nourished patient who is awake, alert, mh7 and in no acute distress. Head/Face: Normocephalic, atraumatic. Eyes: Pupils equal round and reactive to light, extra-ocular motions intact. Lids and lashes normal. Conjunctiva and sclera are non-icteric and not injected. Cornea within normal limits. Periorbital areas with no swelling, redness, or edema. Neck: Trachea midline, no thyromegaly or masses palpated, and no cervical lymphadenopathy. Supple, full range of motion without nuchal rigidity, or vertebral point tenderness. No Meningismus. Chest/axilla: Normal chest wall appearance and motion. Nontender with no deformity. No lesions are appreciated. Cardiovascular: Regular rate and rhythm with a normal S1 and S2. No gallops, murmurs, or rubs. Normal PMI, no JVD. No pulse deficits. Respiratory: Lungs have equal breath sounds bilaterally, clear to auscultation and percussion. No rales, rhonchi or wheezes noted. No increased work of breathing, no retractions or nasal flaring. 23:00 Back: No spinal tenderness. No costovertebral tenderness. Full range of motion. Skin: Warm, dry with normal turgor. Normal color with no rashes, no lesions, and no evidence of cellulitis. MS/ Extremity: Pulses equal, no cyanosis. Neurovascular intact. Full, normal range of motion. Neuro: Awake and alert, GCS 15, oriented to person, place, time, and situation. Cranial nerves II-XII grossly intact. Motor strength 5/5 in all extremities. Sensory grossly intact. Cerebellar exam normal. Normal gait. Psych: Awake, alert, with orientation to person, place and time. Behavior, mood, and affect are within normal limits. 23:00 Abdomen/GI: Inspection: obese Bowel sounds: normal, in all quadrants, Palpation: moderate abdominal tenderness, in the left lower quadrant, mass, is not appreciated, rebound tenderness, is not appreciated, voluntary guarding, is not appreciated, involuntary guarding, is not appreciated, no appreciated organomegaly, Rectal exam: the exam is deferred, because of patient request, Indicators: McBurney's point is not tender, Varghese's sign is negative, Rovsing's sign is negative, Obturator sign is negative, Psoas sign is negative, Liver: no appreciated palpable abnormalities, Hernia: not appreciated. Vital Signs: 21:05 BP 161 / 78; Pulse 66; Resp 18; Temp 98.9(TE); Pulse Ox 99% on R/A; Weight 83.91 kg; ld1 Height 5 ft. 3 in. (160.02 cm); Pain 6/10; 22:07 BP 177 / 74; Pulse 65; Resp 18; Temp 98.5; Pulse Ox 100% on R/A; Pain 0/10; toñito 22:56 BP 194 / 96; Pulse 63; Resp 18; Pulse Ox 100% on R/A; toñito 04/03 00:12 BP 180 / 71; Pulse 63; Resp 18; Temp 98.5; Pulse Ox 100% on R/A; Pain 0/10; toñito 01:06 BP 178 / 72; Pulse 65; Resp 18; Temp 98.5; Pulse Ox 100% on R/A; Pain 0/10; toñito 04/02 21:05 Body Mass Index 32.77 (83.91 kg, 160.02 cm) ld1 MDM: 01:43 Differential diagnosis: bowel obstruction, diverticulitis, gastritis, gastroesophageal mh7 reflux disease, non-specific abd pain, pancreatitis, Pyelonephritis, Ureterolithiasis, urinary tract infection. Data reviewed: vital signs, nurses notes, old medical records, lab test result(s), cardiac enzymes, CBC, electrolytes, urinalysis, bacteruria, EKG, radiologic studies, CT scan, plain films. Data interpreted: Pulse oximetry: on room air is 100 %. Interpretation: normal. Counseling: I had a detailed discussion with the patient and/or guardian regarding: the historical points, exam findings, and any diagnostic results supporting the discharge/admit diagnosis, the presence of at least one elevated blood pressure reading (>120/80) during this emergency department visit, lab results, radiology results, the need for outpatient follow up, to return to the emergency department if symptoms worsen or persist or if there are any questions or concerns that arise at home. Response to treatment: the patient's symptoms have markedly improved after treatment. 01:45 Patient medically screened. [facility] 05/12 22:51 Order name: Basic Metabolic Panel; Complete Time: 00:01 [facility] 05/12 22:51 Order name: CBC with Diff; Complete Time: 00:01 [facility] 05/12 22:51 Order name: LFT's; Complete Time: 00:01 [facility] 05/12 22:51 Order name: Magnesium; Complete Time: 00:01 [facility] 05/12 22:51 Order name: NT PRO-BNP; Complete Time: 00:01 [facility] 05/12 22:51 Order name: PT-INR; Complete Time: 00:01 [facility] 05/12 22:51 Order name: Troponin HS; Complete Time: 00:01 [facility] 05/12 22:51 Order name: XRAY Chest (1 view) [facility] 05/12 22:51 Order name: Lipase; Complete Time: 00:01 [facility] 05/12 22:55 Order name: CT Head Brain wo Cont [facility] 05/12 22:55 Order name: CT Abd/Pelvis - IV Contrast Only [facility] 05/12 23:45 Order name: Urine Dipstick-Ancillary; Complete Time: 00:01 [facility] 05/13 00:02 Order name: Urine Microscopic Only; Complete Time: 00:55 [facility] 05/13 00:02 Order name: Urine Culture [facility] 05/12 22:51 Order name: EKG; Complete Time: 22:52 [facility] 05/12 22:51 Order name: Cardiac monitoring; Complete Time: 23:15 [facility] 05/12 22:51 Order name: EKG - Nurse/Tech; Complete Time: 23:14 [facility] 05/12 22:51 Order name: IV Saline Lock; Complete Time: 23:14 [facility] 05/12 22:51 Order name: Labs collected and sent; Complete Time: 23:14 [facility] 05/12 22:51 Order name: O2 Per Protocol; Complete Time: 23:14 [facility] 05/12 22:51 Order name: O2 Sat Monitoring; Complete Time: 23:14 [facility] 05/12 22:51 Order name: Urine Dipstick-Ancillary (obtain specimen); Complete Time: 00:30 mh7 Administered Medications: 05/12 23:24 Drug: Pepcid (famotidine) 20 mg Route: IVP; Site: right forearm; toñito 05/13 00:29 Follow up: Response: No adverse reaction toñito 05/12 23:25 Drug: Zofran (Ondansetron) 4 mg Route: IVP; Site: right forearm; toñito 05/13 00:29 Follow up: Response: No adverse reaction toñito 05/12 23:26 Drug: NS 0.9% 500 ml Route: IV; Rate: bolus; Site: right wrist; toñito 05/13 00:29 Follow up: IV Status: Completed infusion; IV Intake: 500ml toñito 01:06 Drug: Rocephin (cefTRIAXone) 1 grams Route: IV; Rate: per protocol; Site: right forearm;toñito 01:16 Follow up: IV Status: Completed infusion; IV Intake: 100ml toñito Disposition Summary: 05/13/21 01:45 Discharge Ordered Location: [facility] Problem: new [facility] Symptoms: have improved [facility] Condition: Stable 7 Diagnosis - Lower abdominal pain, unspecified mh7 - UTI/ Urinary tract infection, site not specified 7 Followup: 7 - With: Private Physician - When: 1 - 2 days - Reason: Worsening of condition, Recheck today's complaints, Continuance of care, Re-evaluation by your physician Discharge Instructions: - Discharge Summary Sheet 7 - Urinary Tract Infection, Adult, [id number] mh7 - Abdominal Pain, Adult, [id number] 7 Forms: - Medication Reconciliation Form [facility] - Thank You Letter [facility] - Antibiotic Education [facility] - Prescription Opioid Use [facility] Prescriptions: - Cephalexin 500 mg Oral Capsule - take 1 capsule by ORAL route every 12 hours for 10 days; 20 capsule; Refills: mh7 0, Product Selection Permitted Signatures: Dispatcher [employer] Zaid Aguilar MD MD 7 Patricia Hayes RN RN ld1 Zayra Tavarez RN RN toñito Corrections: (The following items were deleted from the chart) 05/12 23:37 23:35 This 80 yrs old Female presents to ER via Wheelchair with complaints of 7 Abdominal Cramping. 7
--- NOTE | 2021-05-13 01:46 | ER ---
Nurse's Notes [facility] Name: Divya Parr Age: 80 yrs Sex: Female : 1940 Arrival Date: 05/12/2021 Time: 20:44 Bed 15 Private MD: Diagnosis: Lower abdominal pain, unspecified;UTI/ Urinary tract infection, site not specified Presentation: 05/12 21:05 Chief complaint: Patient states: Dizzy "I feel like my brain is heavy." - comes and ld1 goes for 2 days. Denies abdominal cramping. Coronavirus screen: At this time, the client does not indicate any symptoms associated with coronavirus-19. Ebola Screen: No symptoms or risks identified at this time. Initial Sepsis Screen: Does the patient meet any 2 criteria? No. Patient's initial sepsis screen is negative. Does the patient have a suspected source of infection? No. Patient's initial sepsis screen is negative. Risk Assessment: Do you want to hurt yourself or someone else? Patient reports no desire to harm self or others. Onset of symptoms was May 12, 2021. 21:05 Method Of Arrival: Wheelchair ld1 21:05 Acuity: YVETTE 3 ld1 Triage Assessment: 21:08 General: Appears in no apparent distress. comfortable, Behavior is calm, cooperative, ld1 appropriate for age. Pain: Complains of pain in face. EENT: No signs and/or symptoms were reported regarding the EENT system. Neuro: Level of Consciousness is awake, alert, obeys commands, Oriented to person, place, time, situation. Respiratory: Airway is patent Respiratory effort is even, unlabored. GI: Abdomen is round non-distended, Patient currently denies pain. Historical: - Allergies: 21:08 NKDA; ld1 - PMHx: 21:08 Cancer, Breast; Diabetes - NIDDM; Hypertension; ld1 - PSHx: 21:08 None; ld1 - Immunization history:: Client reports having NOT received the Covid vaccine. - Social history:: Smoking status: Patient denies any tobacco usage or history of. Patient/guardian denies using alcohol. Screenin:18 Abuse screen: Denies threats or abuse. Denies injuries from another. Nutritional toñito screening: No deficits noted. Tuberculosis screening: No symptoms or risk factors identified. Fall Risk None identified. Assessment: 22:04 Reassessment: I recv'd the pt to room #15 \\T\\ [id number]. I used the supply coordinator for my toñito assessment, via the monitor. The pt has a hx of HTN and a Rt. Mastectomy, of which we learned after the SL was placed, and during the EKG. The pt says,"My pressure is always high." She states that she "feels the inflammation to (her) stomach". She was placed on the monitor and appears to be in NAD. 22:17 Reassessment: The pt asked for the supply coordinator again, and preceded to raise her voice, tñoito as she hadn't seen a provider, yet. He tried to explain to her that they would be in [place], but she wouldn't let him speak at times. 22:38 Reassessment: Now, unbelievably, the pt, via the supply coordinator, is saying that she wasn't toñito wanting a "consultation, but came to see someone in the hospital". The , that pushed her wheelchair to the exam room, is of little help, despite the supply coordinator. MD is at bedside. 22:50 Reassessment: The pt continued to say that she didn't want a consultation, but then toñito conceded that her stomach is "inflamed". Now, her and her are arguing. 22:57 Reassessment: Now, her ambled, easily, to the nurse's station to yell at me toñito "miri". I had placed the pt on a bedpan, per her request. 23:07 Reassessment: The household personal assistant got taken into the room, by the pt's that is toñito ambulating very well now. The pt and her are loudly discussing what they want to do. 05/13 00:10 Reassessment: No changes from previously documented assessment. The pt was given a bsc toñito and was able to use it with minimal assist. She was given a warm blanket, when she returned to the bed, as well as, her . They are now much more settled and comfortable. 00:40 Reassessment: Patient appears in no apparent distress at this time. No changes from toñito previously documented assessment. The pt's neighbor, that "dropped them off", Devyn, has come to visit and I got his information, seeing him in the room. His number is [phone]. He said he would come pick the pt and her up, when she is dc'd. 01:33 Reassessment: No changes from previously documented assessment. The pt ambulated to the toñito restroom, using her 's cane, without any assist. Awaiting dispo. 01:34 GI: Abd is soft and non tender X 4 quads. toñito 01:34 GI: Bowel sounds present X 4 quads. toñito 01:41 Reassessment: Devyn was called to pick the pt and her up, as the MD said she toñito merely has a UTI and will be dc'd home. 01:51 Reassessment: Using the supply coordinator, I instructed the pt and her , on dc toñito instructions and her diagnosis. I also informed them that Devyn was coming to get them. Vital Signs: 05/12 21:05 BP 161 / 78; Pulse 66; Resp 18; Temp 98.9(TE); Pulse Ox 99% on R/A; Weight 83.91 kg; ld1 Height 5 ft. 3 in. (160.02 cm); Pain 6/10; 22:07 BP 177 / 74; Pulse 65; Resp 18; Temp 98.5; Pulse Ox 100% on R/A; Pain 0/10; toñito 22:56 BP 194 / 96; Pulse 63; Resp 18; Pulse Ox 100% on R/A; toñito 04/03 00:12 BP 180 / 71; Pulse 63; Resp 18; Temp 98.5; Pulse Ox 100% on R/A; Pain 0/10; toñito 01:06 BP 178 / 72; Pulse 65; Resp 18; Temp 98.5; Pulse Ox 100% on R/A; Pain 0/10; toñito 05/12 21:05 Body Mass Index 32.77 (83.91 kg, 160.02 cm) ld1 ED Course: 05/12 20:44 Patient arrived in ED. jj6 21:08 Triage completed. ld1 21:08 Arm band placed on left wrist. ld1 21:45 Zayra Tavarez RN is Primary Nurse. toñito 22:06 Zaid Mcgrath MD is Attending Physician. mh7 22:07 EKG done, by infrastructure tech. reviewed by Zaid Mcgrath MD. oe 22:19 Patient has correct armband on for positive identification. Bed in low position. Call toñito light in reach. Side rails up X2. Adult w/ patient. 22:19 No provider procedures requiring assistance completed. Inserted saline lock: 20 gauge toñito in right forearm, using aseptic technique. Blood collected. 23:14 Troponin HS Sent. toñito 23:14 PT-INR Sent. toñito 23:14 NT PRO-BNP Sent. toñito 23:14 Magnesium Sent. toñito 23:14 LFT's Sent. toñito 23:14 CBC with Diff Sent. toñito 23:14 Basic Metabolic Panel Sent. toñito 23:15 Lipase Sent. toñito 04/03 00:24 CT Head Brain wo Cont In Process Unspecified. EDMS 00:27 CT Abd/Pelvis - IV Contrast Only In Process Unspecified. EDMS 00:29 Urine Culture Sent. toñito 00:29 Urine Microscopic Only Sent. toñito 00:38 XRAY Chest (1 view) In Process Unspecified. EDMS 00:42 X-ray completed. Patient tolerated procedure well. Patient moved back from radiology. mh1 02:05 intact, bleeding controlled, No redness/swelling at site. Pressure dressing applied. toñito Administered Medications: 05/12 23:24 Drug: Pepcid (famotidine) 20 mg Route: IVP; Site: right forearm; toñito 05/13 00:29 Follow up: Response: No adverse reaction toñito 05/12 23:25 Drug: Zofran (Ondansetron) 4 mg Route: IVP; Site: right forearm; toñito 05/13 00:29 Follow up: Response: No adverse reaction toñito 05/12 23:26 Drug: NS 0.9% 500 ml Route: IV; Rate: bolus; Site: right wrist; toñito 04 00:29 Follow up: IV Status: Completed infusion; IV Intake: 500ml toñito 01:06 Drug: Rocephin (cefTRIAXone) 1 grams Route: IV; Rate: per protocol; Site: right forearm;toñito 01:16 Follow up: IV Status: Completed infusion; IV Intake: 100ml toñito Intake: 00:29 IV: 500ml; Total: 500ml. toñito 01:16 IV: 100ml; Total: 600ml. toñito Outcome: 05/12 22:19 Condition: stable toñito 05/13 01:45 Discharge ordered by MD. owen 02:05 Discharged to home via wheelchair, with family, with significant other. toñito 02:05 Discharge instructions given to patient, Instructed on discharge instructions, follow up and referral plans. medication usage, Demonstrated understanding of instructions, follow-up care, medications, Prescriptions given X 1. 02:05 Patient left the ED. toñito Signatures: Dispatcher [employer] EDMS Tasha Guillen 1 Federico Kelley Maurice, MD MD mh7 Patricia Hayes, RN RN ld1 Scarlett Rowley6 Zayra Tavarez RN RN toñito
[2021-05-13 02:35] VITALS: TEMP 98.5; O2SAT 100
[2021-05-13 02:39] VITALS: BP 178/72
--- NOTE | 2021-05-13 18:31 | RAD REPORT ---
EXAM DESCRIPTION: Head Brain Wo Cont CLINICAL HISTORY: 80 years Female, DIZZINESS TECHNIQUE: Helical CT axial images are obtained from the base of skull through the vertex without IV contrast. Multiplanar reconstruction. This exam was performed according to our departmental dose-opt imization program, which includes automated exposure control, adjustment of the mA and/or kV accordin g to patient size and/or use of iterative reconstruction technique. COMPARISON: 09/03/2018 FINDINGS: BRAIN: No infarcts. No parenchymal hemorrhage, intra-axial mass, mass effect, or midline s hift. No abnormal extra-axial fluid collections. Mild periventricular white matter hypodensities. VENTRICLES: Ventricles are normal in size and configuration. No hydrocephalus. CALVARIUM: Bone windows show no skull fracture or calvarial lesions. PARANASAL SINUSES AND MASTOIDS: Visualized paranasal sinuses are clear. Mastoid air cells are clear . IMPRESSION: 1. No acute intracranial disease. 2. Mild chronic small vessel ischemic white matter changes. Electronically signed by: Michele Hurtado MD 05/13/2021 12:40 AM CDT Due to temporary technical issues with the PACS/Fluency reporting system, reports are being signed by the in house radiologists without review as a courtesy to insure prompt reporting. The interpreting radiologist is fully responsible for the content of the report.
--- NOTE | 2021-05-13 18:36 | RAD REPORT ---
EXAM DESCRIPTION: Abdomen Pelvis W Contrast CLINICAL HISTORY: 80 years Female, ABD PAIN TECHNIQUE: Helical CT axial images are obtained from the lung bases to the pubic symphysis with IV c ontrast. No oral contrast was administered. Multiplanar reconstruction. This exam was performed accor ding to our departmental dose-optimization program, which includes automated exposure control, adjust ment of the mA and/or kV according to patient size and/or use of iterative reconstruction technique. COMPARISON: 03/06/2021 FINDINGS: LUNG BASES: No basilar consolidation or effusions. LIVER: Normal in size. Normal attenuation. Right hepatic lobe 0.6 cm well-circumscribed hypodense l esion which although too small to further characterize most likely represents a benign process such a s cyst. No suspicious hepatic lesions. HEPATOBILIARY: Status post cholecystectomy. No intra- or extrahepatic ductal dilatation. SPLEEN: Normal size. PANCREAS: Normal size and contour. No focal mass. ADRENAL GLANDS: Normal size. No adrenal masses. KIDNEYS: Bilateral kidneys are normal in size without obstructing calculi or hydronephrosis. No nep hrolithiasis. No significant cysts are present. No focal solid mass. BOWEL AND MESENTERY: Tiny hiatal hernia. No small or large bowel dilatation. No colonic diverticulosi s. Normal appendix. No abnormal mesenteric lymphadenopathy. No free fluid or pneumoperitoneum. RETROPERITONEUM: Normal caliber abdominal aorta without aneurysm. Mild ASVD. No abnormal retroperit jensen lymphadenopathy. PELVIS: Urinary bladder is unremarkable. Uterus and adnexal structures are unremarkable. ABDOMINAL WALL: The abdominal wall is intact. BONES: No suspicious osseous lytic or blastic lesions seen. IMPRESSION: 1. No acute intra-abdominal or pelvic disease. 2. Status post cholecystectomy. 3. Tiny hiatal hernia. Electronically signed by: Michele Hurtado MD 05/13/2021 12:44 AM CDT Due to temporary technical issues with the PACS/Fluency reporting system, reports are being signed by the in house radiologists without review as a courtesy to insure prompt reporting. The interpreting radiologist is fully responsible for the content of the report.
--- NOTE | 2021-05-13 18:38 | RAD REPORT ---
EXAM DESCRIPTION: Chest Single View CLINICAL HISTORY: 80 years Female, dizzy TECHNIQUE: 1 view (Single frontal view of the chest) COMPARISON: None. FINDINGS: LINES AND TUBES: None. CARDIOVASCULAR STRUCTURES: ardiomegaly. No pulmonary venous congestion. LUNGS: No confluent areas of acute consolidation. PLEURA: No layering pleural effusions. No pneumothorax. BONES: No acute osseous abnormality of the thorax. IMPRESSION: 1. No acute cardiopulmonary disease. Electronically signed by: Michele Hurtado MD 05/13/2021 12:50 AM CDT Due to temporary technical issues with the PACS/Fluency reporting system, reports are being signed by the in house radiologists without review as a courtesy to insure prompt reporting. The interpreting radiologist is fully responsible for the content of the report.
--- NOTE | 2021-05-14 11:16 | EKG ---
Test Date: 2021-05-12 Test Time: 21:50:36 Manufacturing Business Analyst: BETHANY MEASUREMENT RESULTS: Intervals: Rate: 61 SC: 162 QRSD: 92 QT: 408 QTc: 410 [place]: P: -12 SC: 162 QRS: -28 T: -14 INTERPRETIVE STATEMENTS: Normal sinus rhythm Minimal voltage criteria for LVH, may be normal variant Nonspecific T wave abnormality Abnormal ECG Compared to ECG 07/22/2016 03:01:40 Left ventricular hypertrophy now present Sinus bradycardia no longer present Left-axis deviation no longer present Possible ischemia no longer present T-wave abnormality still present Electronically Signed On 05-14-21 11:12:47 CDT by Tony Mccormack
== END 2021-05-13 02:05 | disposition home or self-care (01) ==
LOC: ER 20:42
DX: N39.0 Urinary tract infection, site not specified (principal)
CPT/HCPCS: 96361; 93005; 87088; 85025; 87086; 80048; 36415; 83735; 85610; 80076; 81003; 81015; 84484; 83690; 83880; 70450; 74177; 71045; 96375; 96374; 99284; Q9967; J7040; J2405

== ENCOUNTER 2022-03-10 13:13 | Emergency (ER) | payer OTHER ==
--- OUTSIDE RECORDS SUMMARY | 2022-03-10 13:20 | XMS REPORT | Continuity of Care Document ---
:1940 Author Organization [facility] t Address [address] [place] [address] Care Team Providers Name Role Phone Deion Hassan MD Primary Care Physician Abel Attending Clinician Unavailable Nii Goldman Attending Clinician Unavailable Nii Goldman Attending Clinician [phone] GREG JUSTIN Attending Clinician Unavailable YOVANI THOMAS Attending Clinician Unavailable LIZANDRO ARAUJO Attending Clinician Unavailable Abel Admitting Clinician Unavailable Nii Goldman Admitting Clinician Unavailable GEOFF, FRANCISCO Admitting Clinician Unavailable MORIS CARTER Admitting Clinician Unavailable Payers Payer Name Policy Type Policy Number Effective Date Expiration Date lea [facility] [id number] 2021 [facility] 00:00:00 (MEDICARE REPLACEMENT/ADVANTA GE - HMO) [facility] [id number] 2021 (MEDICARE 00:00:00 REPLACEMENT/ADVANTA GE - PPO) Problems Condition Condition Condition Status Onset Resolution Last Treating Co mments Source Name Details Category Date Date Treatment Clinician Date Osteoarthr Osteoarthr Problem Active A zalea itis of itis of 9-30 [facility] right knee Right Knee 00:00: di c joint Joint 00 Sports Medicin e Chronic Chronic Problem Active Sudha postoperat Postoperat 927 Or thope dorie pain dorie Pain 00:00: dic 00 Sports Medicin e Pain of Pain of Problem Active Sudha right knee Right Knee 7-13 Or thope joint Joint 00:00: dic 00 Sports Medicin e Patellofem Patellofem Problem Active A zalea oral oral 8-27 [facility] osteoarthr Osteoarthr 00:00: di c itis itis 00 Sports Medicin e SBO (small SBO (small Disease Active 2018-[address] bowel bowel 2-13 [facility] obstruct[facility] obstructio [facility]: Me dical n) n) 00 Center TIP (acute TIP (acute Disease Active 2018-[address] kidney kidney 2-13 [facility] injury) injury) 00:00: Medical 00 Center Dyslipidem Dyslipidem Disease Active 2018-[address] ia ia 2-13 [facility] Renal Renal Disease Active [facility] insufficie insufficie 7-12 [facility] k[facility] ncy ncy 00:00: Medical 00 Center Small Small Disease Active [facility] bowel bowel 7-12 [facility] obstructio obstructio 00:00: Me dical n n 00 Center Diabetes Diabetes Disease Active [facility] mellitus mellitus [facility]12 [facility] Essential Essential Disease Active [facility] hypertensi hypertensi 7-12 [facility] kes on on 00:00: Medical 00 Center Depression Depression Disease Active [facility] UTI UTI Disease Active [facility] (urinary (urinary 1-13 st tract tract 00:00: Hospita infection) infection) 00 l Lower GI Lower GI Disease Active [facility] di bleed bleed 8-14 [facility] 00[facility]: [facility] 00 l Allergies, Adverse Reactions, Alerts Allergy Allergy Status Severity Reaction(s) Onset Inactive Treating Comm ents Source Name Type Date Date Clinician No Known DA Active [facility] 00[facility]: [address] NO KNOWN Allergy Active [facility] Social History Social Habit Start Date Stop Date Quantity Comments Source History SDOH [facility] Std Drinks Hospit al History SDOH [facility] Alcohol intake 2020-07-28 2020-07-28 Current [facility] 00:00:00 00:00:00 non-drinker of Hospital alcohol (finding) History SDOH 2020-06-05 2020-06-05 1 [facility] Alcohol Frequency 00:00:00 00:00:00 [facility] Tobacco use and 2014-08-22 2014-08-[address] [facility] [address] An kes exposure 00:00:00 00:00:00 [facility] Center Sex Assigned At [birth year] [facility] 00:00:00 00:00:00 Hospital Smoking Status Start Date Stop Date Source Never Smoker [facility] Medications Ordered Filled Start Stop Current Ordering Indication Dosage Frequency Signature Comments Components Source Medication Medication Date Date Medication? Clinician (SIG) Name Name metoprolol 2018-02 Yes 50mg Q.5D Take [address] (LOPRESSOR) 2-17 by mouth 2 An kes 50 MG 17:04: (two) Medical tablet 53 times Center daily. losartan 2018-02 Yes 100mg QD Take [address] (COZAAR) 2-17 mg by [facility] 100 MG 17:04: mouth Medical tablet 53 daily. [place] citalopram 2018-02 Yes 20mg QD Take [address] (CELEXA) 20 2-17 by mouth Luke s MG tablet 17:04: daily. Medica l 53 Center rosuvastati 2018-02 Yes 10mg QD Take [address] n (CRESTOR) 2-17 by mouth Luke s 10 MG 17:04: daily. Medical tablet 53 Center amLODIPine 2018-02 Yes 10mg QD Take [address] (NORVASC) 2-17 by mouth [facility] 10 MG 17:04: daily. Medical tablet 53 Center linagliptin 2018-02 Yes 5mg Take [address] (TRADJENTA) 2-17 by mouth. Opal es 5 mg Tab 17:04: Medical 53 [place] metFORMIN 2018-02 Yes 500mg Take [address] (GLUCOPHAGE 2-17 mg by [facility] ) 500 MG 17:04: mouth 2 Medica l tablet 53 (two) Center times daily with breakfast and dinner. atorvastati 2018-02 Yes 10mg QD Take [address] n (LIPITOR) 2-17 by mouth Luke s 10 MG 17:04: daily. Medical tablet 53 [place] aspirin 81 2018-02 Yes 81mg QD Take [address] MG EC 2-17 by mouth [facility] tablet 17:04: daily. Medical [address] [place] [address] pantoprazol 2018-02 Yes 40mg QD Take [address] [facility] e 2-17 by mouth [facility] (PROTONIX) 17:04: daily. Medic al 40 MG 53 Center tablet cloNIDine 2018-02 Yes .1mg Q.5D Take 0.[address] HCl 2-17 mg by [facility] (CATAPRES) 17:04: mouth 2 Medi maxx 0.1 MG 53 (two) Center tablet times daily. metoprolol 2018-02 Yes 50mg Q.5D Take [address] (LOPRESSOR) 2-17 by mouth 2 An kes 50 MG 17:04: (two) Medical tablet 53 times Center daily. losartan 2018-02 Yes 100mg QD Take [address] (COZAAR) 2-17 mg by [facility] 100 MG 17:04: mouth Medical tablet 53 daily. [place] citalopram 2018-02 Yes 20mg QD Take [address] (CELEXA) 20 2-17 by mouth Luke s MG tablet 17:04: daily. Medica l 53 [place] rosuvastati 2018-02 Yes 10mg QD Take [address] n (CRESTOR) 2-17 by mouth Luke s 10 MG 17:04: daily. Medical tablet 53 [place] amLODIPine 2018-02 Yes 10mg QD Take [address] (NORVASC) 2-17 by mouth [facility] 10 MG 17:04: daily. Medical tablet 53 [place] linagliptin 2018-02 Yes 5mg Take [address] (TRADJENTA) 2-17 by mouth. Opal es 5 mg Tab 17:04: Medical 53 [place] metFORMIN 2018-02 Yes 500mg Take [address] (GLUCOPHAGE 2-17 mg by [facility] ) 500 MG 17:04: mouth 2 Medica l tablet 53 (two) Center times daily with breakfast and dinner. atorvastati 2018-02 Yes 10mg QD Take [address] n (LIPITOR) 2-17 by mouth Luke s 10 MG 17:04: daily. Medical tablet 53 Center aspirin 81 2018-02 Yes 81mg QD Take [address] MG EC 2-17 by mouth [facility] tablet 17:04: daily. Medical 53 Center pantoprazol 2018-02 Yes 40mg QD Take [address] e 2-17 by mouth [facility] (PROTONIX) 17:04: daily. Medic al 40 MG 53 Center tablet cloNIDine 2018-02 Yes .1mg Q.5D Take 0.[address] HCl 2-17 mg by [facility] (CATAPRES) 17:04: mouth 2 Medi maxx 0.1 MG 53 (two) Center tablet times daily. traMADol 2018-0 Yes 50mg Q6H Take 50 mg Met hodi (ULTRAM) 50 1-[address] mg tablet 15:40: every 6 Hospi ta 16 (six) l hours as needed for moderate pain. amLODIPine 2018-0 Yes 10mg QD Take 10 mg M ethodi (NORVASC) 1-[address] 10 MG 15:40: daily. Hospita tablet 16 l linagliptin 2018-0 Yes 5mg QD Take 5 mg M ethodi (TRADJENTA) 1-[address] 5 mg tablet 15:40: daily with Hospita 16 breakfast. l traMADol 2018-0 Yes 50mg Q6H Take 50 mg Met hodi (ULTRAM) 50 1-[address] mg tablet 15:40: every 6 Hospi ta 16 (six) l hours as needed for moderate pain. amLODIPine 2018-0 Yes 10mg QD Take 10 mg M ethodi (NORVASC) 1-[address] 10 MG 15:40: daily. Hospita tablet 16 l linagliptin 2018-0 Yes 5mg QD Take 5 mg M ethodi (TRADJENTA) 1-[address] 5 mg tablet 15:40: daily with Hospita 16 breakfast. l pantoprazol 2018-0 Yes 40mg QD Take 40 mg Methodi e 1-[address] (PROTONIX) 15:40: daily. Hospi ta 40 MG EC 16 l tablet aspirin 2018-0 Yes 81mg QD Take 81 mg Meth shanon (ECOTRIN) 1-[address] 81 MG 15:40: daily. Hospita enteric 16 l coated tablet citalopram 2018-0 Yes 20mg QD Take 20 mg M ethodi (CeleXA) 20 1-[address] MG tablet 15:40: daily. Hospit a 16 l meloxicam 2018-0 Yes 7.5mg Q.5D Take 7.5 Met hodi (MOBIC) 7.5 1-[address] mg tablet 15:40: mouth 2 Hospi ta 16 (two) l times a day. losartan 2018-0 Yes 25mg QD Take 25 mg Met hodi (COZAAR) 25 1-[address] MG tablet 15:40: daily. Hospit a 16 l pantoprazol 2018-0 Yes 40mg QD Take 40 mg Methodi e 1-[address] (PROTONIX) 15:40: daily. Hospi ta 40 MG EC 16 l tablet aspirin 2018-0 Yes 81mg QD Take 81 mg Meth shanon (ECOTRIN) 1-[address] 81 MG 15:40: daily. Hospita enteric 16 l coated tablet citalopram 2018-0 Yes 20mg QD Take 20 mg M ethodi (CeleXA) 20 1-[address] MG tablet 15:40: daily. Hospit a 16 l meloxicam 2018-0 Yes 7.5mg Q.5D Take 7.5 Met hodi (MOBIC) 7.5 1-[address] mg tablet 15:40: mouth 2 Hospi ta 16 (two) l times a day. losartan 2018-0 Yes 25mg QD Take 25 mg Met hodi (COZAAR) 25 1-[address] MG tablet 15:40: daily. Hospit a 16 l amlodipine amlodipine No amlodipine Sudha 5 mg tablet 5 mg tablet 5 mg O rthope TAKE 1 TAKE 1 tablet dic TABLET BY TABLET BY TAKE 1 Spo rts MOUTH IN MOUTH IN TABLET BY Me dicin THE MORNING THE MORNING MOUTH IN e AND 2 AND 2 THE TABLETS BY TABLETS BY MORNING MOUTH IN MOUTH IN AND 2 THE EVENING THE EVENING TABLETS BY MOUTH IN THE EVENING aspirin 81 aspirin 81 No aspirin 81 Sudha mg chewable mg chewable mg O rthope tablet CHEW tablet CHEW chewable dic AND SWALLOW AND SWALLOW tablet Sports 1 TABLET BY 1 TABLET BY CHEW AND Medicin MOUTH TWICE MOUTH TWICE SWALLOW 1 e DAILY DAILY TABLET BY DIRECTED DIRECTED MOUTH TWICE DAILY DIRECTED donepezil 5 donepezil 5 No donepezil Sudha mg tablet mg tablet 5 mg Ortho pe TAKE 1 TAKE 1 tablet dic TABLET BY TABLET BY TAKE 1 Spo rts MOUTH AT MOUTH AT TABLET BY Mi dicin BEDTIME BEDTIME MOUTH AT e BEDTIME doxycycline doxycycline No doxycyclin Sudha hyclate 100 hyclate 100 e hyclate Orthope mg capsule mg capsule 100 mg d ic TAKE 1 TAKE 1 capsule Sports CAPSULE BY CAPSULE BY TAKE 1 M edicin MOUTH TWICE MOUTH TWICE CAPSULE BY e DAILY FOR 7 DAILY FOR 7 MOUTH DAYS DAYS TWICE DIRECTED DIRECTED DAILY FOR 7 DAYS DIRECTED hydrochloro hydrochloro No hydrochlor Sudha thiazide thiazide othiazide Or thope 12.5 mg 12.5 mg 12.5 mg dic tablet TAKE tablet TAKE tablet Sports 1 TABLET BY 1 TABLET BY TAKE 1 Medicin MOUTH ONCE MOUTH ONCE TABLET BY e DAILY DAILY MOUTH ONCE DAILY hydrocodone hydrocodone No hydrocodon Sudha 10 10 e 10 Orthope mg-acetamin mg-acetamin mg-acetami dic ophen 325 ophen 325 nophen 325 Sports mg tablet mg tablet mg tablet Medicin TAKE 1 TAKE 1 TAKE 1 e TABLET BY TABLET BY TABLET BY MOUTH EVERY MOUTH EVERY MOUTH 6 HOURS FOR 6 HOURS FOR EVERY 6 7 DAYS 7 DAYS HOURS FOR NEEDED NEEDED 7 DAYS NEEDED losartan 50 losartan 50 No losartan Sudha mg tablet mg tablet 50 mg Orth ope TAKE 1 TAKE 1 tablet dic TABLET BY TABLET BY TAKE 1 Spo rts MOUTH ONCE MOUTH ONCE TABLET BY Medicin DAILY DAILY MOUTH ONCE e DAILY meloxicam meloxicam No meloxicam Sudha 15 mg 15 mg 15 mg Orthope tablet TAKE tablet TAKE tablet dic 1 TABLET BY 1 TABLET BY TAKE 1 Sports MOUTH EVERY MOUTH EVERY TABLET BY Medicin DAY DAY MOUTH e DIRECTED DIRECTED EVERY DAY DIRECTED metformin metformin No metformin Sudha 500 mg 500 mg 500 mg Orth[facility] tablet TAKE tablet TAKE tablet dic 1 TABLET BY 1 TABLET BY TAKE 1 Sports MOUTH TWICE MOUTH TWICE TABLET BY Medicin DAILY DAILY MOUTH e TWICE DAILY methocarbam methocarbam No methocarba Sudha ol 500 mg ol 500 mg mol 500 mg [facility] tablet TAKE tablet TAKE tablet dic 1 TABLET BY 1 TABLET BY TAKE 1 Sports MOUTH FOUR MOUTH FOUR TABLET BY Medicin TIMES DAILY TIMES DAILY MOUTH FOUR e NEEDED NEEDED TIMES DAILY NEEDED rosuvastati rosuvastati No rosuvastat Sudha n 10 mg n 10 mg in 10 mg Ortho pe tablet TAKE tablet TAKE tablet dic 1 TABLET BY 1 TABLET BY TAKE 1 Sports MOUTH EVERY MOUTH EVERY TABLET BY Medicin DAY AT DAY AT MOUTH e BEDTIME BEDTIME EVERY DAY AT BEDTIME tramadol 50 tramadol 50 No 1 Q6H tramadol Sudha mg tablet mg tablet 50 mg Orth ope Take 1 Take 1 tablet dic tablet tablet Take 1 Sports every 6 every 6 tablet Medicin hours by hours by every 6 e oral route oral route hours by as needed as needed oral route for 7 days. for 7 days. as needed for 7 days. amlodipine amlodipine No amlodipine Sudha 5 mg tablet 5 mg tablet 5 mg O rthope TAKE 1 TAKE 1 tablet dic TABLET BY TABLET BY TAKE 1 Spo rts MOUTH IN MOUTH IN TABLET BY Me dicin THE MORNING THE MORNING MOUTH IN e AND 2 AND 2 THE TABLETS BY TABLETS BY MORNING MOUTH IN MOUTH IN AND 2 THE EVENING THE EVENING TABLETS BY MOUTH IN THE EVENING aspirin 81 aspirin 81 No 1 BID aspirin 81 Sudha mg chewable mg chewable mg O rthope tablet Chew tablet Chew chewable dic 1 tablet 1 tablet tablet Sport s twice a day twice a day Chew 1 Medicin by oral by oral tablet e route as route as twice a directed directed day by for 30 for 30 oral route days. days. as directed for 30 days. donepezil 5 donepezil 5 No donepezil Sudha mg tablet mg tablet 5 mg Ortho pe TAKE 1 TAKE 1 tablet dic TABLET BY TABLET BY TAKE 1 Spo rts MOUTH AT MOUTH AT TABLET BY Me dicin BEDTIME BEDTIME MOUTH AT e BEDTIME doxycycline doxycycline No 1capsul BID doxycyclin Sudha hyclate 100 hyclate 100 e(s) e hyclate Orthope mg capsule mg capsule 100 mg d ic Take 1 Take 1 capsule Sports capsule capsule Take 1 Medicin twice a day twice a day capsule e by oral by oral twice a route as route as day by directed directed oral route for 7 days. for 7 days. as directed for 7 days. hydrocodone hydrocodone No 1 Q6H hydrocodon Sudha 10 10 e 10 Orth[facility] mg-acetamin mg-acetamin mg-acetami dic ophen 325 ophen 325 nophen 325 Sports mg tablet mg tablet mg tablet Medicin Take 1 Take 1 Take 1 e tablet tablet tablet every 6 every 6 every 6 hours by hours by hours by oral route oral route oral route as needed as needed as needed for 7 days. for 7 days. for 7 days. metformin metformin No metformin Sudha 500 mg 500 mg 500 mg [facility] tablet TAKE tablet TAKE tablet dic 1 TABLET BY 1 TABLET BY TAKE 1 Sports MOUTH TWICE MOUTH TWICE TABLET BY Medicin DAILY DAILY MOUTH e TWICE DAILY methocarbam methocarbam No 1 QID methocarba Sudha ol 500 mg ol 500 mg mol 500 mg [facility] tablet Take tablet Take tablet dic 1 tablet 4 1 tablet 4 Take 1 S ports times a day times a day tablet 4 Medicin by oral by oral times a e route as route as day by needed for needed for oral route 30 days. as 30 days. as as needed needed for needed for for 30 muscle muscle days. as spasm spasm needed for muscle spasm Mobic 15 mg Mobic 15 mg No 1 Q1D Mobic 15 Sudha tablet Take tablet Take mg tablet Orthope 1 tablet 1 tablet Take 1 dic every day every day tablet Spo rts by oral by oral every day Medi rupert route as route as by oral e directed directed route as for 30 for 30 directed days. days. for 30 days. tramadol 50 tramadol 50 No 1 Q6H tramadol Sudha mg tablet mg tablet 50 mg Orth ope Take 1 Take 1 tablet dic tablet tablet Take 1 Sports every 6 every 6 tablet Medicin hours by hours by every 6 e oral route oral route hours by as needed as needed oral route for 7 days. for 7 days. as needed for 7 days. amlodipine amlodipine No amlodipine Sudha 5 mg tablet 5 mg tablet 5 mg O rthope TAKE 1 TAKE 1 tablet dic TABLET BY TABLET BY TAKE 1 Spo rts MOUTH IN MOUTH IN TABLET BY Me dicin THE MORNING THE MORNING MOUTH IN e AND 2 AND 2 THE TABLETS BY TABLETS BY MORNING MOUTH IN MOUTH IN AND 2 THE EVENING THE EVENING TABLETS BY MOUTH IN THE EVENING aspirin 81 aspirin 81 No aspirin 81 Sudha mg chewable mg chewable mg O rthope tablet CHEW tablet CHEW chewable dic AND SWALLOW AND SWALLOW tablet Sports 1 TABLET BY 1 TABLET BY CHEW AND Medicin MOUTH TWICE MOUTH TWICE SWALLOW 1 e DAILY DAILY TABLET BY DIRECTED DIRECTED MOUTH TWICE DAILY DIRECTED donepezil 5 donepezil 5 No donepezil Sudha mg tablet mg tablet 5 mg Ortho pe TAKE 1 TAKE 1 tablet dic TABLET BY TABLET BY TAKE 1 Spo rts MOUTH AT MOUTH AT TABLET BY Mi dicin BEDTIME BEDTIME MOUTH AT e BEDTIME doxycycline doxycycline No doxycyclin Sudha hyclate 100 hyclate 100 e hyclate Orthope mg capsule mg capsule 100 mg d ic TAKE 1 TAKE 1 capsule Sports CAPSULE BY CAPSULE BY TAKE 1 M edicin MOUTH TWICE MOUTH TWICE CAPSULE BY e DAILY FOR 7 DAILY FOR 7 MOUTH DAYS DAYS TWICE DIRECTED DIRECTED DAILY FOR 7 DAYS DIRECTED hydrocodone hydrocodone No 1 Q6H hydrocodon Sudha 10 10 e 10 [facility] mg-acetamin mg-acetamin mg-acetami dic ophen 325 ophen 325 nophen 325 Sports mg tablet mg tablet mg tablet Medicin Take 1 Take 1 Take 1 e tablet tablet tablet every 6 every 6 every 6 hours by hours by hours by oral route oral route oral route as needed as needed as needed for 7 days. for 7 days. for 7 days. meloxicam meloxicam No meloxicam Sudha 15 mg 15 mg 15 mg [facility] tablet TAKE tablet TAKE tablet dic 1 TABLET BY 1 TABLET BY TAKE 1 Sports MOUTH EVERY MOUTH EVERY TABLET BY Medicin DAY DAY MOUTH e DIRECTED DIRECTED EVERY DAY DIRECTED metformin metformin No metformin Sudha 500 mg 500 mg 500 mg [facility] tablet TAKE tablet TAKE tablet dic 1 TABLET BY 1 TABLET BY TAKE 1 Sports MOUTH TWICE MOUTH TWICE TABLET BY Medicin DAILY DAILY MOUTH e TWICE DAILY methocarbam methocarbam No methocarba Sudha ol 500 mg ol 500 mg mol 500 mg [facility] tablet TAKE tablet TAKE tablet dic 1 TABLET BY 1 TABLET BY TAKE 1 Sports MOUTH FOUR MOUTH FOUR TABLET BY Medicin TIMES DAILY TIMES DAILY MOUTH FOUR e NEEDED NEEDED TIMES DAILY NEEDED tramadol 50 tramadol 50 No 1 Q6H tramadol Sudha mg tablet mg tablet 50 mg Orth ope Take 1 Take 1 tablet dic tablet tablet Take 1 Sports every 6 every 6 tablet Medicin hours by hours by every 6 e oral route oral route hours by as needed as needed oral route for 7 days. for 7 days. as needed for 7 days. amlodipine amlodipine No amlodipine Sudha 5 mg tablet 5 mg tablet 5 mg O rthope TAKE 1 TAKE 1 tablet dic TABLET BY TABLET BY TAKE 1 Spo rts MOUTH IN MOUTH IN TABLET BY Me dicin THE MORNING THE MORNING MOUTH IN e AND 2 AND 2 THE TABLETS BY TABLETS BY MORNING MOUTH IN MOUTH IN AND 2 THE EVENING THE EVENING TABLETS BY MOUTH IN THE EVENING donepezil 5 donepezil 5 No donepezil Sudha mg tablet mg tablet 5 mg Ortho pe TAKE 1 TAKE 1 tablet dic TABLET BY TABLET BY TAKE 1 Spo rts MOUTH AT MOUTH AT TABLET BY Me dicin BEDTIME BEDTIME MOUTH AT e BEDTIME metformin metformin No metformin Sudha 500 mg 500 mg 500 mg [facility] tablet TAKE tablet TAKE tablet dic 1 TABLET BY 1 TABLET BY TAKE 1 Sports MOUTH TWICE MOUTH TWICE TABLET BY Medicin DAILY DAILY MOUTH e TWICE DAILY Immunizations Ordered Filled Immunization Date Status Comments Sour e Immunization Name Name pneumococcal pneumococcal 2020-10-06 Completed Sudha [facility] hopedic conjugate PCV 7 conjugate PCV 7 00:00:00 Spor Medicine pneumococcal pneumococcal 2020-10-06 Completed Sudha Ort hopedic conjugate PCV 7 conjugate PCV 7 00:00:00 Spor Medicine pneumococcal pneumococcal 2020-10-06 Completed Sudha Ort hopedic conjugate PCV 7 conjugate PCV 7 00:00:00 Spor Medicine pneumococcal pneumococcal 2020-10-06 Completed Sudha Ort hopedic conjugate PCV 7 conjugate PCV 7 00:00:00 Spor Medicine Vital Signs Vital Name Observation Time Observation Value Comments Source Height 2021-12-26 00:00:00 63 [in_i] [facility] BMI (Body Mass 2021-12-26 00:00:00 40.7 kg/m2 [facility] Index) Sports Medicine Body Weight 2021-12-26 00:00:00 230 [lb_av] [facility] Height 2021-11-21 00:00:00 63 [in_i] [facility] BMI (Body Mass 2021-11-21 00:00:00 40.7 kg/m2 [facility] Index) Sports Medicine Body Weight 2021-11-21 00:00:00 230 [lb_av] [facility] Height 2021-08-22 00:00:00 63 [in_i] [facility] BMI (Body Mass 2021-08-22 00:00:00 40.7 kg/m2 [facility] Index) Sports Medicine Body Weight 2021-08-22 00:00:00 230 [lb_av] Sudha Clifford [facility] Sports Medicine Procedures Procedure Date / Time Performing Clinician Source Performed XR, knee, 3 view 2021-11-21 00:00:00 [facility] Total Knee Arthroplasty 2021-11-08 00:00:00 Wilian morse [facility]opedic Sports Medicine XR, knee, 4 or more 2021-08-22 00:00:00 Sudha Clifford rthopedic view Sports Medicine Plan of Care Planned Activity Planned Date Details Comments Source Future Scheduled Test 2022-03-10 COVID-19 VACCINE (#1) [facility] 13:17:05 [code = COVID-19 VACCINE (#1)] Future Scheduled Test 2022-03-10 Hepatitis C screening [facility] 13:17:05 (procedure) [code = 247620021] Future Scheduled Test 2022-03-10 SHINGLES VACCINES (1 [facility] 13:17:05 of 2) [code = SHINGLES VACCINES (1 of 2)] Future Scheduled Test 2022-03-10 65+ [address]NEUM[address] [facility] 13:17:05 VACCINE (1 - PCV) [code = 65+ PNEUMOCOCCAL VACCINE (1 - PCV)] Future Scheduled Test 2022-03-10 INFLUENZA VACCINE [facility] 13:17:05 [code = INFLUENZA VACCINE] Future Scheduled Test 2021-10-11 HEPATITIS B VACCINES [facility] 06:44:53 (1 of 3 - 3-dose series) [code = HEPATITIS B VACCINES (1 of 3 - 3-dose series)] Future Scheduled Test 2021-10-11 COVID-19 VACCINE (#1) [facility] 06:44:53 [code = COVID-19 VACCINE (#1)] Future Scheduled Test 2021-10-11 Hepatitis C screening [facility] 06:44:53 (procedure) [code = [id number]] Future Scheduled Test 2021-10-11 SHINGLES VACCINES (1 [facility] 06:44:53 of 2) [code = SHINGLES VACCINES (1 of 2)] Future Scheduled Test 2021-10-11 65+ PNEUMOC[address] [facility] 06:44:53 VACCINE (1 - PCV) [code = 65+ PNEUMOCOCCAL VACCINE (1 - PCV)] Future Scheduled Test 2021-10-11 INFLUENZA VACCINE M [facility] 06:44:53 [code = INFLUENZA VACCINE] Future Scheduled Test 2021-10-[address] [facility] 00:00:00 (#1) [code = Medical Center INFLUENZA VACCINE (#1)] Future Scheduled Test 2021-02-10 FALLS RISK SCREENING [facility] 00:00:00 [code = FALLS RISK Medical C enter SCREENING] Future Scheduled Test 2019-07-[address] [facility] 00:00:00 measurement Medical Center (procedure) [code = [id number]] Future Scheduled Test 2018-04-[address] [facility] 00:00:00 WELLNESS (YEAR 2 or Medical Center FIRST YEAR if no IPPE) [code = MEDICARE ANNUAL WELLNESS (YEAR 2 or FIRST YEAR if no IPPE)] Future Scheduled Test 1992 SHINGLES VACCINES ([address] [facility] 00:00:00 of 2) [code = Medical Center SHINGLES VACCINES (1 of 2)] Future Scheduled Test 1961 DTAP/TDAP/TD VACCINES [facility] 00:00:00 (1 - Tdap) [code = Medical C enter DTAP/TDAP/TD VACCINES (1 - Tdap)] Future Scheduled Test 1960 HEPATITIS C SCREENING [facility] 00:00:00 [code = HEPATITIS C Medical Center SCREENING] Future Scheduled Test 1952 DIABETIC EYE EXAM [facility] 00:00:00 [code = DIABETIC EYE Medical Center EXAM] Future Scheduled Test 1952 [facility] Center (regime/therapy) [code = [id number]] Future Scheduled Test 1952 Urine screening for [facility] 00:00:00 protein (procedure) Medical Center [code = [id number]] Future Scheduled Test 1948 PNEUMOCOCCAL 65+ YRS [facility] 00:00:00 (1 - PCV) [code = Medical Ce nter PNEUMOCOCCAL 65+ YRS (1 - PCV)] Future Scheduled Test 1942 COVID-19 VACCINE (#1) [facility] 00:00:00 [code = COVID-[address] VACCINE (#1)] Future Scheduled Test 1942 DXA SCAN [code = DXA [facility] 00:00:00 SCAN] Medical Center Instructions [facility] Medicine Encounters Start End Encounter Admission Attending Care Care Encounter Source Date/Time Date/Time Type Type Clinicians Facility Department ID 2022-02-18 2022-02-18 Outpatient FOG_[facility]ws AOSM AOSM [id number] Sudha 00:00:00 00:00:00 _[facility]zen[facility] [id number] Orth ope dic Sports Medicin e 2022-01-14 2022-01-14 Outpatient FOG_Mathews AOSM AOSM [id number] Sudha 00:00:00 00:00:00 _[facility]zena [id number] Orth ope dic Sports Medicin e 2021-12-26 2021-12-26 Outpatient FOG_Mathews AOSM AOSM [id number] Sudha 00:00:00 00:00:00 _Bozena [id number] Orth ope dic Sports Medicin e 2021-12-26 2021-12-26 Nii AOSM [place] - Ortho [id number] Sudha 00:00:00 00:00:00 Chloe Goldman MD: [id number] FOG_Ofc dic [facility], [place] [phone] , Ph. [id number] 2021-12-12 2021-12-12 Outpatient FOG_Mathews AOSM AOSM 612 [id number] Sudha 00:00:00 00:00:00 _[facility]zen[facility] [id number] [facility] 2021-12-11 2021-12-11 Outpatient FOG_Mathews AOSM AOSM 612 [id number] Sudha 00:00:00 00:00:00 _Bozena [id number] [facility] 2021-11-21 2021-11-21 Outpatient FOG_Mathews AOSM AOSM 612 [id number] Sudha 00:00:00 00:00:00 _Bozena [id number] [facility] e 2021-11-21 2021-11-21 Nii AOSM [place] - Ortho 12 Sudha 00:00:00 00:00:00 Chloe Goldman MD: [id number] FOG_Ofc dic [facility] e [address] , Ph. [phone] 2021-11-12 2021-11-12 Outpatient FOG_Mathews AOSM AOSM 612 [id number] Sudha 00:00:00 00:00:00 _Bozena [id number] Orth [facility] Medicin e 2021-11-08 2021-11-09 Inpatient EL Jones HCATO SURG [id number] [facility] 15:20:00 14:46:00 Nii 41 [place] [facility] 2021-11-08 2021-11-08 Nii AOSM [place] - Ortho Sudha 00:00:00 00:00:00 Chloe Goldman MD: [id number] FOG_Surgery dic [facility] e [address] , Ph. [phone] 2021-11-06 2021-11-06 Outpatient FOG_Mathews AOSM AOSM 612 [id number] Sudha 00:00:00 00:00:00 _Bozena [id number] Orth [facility] Medicin e 2021-10-29 2021-10-29 Outpatient YU GoldmanWU REFE [id number] [facility] 19:51:00 19:51:00 Nii 99 [facility] 2021-10-29 2021-10-29 Outpatient YU GoldmanCL LABO [id number] [facility] 19:50:00 19:50:00 Nii 22 [facility] 2021-10-02 2021-10-02 Outpatient FOG_Mathews AOSM AOSM 612 [id number] Sudha 00:00:00 00:00:00 _Bozena [id number] Orth [facility]pe dic Sports Medicin e 2021-09-04 2021-09-04 Outpatient FOG_Mathews AOSM AOSM 612 [id number] Sudha 02:24:00 02:24:00 _Bozena [id number] Orth ope dic Sports Medicin e 2021-08-22 2021-08-22 Outpatient FOG_Mathews AOSM AOSM 612 0490-20 Sudha 05:32:00 05:32:00 _Bozena [id number] Orth ope dic Sports Medicin e 2021-08-22 2021-08-22 Outpatient Jones, AODAVID AOSM [id number] 00:00:00 00:00:00 Nii [id number] 2021-08-22 2021-08-22 Nii AOSM [place] - Ortho Sudha 00:00:00 00:00:00 Chloe Goldman MD: 7401 FOG_Ofc dic [facility], [place] [address] , Ph. [phone] 2021-08-10 2021-08-10 Outpatient FOG_Mathews AOSM AOSM 612 [id number] Sudha 04:59:00 04:59:00 _Bozena [id number] Orth ope dic Sports Medicin e 2021-08-10 2021-08-10 Outpatient FOG_Mathews AOSM AOSM 612 [id number] Sudha 04:59:00 04:59:00 _Bozena [id number] Orth ope dic Sports Medicin e 2020-06-04 2020-06-05 Emergency MARGOTH, [id number] [address] [place] [address] 00:00:00 00:00:00 GREG Cano Method i st Results Test Description Test Time Test Comments Results Result Comments Source GLUBED 2021-11-09 14:45:00 Test Item Value Reference Range Interpretation Comme nts GLUBED (test code = GLUBED) 169 mg/dL 60-125 H [id number] 12:15:00 Test Item Value Reference Range Interpretation Comments glubed (test code = glubed) 169 mg/dL 60-125 H performing lab: (test code = performing lab:) [facility] MedicineBASIC METABOLIC [id number] 06:32:00 Test Item Value Reference Range Interpretation Comments SODIUM (test code = 142 mmol/L 136-145 N NA) POTASSIUM (test code = 4.6 mmol/L 3.5-5.1 N K) CHLORIDE (test code = 102.0 mmol/L 98-107 N CL) CARBON DIOXIDE (test 25.2 mmol/L 21-32 N code = CO2) GLUCOSE (test code = 197 mg/dL 70-110 H GLU) BLOOD UREA NITROGEN 20 mg/dL 7-18 H (test code = BUN) GLOMERULAR FILTRATION 52.3 >60 Unit o f measure: RATE (test code = GFR) mL/mi n/1.73 [id number] Range:Healthy Adults >90 mL/min/1.73 m2 For Chronic Kidney Disease: Stage II Mild Decrease i n GFR 60-90 Stage III Moderate Decrea se in GFR 30-59 St age IV Severe Decre ase in GFR 15-29 St age V Kidney Failur e <15 CREATININE (test code 1.02 mg/dL 0.55-1.30 N = CREAT) CALCIUM (test code = 8.4 mg/dL 8.2-10.1 N CA) HGB [id number] 05:59:00 Test Item Value Reference Range Interpretation Comments HEMOGLOBIN (test code = HGB) 10.7 g/dL 12-16 L HEMATOCRIT (test code = HCT) 31.8 % 37-47 L SPECIMEN COMMENT: POD #[id number] 05:39:00 Test Item Value Reference Range Interpretation Comments GLUBED (test code = GLUBED) 218 mg/dL 60-125 H [id number] 05:26:00 Test Item Value Reference Range Interpretation Comments glubed (test code = glubed) 218 mg/dL 60-125 H performing lab: (test code = performing lab:) [facility] [id number] 05:26:00 Test Item Value Reference Range Interpretation Comments glubed (test code = glubed) 218 mg/dL 60-125 H performing lab: (test code = performing lab:) [facility] MedicineHemoglobin and Hematocrit panel - Blood 2021-11-09 05:15:00 Test Item Value Reference Range Interpretation Comments hemoglobin (test code = hemoglobin) 10.7 g/dL 12-16 L hematocrit (test code = hematocrit) 31.8 % 37-47 L performing lab: (test code = performing lab:) [facility] MedicineHemoglobin and Hematocrit panel - Blood 2021-11-09 05:15:00 Test Item Value Reference Range Interpretation Comments hemoglobin (test code = hemoglobin) 10.7 g/dL 12-16 L hematocrit (test code = hematocrit) 31.8 % 37-47 L performing lab: (test code = performing lab:) [place] [id number] 23:36:00 Test Item Value Reference Range Interpretation Comments GLUBED (test code = GLUBED) 214 mg/dL 60-125 H [id number] 22:22:00 Test Item Value Reference Range Interpretation Comments glubed (test code = glubed) 214 mg/dL 60-125 H performing lab: (test code = performing lab:) [place] [id number] 22:22:00 Test Item Value Reference Range Interpretation Comments glubed (test code = glubed) 214 mg/dL 60-125 H performing lab: (test code = performing lab:) [place] [id number] 12:25:00 Test Item Value Reference Range Interpretation Comments GLUBED (test code = GLUBED) 102 mg/dL 60-125 N [id number] 12:13:00 Test Item Value Reference Range Interpretation Comments glubed (test code = glubed) 102 mg/dL 60-125 performing lab: (test code = performing lab:) [place] [id number] 12:13:00 Test Item Value Reference Range Interpretation Comments glubed (test code = glubed) 102 mg/dL 60-125 performing lab: (test code = performing lab:) [facility] (HA1C)2021-10-29 21:10:00 Test Item Value Reference Range Interpretation Comments GLYCOSYLATED 7.5 % 4.8-5.9 H Any condition t hat shortens HEMOGLOBIN (HA1C) erythocyte survival or (test code = GLYHGB) decreas esmean erythrocyte age (e.g., dylon very from acute blood los s,hemolytic anemia) will fa lsely lower HGBA1c resultsr egardless of the method used . HGBA1c results from yvette graham HbSS, HbCC, and HbSc must be interpreted with cautiongiven th e pathological pr ocesses, including anemi a,increased red cell turnov er, transfusion req uirements, thatadversely i mpact HGBA1c as a marker of long-term glycemiccontrol . Alternative for ms of testing such as fructosaminesho uld be considered for these patients. GLYCOSYLATED HEMOGLOBIN (HA1C)2021-10-29 21:10:00 Test Item Value Reference Range Interpretation Comments GLYCOSYLATED 7.5 % 4.8-5.9 H Any condition t hat shortens HEMOGLOBIN (HA1C) erythocyte survival or (test code = GLYHGB) decreas esmean erythrocyte age (e.g., dylon very from acute blood los s,hemolytic anemai) will fa lsely lower HGBA1c resultsr egardless of the method used . HGBA1c results frompat ients with HbSS, HbCC and HbSc must be interpreted wit hcaution given the patho logical processes, incl uding anemia,increase d red cell turnover, trans fusion requirements, t hatadversely impact HGBA1c a s a marker of long-term glycemiccontrol . Alternative for ms of testing such as fructosaminesho uld be considered for these patients.Any co ndition that shortens erytho cyte survival or dec reasesmean erythrocyte age (e.g., recovery from a cute blood loss,hemolytic anemia) will falsely lower H GBA1c resultsregardle ss of the method used. HG BA1c results from patientswi th HbSS, HbCC, and HbSc must be interpreted wit h cautiongiven th e pathological pr ocesses, including anemi a,increased red cell turnov er, transfusion req uirements, thatadversely i mpact HGBA1c as a marker of long-term glycemiccontrol . Alternative for ms of testing such as fructosaminesho uld be considered for these patients.DONE A T: [facility] [address] , [place], [place] [address] PROTHROMBIN [id number] 17:31:00 Test Item Value Reference Range Interpretation Comments PROTHROMBIN TIME 10.8 secs 9.7-12.5 N Please note new normal PATIENT (test code = range. PTP) INTERNATIONAL NORMAL 0.97 <2.0 RECOMME NDED THERAPEUTIC RATIO (test code = RANGE FOR ORAL INR) ANTICOAGULANTTR EATMENT: CONDITION INRPr ophylaxis of venous throm bosis in 2.0 - 3.0 high- risk medical or surg ical patientsTreatme nt of venous thrombos is 2.0 - 3.0Prevention o f embolism 2.0 - 3.0Prevention o f recurrent embol ism, or 3.0 - 4.5 patie nts with mechanical pros thetic intravascular v hernandez IS PATIENT ON ANTICOAGULANTS ? YLIST ANTICOAGULANT/ANTI PLT MEDICATION : AspirinHas Lab been notified if Patient is on Heparin Drip? NOIf Yes, order CBC, OCCULT BLOOD, PT every other day NTHROMBOPLASTIN TIME [id number] 17:31:00 Test Item Value Reference Range Interpretation Comments PTT ACTIVATED (test 30.6 secs 26.6-34.6 N Please n ote new code = APTT) normal range. IS PATIENT ON ANTICOAGULANTS ? YLIST ANTICOAGULANT/ANTI PLT MEDICATION : AspirinHas Lab been notified if Patient is on Heparin Drip? NOIf Yes, order CBC, OCCULT BLOOD, PT every other day NCOMPREHENSIVE METABOLIC [id number] 17:27:00 Test Item Value Reference Range Interpretation Comments SODIUM (test code = 139 mmol/L 136-145 N NA) POTASSIUM (test code = 4.5 mmol/L 3.5-5.1 N K) CHLORIDE (test code = 102.0 mmol/L 98-107 N CL) CARBON DIOXIDE (test 28.4 mmol/L 21-32 N code = CO2) GLUCOSE (test code = 102 mg/dL 70-110 N GLU) BLOOD UREA NITROGEN 23 mg/dL 7-18 H (test code = BUN) GLOMERULAR FILTRATION 64.6 >60 Unit o f measure: RATE (test code = GFR) mL/mi n/1.73 [id number] Range:Healthy Adults >90 mL/min/1.73 m2 For Chronic Kidney Disease: Stage II Mild Decrease i n GFR 60-90 Stage III Moderate Decrea se in GFR 30-59 St age IV Severe Decre ase in GFR 15-29 St age V Kidney Failur e <15 CREATININE (test code 1.10 mg/dL 0.55-1.30 N = CREAT) TOTAL PROTEIN (test 7.4 g/dL 6.4-8.2 N code = PROT) ALBUMIN (test code = 3.7 g/dL 3.4-5.0 N ALB) GLOBULIN (test code = 3.7 g/dL 2.2-4.2 N GLOB) ALBUMIN/GLOBULIN RATIO 1.0 0.7-2.0 N (test code = A/G) CALCIUM (test code = 9.0 mg/dL 8.2-10.1 N CA) BILIRUBIN TOTAL (test 0.40 mg/dL 0.2-1.00 N code = BILT) SGOT/AST (test code = 20.0 U/L 15-37 N AST) SGPT/ALT (test code = 21.0 U/L 12-78 N Please note new ALT) normal range. ALKALINE PHOSPHATASE 66 U/L 46-116 N TOTAL (test code = ALKP) CBC W/AUTO [id number] 16:44:00 Test Item Value Reference Range Interpretation Comments WHITE BLOOD CELL (test code = WBC) 7.9 K/mm3 5.7-10.5 N RED BLOOD CELL (test code = RBC) 3.78 M/mm3 4.2-5.4 L HEMOGLOBIN (test code = HGB) 11.9 g/dL 12-16 L HEMATOCRIT (test code = HCT) 35.8 % 37-47 L MEAN CELL VOLUME (test code = MCV) 95 fL 80-98 N MEAN CELL HGB (test code = MCH) 31.5 pg 27-34 N MEAN CELL HGB CONCENTRATION (test 33.2 g/dL 30.8-34.1 N code = MCHC) RED CELL DISTRIBUTION WIDTH (test 13.2 % 11-16 N code = RDW) PLT (test code = PLT) 258 K/mm3 130-400 N MEAN PLATELET VOLUME (test code = 10.0 fL 8.9-12.1 N MPV) NEUTROPHIL % (test code = NT%) 57.1 % 45-70 N LYMPHOCYTE % (test code = LY%) 33.9 % 20-40 N MONOCYTE % (test code = MO%) 7.0 % 3-10 N EOSINOPHIL % (test code = EO%) 1.3 % 1-5 N BASOPHIL % (test code = BA%) 0.4 % 0.0-1.1 N NEUTROPHIL # (test code = NT#) 4.50 K/mm3 2.00-7.50 N LYMPHOCYTE # (test code = LY#) 2.67 K/mm3 1.50-4.00 N MONOCYTE # (test code = MO#) 0.55 K/mm3 0.2-0.8 N EOSINOPHIL # (test code = EO#) 0.10 K/mm3 0.04-0.4 N BASOPHIL # (test code = BA#) 0.03 K/mm3 0.02-0.10 N MANUAL DIFF REQUIRED (test code = NO MANUAL DIFF MDIFF) NUCLEATED RED BLOOD CELL (test 0 % 0-0 N code = NRBC) CBC W Auto Differential panel - [id number] 16:00:00 Test Item Value Reference Range Interpretation Comments white blood cell (test code = 7.9 K/mm3 5.7-10.5 white blood cell) red blood cell (test code = red 3.78 M/mm3 4.2-5.4 L blood cell) hemoglobin (test code = 11.9 g/dL 12-16 L hemoglobin) hematocrit (test code = 35.8 % 37-47 L hematocrit) mean cell volume (test code = mean 95 fL 80-98 cell volume) mean cell HGB (test code = mean 31.5 pg 27-34 cell HGB) mean cell HGB concentration (test 33.2 g/dL 30.8-34.1 code = mean cell HGB concentration) red cell distribution width (test 13.2 % 11-16 code = red cell distribution width) plt (test code = plt) 258 K/mm3 130-400 mean platelet volume (test code = 10.0 fL 8.9-12.1 mean platelet volume) neutrophil % (test code = 57.1 % 45-70 neutrophil %) lymphocyte % (test code = 33.9 % 20-40 lymphocyte %) monocyte % (test code = monocyte 7.0 % 3-10 %) eosinophil % (test code = 1.3 % 1-5 eosinophil %) basophil % (test code = basophil 0.4 % 0.0-1.1 %) neutrophil # (test code = 4.50 K/mm3 2.00-7.50 neutrophil #) lymphocyte # (test code = 2.67 K/mm3 1.50-4.00 lymphocyte #) monocyte # (test code = monocyte 0.55 K/mm3 0.2-0.8 #) eosinophil # (test code = 0.10 K/mm3 0.04-0.4 eosinophil #) basophil # (test code = basophil 0.03 K/mm3 0.02-0.10 #) manual diff required (test code = no manual diff manual diff required) nucleated red blood cell (test 0 % 0-0 code = nucleated red blood cell) performing lab: (test code = performing lab:) [facility] 2000 [facility] - Serum or [id number] 16:00:00 Test Item Value Reference Range Interpretation Comments sodium (test code = sodium) 139 mmol/L 136-145 potassium (test code = 4.5 mmol/L 3.5-5.1 potassium) chloride (test code = chloride) 102.0 mmol/L 98-107 carbon dioxide (test code = 28.4 mmol/L 21-32 carbon dioxide) glucose (test code = glucose) 102 mg/dL 70-110 blood urea nitrogen (test code = 23 mg/dL 7-18 H blood urea nitrogen) glomerular filtration rate (test 64.6 >60 code = glomerular filtration rate) creatinine (test code = 1.10 mg/dL 0.55-1.30 creatinine) total protein (test code = total 7.4 g/dL 6.4-8.2 protein) albumin (test code = albumin) 3.7 g/dL 3.4-5.0 globulin (test code = globulin) 3.7 g/dL 2.2-4.2 albumin/globulin ratio (test 1.0 0.7-2.0 code = albumin/globulin ratio) calcium (test code = calcium) 9.0 mg/dL 8.2-10.1 bilirubin total (test code = 0.40 mg/dL 0.2-1.00 bilirubin total) SGOT/AST (test code = SGOT/AST) 20.0 U/L 15-37 SGPT/ALT (test code = SGPT/ALT) 21.0 U/L 12-78 alkaline phosphatase total (test 66 U/L 46-116 code = alkaline phosphatase total) performing lab: (test code = performing lab:) [facility] CenterProth[facility] time (PT)2021-10-29 16:00:00 Test Item Value Reference Range Interpretation Comments prothrombin time patient (test code 10.8 secs 9.7-12.5 = prothrombin time patient) international normal ratio (test 0.97 <2.0 code = international normal ratio) performing lab: (test code = performing lab:) [facility] Centerth[facility]in time [id number] 16:00:00 Test Item Value Reference Range Interpretation Comments PTT activated (test code = PTT 30.6 secs 26.6-34.6 activated) performing lab: (test code = performing lab:) [facility] Centerglycosylated hemoglobin (ha1c)2021-10-29 16:00:00 Test Item Value Reference Range Interpretation Comments Hemoglobin A1c/Hemoglobin.total in 7.5 % 4.8-5.9 H Blood (test code = 4548-4) performing lab: (test code = performing lab:) [facility] CenterMethicillin resistant Staphylococcus aureus [Presence] in Specimen by Organism specific [id number] 16:00:00 Test Item Value Reference Range Interpretation Comments MRSA surveillance screen (test code see below = MRSA surveillance screen) performing lab: (test code = performing lab:) [facility] Centermssa PCR surveillance [id number] 16:00:00 Test Item Value Reference Range Interpretation Comments mssa PCR surveillance screen (test see below code = mssa PCR surveillance screen) performing lab: (test code = performing lab:) [facility] CenterCBC W Auto Differential panel - [id number] 16:00:00 Test Item Value Reference Range Interpretation Comments white blood cell (test code = 7.9 K/mm3 5.7-10.5 white blood cell) red blood cell (test code = red 3.78 M/mm3 4.2-5.4 L blood cell) hemoglobin (test code = 11.9 g/dL 12-16 L hemoglobin) hematocrit (test code = 35.8 % 37-47 L hematocrit) mean cell volume (test code = mean 95 fL 80-98 cell volume) mean cell HGB (test code = mean 31.5 pg 27-34 cell HGB) mean cell HGB concentration (test 33.2 g/dL 30.8-34.1 code = mean cell HGB concentration) red cell distribution width (test 13.2 % 11-16 code = red cell distribution width) plt (test code = plt) 258 K/mm3 130-400 mean platelet volume (test code = 10.0 fL 8.9-12.1 mean platelet volume) neutrophil % (test code = 57.1 % 45-70 neutrophil %) lymphocyte % (test code = 33.9 % 20-40 lymphocyte %) monocyte % (test code = monocyte 7.0 % 3-10 %) eosinophil % (test code = 1.3 % 1-5 eosinophil %) basophil % (test code = basophil 0.4 % 0.0-1.1 %) neutrophil # (test code = 4.50 K/mm3 2.00-7.50 neutrophil #) lymphocyte # (test code = 2.67 K/mm3 1.50-4.00 lymphocyte #) monocyte # (test code = monocyte 0.55 K/mm3 0.2-0.8 #) eosinophil # (test code = 0.10 K/mm3 0.04-0.4 eosinophil #) basophil # (test code = basophil 0.03 K/mm3 0.02-0.10 #) manual diff required (test code = no manual diff manual diff required) nucleated red blood cell (test 0 % 0-0 code = nucleated red blood cell) performing lab: (test code = performing lab:) [facility] CenterCom[facility] 2000 panel - Serum or [id number] 16:00:00 Test Item Value Reference Range Interpretation Comments sodium (test code = sodium) 139 mmol/L 136-145 potassium (test code = 4.5 mmol/L 3.5-5.1 potassium) chloride (test code = chloride) 102.0 mmol/L 98-107 carbon dioxide (test code = 28.4 mmol/L 21-32 carbon dioxide) glucose (test code = glucose) 102 mg/dL 70-110 blood urea nitrogen (test code = 23 mg/dL 7-18 H blood urea nitrogen) glomerular filtration rate (test 64.6 >60 code = glomerular filtration rate) creatinine (test code = 1.10 mg/dL 0.55-1.30 creatinine) total protein (test code = total 7.4 g/dL 6.4-8.2 protein) albumin (test code = albumin) 3.7 g/dL 3.4-5.0 globulin (test code = globulin) 3.7 g/dL 2.2-4.2 albumin/globulin ratio (test 1.0 0.7-2.0 code = albumin/globulin ratio) calcium (test code = calcium) 9.0 mg/dL 8.2-10.1 bilirubin total (test code = 0.40 mg/dL 0.2-1.00 bilirubin total) SGOT/AST (test code = SGOT/AST) 20.0 U/L 15-37 SGPT/ALT (test code = SGPT/ALT) 21.0 U/L 12-78 alkaline phosphatase total (test 66 U/L 46-116 code = alkaline phosphatase total) performing lab: (test code = performing lab:) [facility] CenterProthrombin time (PT)2021-10-29 16:00:00 Test Item Value Reference Range Interpretation Comments prothrombin time patient (test code 10.8 secs 9.7-12.5 = prothrombin time patient) international normal ratio (test 0.97 <2.0 code = international normal ratio) performing lab: (test code = performing lab:) [facility] Centerthromboplastin time [id number] 16:00:00 Test Item Value Reference Range Interpretation Comments PTT activated (test code = PTT 30.6 secs 26.6-34.6 activated) performing lab: (test code = performing lab:) [facility] Centerglycosylated hemoglobin (ha1c)2021-10-29 16:00:00 Test Item Value Reference Range Interpretation Comments Hemoglobin A1c/Hemoglobin.total in 7.5 % 4.8-5.9 H Blood (test code = 4548-4) performing lab: (test code = performing lab:) [facility] CenterMethicillin resistant Staphylococcus aureus [Presence] in Specimen by Organism specific [id number] 16:00:00 Test Item Value Reference Range Interpretation Comments MRSA surveillance screen (test code see below = MRSA surveillance screen) performing lab: (test code = performing lab:) [facility]erm[facility] PCR surveillance [id number] 16:00:00 Test Item Value Reference Range Interpretation Comments mssa PCR surveillance screen (test see below code = mssa PCR surveillance screen) performing lab: (test code = performing lab:) [facility] CenterPOCT-GLUCOSE [id number] 09:21:00 Test Item Value Reference Range Interpretation Comments POC-GLUCOSE METER 129 mg/dL 70-110 H : TESTED A T [facility] 6720 (BEAKER) (test code [place], = 1538) [id number]: Maintenance Worker House Trailer/Techni alejandra ID = [id number] for AUSTEN MESSER [id number] 04:31:00 Test Item Value Reference Range Interpretation Comments MAGNESIUM (BEAKER) (test code = 1.7 mg/dL 1.6-2.6 627) BASIC METABOLIC [id number] 04:31:00 Test Item Value Reference Range Interpretation [...] PATIEN TS. CBC W/PLT COUNT & AUTO [id number] 04:01:00 Test Item Value Reference Range Interpretation [...] PERCENT (BEAKER) (test code = 2801) POCT-GLUCOSE [id number] 01:14:00 Test Item Value Reference Range Interpretation Comments POC-GLUCOSE METER 108 mg/dL 70-110 : TESTED A T [facility] 6720 (BEAKER) (test code = TREVIN YOUNG, 1538) [id number]: Maintenance Worker House Trailer/Techni alejandra ID = [id number] for CA RBAJAL, ABDI POCT-GLUCOSE [id number] 17:50:00 Test Item Value Reference Range Interpretation Comments POC-GLUCOSE METER 139 mg/dL 70-110 H : TESTED A T [facility] 6720 (BEAKER) (test code [facility], = 1538) [id number]: Maintenance Worker House Trailer/Techni alejandra ID = [id number] for AUSTEN MESSER POCT-GLUCOSE [id number] 12:22:00 Test Item Value Reference Range Interpretation Comments POC-GLUCOSE METER 213 mg/dL 70-110 H : TESTED A T [facility] 6720 (BEAKER) (test code [facility], = 1538) 08558: Maintenance Worker House Trailer/Techni alejandra ID = [id number] for AUSTEN MESSER [id number] 08:25:00 Test Item Value Reference Range Interpretation Comments PHOSPHORUS (BEAKER) (test code = 2.1 mg/dL 2.3-4.7 L 604) [id number] 08:25:00 Test Item Value Reference Range Interpretation Comments MAGNESIUM (BEAKER) (test code = 1.6 mg/dL 1.6-2.6 627) BASIC METABOLIC [id number] 08:25:00 Test Item Value Reference Range Interpretation [...] NOT APPLICABLE FOR DIALYSIS PATIEN TS. POCT-GLUCOSE [id number] 06:48:00 Test Item Value Reference Range Interpretation Comments POC-GLUCOSE METER 132 mg/dL 70-110 H : TESTED A T [facility] 6720 (BEAKER) (test code = [place]RE[place], 1538) [id number]: Maintenance Worker House Trailer/Techni alejandra ID = [id number] for YOSSI GILBERT CBC W/PLT COUNT & AUTO [id number] 06:17:00 Test Item Value Reference Range Interpretation [...] PERCENT (BEAKER) (test code = 2801) CALCIUM, [id number] 06:02:00 Test Item Value Reference Range Interpretation Comments CALCIUM IONIZED (BEAKER) (test 1.10 mmol/L 1.12-1.27 L code = 698) PH, BLOOD (BEAKER) (test code = 7.44 1810) POCT-GLUCOSE [id number] 01:23:00 Test Item Value Reference Range Interpretation Comments POC-GLUCOSE METER 137 mg/dL 70-110 H : TESTED A T [facility] 6720 (BEAKER) (test code = [facility], 1538) 50706: Maintenance Worker House Trailer/Techni alejandra ID = [id number] for YOSSI GILBERT POCT-GLUCOSE [id number] 18:24:00 Test Item Value Reference Range Interpretation Comments POC-GLUCOSE METER 168 mg/dL 70-110 H : TESTED A T [facility] 6720 (BEAKER) (test code = [facility], 1538) 39674: Maintenance Worker House Trailer/Techni alejandra ID = [id number] for DIANNA BAILEY, [facility] [place] [id number] 11:18:00Reason for exam:->Small bowel obstructionFINAL REPORT Small bowel follow-through. Clinical history: Small bowel obstruction. COMPARISON STUDY: CT scan dated October 23, 2018. FINDINGS: [employer] Director radiograph demonstrates a nasogastric tube in place. [...] MDReport Verified Date/Time: 01/24/2019 11:18:59 Reading Location: [address] Reading Room POCT-GLUCOSE [id number] 00:42:00 Test Item Value Reference Range Interpretation Comments POC-GLUCOSE METER 148 mg/dL 70-110 H : TESTED A T [facility] 6720 (BEAKER) (test code = [facility], 1538) 28111: Maintenance Worker House Trailer/Techni alejandra ID = [id number] for YOSSI GILBERT POCT-GLUCOSE [id number] 21:22:00 Test Item Value Reference Range Interpretation Comments POC-GLUCOSE METER 159 mg/dL 70-110 H : TESTED A T [facility] 6720 (BEAKER) (test code = [facility], 1538) 08263: Maintenance Worker House Trailer/Techni alejandra ID = [id number] for NASH ROY POCT-GLUCOSE [id number] 17:25:00 Test Item Value Reference Range Interpretation Comments POC-GLUCOSE METER 129 mg/dL 70-110 H : TESTED A T [facility] 6720 (BEAKER) (test code = [facility], 1538) 62780: Maintenance Worker House Trailer/Techni alejandra ID = [id number] for PRIMO MORA NASH HEMOGLOBIN [id number] 09:20:00 Test Item Value Reference Range Interpretation Comments HEMOGLOBIN A1C (BEAKER) (test code = 6.3 % 4.3-6.1 H 368) POCT-GLUCOSE [id number] 06:04:00 Test Item Value Reference Range Interpretation Comments POC-GLUCOSE METER 172 mg/dL 70-110 H : TESTED A T [facility] 6720 (BEAKER) (test code = [facility], 1538) 90506: Maintenance Worker House Trailer/Techni alejandra ID = [id number] for GHADA KELLEY [id number] 05:51:00 Test Item Value Reference Range Interpretation Comments MAGNESIUM (BEAKER) 1.9 mg/dL 1.6-2.6 Specimen moderately (test code = 627) hemolyzed [id number] 05:51:00 Test Item Value Reference Range Interpretation Comments PHOSPHORUS (BEAKER) 3.2 mg/dL 2.3-4.7 Specimen moderately (test code = 604) hemolyzed BASIC METABOLIC [id number] 05:51:00 Test Item Value Reference Range Interpretation [...] NOT APPLICABLE FOR DIALYSIS PATIEN TS. LIPID [id number] 05:51:00 Test Item Value Reference Range Interpretation Comments TRIGLYCERIDES (BEAKER) 109 mg/dL Speci men moderately (test code = 540) hemolyzed CHOLESTEROL (BEAKER) 183 mg/dL Specime n moderately (test code = 631) hemolyzed HDL CHOLESTEROL (BEAKER) 49 mg/dL (test code = 976) LDL CHOLESTEROL 112 mg/dL CALCULATED (BEAKER) (test code = 633) Triglyceride Reference Range: Low Risk <150 Borderline 150-199 High Risk 200- 499 Very High Risk >=500Cholesterol Reference Range: Low Risk <200 Borderline 200-239 High Risk >240HDL Cholesterol Reference Range: Low Risk >=60 High Risk <40LDL Cholesterol Reference Range: Optimal <100 Near Optimal 100-129 Borderline 130-159 High 160-189 Very High >=190CALCIUM, [id number] 05:47:00 Test Item Value Reference Range Interpretation Comments CALCIUM IONIZED (BEAKER) (test 1.12 mmol/L 1.12-1.27 code = 698) PH, BLOOD (BEAKER) (test code = 7.32 1810) CBC W/PLT COUNT & AUTO [id number] 05:24:00 Test Item Value Reference Range Interpretation [...] PERCENT (BEAKER) (test code = 2801) POCT-GLUCOSE [id number] 23:54:00 Test Item Value Reference Range Interpretation Comments POC-GLUCOSE METER 178 mg/dL 70-110 H : TESTED A T [facility] 6720 (BEAKER) (test code = [facility] R [facility], 1538) [id number]: 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 COMPARISON: August 21, 2017TECHNIQUE: CT of the Abdomen and Pelvis WITH intravenous contrast. Enteric contrast was not used. The exam was performed according to our department dose-optimization protocol, which includes automatedexposure control, adjustments of mA and kV according [...] ductal dilation. Liver, pancreas, spleen, adrenal glands, kidneys, bl adder, and uterus are unremarkable. Lower thorax and osseous structures unremarkable. IMPRESSION: High-grade small bowel obstruction. Signed: Crow aJrrelleport Verified Date/Time: 01/22/2019 13:08:05 Reading Location: [facility] C013Y CT Body Reading Room [id number] 09:34:00 Test Item Value Reference Range Interpretation Comments LIPASE (BEAKER) (test code = 749) 30 U/L 8-78 BASIC METABOLIC [id number] 09:34:00 Test Item Value Reference Range Interpretation [...] APPLICABLE FOR DIALYSIS PATIEN TS. HEPATIC FUNCTION [id number] 09:34:00 Test Item Value Reference Range Interpretation [...] = 347) hemolyzed URINALYSIS W/ REFLEX URINE [id number] 09:30:00 Test Item Value Reference Range Interpretation [...] 1 /LPF 514) SOURCE(BEAKER) (test code = 7389) CBC W/PLT COUNT & AUTO [id number] 09:06:00 Test Item Value Reference Range Interpretation [...] PERCENT (BEAKER) (test code = 2801) POCT-GLUCOSE [id number] 12:26:00 Test Item Value Reference Range Interpretation Comments POC-GLUCOSE METER 271 mg/dL 70-110 H TESTED AT [facility] 6720 (BEAKER) (test code = DEANASAAD [place]DA[place] 1538) [address] POCT-GLUCOSE [id number] 08:10:00 Test Item Value Reference Range Interpretation Comments POC-GLUCOSE METER 118 mg/dL 70-110 H TESTED AT [facility] 6720 (BEAKER) (test code = TREVIN Justin [facility] 1538) 18957 [id number] 03:40:00 Test Item Value Reference Range Interpretation Comments MAGNESIUM (BEAKER) (test code = 1.7 mg/dL 1.6-2.6 627) BASIC METABOLIC [id number] 03:40:00 Test Item Value Reference Range Interpretation [...] 358) GLUCOSE RANDOM 131 mg/dL 70-105 H (BEAKER) (test code = 652) CALCIUM (BEAKER) 8.6 mg/dL 8.4-10.2 (test code = 697) EGFR (BEAKER) (test 69 mL/min/1.73 ESTIMA ELOISA GFR IS code = 1092) sq m NOT ACCURATE CREATININE CLEARANCE IN PREDICTING GLOMERULAR FILTRATION RATE . ESTIMATED GFR I S NOT APPLICABLE FOR DIALYSIS PATIEN TS. POCT-GLUCOSE [id number] 21:00:00 Test Item Value Reference Range Interpretation Comments POC-GLUCOSE METER 169 mg/dL 70-110 H TESTED AT [facility] 6720 ([facility]) (test code = TREVIN Justin [facility] 1538) 97773 POCT-GLUCOSE [id number] 17:46:00 Test Item Value Reference Range Interpretation Comments POC-GLUCOSE METER 201 mg/dL 70-110 H TESTED AT [facility] 6720 ([facility]) (test code = [facility] Margoth [facility] 1538) [address] RAD, SHOULDER, COMPLETE (MIN 2 VIEWS), [id number] 14:00:00Reason for exam:- >shoulder painReason for exam:->please obtain axillary lateral and call [phone] when completeFINAL REPORT Two axillary left shoulder images. Normal glenohumeral articulation. Chronic changes are seen about the greater tuberosity and the AC joint. No visible fracture, dislocation, destructive lesion. Signed: Yovani Zarate Verified Date/Time: 08/25/2017 14:00:20 Reading Location: [facility] C013W Consult Reading Room POCT-GLUCOSE [id number] 12:12:00 Test Item Value Reference Range Interpretation Comments POC-GLUCOSE METER 161 mg/dL 70-110 H TESTED AT [facility] 6720 (BEAKER) (test code = [facility] 1538) 27104 POCT-GLUCOSE [id number] 08:42:00 Test Item Value Reference Range Interpretation Comments POC-GLUCOSE METER 157 mg/dL 70-110 H TESTED AT [facility] 6720 (BEAKER) (test code = [facility] 1538) 53295 [id number] 06:27:00 Test Item Value Reference Range Interpretation Comments MAGNESIUM (BEAKER) (test code = 1.7 mg/dL 1.6-2.6 627) BASIC METABOLIC [id number] 06:27:00 Test Item Value Reference Range Interpretation [...] NOT APPLICABLE FOR DIALYSIS PATIEN TS. POCT-GLUCOSE [id number] 21:07:00 Test Item Value Reference Range Interpretation Comments POC-GLUCOSE METER 233 mg/dL 70-110 H TESTED AT [facility] 6720 ([facility]) (test code = TREVIN Justin [place] 1538) [address] POCT-GLUCOSE [id number] 16:55:00 Test Item Value Reference Range Interpretation Comments POC-GLUCOSE METER 354 mg/dL 70-110 H TESTED AT [facility] 6720 ([facility]) (test code = TREVIN Justin [place] 1538) [address] POCT-GLUCOSE [id number] 12:38:00 Test Item Value Reference Range Interpretation Comments POC-GLUCOSE METER 152 mg/dL 70-110 H TESTED AT [facility] 67 ([facility]) (test code = TREVIN Justin [facility] 1538) 77009 RAD, SHOULDER, COMPLETE (MIN 2 VIEWS), [id number] 12:21:00Reason for exam:- >shoulder painFINAL REPORT COMPARISON: None TECHNIQUE: 3 views of the left shoulder. FINDINGS: There are no acute fractures or dislocations. No radiopaque foreign bodies. Joint spaces are maintained. No lytic or blastic lesions. Degenerative changes of the AC joint noted. IMPRESSION: No acute bony abnormality. Signed: Nakul Aleman Verified Date/Time: 08/24/2017 12:21:37 Reading Location: [address] Transitional Reading Room -GLUCOSE [id number] 07:45:00 Test Item Value Reference Range Interpretation Comments POC-GLUCOSE METER 148 mg/dL 70-110 H TESTED AT [facility] 6720 ([facility]) (test code = TREVIN Justin [facility] 1538) 53590 [id number] 06:06:00 Test Item Value Reference Range Interpretation Comments PHOSPHORUS (BEAKER) (test code = 2.3 mg/dL 2.3-4.7 604) [id number] 06:06:00 Test Item Value Reference Range Interpretation Comments MAGNESIUM (BEAKER) (test code = 1.8 mg/dL 1.6-2.6 627) BASIC METABOLIC [id number] 06:06:00 Test Item Value Reference Range Interpretation [...] APPLICABLE FOR DIALYSIS PATIEN TS. HEPATIC FUNCTION [id number] 06:06:00 Test Item Value Reference Range Interpretation [...] 6-55 347) CBC W/PLT COUNT & AUTO [id number] 05:28:00 Test Item Value Reference Range Interpretation [...] PERCENT (BEAKER) (test code = 2801) POCT-GLUCOSE [id number] 20:25:00 Test Item Value Reference Range Interpretation Comments POC-GLUCOSE METER 222 mg/dL 70-110 H TESTED AT [place] [address] (BEAKER) (test code = TREVIN Justin [place] 1538) [address] POCT-GLUCOSE [id number] 17:25:00 Test Item Value Reference Range Interpretation Comments POC-GLUCOSE METER 153 mg/dL 70-110 H TESTED AT [place] [address] (BEAKER) (test code = TREVIN Justin [place] 1538) [address] POCT-GLUCOSE [id number] 12:23:00 Test Item Value Reference Range Interpretation Comments POC-GLUCOSE METER 206 mg/dL 70-110 H TESTED AT [place] [address] ([facility]) (test code = TREVIN Justin [facility] 1538) [address]282 POCT-GLUCOSE [id number] 07:52:00 Test Item Value Reference Range Interpretation Comments POC-GLUCOSE METER 143 mg/dL 70-110 H TESTED AT [place] [address] ([facility]) (test code = TREVIN Justin [facility] 1538) [address]72 [id number] 06:35:00 Test Item Value Reference Range Interpretation Comments PHOSPHORUS (BEAKER) (test code = 2.3 mg/dL 2.3-4.7 604) [id number] 06:35:00 Test Item Value Reference Range Interpretation Comments MAGNESIUM (BEAKER) (test code = 2.2 mg/dL 1.6-2.6 627) BASIC METABOLIC [id number] 06:35:00 Test Item Value Reference Range Interpretation [...] APPLICABLE FOR DIALYSIS PATIEN TS. HEPATIC FUNCTION [id number] 06:35:00 Test Item Value Reference Range Interpretation [...] 6-55 347) CBC W/PLT COUNT & AUTO [id number] 06:28:00 Test Item Value Reference Range Interpretation [...] code = 416) BASOPHILS ABSOLUTE COUNT (BEAKER) 0.02 K/ L 0.01-0.08 (test code = 417) IMMATURE GRANULOCYTES-RELATIVE 0 % 0-1 PERCENT (BEAKER) (test code = 2801) POCT-GLUCOSE [id number] 21:33:00 Test Item Value Reference Range Interpretation Comments POC-GLUCOSE METER 123 mg/dL 70-110 H TESTED AT [place] [address] ([facility]) (test code = TREVIN Justin [facility] 1538) [address] POCT-GLUCOSE [id number] 17:46:00 Test Item Value Reference Range Interpretation Comments POC-GLUCOSE METER 213 mg/dL 70-110 H TESTED AT [place] [address] ([facility]) (test code = [facility] Margoth [facility] 1538) [address] POCT-GLUCOSE [id number] 13:10:00 Test Item Value Reference Range Interpretation Comments POC-GLUCOSE METER 103 mg/dL 70-110 TESTED AT [place] [address] ([facility]) (test code = [facility] 1538) [address]641 RAD, CHEST, 1 VIEW, NON [id number] 10:00:00Reason for exam:->sudden onset shoulder painShould this be performed at the bedside?->YesFINAL REPORT Chest one view compared to May 17, 2017 Discussion: There is mildcardiac prominence. Lungs clear. No effusion or pneumothorax. Mild degenerative shoulder changes. 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 IMPRESSIONS: No specific evidence of acute abnormal L2. Signed: Yovani Zarateort Verified Date/Time: 08/22/2017 10:00:44 Reading Location: [facility] Radiology Reading Room [id number] 06:52:00 Test Item Value Reference Range Interpretation Comments PHOSPHORUS (BEAKER) (test code = 2.6 mg/dL 2.3-4.7 604) [id number] 06:52:00 Test Item Value Reference Range Interpretation Comments MAGNESIUM (BEAKER) (test code = 1.8 mg/dL 1.6-2.6 627) BASIC METABOLIC [id number] 06:52:00 Test Item Value Reference Range Interpretation [...] APPLICABLE FOR DIALYSIS PATIEN TS. HEPATIC FUNCTION [id number] 06:52:00 Test Item Value Reference Range Interpretation [...] = < U/L 6-55 L 347) POCT-GLUCOSE [id number] 06:02:00 Test Item Value Reference Range Interpretation Comments POC-GLUCOSE METER 126 mg/dL 70-110 H TESTED AT [facility] 6720 (BEAKER) (test code = TREVIN Justin [place] 1538) [address] CBC W/PLT COUNT & AUTO [id number] 05:32:00 Test Item Value Reference Range Interpretation [...] PERCENT (BEAKER) (test code = 2801) POCT-GLUCOSE [id number] 23:06:00 Test Item Value Reference Range Interpretation Comments POC-GLUCOSE METER 115 mg/dL 70-110 H TESTED AT [facility] 67 ([facility]) (test code = TREVIN [place] 1538) [address] POCT-GLUCOSE [id number] 17:34:00 Test Item Value Reference Range Interpretation Comments POC-GLUCOSE METER 104 mg/dL 70-110 TESTED AT [facility] 67 ([facility]) (test code = TREVIN Justin [facility] 1538) [address] CREATINE KINASE (CK), TOTAL AND [id number] 16:09:00 Test Item Value Reference Range Interpretation Comments CREATINE KINASE TOTAL (BEAKER) 170 U/L 29-200 (test code = 380) CREATINE KINASE-MB (BEAKER) (test 3.7 ng/mL 0.0-6.6 code = 750) CREATINE KINASE-MB INDEX (BEAKER) 2.2 % (test code = 395) CK-MB Reference Range:<6.7 Normal6.7-10.0 Borderline>10.0 AbnormalTROPONIN [id number] 16:09:00 Test Item Value Reference Range Interpretation Comments TROPONIN I (BEAKER) (test code = 0.01 ng/mL 0.00-0.03 397) [...] acidosis, acute neurological disease, and persistent tachyarrhythmia.POCT-GLUCOSE [id number] 14:22:00 Test Item Value Reference Range Interpretation Comments POC-GLUCOSE METER 112 mg/dL 70-110 H TESTED AT [facility] 6720 ([facility]) (test code = TREVIN Justin [place] 1538) [address] HEMOGLOBIN [id number] 13:25:00 Test Item Value Reference Range Interpretation Comments HEMOGLOBIN A1C ([facility]) (test code = 7.2 % 4.3-6.1 H 368) TSH/FREE T4 IF [id number] 07:32:00 Test Item Value Reference Range Interpretation Comments THYROID STIMULATING HORMONE 3.77 uIU/mL 0.35-4.94 ([facility]) (test code = 772) CREATINE KINASE (CK), TOTAL AND [id number] 07:16:00 Test Item Value Reference Range Interpretation Comments CREATINE KINASE TOTAL ([facility]) 137 U/L 29-200 (test code = 380) CREATINE KINASE-MB ([facility]) (test 3.6 ng/mL 0.0-6.6 code = 750) CREATINE KINASE-MB INDEX ([facility]) 2.6 % (test code = 395) CK-MB Reference Range:<6.7 Normal6.7-10.0 Borderline>10.0 AbnormalTROPONIN [id number] 07:16:00 Test Item Value Reference Range Interpretation Comments TROPONIN I ([facility]) (test code = 397) < ng/mL 0.00-0.03 [...] acidosis, acute neurological disease, and persistent tachyarrhythmia.LIPID [id number] 07:08:00 Test Item Value Reference Range Interpretation Comments TRIGLYCERIDES (BEAKER) (test code = 67 mg/dL 540) CHOLESTEROL (BEAKER) (test code = 135 mg/dL 631) HDL CHOLESTEROL (BEAKER) (test code 47 mg/dL = 976) LDL CHOLESTEROL CALCULATED (BEAKER) 75 mg/dL (test code = 633) Triglyceride Reference Range: Low Risk <150 Borderline 150-199 High Risk 200- 499 Very High Risk >=500Cholesterol Reference Range: Low Risk <200 Borderline 200-239 High Risk >240HDL Cholesterol Reference Range: Low Risk >=60 High Risk <40LDL Cholesterol Reference Range: Optimal <100 Near Optimal 100-129 Borderline 130-159 High 160-189 Very High >=190C-REACTIVE [id number] 07:08:00 Test Item Value Reference Range Interpretation Comments C-REACTIVE PROTEIN (BEAKER) (test 0.47 mg/dL 0.00-0.50 code = 676) RAD, ABDOMEN/KUB, 1 VIEW [id number] 06:00:00Reason for exam:->ABDOMINAL PAINReason for exam:->ng tubeFINAL REPORT RAD, ABDOMEN/KUB, 1 VIEW AP CLINICAL INDICATION: "ABDOMINAL PAINngtube" COMPARISON: CT abdomen and pelvis from earlier tonight TECHNIQUE: 2 frontal radiographs of theabdomen. IMPRESSION: NG tube is curled in the expected location of the GE junction. This should be advanced by at least 7 cm.Dilated loops of small bowel in the abdomen.No pneumatosis or obvious pneumoperitoneum.No acute osseous abnormality. Signed: Elizabeth Sherwood MDReport Verified Date/Time: 08/21/2017 06:00:54 Reading Location: [address] Transitional Reading Room CT, [id number] 04:39:00Reason for exam:->ABDOMINAL PAINWhat is the patient's sedation requirement?->No SedationFINAL REPORT CT, ABDOMEN \\T\\ PELVIS, WITHOUT IV CONTRAST INDICATION: "Abdominalpain, unspecifiedABDOMINAL PAIN" COMPARISON: CT abdomen and pelvis [...] small bowel obstruction.No pneumatosis or pneumoperitoneum. Signed: Elizabeth Sherwood MDReport Verified Date/Time: 08/21/2017 04:39:32 Reading Location: [address] Transitional Reading Room [id number] 03:02:00 Test Item Value Reference Range Interpretation Comments LIPASE (BEAKER) (test code = 749) 43 U/L 8-78 [id number] 03:02:00 Test Item Value Reference Range Interpretation Comments AMYLASE (BEAKER) (test code = 349) 97 U/L 25-125 BASIC METABOLIC [id number] 03:02:00 Test Item Value Reference Range Interpretation [...] APPLICABLE FOR DIALYSIS PATIEN TS. HEPATIC FUNCTION [id number] 03:02:00 Test Item Value Reference Range Interpretation [...] 6-55 347) CBC W/PLT COUNT & AUTO [id number] 02:34:00 Test Item Value Reference Range Interpretation [...] (test code = 2801) RAD, CHEST, 2 [id number] 01:32:00Reason for exam:->HYPERTENSIONReason for exam:->arm/chest painFINAL REPORT INDICATION: HYPERTENSIONarm/chest pain COMPARISON: March 27, 2015 TECHNIQUE: Frontal and lateral views of the chest. FINDINGS: Lungs and pleura: Clear lungs. No effu lizy.Heart and mediastinum: Increasing size of cardiac silhouette compared to the prior exam. Unremarkable mediastinal contours.Osseous structures: No acute abnormality.Additional findings: None. IMPRESSION: No acute intrathoracic abnormality. Worsening cardiomegaly. Signed: JR Marie Robert MDReport Verified Date/Time: 05/17/2017 01:32:40 Reading Location: [address] Body Reading Room TROPORONEN [id number] 01:30:00 Test Item Value Reference Range Interpretation [...] acute neurological disease, and persistent tachyarrhythmia.BASIC METABOLIC [id number] 01:22:00 Test Item Value Reference Range Interpretation [...] PATIEN TS. CBC W/PLT COUNT & AUTO [id number] 01:06:00 Test Item Value Reference Range Interpretation [...] % 0-1 PERCENT (BEAKER) (test code = 8644)
--- NOTE | 2022-03-10 14:28 | RAD REPORT ---
EXAM DESCRIPTION: CT - CTHCSPWOC - 03/10/2022 2:12 pm CLINICAL HISTORY: Trauma, head and neck injury. fall COMPARISON: Head C Spine Mpr Wo Con dated 09/03/2018; C Spine Wo Con dated 12/29/2015; CT HEAD CSPINE MPR WO CONTRAST dated 11/28/2013 TECHNIQUE: Axial 5 mm thick images of the head were obtained. Axial 2 mm thick images of the cervical spine were obtained with sagittal and coronal reconstruction images generated and reviewed. All CT scans are performed using dose optimization technique as appropriate and may include automated exposure control or mA/KV adjustment according to patient size. FINDINGS: CT HEAD WITHOUT CONTRAST: No acute hemorrhage, hydrocephalus or extra-axial collection is identified.No areas of brain edema or midline shift. Mild chronic small vessel ischemic changes. The paranasal sinuses and mastoids are clear.The calvarium is intact. CT CERVICAL SPINE WITHOUT CONTRAST: No fracture or subluxation.No prevertebral soft tissues swelling is identified. Mild multilevel cervi maxx spondylosis with varying degrees of neural foraminal narrowing. IMPRESSION: No acute intracranial or cervical spine findings.
--- NOTE | 2022-03-10 14:45 | ER ---
Nurse's Notes [facility] Name: Divya Parr Age: 81 yrs Sex: Female : 1940 Arrival Date: 03/10/2022 Time: 13:20 Bed 6 Private MD: Diagnosis: Fall on same level, unspecified;Unspecified injury of head, initial encounter Presentation: 03/10 13:25 Chief complaint: Patient states: fell and hit back of head. Coronavirus screen: Vaccine ko1 status: Patient reports receiving the 2nd dose of the covid vaccine. Ebola Screen: No symptoms or risks identified at this time. Initial Sepsis Screen: Does the patient meet any 2 criteria? No. Patient's initial sepsis screen is negative. Does the patient have a suspected source of infection? No. Patient's initial sepsis screen is negative. Risk Assessment: Do you want to hurt yourself or someone else? Patient reports no desire to harm self or others. Onset of symptoms was March 10, 2022. 13:25 Method Of Arrival: Wheelchair ko1 13:25 Acuity: YVETTE 3 ko1 Triage Assessment: 13:29 General: Appears in no apparent distress. uncomfortable, Behavior is calm, cooperative, ko1 appropriate for age. Pain: Complains of pain in left side of head, left arm and back. Historical: - Allergies: 13:29 NKDA; ko1 - PMHx: 13:29 Cancer, Breast; Diabetes - NIDDM; Hypertension; ko1 - Immunization history:: Adult Immunizations up to date. - Social history:: Smoking status: Patient denies any tobacco usage or history of. Vital Signs: 13:25 BP 123 / 73; Pulse 66; Resp 18; Temp 97; Pulse Ox 100% ; ko1 ED Course: 13:20 Patient arrived in ED. am2 13:29 Triage completed. ko1 13:29 Arm band placed on left wrist. Patient placed in waiting room, Patient notified of wait ko1 time. 13:37 Gretel Hull FNP-C is PHCP. snw 13:37 Epifanio Rea MD is Attending Physician. snw 14:14 CT Head C Spine In Process Unspecified. EDMS Administered Medications: 15:47 Drug: Tylenol 650 mg Route: PO; hb Outcome: 14:44 Discharge ordered by MD. snw 15:48 Patient left the ED. hb Signatures: Dispatcher [employer] EDMS Gretel Hull FNP-C [facility]-Cs[facility] Stephenie Colin, RN RN Amna Diego am2 Susy Retana RN RN ko1
--- NOTE | 2022-03-10 14:45 | EDPHYS ---
Physician Documentation [facility] Name: Divya Parr Age: 81 yrs Sex: Female : 1940 Arrival Date: 03/10/2022 Time: 13:20 Bed 6 Private MD: ED Physician Epifanio Rea HPI: 03/10 13:48 This 81 yrs old Female presents to ER via Wheelchair with complaints of Fall snw Injury, Head Injury-Adult. 13:48 Details of fall: The patient fell from an upright position, while walking. Onset: The snw symptoms/episode began/occurred suddenly, just prior to arrival. Associated injuries: The patient sustained injury to the head, contusion. Severity of symptoms: At their worst the symptoms were mild. Historical: - Allergies: 13: NKDA; ko1 - PMHx: 13: Cancer, Breast; Diabetes - NIDDM; Hypertension; ko1 - Immunization history:: Adult Immunizations up to date. - Social history:: Smoking status: Patient denies any tobacco usage or history of. ROS: 13:45 Constitutional: Negative for fever, chills, and weight loss, Eyes: Negative for injury, snw pain, redness, and discharge. 13:45 ENT: Negative for injury, pain, and discharge, Neck: Negative for injury, pain, and swelling, Cardiovascular: Negative for chest pain, palpitations, and edema, Respiratory: Negative for shortness of breath, cough, wheezing, and pleuritic chest pain, Abdomen/GI: Negative for abdominal pain, nausea, vomiting, diarrhea, and constipation, Back: Negative for injury and pain, : Negative for injury, bleeding, discharge, and swelling, MS/Extremity: Negative for injury and deformity, Skin: Negative for injury, rash, and discoloration, Psych: Negative for depression, anxiety, suicide ideation, homicidal ideation, and hallucinations. 13:45 Neuro: Positive for fall and struck left side of head, no loc, + headache. Exam: 13:45 Constitutional: This is a well developed, well nourished patient who is awake, alert, snw and in no acute distress. Head/Face: Normocephalic, atraumatic. Eyes: Pupils equal round and reactive to light, extra-ocular motions intact. Lids and lashes normal. Conjunctiva and sclera are non-icteric and not injected. Cornea within normal limits. Periorbital areas with no swelling, redness, or edema. ENT: Nares patent. No nasal discharge, no septal abnormalities noted. Tympanic membranes are normal and external auditory canals are clear. Oropharynx with no redness, swelling, or masses, exudates, or evidence of obstruction, uvula midline. Mucous membranes moist. Neck: Trachea midline, no thyromegaly or masses palpated, and no cervical lymphadenopathy. Supple, full range of motion without nuchal rigidity, or vertebral point tenderness. No Meningismus. Chest/axilla: Normal chest wall appearance and motion. Nontender with no deformity. No lesions are appreciated. Cardiovascular: Regular rate and rhythm with a normal S1 and S2. No gallops, murmurs, or rubs. Normal PMI, no JVD. No pulse deficits. Respiratory: Lungs have equal breath sounds bilaterally, clear to auscultation and percussion. No rales, rhonchi or wheezes noted. No increased work of breathing, no retractions or nasal flaring. Abdomen/GI: Soft, non-tender, with normal bowel sounds. No distension or tympany. No guarding or rebound. No evidence of tenderness throughout. Back: No spinal tenderness. No costovertebral tenderness. Full range of motion. Skin: Warm, dry with normal turgor. Normal color with no rashes, no lesions, and no evidence of cellulitis. MS/ Extremity: Pulses equal, no cyanosis. Neurovascular intact. Full, normal range of motion. Neuro: Awake and alert, GCS 15, oriented to person, place, time, and situation. Cranial nerves II-XII grossly intact. Motor strength 5/5 in all extremities. Sensory grossly intact. Cerebellar exam normal. Normal gait. Psych: Awake, alert, with orientation to person, place and time. Behavior, mood, and affect are within normal limits. Vital Signs: 13:25 BP 123 / 73; Pulse 66; Resp 18; Temp 97; Pulse Ox 100% ; ko1 MDM: 13:42 Patient medically screened. anh 14:45 Differential diagnosis: abrasion, closed head injury, contusion, fracture. Data snw reviewed: vital signs, nurses notes, radiologic studies, CT scan. I considered the following discharge prescriptions or medication management in the emergency department Medications were administered in the Emergency Department. See MAR. Historians other than the Patient: Daughter/Son: Son, states pt takes meds for dementia that make her unsteady at times.. Care significantly affected by the following chronic conditions: Diabetes, Hypertension, dementia. Counseling: I had a detailed discussion with the patient and/or guardian regarding: the historical points, exam findings, and any diagnostic results supporting the discharge/admit diagnosis, radiology results, the need for outpatient follow up, for definitive care, to return to the emergency department if symptoms worsen or persist or if there are any questions or concerns that arise at home. Special discussion: Based on the history and exam findings, there is no indication for further emergent testing or inpatient evaluation. I discussed with the patient/guardian the need to see the primary care provider for further evaluation of the symptoms. 03/10 13:44 Order name: CT Head C Spine; Complete Time: 14:37 snw Administered Medications: 15:47 Drug: Tylenol 650 mg Route: PO; hb Disposition Summary: 03/10/22 14:44 Discharge Ordered Location: Home snw Condition: Stable snw Diagnosis - Fall on same level, unspecified snw - Unspecified injury of head, initial encounter snw Followup: snw - With: Emergency Department - When: As needed - Reason: Worsening of condition Followup: snw - With: Private Physician - When: 2 - 3 days - Reason: Recheck today's complaints, Continuance of care, Re-evaluation by your physician Discharge Instructions: - Discharge Summary Sheet snw - Head Injury, Adult snw - Rehydration, Adult snw Forms: - Medication Reconciliation Form snw - Thank You Letter snw - Antibiotic Education snw - Prescription Opioid Use snw Signatures: Dispatcher [employer] EDEpifanio Chiang MD MD cha Waters, Shelly, WORK COUNSELOR-C WORK COUNSELOR-Csnw Stephenie Colin, RN RN Susy Chavez RN RN ko1
[2022-03-10] MEDS ORDERED: ACETAMINOPHEN 325 MG TABLET ONE (15:48)
[2022-03-10 15:52] VITALS: BP 123/73; TEMP 97; O2SAT 100
== END 2022-03-10 15:48 | disposition home or self-care (01) ==
LOC: ER 13:13
DX: S00.83XA Contusion of other part of head, initial encounter (principal); W18.30XA Fall on same level, unspecified, initial encounter; I10 Essential (primary) hypertension
CPT/HCPCS: 70450; 72125; 99283

== ENCOUNTER 2022-07-01 08:25 | Inpatient (IN) | payer OTHER ==
--- OUTSIDE RECORDS SUMMARY | 2022-07-01 08:30 | XMS REPORT | Continuity of Care Document ---
:1940 Author Organization [facility] t Address [address] [place] [address] Care Team Providers Name Role Phone Deion Hassan MD Primary Care Physician Abel Attending Clinician Unavailable Nii Goldman Attending Clinician Unavailable Nii Goldman Attending Clinician [phone] GREG JUSTIN Attending Clinician Unavailable YOVANI THOMAS Attending Clinician Unavailable LIZANDRO ARAUJO Attending Clinician Unavailable Abel Admitting Clinician Unavailable Nii Goldman Admitting Clinician Unavailable GEOFF, FRANCISCO Admitting Clinician Unavailable MORIS CARTER Admitting Clinician Unavailable Payers Payer Name Policy Type Policy Number Effective Date Expiration Date lea [facility] - [id number] 2021 [facility] 00:00:00 (MEDICARE REPLACEMENT/ADVANTA GE - HMO) [facility] [id number] 2021 (MEDICARE 00:00:00 REPLACEMENT/ADVANTA GE - PPO) [...] 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 00:00: di c itis itis 00 Sports Medicin e Dyslipidem Dyslipidem Disease Active 2018-[address] [facility] ia [facility] SBO (small SBO (small Disease Recurre 2018-[address] [facility] [address] bowel bowel nce 2-13 [facility] obstructio obstructio 00:00: Me dical n) n) 00 Center TIP (acute TIP (acute Disease Recurre 2018-[address] [facility] [address] kidney kidney nce 2-13 [facility] injury) injury) 00:00: Medical 00 Center Essential Essential Disease Active [facility] hypertensi hypertensi 7-12 [facility] kes on on 00:00: Medical 00 Center Depression Depression Disease Active [facility] Renal Renal Disease Active [facility] insufficie insufficie 7-12 An kes ncy ncy 00:00: Medical 00 Center Small Small Disease Recurre [facility] bowel bowel nce 7-12 [facility] obstructio obstructio 00:00: Me dical n n 00 Center Diabetes Diabetes Disease Recurre [facility] mellitus mellitus nce 7-12 [facility] 00:[facility] 00 Center UTI UTI Disease Active Methodi (urinary (urinary 1-13 st tract tract 00:00: Hospita infection) infection) 00 l Lower GI Lower GI Disease Active Metho di bleed bleed 8-14 st 00:00: Hospita 00 l Allergies, Adverse Reactions, Alerts Allergy Allergy Status Severity Reaction(s) Onset Inactive Treating Comm ents Source Name Type Date Date Clinician No Known DA Active [facility] 10[facility]29 [facility] 00:[facility] [place] 00 [facility] NO KNOWN Allergy Active [facility] Social History Social Habit Start Date Stop Date Quantity Comments Source Sexual orientation [facility] SDAK [facility] St[facility] Hospit al History S[facility] History of Social 2020-07-28 2020-07-[address] function 00:00:00 00:00:00 Hospital History SDAK 2020-06-05 2020-06-05 1 [facility] Alcohol Frequency 00:00:00 00:00:00 [facility] l Alcohol intake 2019-01-22 2019-01-[address] [address] Opal es 00:00:00 00:00:00 non-drinker of Medical Ce nter alcohol (finding) Tobacco use and 2014-08-22 2014-08-[address] [facility] An kes exposure 00:00:00 00:00:00 [facility] Sex Assigned At [address] [facility] kes 00:00:00 00:00:00 [facility] Smoking Status Start Date Stop Date Source Never Smoker [facility] Medications Ordered Filled Start Stop [...] MG 17:04: mouth Medical tablet 53 daily. [place] citalopram 2018-02 Yes 20mg QD Take [address] (CELEXA) 20 2-17 by mouth Luke s MG tablet 17:04: daily. Medica l 53 [place] rosuvastati 2018-02 Yes 10mg QD Take [address] n (CRESTOR) 2-17 by mouth Luke s 10 MG 17:04: daily. Medical tablet 53 [place] amLODIPine 2018-02 Yes 10mg QD Take [address] (NORVASC) 2-17 by mouth [facility] 10 MG 17:04: daily. Medical tablet 53 Center linagliptin 2018-02 Yes 5mg Take [address] (TRADJENTA) 2-17 by mouth. Opal es 5 mg Tab 17:04: Medical 53 [place] metFORMIN 2018-02 Yes 500mg Take [address] (GLUCOPHAGE 2-17 mg by [facility] ) 500 MG 17:04: mouth 2 Medica l tablet 53 (two) Center times daily with breakfast and dinner. atorvastati 2018-02 Yes 10mg QD Take [address] n (LIPITOR) 2-17 by mouth Luke s 10 MG 17:04: daily. Medical tablet 53 [place] aspirin 81 2018-02 Yes 81mg QD Take [address] MG EC 2-17 by mouth [facility] tablet 17:04: daily. Medical 53 [place] pantoprazol 2018-02 Yes 40mg QD Take 40 [...] MG 17:04: mouth Medical tablet 53 daily. [place] citalopram 2018-02 Yes 20mg QD Take [address] (CELEXA) 20 2-17 by mouth Luke s MG tablet 17:04: daily. Medica l 53 [place] rosuvastati 2018-02 Yes 10mg QD Take [address] n (CRESTOR) 2-17 by mouth Luke s 10 MG 17:04: daily. Medical tablet 53 [place] amLODIPine 2018-02 Yes 10mg QD Take [address] (NORVASC) 2-17 by mouth [facility] 10 MG 17:04: daily. Medical tablet 53 Center linagliptin 2018-02 Yes 5mg Take [address] (TRADJENTA) 2-17 by mouth. Opal es 5 mg Tab 17:04: Medical 53 Center metFORMIN 2018-02 Yes 500mg Take [address] (GLUCOPHAGE 2-17 mg by [facility] ) 500 MG 17:04: mouth 2 Medica l tablet 53 (two) Center times daily with breakfast and dinner. atorvastati 2018-02 Yes 10mg QD Take [address] n (LIPITOR) 2-17 by mouth Luke s 10 MG 17:04: daily. Medical tablet 53 [place] aspirin 81 2018-02 Yes 81mg QD Take [...] MG 17:04: mouth Medical tablet 53 daily. [place] citalopram 2018-02 Yes 20mg QD Take [address] (CELEXA) 20 2-17 by mouth Luke s MG tablet 17:04: daily. Medica l 53 [place] rosuvastati 2018-02 Yes 10mg QD Take [address] n (CRESTOR) 2-17 by mouth Luke s 10 MG 17:04: daily. Medical tablet 53 [place] amLODIPine 2018-02 Yes 10mg QD Take [address] (NORVASC) 2-17 by mouth [facility] 10 MG 17:04: daily. Medical tablet 53 [place] linagliptin 2018-02 Yes 5mg Take [address] (TRADJENTA) 2-17 by mouth. Opal es 5 mg Tab 17:04: Medical 53 Center metFORMIN 2018-02 Yes 500mg Take 500 CHI [...] 53 (two) Center tablet times daily. traMADol 0 Yes 50mg Q6H Take 50 mg Met hodi (ULTRAM) 50 1-[address] mg tablet 15:40: every 6 Hospi ta 16 (six) l hours as needed for moderate pain. amLODIPine Yes 10mg QD Take 10 mg M ethodi (NORVASC) 1-[address] 10 MG 15:40: daily. Hospita tablet 16 l linagliptin 2018 Yes 5mg QD Take 5 mg M ethodi (TRADJENTA) 1-[address] 5 mg tablet 15:40: daily with Hospita 16 breakfast. l pantoprazol 20180 Yes 40mg QD Take 40 mg Methodi e 1-[address] (PROTONIX) 15:40: daily. Hospi ta 40 MG EC 16 l tablet aspirin 0 Yes 81mg QD Take 81 mg Meth shanon (ECOTRIN) 1-[address] 81 MG 15:40: daily. Hospita enteric 16 l coated tablet citalopram 0 Yes 20mg QD Take 20 mg M ethodi (CeleXA) 20 1-[address] MG tablet 15:40: daily. Hospit a 16 l meloxicam Yes 7.5mg Q.5D Take 7.5 Met hodi (MOBIC) 7.5 1-[address] mg tablet 15:40: mouth 2 Hospi ta 16 (two) l times a day. traMADol 2018-0 Yes 50mg Q6H Take 50 [...] ta 40 MG EC 16 l tablet losartan 2018-0 Yes 25mg QD Take 25 mg Met hodi (COZAAR) 25 1-[address] MG tablet 15:40: daily. Hospit a 16 l aspirin 2018-0 Yes 81mg QD Take 81 [...] tablet 15:40: daily. Hospit a 16 l traMADol 2018-0 Yes 50mg Q6H Take [...] 40 MG EC 16 l tablet aspirin 2017-0 Yes 81mg QD Take 81 mg Meth shanon (ECOTRIN) 1-[address] 81 MG 15:40: daily. Hospita enteric 16 l coated tablet citalopram 2018-0 Yes 20mg QD Take 20 mg M ethodi (CeleXA) 20 1-[address] MG tablet 15:40: daily. Hospit a 16 l meloxicam 2017-0 Yes 7.5mg Q.5D Take 7.5 Met hodi [...] rts MOUTH IN MOUTH IN TABLET BY dicin THE MORNING THE MORNING MOUTH IN [...] rts MOUTH IN MOUTH IN TABLET BY dichaley THE MORNING THE MORNING MOUTH IN e [...] Immunizations Ordered Filled Immunization Date Status Comments Sourc e Immunization Name Name pneumococcal pneumococcal 2020-10-06 Completed Sudha Ort hopedic conjugate PCV 7 conjugate PCV 7 00:00:00 Spor Medicine pneumococcal pneumococcal 2020-10-06 Completed Sudha Ort hopedic conjugate PCV 7 conjugate PCV 7 00:00:00 Spor Medicine pneumococcal pneumococcal 2020-10-06 Completed Sudha Ort hopedic conjugate PCV 7 conjugate PCV 7 00:00:00 Spor ts Medicine pneumococcal pneumococcal 2020-10-06 Completed Sudha Ort [...] Body Weight 2021-08-22 00:00:00 230 [lb_av] [facility] Procedures Procedure Date / Time Performing Clinician Source Performed XR, knee, 3 view 2021-11-21 00:00:00 [facility] Total Knee Arthroplasty 2021-11-08 00:00:00 Wilian morse Orthopedic Sports Medicine XR, knee, 4 or more 2021-08-22 00:00:00 [facility] O rthopedic view Sports Medicine Plan of Care Planned Activity Planned Date Details Comments Source Future Scheduled Test 2022-06-20 COVID-19 VACCINE (#1) [facility] 19:16:48 [code = COVID-19 VACCINE (#1)] Future Scheduled Test 2022-06-20 SHINGLES VACCINES (1 [facility] 19:16:48 of 2) [code = SHINGLES VACCINES (1 of 2)] Future Scheduled Test 2022-06-20 65+ PNEUMOCOCCAL [facility] 19:16:48 VACCINE (1 - PCV) [code = 65+ PNEUMOCOCCAL VACCINE (1 - PCV)] Future Scheduled Test 2022-06-20 INFLUENZA VACCINE [facility] 19:16:48 [code = INFLUENZA VACCINE] Future Scheduled Test 2022-03-10 COVID-19 VACCINE (#1) [facility] 13:17:05 [code = COVID-19 VACCINE (#1)] Future Scheduled Test 2022-03-10 Hepatitis C screening [facility] 13:17:05 (procedure) [code = 794453143] Future Scheduled Test 2022-03-10 SHINGLES VACCINES (1 [facility] 13:17:05 of 2) [code = SHINGLES VACCINES (1 of 2)] Future Scheduled Test 2022-03-10 65+ PNEUMOCOCCAL [facility] 13:17:05 VACCINE (1 - PCV) [code = 65+ PNEUMOCOCCAL VACCINE (1 - PCV)] Future Scheduled Test 2022-03-10 INFLUENZA VACCINE [facility] 13:17:05 [code = INFLUENZA VACCINE] Future Scheduled Test 2021-10-11 HEPATITIS B VACCINES [facility] 06:44:53 (1 of 3 - 3-dose series) [code = HEPATITIS B VACCINES (1 of 3 - 3-dose series)] Future Scheduled Test 2021-10-11 COVID-19 VACCINE (#1) [facility] 06:44:53 [code = COVID-19 VACCINE (#1)] Future Scheduled Test 2021-10-11 Hepatitis C screening [facility] 06:44:53 (procedure) [code = 141264620] Future Scheduled Test 2021-10-11 SHINGLES VACCINES (1 [facility] 06:44:53 of 2) [code = SHINGLES VACCINES (1 of 2)] Future Scheduled Test 2021-10-11 65+ PNEUMOCOCCAL Me [facility] 06:44:53 VACCINE (1 - PCV) [code = 65+ PNEUMOCOCCAL VACCINE (1 - PCV)] Future Scheduled Test 2021-10-11 INFLUENZA VACCINE M [facility] 06:44:53 [code = INFLUENZA VACCINE] Future Scheduled Test 2021-10-[address] [facility] 00:00:00 (#1) [code = Medical Center INFLUENZA VACCINE (#1)] Future Scheduled Test 2021-02-10 FALLS RISK SCREENING [facility] 00:00:00 [code = FALLS RISK Medical C enter SCREENING] Future Scheduled Test 2019-07-[address] [facility] 00:00:00 measurement Medical Center (procedure) [code = 65915244] Future Scheduled Test 2018-04-11 MEDICARE ANNUAL CHI [...] 00:00:00 examination Medical Center (regime/therapy) [code = 874942195] Future Scheduled Test 1952 Urine screening for [facility] 00:00:00 protein (procedure) Medical Center [code = 212981960] Future Scheduled Test 1948 PNEUMOCOCCAL 65+ YRS [...] Date/Time Type Type Clinicians Facility Department ID 2022-03-25 2022-03-25 Outpatient FOG_Mathews AOSM AOSM [id number] Sudha 00:00:00 00:00:00 _[facility] [id number] [facility] 2022-02-18 2022-02-18 Outpatient FOG_Mathews AOSM AOSM [id number] Sudha 00:00:00 00:00:00 _[facility] [id number] [facility] 2022-01-14 2022-01-14 Outpatient FOG_Mathews AOSM AOSM [id number] Sudha 00:00:00 00:00:00 _[facility] [id number] Orth ope dic Sports Medic[facility] e 2021-12-26 2021-12-26 Outpatient FOG_Mathews AOSM AOSM [id number] Sudha 00:00:00 00:00:00 _Bozena [id number] Orth o[facility] dic [facility] Medic[facility] e 2021-12-26 2021-12-26 Nii AOSM [place] - Ortho [id number] Sudha 00:00:00 00:00:00 Chloe Goldman MD: [id number] FOG_Ofc dic [facility] [place], [place] [address] , Ph. [phone] 2021-12-12 2021-12-12 Outpatient FOG_Mathews AOSM AOSM [id number] Sudha 00:00:00 00:00:00 _[facility] [id number] Orth ope dic Sports Medicin e 2021-12-11 2021-12-11 Outpatient FOG_Mathews AOSM AOSM [id number] Sudha 00:00:00 00:00:00 _[facility] [id number] Orth ope dic Sports Medicin e 2021-11-21 2021-11-21 Outpatient FOG_Mathews AOSM AOSM [id number] Sudha 00:00:00 00:00:00 _Bozena [id number] Orth ope dic Sports Medicin e 2021-11-21 2021-11-21 Nii AOSM [place] - Ortho 12 Sudha 00:00:00 00:00:00 Chloe Goldman MD: [id number] FOG_Ofc dic [facility] [place] [address] , Ph. [phone] 2021-11-12 2021-11-12 Outpatient FOG_Mathews AOSM AOSM [id number] Sudha 00:00:00 00:00:00 _[facility]zena [id number] Orth ope dic Sports Medicin e 2021-11-08 2021-11-09 Inpatient YU MonacoTO SURG [id number] [facility] 15:20:00 14:46:00 Nii 41 [facility] 2021-11-08 2021-11-08 Nii AOSM [place] - Ortho Sudha 00:00:00 00:00:00 Chloe Goldman MD: [id number] FOG_Surgery dic [facility] e [address] , Ph. [phone] 2021-11-06 2021-11-06 Outpatient FOG_Mathdandy AOSM AOSM [id number] Sudha 00:00:00 00:00:00 _[facility]zena [id number] Orth ope dic Sports Medicin e 2021-10-29 2021-10-29 Outpatient YU GoldmanWU REFE [id number] [facility] 19:51:00 19:51:[address] [facility] 2021-10-29 2021-10-29 Outpatient YU GoldmanCL LABO [id number] [facility] 19:50:00 19:50:00 Nii 22 [facility] 2021-10-02 2021-10-02 Outpatient FOG_Mathdandy AOSM AOSM [id number] Sudha 00:00:00 00:00:00 _[facility]zena [id number] Orth ope dic Sports Medicin e 2021-09-04 2021-09-04 Outpatient FOG_Mathews AOSM AOSM [id number] Sudha 02:24:00 02:24:00 _[facility]zena [id number] Orth ope dic Sports Medicin e 2021-08-22 2021-08-22 Outpatient FOG_Mathews AOSM AOSM [id number] Sudha 05:32:00 05:32:00 _[facility]zena [id number] Orth ope dic Sports Medicin e 2021-08-22 2021-08-22 Outpatient Goldman, AOSM AOSM [id number] 00:00:00 00:00:00 Nii [id number] 2021-08-22 2021-08-22 Nii AOSM [place] - Ortho [id number] Sudha 00:00:00 00:00:00 Chloe Goldman MD: 74[address] FOG_[address] [facility], [place] [address] , Ph. [phone] 2021-08-10 2021-08-10 Outpatient FOG_Mathews AOSM AOSM [id number] Sudha 04:59:00 04:59:00 _Bozena [id number] Orth ope dic Sports Medicin e 2021-08-10 2021-08-10 Outpatient FOG_Mathews AOSM AOSM [id number] Sudha 04:59:00 04:59:00 _Bozena [id number] Orth ope dic Sports Medicin e 2020-06-04 2020-06-05 Emergency MARGOTH, [facility] [id number] [place] [address] 00:00:00 00:00:00 GREG Cano Method i st Results Test Description Test Time Test Comments Results Result Comments Source GLUBED 2021-11-09 14:45:00 Test Item Value Reference Range Interpretation Comme nts GLUBED (test code = GLUBED) 169 mg/dL 60-125 H [id number] 12:15:00 Test Item Value Reference Range Interpretation Comments glubed (test code = glubed) 169 mg/dL 60-125 H performing lab: (test code = performing lab:) [facility] [id number] 06:32:00 Test Item Value Reference Range Interpretation [...] RATE (test code = GFR) mL/mi n/1.73 [id number] Range:Healthy Adults >90 mL/min/1.73 m2 For Chronic Kidney Disease: Stage II Mild Decrease i n GFR 60-90 Stage III Moderate Decrea se in GFR 30-59 St age IV Severe Decre ase in GFR 15-29 St age V Kidney Failur e <15 CREATININE (test code 1.02 mg/dL 0.55-1.30 N = CREAT) CALCIUM (test code = 8.4 mg/dL 8.2-10.1 N CA) HGB [id number] 05:59:00 Test Item Value Reference Range Interpretation Comments HEMOGLOBIN (test code = HGB) 10.7 g/dL 12-16 L HEMATOCRIT (test code = HCT) 31.8 % 37-47 L SPECIMEN COMMENT: POD #[id number] 05:39:00 Test Item Value Reference Range Interpretation Comments GLUBED (test code = GLUBED) 218 mg/dL 60-125 H [id number] 05:26:00 Test Item Value Reference Range Interpretation Comments glubed (test code = glubed) 218 mg/dL 60-125 H performing lab: (test code = performing lab:) [facility] 05:26:00 Test Item Value Reference Range Interpretation Comments glubed (test code = glubed) 218 mg/dL 60-125 H performing lab: (test code = performing lab:) [facility]emat[facility] - Blood 2021-11-09 05:15:00 Test Item Value Reference Range Interpretation Comments hemoglobin (test code = hemoglobin) 10.7 g/dL 12-16 L hematocrit (test code = hematocrit) 31.8 % 37-47 L performing lab: (test code = performing lab:) [facility] - Blood 2021-11-09 05:15:00 Test Item Value Reference Range Interpretation Comments hemoglobin (test code = hemoglobin) 10.7 g/dL 12-16 L hematocrit (test code = hematocrit) 31.8 % 37-47 L performing lab: (test code = performing lab:) [place] [id number] 23:36:00 Test Item Value Reference Range Interpretation Comments GLUBED (test code = GLUBED) 214 mg/dL 60-125 H [id number] 22:22:00 Test Item Value Reference Range Interpretation Comments glubed (test code = glubed) 214 mg/dL 60-125 H performing lab: (test code = performing lab:) [place] [id number] 22:22:00 Test Item Value Reference Range Interpretation Comments glubed (test code = glubed) 214 mg/dL 60-125 H performing lab: (test code = performing lab:) [place] [id number] 12:25:00 Test Item Value Reference Range Interpretation Comments GLUBED (test code = GLUBED) 102 mg/dL 60-125 N [id number] 12:13:00 Test Item Value Reference Range Interpretation Comments glubed (test code = glubed) 102 mg/dL 60-125 performing lab: (test code = performing lab:) [place] [id number] 12:13:00 Test Item Value Reference Range Interpretation Comments glubed (test code = glubed) 102 mg/dL 60-125 performing lab: (test code = performing lab:) [facility] (HA1C)2021-10-29 21:10:00 Test Item Value Reference [...] be considered for these patients.DONE A T: [facility] [address] [facility] [place], [place] [address] GLYCOSYLATED HEMOGLOBIN (HA1C)2021-10-29 21:10:00 Test Item Value [...] fructosaminesho uld be considered for these patients. PROTHROMBIN [id number] 17:31:00 Test Item Value Reference Range Interpretation [...] BLOOD, PT every other day NTHROMBOPLASTIN TIME [id number] 17:31:00 Test Item Value Reference Range Interpretation Comments PTT ACTIVATED (test 30.6 secs 26.6-34.6 N Please n ote new code = APTT) normal range. IS PATIENT ON ANTICOAGULANTS ? YLIST ANTICOAGULANT/ANTI PLT MEDICATION : AspirinHas Lab been notified if Patient is on Heparin Drip? NOIf Yes, order CBC, OCCULT BLOOD, PT every other day NCOMPREHENSIVE METABOLIC [id number] 17:27:00 Test Item Value Reference Range Interpretation [...] RATE (test code = GFR) mL/mi n/1.73 [id number] Range:Healthy Adults >90 mL/min/1.73 m2 For Chronic [...] TOTAL (test code = ALKP) CBC W/AUTO [id number] 16:44:00 Test Item Value Reference Range Interpretation [...] NRBC) CBC W Auto Differential panel - [id number] 16:00:00 Test Item Value Reference Range Interpretation [...] performing lab: (test code = performing lab:) [facility] MedicineComprehensive metabolic 2000 panel - Serum or [id number] 16:00:00 Test Item Value Reference Range Interpretation [...] performing lab: (test code = performing lab:) [facility]Prothrombin [facility] (PT)2021-10-29 16:00:00 Test Item Value Reference Range Interpretation Comments prothrombin time patient (test code 10.8 secs 9.7-12.5 = prothrombin time patient) international normal ratio (test 0.97 <2.0 code = international normal ratio) performing lab: (test code = performing lab:) [facility]alththromboplastin time [id number] 16:00:00 Test Item Value Reference Range Interpretation Comments PTT activated (test code = PTT 30.6 secs 26.6-34.6 activated) performing lab: (test code = performing lab:) [facility]cosylated hemoglobin (ha1c)2021-10-29 16:00:00 Test Item Value Reference Range Interpretation Comments Hemoglobin A1c/Hemoglobin.total in 7.5 % 4.8-5.9 H Blood (test code = 4548-4) performing lab: (test code = performing lab:) [facility]healthMethicillin resistant Staphylococcus aureus [Presence] in Specimen by Organism specific [id number] 16:00:00 Test Item Value Reference Range Interpretation Comments MRSA surveillance screen (test code see below = MRSA surveillance screen) performing lab: (test code = performing lab:) [facility] PCR surveillance [id number] 16:00:00 Test Item Value Reference Range Interpretation Comments mssa PCR surveillance screen (test see below code = mssa PCR surveillance screen) performing lab: (test code = performing lab:) [facility]CBC W Auto Differential panel - [id number] 16:00:00 Test Item Value Reference Range Interpretation [...] performing lab: (test code = performing lab:) [facility] Sports MedicineComprehensive metabolic 2000 panel - Serum or [id number] 16:00:00 Test Item Value Reference Range Interpretation [...] performing lab: (test code = performing lab:) [facility]Prothrombin time (PT)2021-10-29 16:00:00 Test Item Value Reference Range Interpretation Comments prothrombin time patient (test code 10.8 secs 9.7-12.5 = prothrombin time patient) international normal ratio (test 0.97 <2.0 code = international normal ratio) performing lab: (test code = performing lab:) [facility]alththromboplastin time [id number] 16:00:00 Test Item Value Reference Range Interpretation Comments PTT activated (test code = PTT 30.6 secs 26.6-34.6 activated) performing lab: (test code = performing lab:) [facility]2021-10-29 16:00:00 Test Item Value Reference Range Interpretation Comments Hemoglobin A1c/Hemoglobin.total in 7.5 % 4.8-5.9 H Blood (test code = 4548-4) performing lab: (test code = performing lab:) [facility] Staphylococcus aureus [Presence] in Specimen by Organism specific [id number] 16:00:00 Test Item Value Reference Range Interpretation Comments MRSA surveillance screen (test code see below = MRSA surveillance screen) performing lab: (test code = performing lab:) [facility] surveillance [id number] 16:00:00 Test Item Value Reference Range Interpretation Comments mssa PCR surveillance screen (test see below code = mssa PCR surveillance screen) performing lab: (test code = performing lab:) [facility] MedicinePOCT-GLUCOSE [id number] 09:21:00 Test Item Value Reference Range Interpretation Comments POC-GLUCOSE METER 129 mg/dL 70-110 H : TESTED A T [facility] 6720 (BEAKER) (test [facility] = 1538) [address]: Direct Of Real Estate/Techni alejandra ID = [id number] for AUSTEN MESSER [id number] 04:31:00 Test Item Value Reference Range Interpretation Comments MAGNESIUM (BEAKER) (test code = 1.7 mg/dL 1.6-2.6 627) BASIC METABOLIC [id number] 04:31:00 Test Item Value Reference Range Interpretation [...] PATIEN TS. CBC W/PLT COUNT & AUTO [id number] 04:01:00 Test Item Value Reference Range Interpretation [...] PERCENT (BEAKER) (test code = 2801) POCT-GLUCOSE [id number] 01:14:00 Test Item Value Reference Range Interpretation Comments POC-GLUCOSE METER 108 mg/dL 70-110 : TESTED A Evelina [facility] 6720 (BEAKER) (test code = [place], 1538) [address]: [employer]/Techni alejandra ID = [id number] for [place] RBAJAL, ABDI POCT-GLUCOSE [id number] 17:50:00 Test Item Value Reference Range Interpretation Comments POC-GLUCOSE METER 139 mg/dL 70-110 H : TESTED A T [facility] 6720 (BEAKER) (test code [facility], = 1538) [address]: [employer] Of [employer]/Techni alejandra ID = [id number] for LATT IMORE - THUAN, AUSTEN POCT-GLUCOSE [id number] 12:22:00 Test Item Value Reference Range Interpretation Comments POC-GLUCOSE METER 213 mg/dL 70-110 H : TESTED A T [facility] 6720 (BEAKER) (test code [facility], = 1538) 92373: [employer]/Techni alejandra ID = [id number] for LATT IMORE - THUAN, AUSTEN [id number] 08:25:00 Test Item Value Reference Range Interpretation Comments PHOSPHORUS (BEAKER) (test code = 2.1 mg/dL 2.3-4.7 L 604) [id number] 08:25:00 Test Item Value Reference Range Interpretation Comments MAGNESIUM (BEAKER) (test code = 1.6 mg/dL 1.6-2.6 627) BASIC METABOLIC [id number] 08:25:00 Test Item Value Reference Range Interpretation [...] NOT APPLICABLE FOR DIALYSIS PATIEN TS. POCT-GLUCOSE [id number] 06:48:00 Test Item Value Reference Range Interpretation Comments POC-GLUCOSE METER 132 mg/dL 70-110 H : TESTED A T [facility] 6720 (BEAKER) (test code = [place], 1538) 49518: [employer]/Techni alejandra ID = [id number] for YOSSI GILBERT CBC W/PLT COUNT & AUTO [id number] 06:17:00 Test Item Value Reference Range Interpretation [...] PERCENT (BEAKER) (test code = 2801) CALCIUM, [id number] 06:02:00 Test Item Value Reference Range Interpretation Comments CALCIUM IONIZED (BEAKER) (test 1.10 mmol/L 1.12-1.27 L code = 698) PH, BLOOD (BEAKER) (test code = 7.44 1810) POCT-GLUCOSE [id number] 01:23:00 Test Item Value Reference Range Interpretation Comments POC-GLUCOSE METER 137 mg/dL 70-110 H : TESTED A T [facility] 6720 (BEAKER) (test code = [facility], 1538) 75848: [employer] Of [employer]/Techni alejandra ID = [id number] for YOSSI GILBERT POCT-GLUCOSE [id number] 18:24:00 Test Item Value Reference Range Interpretation Comments POC-GLUCOSE METER 168 mg/dL 70-110 H : TESTED A T [facility] 6720 (BEAKER) (test code = [facility], 1538) 82158: [employer] Of [employer]/Techni alejandra ID = [id number] for DIANNA LEO, [facility], [place] [id number] 11:18:00Reason for exam:->Small bowel obstructionFINAL REPORT Small bowel follow-through. Clinical history: Small bowel obstruction. COMPARISON STUDY: CT scan dated October 23, 2018. FINDINGS: Architectural Technician radiograph demonstrates a nasogastric tube in place. [...] transit time. No fluoroscopy was utilized. Signed: America Travis MDReport Verified Date/Time: 01/24/2019 11:18:59 Reading Location: [address] Consult Reading Room POCT-GLUCOSE [id number] 00:42:00 Test Item Value Reference Range Interpretation Comments POC-GLUCOSE METER 148 mg/dL 70-110 H : TESTED A T [facility] 6720 (BEAKER) (test code = [facility], 1538) 10258: [employer]/Techni alejandra ID = [id number] for YOSSI GILBERT POCT-GLUCOSE [id number] 21:22:00 Test Item Value Reference Range Interpretation Comments POC-GLUCOSE METER 159 mg/dL 70-110 H : TESTED A T [facility] 6720 (BEAKER) (test code = [facility], 1538) [id number]: [employer]/Techni alejandra ID = [id number] for NASH ROY POCT-GLUCOSE [id number] 17:25:00 Test Item Value Reference Range Interpretation Comments POC-GLUCOSE METER 129 mg/dL 70-110 H : TESTED A T [facility] 6720 (BEAKER) (test code = [facility], 1538) 64760: [employer]/Techni alejandra ID = [id number] for PRIMO MORA NASH HEMOGLOBIN [id number] 09:20:00 Test Item Value Reference Range Interpretation Comments HEMOGLOBIN A1C (BEAKER) (test code = 6.3 % 4.3-6.1 H 368) POCT-GLUCOSE [id number] 06:04:00 Test Item Value Reference Range Interpretation Comments POC-GLUCOSE METER 172 mg/dL 70-110 H : TESTED A T [facility] 6720 (BEAKER) (test code = [facility], 1538) 82083: [employer]/Techni alejandra ID = [id number] for GHADA KELLEY [id number] 05:51:00 Test Item Value Reference Range Interpretation Comments MAGNESIUM (BEAKER) 1.9 mg/dL 1.6-2.6 Specimen moderately (test code = 627) hemolyzed [id number] 05:51:00 Test Item Value Reference Range Interpretation Comments PHOSPHORUS (BEAKER) 3.2 mg/dL 2.3-4.7 Specimen moderately (test code = 604) hemolyzed BASIC METABOLIC [id number] 05:51:00 Test Item Value Reference Range Interpretation [...] NOT APPLICABLE FOR DIALYSIS PATIEN TS. LIPID [id number] 05:51:00 Test Item Value Reference Range Interpretation [...] Borderline 130-159 High 160-189 Very High >=190CALCIUM, [id number] 05:47:00 Test Item Value Reference Range Interpretation Comments CALCIUM IONIZED (BEAKER) (test 1.12 mmol/L 1.12-1.27 code = 698) PH, BLOOD (BEAKER) (test code = 7.32 1810) CBC W/PLT COUNT & AUTO [id number] 05:24:00 Test Item Value Reference Range Interpretation [...] PERCENT (BEAKER) (test code = 2801) POCT-GLUCOSE [id number] 23:54:00 Test Item Value Reference Range Interpretation Comments POC-GLUCOSE METER 178 mg/dL 70-110 H : TESTED A T [facility] 6720 (BEAKER) (test code = [facility] [employer] [facility], 1538) 62830: Direct Of [employer] Estate/Techni alejandra ID = [id number] for GHADA KELLEY POCT-GLUCOSE [id number] 18:40:00 Test Item Value Reference Range Interpretation Comments POC-GLUCOSE METER 166 mg/dL 70-110 H : TESTED A T [facility] 6720 (BEAKER) (test code = [facility] [employer] [facility], 1538) 34126: [employer] Of [employer] Estate/Techni alejandra ID = [id number] for NASH ROY CT, [id number] 13:08:00Reason for exam:->ABDOMINAL PAINWhat is the patient's [...] unremarkable. IMPRESSION: High-grade small bowel obstruction. Signed: Hayde Jarrell MDReport Verified Date/Time: 01/22/2019 13:08:05 Reading Location: [facility] B1 C013Y CT Body Reading Room [id number] 09:34:00 Test Item Value Reference Range Interpretation Comments LIPASE (BEAKER) (test code = 749) 30 U/L 8-78 BASIC METABOLIC [id number] 09:34:00 Test Item Value Reference Range Interpretation [...] APPLICABLE FOR DIALYSIS PATIEN TS. HEPATIC FUNCTION [id number] 09:34:00 Test Item Value Reference Range Interpretation [...] = 347) hemolyzed URINALYSIS W/ REFLEX URINE [id number] 09:30:00 Test Item Value Reference Range Interpretation [...] 1 /LPF 514) SOURCE(BEAKER) (test code = 2471) CBC W/PLT COUNT & AUTO [id number] 09:06:00 Test Item Value Reference Range Interpretation [...] PERCENT (BEAKER) (test code = 2801) POCT-GLUCOSE [id number] 12:26:00 Test Item Value Reference Range Interpretation Comments POC-GLUCOSE METER 271 mg/dL 70-110 H TESTED AT [facility] 6720 (BEAKER) (test code = TREVIN Justin [place] 1538) [address] POCT-GLUCOSE [id number] 08:10:00 Test Item Value Reference Range Interpretation Comments POC-GLUCOSE METER 118 mg/dL 70-110 H TESTED AT [facility] 6720 (BEAKER) (test code = TREVIN Justin [place] 1538) [address] [id number] 03:40:00 Test Item Value Reference Range Interpretation Comments MAGNESIUM (BEAKER) (test code = 1.7 mg/dL 1.6-2.6 627) BASIC METABOLIC [id number] 03:40:00 Test Item Value Reference Range Interpretation [...] NOT APPLICABLE FOR DIALYSIS PATIEN TS. POCT-GLUCOSE [id number] 21:00:00 Test Item Value Reference Range Interpretation Comments POC-GLUCOSE METER 169 mg/dL 70-110 H TESTED AT [facility] 6720 (BEAKER) (test code = TREVIN Justin [place] 1538) [address] POCT-GLUCOSE [id number] 17:46:00 Test Item Value Reference Range Interpretation Comments POC-GLUCOSE METER 201 mg/dL 70-110 H TESTED AT [facility] 6720 (BEAKER) (test code = [facility] [employer] [place] 1538) [address] RAD, SHOULDER, COMPLETE (MIN 2 VIEWS), [id number] 14:00:00Reason for exam:- >shoulder painReason for exam:->please obtain axillary lateral and call [phone] when completeFINAL REPORT Two axillary left shoulder images. Normal glenohumeral articulation. Chronic changes are seen about the greater tuberosity and the AC joint. No visible fracture, dislocation, destructive lesion. Signed: Yovani Zarate Verified Date/Time: 08/25/2017 14:00:20 Reading Location: [address] Consult Reading Room POCT-GLUCOSE [id number] 12:12:00 Test Item Value Reference Range Interpretation Comments POC-GLUCOSE METER 161 mg/dL 70-110 H TESTED AT [facility] 6720 (BEAKER) (test code = TREVIN Justin [facility] 1538) [address] POCT-GLUCOSE [id number] 08:42:00 Test Item Value Reference Range Interpretation Comments POC-GLUCOSE METER 157 mg/dL 70-110 H TESTED AT [facility] 6720 (BEAKER) (test code = DEANASAAD [employer] [facility] 1538) [address] [id number] 06:27:00 Test Item Value Reference Range Interpretation Comments MAGNESIUM (BEAKER) (test code = 1.7 mg/dL 1.6-2.6 627) BASIC METABOLIC [id number] 06:27:00 Test Item Value Reference Range Interpretation [...] mg/dL 8.4-10.2 (test code = 697) EGFR ([facility]) (test 66 mL/min/1.73 ESTIMA ELOISA GFR IS code = 1092) sq m NOT ACCURATE CREATININE CLEARANCE IN PREDICTING GLOMERULAR FILTRATION RATE . ESTIMATED GFR I S NOT APPLICABLE FOR DIALYSIS PATIEN TS. POCT-GLUCOSE [id number] 21:07:00 Test Item Value Reference Range Interpretation Comments POC-GLUCOSE METER 233 mg/dL 70-110 H TESTED AT [place] [address] ([facility]) (test code = [facility] 1538) [address] POCT-GLUCOSE [id number] 16:55:00 Test Item Value Reference Range Interpretation Comments POC-GLUCOSE METER 354 mg/dL 70-110 H TESTED AT [place] [address] ([facility]) (test code = [facility] 1538) [address] POCT-GLUCOSE [id number] 12:38:00 Test Item Value Reference Range Interpretation Comments POC-GLUCOSE METER 152 mg/dL 70-110 H TESTED AT [place] [address] ([facility]) (test code = [facility] 1538) [address] RAD, SHOULDER, COMPLETE (MIN 2 VIEWS), [id number] 12:21:00Reason for exam:- >shoulder painFINAL REPORT COMPARISON: None TECHNIQUE: 3 views of the left shoulder. FINDINGS: There are no acute fractures or dislocations. No radiopaque foreign bodies. Joint spaces are maintained. No lytic or blastic lesions. Degenerative changes of the AC joint noted. IMPRESSION: No acute bony abnormality. Signed: Nakul Aleman MDReport Verified Date/Time: 08/24/2017 12:21:37 Reading Location: [address] Transitional Reading Room -GLUCOSE [id number] 07:45:00 Test Item Value Reference Range Interpretation Comments POC-GLUCOSE METER 148 mg/dL 70-110 H TESTED AT [place] [address] ([facility]) (test code = [facility] 1538) [address] [id number] 06:06:00 Test Item Value Reference Range Interpretation Comments PHOSPHORUS (BEAKER) (test code = 2.3 mg/dL 2.3-4.7 604) [id number] 06:06:00 Test Item Value Reference Range Interpretation Comments MAGNESIUM (BEAKER) (test code = 1.8 mg/dL 1.6-2.6 627) BASIC METABOLIC [id number] 06:06:00 Test Item Value Reference Range Interpretation [...] APPLICABLE FOR DIALYSIS PATIEN TS. HEPATIC FUNCTION [id number] 06:06:00 Test Item Value Reference Range Interpretation [...] 6-55 347) CBC W/PLT COUNT & AUTO [id number] 05:28:00 Test Item Value Reference Range Interpretation [...] PERCENT (BEAKER) (test code = 2801) POCT-GLUCOSE [id number] 20:25:00 Test Item Value Reference Range Interpretation Comments POC-GLUCOSE METER 222 mg/dL 70-110 H TESTED AT [place] [address] (BEAKER) (test code = TREVIN Justin [facility] 1538) [address] POCT-GLUCOSE [id number] 17:25:00 Test Item Value Reference Range Interpretation Comments POC-GLUCOSE METER 153 mg/dL 70-110 H TESTED AT [place] [address] (BEAKER) (test code = [facility] [employer] [facility] 1538) [address] POCT-GLUCOSE [id number] 12:23:00 Test Item Value Reference Range Interpretation Comments POC-GLUCOSE METER 206 mg/dL 70-110 H TESTED AT [place] [address] (BEAKER) (test code = [facility] [employer] [facility] 1538) [address] POCT-GLUCOSE [id number] 07:52:00 Test Item Value Reference Range Interpretation Comments POC-GLUCOSE METER 143 mg/dL 70-110 H TESTED AT [place] [address] (BEAKER) (test code = [facility] [employer] [facility] 1538) [address] [id number] 06:35:00 Test Item Value Reference Range Interpretation Comments PHOSPHORUS (BEAKER) (test code = 2.3 mg/dL 2.3-4.7 604) [id number] 06:35:00 Test Item Value Reference Range Interpretation Comments MAGNESIUM (BEAKER) (test code = 2.2 mg/dL 1.6-2.6 627) BASIC METABOLIC [id number] 06:35:00 Test Item Value Reference Range Interpretation [...] APPLICABLE FOR DIALYSIS PATIEN TS. HEPATIC FUNCTION [id number] 06:35:00 Test Item Value Reference Range Interpretation [...] 6-55 347) CBC W/PLT COUNT & AUTO [id number] 06:28:00 Test Item Value Reference Range Interpretation [...] PERCENT (BEAKER) (test code = 2801) POCT-GLUCOSE [id number] 21:33:00 Test Item Value Reference Range Interpretation Comments POC-GLUCOSE METER 123 mg/dL 70-110 H TESTED AT [place] [address] ([facility]) ([facility] 1538) [address] POCT-GLUCOSE [id number] 17:46:00 Test Item Value Reference Range Interpretation Comments POC-GLUCOSE METER 213 mg/dL 70-110 H TESTED AT [place] [address] ([facility]) (test code = TREVIN Justin [facility] 1538) [address] POCT-GLUCOSE [id number] 13:10:00 Test Item Value Reference Range Interpretation Comments POC-GLUCOSE METER 103 mg/dL 70-110 TESTED AT [place] [address] ([facility]) (test code = TREVIN Justin [facility] 8805) [address] RAD, CHEST, 1 VIEW, NON [id number] 10:00:00Reason for exam:->sudden onset shoulder painShould this be performed at the bedside?->YesFINAL REPORT Chest one view compared to May 17, 2017 Discussion: There is mildcardiac prominence. Lungs clear. No effusion or pneumothorax. Mild degenerative shoulder changes. 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 IMPRESSIONS: No specific evidence of acute abnormal L2. Signed: Yovani Zarateeport Verified Date/Time: 08/22/2017 10:00:44 Reading Location: [facility] Radiology Reading Room [id number] 06:52:00 Test Item Value Reference Range Interpretation Comments PHOSPHORUS (BEAKER) (test code = 2.6 mg/dL 2.3-4.7 604) [id number] 06:52:00 Test Item Value Reference Range Interpretation Comments MAGNESIUM (BEAKER) (test code = 1.8 mg/dL 1.6-2.6 627) BASIC METABOLIC [id number] 06:52:00 Test Item Value Reference Range Interpretation [...] APPLICABLE FOR DIALYSIS PATIEN TS. HEPATIC FUNCTION [id number] 06:52:00 Test Item Value Reference Range Interpretation [...] = < U/L 6-55 L 347) POCT-GLUCOSE [id number] 06:02:00 Test Item Value Reference Range Interpretation Comments POC-GLUCOSE METER 126 mg/dL 70-110 H TESTED AT [facility] 6720 (BEAKER) (test code = [place] 1538) [address] CBC W/PLT COUNT & AUTO [id number] 05:32:00 Test Item Value Reference Range Interpretation [...] PERCENT (BEAKER) (test code = 2801) POCT-GLUCOSE [id number] 23:06:00 Test Item Value Reference Range Interpretation Comments POC-GLUCOSE METER 115 mg/dL 70-110 H TESTED AT [place] [address] ([facility]) (test code = TREVIN Justin [place] 1538) [address] POCT-GLUCOSE [id number] 17:34:00 Test Item Value Reference Range Interpretation Comments POC-GLUCOSE METER 104 mg/dL 70-110 TESTED AT [facility] 6720 ([facility]) (test code = [facility] [place] 1538) [address] CREATINE KINASE (CK), TOTAL AND [id number] 16:09:00 Test Item Value Reference Range Interpretation Comments CREATINE KINASE TOTAL (BEAKER) 170 U/L 29-200 (test code = 380) CREATINE KINASE-MB (BEAKER) (test 3.7 ng/mL 0.0-6.6 code = 750) CREATINE KINASE-MB INDEX (BEAKER) 2.2 % (test code = 395) CK-MB Reference Range:<6.7 Normal6.7-10.0 Borderline>10.0 AbnormalTROPONIN [id number] 16:09:00 Test Item Value Reference Range Interpretation [...] acidosis, acute neurological disease, and persistent tachyarrhythmia.POCT-GLUCOSE [id number] 14:22:00 Test Item Value Reference Range Interpretation Comments POC-GLUCOSE METER 112 mg/dL 70-110 H TESTED AT [facility] 6720 ([facility]) (test code = TREVIN [place] 1538) [address] HEMOGLOBIN [id number] 13:25:00 Test Item Value Reference Range Interpretation Comments HEMOGLOBIN A1C ([facility]) (test code = 7.2 % 4.3-6.1 H 368) TSH/FREE T4 IF [id number] 07:32:00 Test Item Value Reference Range Interpretation Comments THYROID STIMULATING HORMONE 3.77 uIU/mL 0.35-4.94 ([facility]) (test code = 772) CREATINE KINASE (CK), TOTAL AND [id number] 07:16:00 Test Item Value Reference Range Interpretation Comments CREATINE KINASE TOTAL (AKER) 137 U/L 29-200 (test code = 380) CREATINE KINASE-MB (AKER) (test 3.6 ng/mL 0.0-6.6 code = 750) CREATINE KINASE-MB INDEX (AKER) 2.6 % (test code = 395) CK-MB Reference Range:<6.7 Normal6.7-10.0 Borderline>10.0 AbnormalTROPONIN [id number] 07:16:00 Test Item Value Reference Range Interpretation [...] acidosis, acute neurological disease, and persistent tachyarrhythmia.LIPID [id number] 07:08:00 Test Item Value Reference Range Interpretation [...] Borderline 130-159 High 160-189 Very High >=190C-REACTIVE [id number] 07:08:00 Test Item Value Reference Range Interpretation Comments C-REACTIVE PROTEIN (BEAKER) (test 0.47 mg/dL 0.00-0.50 code = 676) RAD, ABDOMEN/KUB, 1 VIEW [id number] 06:00:00Reason for exam:->ABDOMINAL PAINReason for exam:->ng tubeFINAL [...] MDReport Verified Date/Time: 08/21/2017 06:00:54 Reading Location: [facility] B1 C013T Transitional Reading Room CT, [id number] 04:39:00Reason for exam:->ABDOMINAL PAINWhat is the patient's [...] MDReport Verified Date/Time: 08/21/2017 04:39:32 Reading Location: [address] Transitional Reading Room [id number] 03:02:00 Test Item Value Reference Range Interpretation Comments LIPASE (BEAKER) (test code = 749) 43 U/L 8-78 [id number] 03:02:00 Test Item Value Reference Range Interpretation Comments AMYLASE (BEAKER) (test code = 349) 97 U/L 25-125 BASIC METABOLIC [id number] 03:02:00 Test Item Value Reference Range Interpretation [...] APPLICABLE FOR DIALYSIS PATIEN TS. HEPATIC FUNCTION [id number] 03:02:00 Test Item Value Reference Range Interpretation [...] 6-55 347) CBC W/PLT COUNT & AUTO [id number] 02:34:00 Test Item Value Reference Range Interpretation [...] (test code = 2801) RAD, CHEST, 2 [id number] 01:32:00Reason for exam:->HYPERTENSIONReason for exam:->arm/chest painFINAL REPORT INDICATION: HYPERTENSIONarm/chest pain COMPARISON: March 27, 2015 TECHNIQUE: Frontal and lateral views of the chest. FINDINGS: Lungs and pleura: Clear lungs. No effu lizy.Heart and mediastinum: Increasing size of cardiac silhouette compared to the prior exam. Unremarkable mediastinal contours.Osseous structures: No acute abnormality.Additional findings: None. IMPRESSION: No acute intrathoracic abnormality. Worsening cardiomegaly. Signed: JR Frank, Cathy BARBOUReport Verified Date/Time: 05/17/2017 01:32:40 Reading Location: [facility] B1 C013Y CT Body Reading Room TROPORONEN [id number] 01:30:00 Test Item Value Reference Range Interpretation [...] acute neurological disease, and persistent tachyarrhythmia.BASIC METABOLIC [id number] 01:22:00 Test Item Value Reference Range Interpretation [...] PATIEN TS. CBC W/PLT COUNT & AUTO [id number] 01:06:00 Test Item Value Reference Range Interpretation [...] 0-1 PERCENT (BEAKER) (test code = 2801) Notes Date/Time Note Provider Source 2021-11-09 09:07:00-00:00 [facility] ([facility]) Clinical Note REPORT#:[id number] REPORT STATUS: Signed DATE:11/09/21 TIME: 906 PATIENT: MCKENZIE PARR UNIT #: [id number] ROOM/BED: Y316-A : 42 AGE: 81 SEX: F ATTEND: Gracie Goldman MD ADM AUTHOR: Salvador Lemus MD * ALL edits or amendments must be made on the el ectronic/computer document * Clinical Note Note: [facility] Salvador steve M.D. (cell text [phone]) Assessment/Plan 1.) Anemia of acute blood loss- .Hgb 10.7, asymp tomatic. 2.) S/p Right TKA- .acute multi-modal pain contr ol and followup. Anticoagulation as per Dr. Goldman. 3.) Hypertension- .follow BP and hold Rxs if SBP <120. 4.) Diabetes2 OsteoArthritis Early Dementia- .co ntinue on Rx. * OK for DISCHARGE per Internal Medicine. Prior Events/Overnight: Uneventful. Chief Complaint: No significant complaints. Objective Vital Signs: Date Time Temp Pulse Resp B/P B/P Pulse O2 O2 F low FiO2 Mean Ox Delivery Rate 11/09 0746 95.7 66 14 163/69 100.3 97 Room air 11/09 0517 97.3 72 16 142/62 88.5 96 Room air 11/08 2205 96.8 76 18 160/81 0.0 96 Room air 11/08 2100 97 Nasal 1 24 cannula 11/08 1951 97.9 89 18 153/74 100.4 96 Nasal cannula 11/08 1916 Nasal 1 97 cannula 11/08 1800 98 Nasal 3 32 cannula 11/08 1752 97.0 83 14 158/63 94.6 99 Room air 11/08 1725 97.2 74 22 140/61 100 Nasal 3 cannula 11/08 1710 76 12 146/60 99 Nasal 3 cannula 11/08 1706 Nasal 3 cannula 11/08 1655 76 18 143/62 99 Nasal 3 cannula 11/08 1640 72 16 163/75 99 Simple 6 mask 11/08 1634 Simple 6 mask 11/08 1625 74 20 175/84 98 Simple 6 mask 11/08 1611 97.2 63 18 195/85 97 Simple 6 mask 11/08 1407 71 16 199/82 100 Simple 6 mask 11/08 1216 97.7 64 18 224/88 100 Gen: Alert, oriented, in mild discomfort Neck: No Masses, No Thyromegaly- CV: Regular Rate Rhythm / Edema- no significant Resp: Clear To Ascultation / Normal Respiratory Effort ABD: NonTender / NonDistended MS/Skin: No sign of compartment syndrome / +ankl e DF/PF Other: Labs/X-ray: Laboratory Tests: 11/09 11/09 11/08 11/08 0526 0515 2222 1213 Chemistry Sodium (136 - 145 mmol/L) 142 Potassium (3.5 - 5.1 mmol/L) 4.6 Chloride (98 - 107 mmol/L) 102.0 Carbon Dioxide (21 - 32 mmol/L) 25.2 BUN (7 - 18 mg/dL) 20 H Creatinine (0.55 - 1.30 mg/dL) 1.02 Glomerular Filtr Rate (>60) 52.3 Glucose (70 - 110 mg/dL) 197 H POC Glucose (60 - 125 mg/dL) 218 H 214 H 102 Calcium (8.2 - 10.1 mg/dL) 8.4 Hematology Hgb (12 - 16 g/dL) 10.7 L Hct (37 - 47 %) 31.8 L Salvador Levine M.D. at 2320 RPT #:[id number] END OF REPORT 2021-11-09 08:25:00-00:00 [facility] ([facility]) Discharge Summary REPORT#:[id number] REPORT STATUS: Signed DATE:11/09/21 TIME: 824 PATIENT: MCKENZIE PARR UNIT #: [id number] ROOM/BED: [address] : 42 AGE: 81 SEX: F ATTEND: Gracie Goldman MD ADM AUTHOR: Kaitlin Robin * ALL edits or amendments must be made on the el [employer]/computer document * General Information Discharge date: 11/09/21 Discharge diagnosis: right knee oa Hospital course: Discharge Diagnosis: Right Knee Degenerative Dis ease Procedure: Right Knee Arthroplasty Hospital Course and Findings The patient underwent the pr ocedure without incident. Findings were significant for degenerative disease of the knee. The patien t was hemodynamically and medically monitored during the postoperative per iod. Anticoagulation was instituted for postoperative DVT prophylaxis. Th e patient was progressively able to tolerate PO pain med ications and the appropriate diet. Physical therapy was instituted, with a progressive ability to am bulate and perform exercises. The patient was eventually deemed stable and saf e for discharge. Despite factors which projected a longer hospita l stay, the patient fulfilled criteria for earlier than expected disch arge, including control of pain, early mobilization with therapy, and a stable hemodyna kendall status. At discharge, the patient was comfortabl e, with a controlled pain level. There were no chest or abdominal symptoms present. Dis charge physical examination demonstrated stable vital signs and no acute dis tress. The patient had an intact wound with no signifi cant drainage, and no calf tenderness and a negative Daljit's sign bilaterally. There were no neurolog ic or vascular deficits or changes from the preoperative state. Laboratory Tests: 11/09 11/09 11/08 11/08 0526 0515 2222 1213 Chemistry Sodium (136 - 145 mmol/L) 142 Potassium (3.5 - 5.1 mmol/L) 4.6 Chloride (98 - 107 mmol/L) 102.0 Carbon Dioxide (21 - 32 mmol/L) 25.2 BUN (7 - 18 mg/dL) 20 H Creatinine (0.55 - 1.30 mg/dL) 1.02 Glomerular Filtr Rate (>60) 52.3 Glucose (70 - 110 mg/dL) 197 H POC Glucose (60 - 125 mg/dL) 218 H 214 H 102 Calcium (8.2 - 10.1 mg/dL) 8.4 Hematology Hgb (12 - 16 g/dL) 10.7 L Hct (37 - 47 %) 31.8 L Vital Signs: Date Time Temp Pulse Resp B/P B/P Pulse O2 O2 F low FiO2 Mean Ox Delivery Rate 11/09 0746 35.4 66 14 163/69 100.3 97 Room air 11/09 0517 36.3 72 16 142/62 88.5 96 Room air 09/29 2205 36.0 76 18 160/81 0.0 96 Room air 11/08 2100 97 Nasal 1 24 cannula 11/08 1951 36.6 89 18 153/74 100.4 96 Nasal cannula 11/08 1916 Nasal 1 97 cannula 11/08 1800 98 Nasal 3 32 cannula 11/08 1752 36.1 83 14 158/63 94.6 99 Room air 11/08 1725 36.2 74 22 140/61 100 Nasal 3 cannula 11/08 1710 76 12 146/60 99 Nasal 3 cannula 11/08 1706 Nasal 3 cannula 11/08 1655 76 18 143/62 99 Nasal 3 cannula 11/08 1640 72 16 163/75 99 Simple 6 mask 11/08 1634 Simple 6 mask 11/08 1625 74 20 175/84 98 Simple 6 mask 11/08 1611 36.2 63 18 195/85 97 Simple 6 mask 11/08 1407 71 16 199/82 100 Simple 6 mask 11/08 1216 36.5 64 18 224/88 100 Disposition: Discharged to home Discharge Condition: Stable Instructions: Instruction sheet given to patient Activity: Ambulate with assistance, with weight- bearing as instructed in the hospital. Diet: As per preoperatively Prescriptions 1. Pain Medications: As per discharge prescription, with progressive weaning as pain decreases 2. Anticoagulation: As per discharge prescription, or PreOp anticoa gulant, as discussed with patient 3. Physical Therapy: Will undergo PT for gait training, mobilization , ackmt-ii-cesnxe, and strengthening. Patient was informed that they ne ed to arrange for therapy as quickly as possible. The imp ortance of early advancement of tikbg-pz-oxgbpo with home exercises, and physical therapy was stresse d to the patient. Follow-up Appointment: Patient instructe d to arrange appointment for an office visit in 2 weeks Med Rec Med Rec Discharge meds: Stop taking the following medications: ASPIRIN EC (ECOTRIN) 81 MG TAB.EC 81 MILLIGRAM ORAL DAILY. Continue taking these medications: metFORMIN (GLUCOPHAGE) 500 MG TAB 500 MILLIGRAM ORAL EVERY 12 HOURS. amLODIPine (NORVASC) 5 MG TAB 5 MILLIGRAM ORAL DAILY. DONEPEZIL (ARICEPT) 5 MG TAB 5 MILLIGRAM ORAL DAILY. HYDROcodone/APAP (HYDROcodone/APAP 10/325) 10 MG -325 MG TAB 1 TABLET ORAL EVERY 6 HOURS. traMADol (ULTRAM) 50 MG TAB 50 MILLIGRAM ORAL EVERY FOUR HOURS. Start taking the following new medications: ASPIRIN (ASPIRIN) 81 MG TAB.CHEW 81 MILLIGRAM ORAL TWICE DAILY. Qty = 30 No Refills DOXYCYCLINE HYCLATE (VIBRAMYCIN) 100 MG CAP 100 MILLIGRAM ORAL TWICE DAILY. Qty = 14 No Refills methocarbamoL (ROBAXIN) 500 MG TAB 500 MILLIGRAM ORAL FOUR TIMES A DAY. Qty = 60 No Refills MELOXICAM (MOBIC) 15 MG TAB 15 MILLIGRAM ORAL DAILY. Qty = 30 No Refills Discharge Instructions PCP PCP: PCP: Nii Goldman MD Discharge Instructions Additional Discharge Routines: None Electronically Signed by Kaitlin Robin on 0 11/09/21 at 0826 at 1443 [facility] #:[id number] END OF REPORT 2021-11-09 07:15:00-00:00 [id number] [place] [id number] PATIENT NAME: MCKENZIE PARR ADMIT DATE: 11/08 ACCOUNT NO: [id number] ROOM NO: [facility] AGE: 81 REPORT TYPE: OPERATIVE REPORT SEX: F ADMITTING PHYSICIAN:Nii Goldman MD ATTENDING PHYSICIAN:Nii Goldman MD OPERATION DATE: 11/08/2021 SURGEON: Nii Goldman MD MANAGER CARD: Frank Evans MD Knee arthroplasty requires an librarian assistant for hold ing of retractors for wide exposure so that the surgeon has both hands free to perform the surgery. In addition, with extremity dorinda janna, the librarian assistant positions and stabilizes the leg in order for the surgeon to use his hands to ope rate. Retraction for exposure and visualization, and stabi lization of the extremity are vital to the procedure and not possible without an librarian assistant. Dr. Goldman is not part of any residency or fellowship training progr [facility] and therefore required the help of the librarian assistant listed above for this surgery. PREOPERATIVE DIAGNOSIS: Right knee end-stage deg enerative disease. POSTOPERATIVE DIAGNOSIS: Right knee end-stage de generative disease. PROCEDURE: Right total knee arthroplasty. ANESTHESIA: TIVA. COMPONENTS USED: A DePuy Sigma posterior stabilized fixed-bearing knee system, femur size 3, tibia size 2, insert size 12.5, pa tella size 35 oval. FINDINGS: End-stage degenerative disease of the right knee with complete joint space loss, osteophyte formation, subchondral sc lerosis, and gchn-co-iwxb changes. ESTIMATED BLOOD LOSS: 50 mL. PROCEDURE DESCRIPTION: The patient was b ought to the operating room and placed in the supine position After induction of anesthesia, a tourniquet was placed on the upper thigh. Sterile prepping and draping proceeded. The tour niquet was inflated. A midline incision was made, centered ov er the patella. Dissection was sharply carried down through the subcutaneous tissues. V MO-splitting arthrotomy was performed. The patella was r etracted laterally by the librarian assistant and the leg was held in position by the librarian assistant. PATIENT NAME: MCKENZIE PARR [id number] The proximal medial tibia wa s denuded, with release of medial soft-tissues, the extent of which was dictated by the patient?s de formity. The ACL and PCL were released. The medial and lateral meniscal remnan ts and suprapatellar fat pad were removed. Osteophytes were removed. An extramedullary tibial cutting jig was pinned to the proximal tibia and the tibial cut was made. Its alignment was checked a nd found to be appropriate. The distal femoral cut was made and the knee was balanced in extension. The femur was sized, rotation was set, a nd the flexion gap was balanced to the extension gap. The femoral anterior-posterior, c hamfer, and notch-cuts were made. A spacer-block was used to check symmetry of the gaps and stability. The tibia was re-exposed and the leg was stabilized in the appropriate position by the librarian assistant for tibial preparation. The tib ia was sized and the tibial keel was drilled and punched after appro priate tibial rotation was set with an alignment nia, as well as by using anatomic land john. The femoral intramedullary hole was plugged with bone from t he tibia. The trial femoral component was impacted onto the distal femur and found to have an excellent fit. A trial polyethylene was inserted. The knee was found to have excellent sym metric stability in the medial-lateral and kristian-posterior directions in flexion and e xtension. The patella was held in a slightly everted posit ion with knee in extension. Patellar width was checked with calipers. A cut of the patellar articular surface was performed and checked with c alipers to ensure symmetry. Sizing was then performed and 3 lug holes were dril led with the jig in place, taking care to medialize and superiorize the component as mu ch as possible, given bony anatomy. Excess lateral patellar bone was recess ed and excess suprapatellar soft tissue was resected. The trial patellar com ponent was placed. Knee jeopr-uj-mrzans, stability, and patellar tr acking were found to be excellent. The trials were removed, and as the cement was m ixed, all cut surfaces were thoroughly washed and dried. The librarian assistant held the retractors for exposure and held the leg in the appropriate positions for ce mentation. The cement was applied to the final compone nts and the cut surfaces with digital pressurization and then the components were impacted in to position. The knee was brought into full extension with the trial polyethylene. Once the cement had hardened, the tourniquet was deflated. Excess cement was carefully looked for and removed. Thorough irrigation with several liters of antib iotic solution was performed. The tourniquet was deflated. Adequate hemostasis was obtained and confirmed. The final polyethylene component was engaged. Lo maxx anesthetic was injected into the capsule, arthrotomy site, and subcutane ous region. PATIENT NAME: MCKENZIE PARR [id number] The arthrotomy was repaired, and after further i rrigation, the subcutaneous tissues were closed in a multi-layered fashion. This was followed by skin closure. Sterile dressing was applied. The patient was awakened and transferred to the recovery room in stable condition. Dictated By: Nii Goldman MD Date Dictated: 11/09/2021 07:15:43 Date Transcribed: 11/09/2021 10:39:17 ANNIKA/OC Receipt ID: [id number] Authenticated by Nii Goldman MD On 11/23/19 06:49:58 AM at 0649 PATIENT NAME: BRIAN PARRNZA [id number] 3021-09-29 18:02:00-00:00 [facility] ([facility]) Clinical Note REPORT#:[id number] REPORT STATUS: Signed DATE:11/08/21 TIME: 180 PATIENT: MCKENZIE PARR UNIT #: [id number] [facility] AGE: 81 SEX: F ATTEND: Milvia Goldman MD ADM AUTHOR: Salvador Lemus MD * ALL edits or amendments must be made on the [employer]/computer document * Clinical Note Note: [facility] Salvador steve MD (cell text [phone]) Internal Medicine Consult at request of : Dr. Milvia Goldman Chief Complaint: right knee pain HPI: 81 yo F is now s/p Right Total Knee Arthrop lasty (TKA) by Dr. Goldman. Ms. Parr relates 4 years of progressive right knee pain (recently severe), worse with activity, and popping crunchy with re stricted motion at times in quality. She has failed conservative management. Comorbidities: see below. PmHx: .Type 2 diabetes, hypertension, early ronal ntia, BMI 38.1 ALLERGY: Allergies: No Known Allergies (Coded, 10/29/21) Home Medications: Home Medications: ASPIRIN EC (ECOTRIN) 81 MG PO DAILY metFORMIN (GLUCOPHAGE) 500 MG PO Q12H amLODIPine (NORVASC) 5 MG PO DAILY DONEPEZIL (ARICEPT) 5 MG PO DAILY SgHx: .Right mastectomy SHx: Tob: none FHx: .No significant hx of DVT/PE . Alcohol: none Drugs: none Lives: . . Vitals: Vital Signs: Date Time Temp Pulse Resp B/P B/P Pulse O2 O2 F low FiO2 Mean Ox Delivery Rate 11/08 1752 97.0 83 14 158/63 94.6 99 Room air 11/08 1725 97.2 74 22 140/61 100 Nasal 3 cannula 11/08 1710 76 12 146/60 99 Nasal 3 cannula 11/08 1706 Nasal 3 cannula 11/08 1655 76 18 143/62 99 Nasal 3 cannula 11/08 1640 72 16 163/75 99 Simple 6 mask 11/08 1634 Simple 6 mask 11/08 1625 74 20 175/84 98 Simple 6 mask 11/08 1611 97.2 63 18 195/85 97 Simple 6 mask 11/08 1407 71 16 199/82 100 Simple 6 mask 11/08 1216 97.7 64 18 224/88 100 Gen: Mildly confused, in mild discomfort. EYE: Nl lids conjunctiva. ENT: Nl ears Nose, nl lips,. Neck: Supple, nl thyroid, No masses. CV: Regular Rate Rhythm, no heave or significant murmur. Edema- none RESP: Clear to Auscultation, normal Respiratory effort. ABD: Soft, NonDistended,. LYM: No significant cervical Lymphadenopathy. MS: No sign of compartment syndrome, Knee is wr apped, NEURO: Nonfocal, grossly normal sensation of LE, +Ankle DF/PF . . Preop Labs (10/29/2021): CBC:. Hgb 11.9, Plt 258 CHEM: Na 139, K 4.5, Cr 1.10 (eGFR 64.67%), Hgb A1C 7.5%. Ekg: Sinus bradycardia at 58 bpm . (medium to high risk of complications or morbidi ty) (major surgery) (IV sedative, meds) . Assessment Plan 1.) Anemia of Acute Blood Loss- .will recheck to zhane. 2.) S/p Right TKA- .acute multi-modal pain contr ol and followup. Anticoagulation as per Dr. Goldman. 3.) Hypertension- .follow BP and hold Rxs if SBP <120. 4.) Diabetes2 OsteoArthritis Early Dementia- .co ntinue on Rx. . Salvador Levine M.D. Thanks! . . . . . G8417 BMI documented as above normal parameters and a f/u plan is documented G8427 - current medications obtained and reviewe dChadwick [id number] - offered discussion o n advanced care plan and patient declined to address issue at this time. at 2208 RPT #:[id number] END OF REPORT 2021-11-08 07:17:00-00:00 [facility] ([facility]) Op/Inv Procedure Note - Brief REPORT#:[id number] REPORT STATUS: Signed DATE:11/08/21 TIME: 716 PATIENT: MCKENZIE PARR UNIT #: [id number] ROOM/BED: Y998-3 : 42 AGE: 81 SEX: F ATTEND: Gracie Goldman MD ADM AUTHOR: Nii Goldman MD * ALL edits or amendments must be made on the [employer]/computer document * Op/Inv Proc Note - Brief TEXT Brief Op/Inv Procedure Note Note details: Pre-procedure diagnosis: Right Knee Degenerative Joint Disease Post-procedure diagnosis: Same Procedures performed: Right Total Knee Arthropla sty Primary Surgeon: SANDIP Casing Tier: Elvie EVANS MD Findings: Severe degenerativ e disease see dictated operative report for details Complications: None Estimated Blood Loss in ml's: [50] cc Specimens removed/altered: None at 1639 RPT #:[id number] END OF REPORT 2021-10-29 15:46:00-00:00 [id number] [place] [address] PATIENT NAME: MCKENZIE PARR ADMIT DATE: ACCOUNT NO: [id number] ROOM NO: AGE: 81 REPORT TYPE: ELECTROCARDIOGRAM SEX: M ADMITTING PHYSICIAN: ATTENDING PHYSICIAN:Nii Goldman MD Order: [id number] Test Reason : PREOP CLEARANCE AGE>50 HX HTN Test Date/Time Stamp: FriOct 29 2021 15:46:12 Blood Pressure : / mmHG Vent. Rate : 058 BPM Atrial Rate : 058 BPM P-R Int : 156 ms QRS Dur : 092 ms QT Int : 418 ms P-R-T Axes : 050 -31 039 degree s QTc Int : 410 ms Sinus bradycardia Left axis deviation Abnormal ECG No previous ECGs available Confirmed by EMMY RODRIGEZ MD ([id number]) on 10/30/2021 9:32:27 AM Referred By: Nii Goldman Confirmed by:BRAULIO RODRIGEZ MD PATIENT NAME: MCKENZIE PARR [id number]
[2022-07-01] MEDS ORDERED: MORPHINE 4 MG/ML SYR ONE ×2 (08:56→09:09)
[2022-07-01] MEDS ORDERED: ONDANSETRON 4 MG/2 ML VIAL ONE (08:56)
[2022-07-01 09:05] LABS: Absolute Lymphocytes (CBC) 1.1 K/uL (0.7-4.9); Hematocrit 34.7 % (36.0-45.0); Lymphocytes % 10.8 % (15.3-44.8); MCV 94.8 fL (80-100); MPV 8.2 fL (7.6-11.3); RBC Red Blood Cell Count 3.66 M/uL (3.86-4.86)
[2022-07-01 09:25] LABS: Albumin 3.7 g/dL (3.4-5.0); Bilirubin Total 0.5 mg/dL (0.2-1.0); Potassium 4.4 mEq/L (3.5-5.1); Protein, Total 7.8 g/dL (6.4-8.2); Troponin High Sensitivity 7.9 pg/mL (<58.9)
[2022-07-01] MEDS ORDERED: NA CHLORIDE 0.9% 1,000 ML ONE (10:00)
--- NOTE | 2022-07-01 10:10 | RAD REPORT ---
EXAM DESCRIPTION: CT - Abdomen Pelvis W Contrast - 07/01/2022 9:45 am CLINICAL HISTORY: ABD PAIN COMPARISON: Abdomen Pelvis W Contrast dated 05/13/2021; Abdomen Pelvis W Contrast dated 03/06/2021; Abdomen Pelvis W Contrast dated 09/11/2015; CT ABD PELVIS W CONTRAST dated 04/08/2015 TECHNIQUE: Thin cut axial CT imaging of the abdomen and pelvis was performed following intravenous a dministration of 100 mL Isovue 300. Multiplanar reformats were generated and reviewed. All CT scans are performed using dose optimization technique as appropriate and may include automated exposure control or mA/KV adjustment according to patient size. FINDINGS: No suspicious findings in the lung bases. The liver, spleen, and pancreas show no suspicious findings. Status post cholecystectomy. Mildly prom inent caliber of the common bile duct as well as the intrahepatic biliary radicles. Common bile duct measures approximately 7 millimeter in diameter. The findings could relate to postcholecystectomy sta tus. Symmetric renal function is seen with no hydronephrosis or suspicious renal mass. Dilated proximal small bowel loops, including a long segment of fecalization in the central abdomen, which terminates at 8 focal transition to nondistended small bowel just left of the midline, approxim ately at the level of the umbilicus. The superior margin of a hernia repair mesh is seen directed pos teriorly, coursing along the undersurface of the bowel transition point. Please see series 303, sagit aliza images 69-76 among others. No free air, free fluid or inflammatory stranding. No hernia, mass or bulky lymphadenopathy. The urinary bladder is without significant finding. No suspicious bony findings. IMPRESSION: Dilated proximal small bowel loops with fecalization, concerning for obstruction. The tr ansition point is just left of midline, approximately at the level of the umbilicus, closely related to the superior margin of a hernia repair mesh as described above. The findings were communicated to Leslie Woodard on 07/01/2022 at 10:05 hours.
[2022-07-01] MEDS ORDERED: PIPERACIL/TAZO 3.375 GM VIAL IV ONE (10:37)
[2022-07-01] MEDS ORDERED: NA CHLORIDE 0.9% 100 ML ONE (10:41)
[2022-07-01] MEDS ORDERED: ZIPRASIDONE MESYLA 20 MG/VIAL IM ONE (11:19)
[2022-07-01] MEDS ORDERED: WATER FOR INJ,STERILE 10 ML ONE (11:19)
[2022-07-01] MEDS ORDERED: LIDOCAINE VISCOUS 2% SOLN 15 ML UDC ONE (11:20)
--- NOTE | 2022-07-01 11:29 | EDPHYS ---
Physician Documentation [facility] Name: Divya Parr Age: 82 yrs Sex: Female : 1940 Arrival Date: 07/01/2022 Time: 08:25 Bed 5 Private MD: ED Physician Derek Rivera HPI: 07/01 09:21 This 82 yrs old Female presents to ER via Wheelchair with complaints of rt Abdominal Pain. 09:21 Patient presents to the ED with an acute onset of severe epigastric pain starting at rt about 8 AM. Patient was feeling well prior to this. She denies nausea, vomiting, diarrhea, constipation. Pain is aching nature, nonradiating. Denies other acute complaints at this time, denies aggravating or alleviating factors. . Historical: - Allergies: 08:49 NKDA; aa5 - PMHx: 08:49 Cancer, Breast; Diabetes - NIDDM; Hypertension; Hypercholesterolemia; Memory problem; aa5 - PSHx: 08:49 R mastectomy; R knee; aa5 - Immunization history:: Adult Immunizations unknown. - Social history:: Smoking status: Patient denies any tobacco usage or history of. ROS: 09:22 Constitutional: Negative for fever, chills, and weight loss, Eyes: Negative for injury, rt pain, redness, and discharge, Cardiovascular: Negative for chest pain, palpitations, and edema, Respiratory: Negative for shortness of breath, cough, wheezing, and pleuritic chest pain, MS/Extremity: Negative for injury and deformity, Skin: Negative for injury, rash, and discoloration, Neuro: Negative for headache, weakness, numbness, tingling, and seizure, Psych: Negative for depression, anxiety, suicide ideation, homicidal ideation, and hallucinations. 09:22 Abdomen/GI: Positive for abdominal pain, Negative for nausea, vomiting, and diarrhea. Exam: 09:22 Constitutional: This is a well developed, well nourished patient who is awake, alert, rt and in no acute distress. Head/Face: Normocephalic, atraumatic. Chest/axilla: Normal chest wall appearance and motion. Nontender with no deformity. No lesions are appreciated. Cardiovascular: Regular rate and rhythm with a normal S1 and S2. No gallops, murmurs, or rubs. Normal PMI, no JVD. No pulse deficits. Respiratory: Lungs have equal breath sounds bilaterally, clear to auscultation and percussion. No rales, rhonchi or wheezes noted. No increased work of breathing, no retractions or nasal flaring. Skin: Warm, dry with normal turgor. Normal color with no rashes, no lesions, and no evidence of cellulitis. MS/ Extremity: Pulses equal, no cyanosis. Neurovascular intact. Full, normal range of motion. Neuro: Awake and alert, GCS 15, oriented to person, place, time, and situation. Cranial nerves II-XII grossly intact. Motor strength 5/5 in all extremities. Sensory grossly intact. Cerebellar exam normal. Normal gait. Psych: Awake, alert, with orientation to person, place and time. Behavior, mood, and affect are within normal limits. 09:22 Abdomen/GI: Tenderness to the epigastrium, mild guarding, no rebound, no distention. 09:22 ECG was reviewed by the Attending Physician. rt Vital Signs: 08:36 BP 155 / 85; Pulse 75; Resp 20 S; Temp 98(TE); Pulse Ox 97% on R/A; aa5 09:09 BP 127 / 51; Pulse 60; Resp 15; Pulse Ox 96% 2 lpm ; jl7 10:00 BP 137 / 52; Pulse 72; Resp 15; Pulse Ox 97% ; Weight 72.5 kg; Height 5 ft. 2 in. ; jl7 11:32 BP 131 / 55; Pulse 80; Resp 17; Pulse Ox 100% ; jl7 14:14 BP 151 / 56; Pulse 76; Resp 15; Pulse Ox 95% ; jl7 10:00 Body Mass Index 29.23 (72.50 kg, 157.48 cm) jl7 09:09 pt placed on 2 lpm NC, SPO2 decreased to 83%after medication administration jl7 MDM: 08:38 Patient medically screened. rt 11:29 Differential diagnosis: Bowel obstruction, pancreatitis, colitis. Data reviewed: vital rt signs, nurses notes, lab test result(s), EKG, radiologic studies. Consideration of Admission/Observation Patient was admitted/placed on observation. Management of patient was discussed with the following: Hospitalist: Agrees to admit. Chief Librarian Work With Blind: Discussed with Dr. Rothman, recommends NG tube placement, admission to medical service. I considered the following discharge prescriptions or medication management in the emergency department Medications were administered in the Emergency Department. See MAR. Independent interpretation of the following test(s) in the Emergency Department CT Scan: My interpretation is Bowel obstruction seen on interpretation of CT scan images. Care significantly affected by the following chronic conditions: Diabetes. Counseling: I had a detailed discussion with the patient and/or guardian regarding: the historical points, exam findings, and any diagnostic results supporting the discharge/admit diagnosis, lab results, radiology results, the need for further work-up and treatment in the hospital. 07/01 08:44 Order name: CBC with Diff; Complete Time: 09:41 rt 07/01 08:44 Order name: CMP; Complete Time: 09:41 rt 07/01 08:44 Order name: Lipase; Complete Time: 09:41 rt 07/01 08:44 Order name: UAM rt 07/01 08:44 Order name: Lactate w/ 2H reflex if indic.; Complete Time: 09:41 rt 07/01 08:44 Order name: Troponin High Sensitivity; Complete Time: 09:41 rt 07/01 12:28 Order name: Lactate Sepsis 2 HR Follow-up EDMS 07/01 13:12 Order name: NT PRO-BNP EDMS 07/01 14:37 Order name: Phosphorus EDMS 07/01 14:37 Order name: Magnesium EDMS 07/01 08:44 Order name: CT Abd/Pelvis - IV Contrast Only; Complete Time: 10:14 rt 07/01 08:44 Order name: EKG; Complete Time: 08:45 rt 07/01 13:12 Order name: NPO EDMS 07/01 08:44 Order name: EKG - Nurse/Tech; Complete Time: 08:49 rt EC:22 Rate is 75 beats/min. Rhythm is regular, Normal Sinus Rhythm with No ectopy. Left axis rt deviation noted. PA interval is normal. QRS interval is normal. QT interval is normal. No Q waves. T waves are Normal. No ST changes noted. Interpreted by me. Administered Medications: 08:58 Drug: Ondansetron IVP 4 mg Route: IVP; Site: left antecubital; ko1 09:10 Follow up: Response: No adverse reaction; Nausea is decreased jl7 08:58 Drug: morphine IVP or IV 4 mg Route: IVP; Infused Over: 4 mins; Site: left antecubital; ko1 09:10 Follow up: Response: No adverse reaction; Pain is decreased jl7 09:55 Drug: NS 0.9% IV 1000 ml Route: IV; Rate: 1 bolus; Site: left antecubital; jl7 12:00 Follow up: Response: No adverse reaction; IV Status: Completed infusion; IV Intake: jl7 1000ml 10:39 Drug: Piperacillin-Tazobactam IVPB 3.375 grams Route: IVPB; Infused Over: 60 mins; ko1 Site: left antecubital; 11:32 Follow up: Response: No adverse reaction; IV Status: Completed infusion jl7 11:20 Drug: Geodon IM 10 mg Route: IM; Site: left deltoid; jl7 14:36 Follow up: Response: No adverse reaction jl7 14:35 Not Given (Other Intervention Used): morphine IVP or IV 4 mg IVP once over 4 mins jl7 Disposition Summary: 07/01/22 11:29 Hospitalization Ordered Hospitalization Status: Inpatient Admission rt Provider: Matt Grimm rt Location: Telemetry/[facility] (Inpatient) rt Condition: Fair rt Problem: new rt Symptoms: have improved rt Bed/Room Type: Standard rt Room Assignment: 218(07/01/22 14:17) ja1 Diagnosis - Small bowel obstruction rt - Lactic Acidosis rt Forms: - Medication Reconciliation Form rt - SBAR form rt Signatures: Dispatcher [employer] Romina Powell RN RN aa5 Bruno Gardner RN RN coy7 John Akbar RN RN ja1 Susy Retana RN RN ko1 Derek Rivera MD MD rt Corrections: (The following items were deleted from the chart) 14:17 11:29 rt ja1
--- NOTE | 2022-07-01 11:29 | ER ---
Nurse's Notes [facility] Name: Divya Parr Age: 82 yrs Sex: Female : 1940 Arrival Date: 07/01/2022 Time: 08:25 Bed 5 Private MD: Diagnosis: Small bowel obstruction;Lactic Acidosis Presentation: 07/01 08:36 Chief complaint: Patient states: acute onset of abd pain this morning. Pt denies aa5 nausea/vomiting. 08:36 Coronavirus screen: At this time, the client does not indicate any symptoms associated aa5 with coronavirus-19. Ebola Screen: Patient denies travel to an Ebola-affected area in the 21 days before illness onset. Initial Sepsis Screen: Does the patient meet any 2 criteria? No. Patient's initial sepsis screen is negative. Does the patient have a suspected source of infection? No. Patient's initial sepsis screen is negative. Risk Assessment: Do you want to hurt yourself or someone else? Patient reports no desire to harm self or others. Onset of symptoms was July 01, 2022. 08:36 Acuity: YVETTE 3 aa5 08:36 Method Of Arrival: Wheelchair aa5 Historical: - Allergies: 08:49 NKDA; aa5 - PMHx: 08:49 Cancer, Breast; Diabetes - NIDDM; Hypertension; Hypercholesterolemia; Memory problem; aa5 - PSHx: 08:49 R mastectomy; R knee; aa5 - Immunization history:: Adult Immunizations unknown. - Social history:: Smoking status: Patient denies any tobacco usage or history of. Screenin:09 [facility] ED Fall Risk Assessment (Adult) History of falling in the last 3 months, jl7 including since admission No falls in past 3 months (0 pts) Confusion or Disorientation Yes (5 pts) Intoxicated or Sedated No (0 pts) Impaired Gait No (0 pts) Mobility Assist Device Used No (0 pt) Altered Elimination No (0 pt) Score/Fall Risk Level 3 or more points = High Risk Oriented to surroundings, Maintained a safe environment, Hourly rounding (assess needs \T\ fall precautionary measures) done, Utilized family, sitter, or virtual program checker as indicated. Abuse screen: Denies threats or abuse. Denies injuries from another. Nutritional screening: No deficits noted. Tuberculosis screening: No symptoms or risk factors identified. Assessment: 09:06 General: Appears in no apparent distress. uncomfortable, Behavior is cooperative, jl7 restless. Pain: Complains of pain in epigastric area Pain currently is 10 out of 10 on a pain scale. Pain began 1 hour ago. Neuro: Level of Consciousness is awake, alert, obeys commands. Cardiovascular: Patient's skin is warm and dry. Respiratory: Airway is patent Respiratory effort is even, unlabored, Respiratory pattern is regular, symmetrical. GI: Abdomen is round distended, Abd is soft Abdomen is tender to palpation. Derm: Skin is pink, warm \T\ dry. 10:43 Reassessment: patient resting comfortably at this time. ko1 11:31 Reassessment: Attempted to place NG tube twice, pt refused at this time, ERD notified. jl7 12:00 Reassessment: Hospitalist at bedside assessing pt at this time. jl7 12:30 Reassessment: Patient appears in no apparent distress at this time. No changes from jl7 previously documented assessment. Patient and/or family updated on plan of care and expected duration. Pain level reassessed. 14:14 Reassessment: Patient appears in no apparent distress at this time. No changes from jl7 previously documented assessment. Patient and/or family updated on plan of care and expected duration. Pain level reassessed. Awaiting bed assignment. 14:19 Reassessment: Bed 218 assigned, attempted to call report, Felisha reports the nurse has jl not been notified of pt assignment yet and will call back. 14:48 Reassessment: Attempted to give report, Felisha reports MARIE Mendoza unavailable and jl will call back. Vital Signs: 08:36 BP 155 / 85; Pulse 75; Resp 20 S; Temp 98(TE); Pulse Ox 97% on R/A; aa5 09:09 BP 127 / 51; Pulse 60; Resp 15; Pulse Ox 96% 2 lpm ; jl7 10:00 BP 137 / 52; Pulse 72; Resp 15; Pulse Ox 97% ; Weight 72.5 kg; Height 5 ft. 2 in. ; jl7 11:32 BP 131 / 55; Pulse 80; Resp 17; Pulse Ox 100% ; jl7 14:14 BP 151 / 56; Pulse 76; Resp 15; Pulse Ox 95% ; jl7 10:00 Body Mass Index 29.23 (72.50 kg, 157.48 cm) jl7 09:09 pt placed on 2 lpm NC, SPO2 decreased to 83%after medication administration jl7 ED Course: 08:25 Patient arrived in ED. am2 08:26 Derek Rivera MD is Attending Physician. rt 08:36 Arm band placed on Patient placed in an exam room, on a stretcher. aa5 08:49 Triage completed. aa5 08:59 Lactate w/ 2H reflex if indic. Sent. ko1 08:59 Lipase Sent. ko1 08:59 CMP Sent. ko1 08:59 CBC with Diff Sent. ko1 09:06 Bruno Gardner, RN is Primary Nurse. jl7 09:09 Patient has correct armband on for positive identification. Placed in gown. Bed in low jl7 position. Call light in reach. Side rails up X2. Client placed on continuous cardiac and pulse oximetry monitoring. NIBP monitoring applied. Warm blanket given. 09:09 Initial lab(s) drawn, by me, sent to lab. EKG done, by ED staff, reviewed by Derek Rivera MD. Inserted saline lock: 20 gauge in left antecubital area, using aseptic technique. Blood collected. 09:47 CT Abd/Pelvis - IV Contrast Only In Process Unspecified. EDMS 11:28 Matt Grimm MD is Hospitalizing Provider. rt 12:00 Repeat lab(s) drawn. by me, sent to lab. jl7 12:00 No provider procedures requiring assistance completed. jl7 15:06 Patient admitted, IV remains in place. intact, No redness/swelling at site. jl7 Administered Medications: 08:58 Drug: Ondansetron IVP 4 mg Route: IVP; Site: left antecubital; ko1 09:10 Follow up: Response: No adverse reaction; Nausea is decreased jl7 08:58 Drug: morphine IVP or IV 4 mg Route: IVP; Infused Over: 4 mins; Site: left antecubital; ko1 09:10 Follow up: Response: No adverse reaction; Pain is decreased jl7 09:55 Drug: NS 0.9% IV 1000 ml Route: IV; Rate: 1 bolus; Site: left antecubital; jl7 12:00 Follow up: Response: No adverse reaction; IV Status: Completed infusion; IV Intake: jl7 1000ml 10:39 Drug: Piperacillin-Tazobactam IVPB 3.375 grams Route: IVPB; Infused Over: 60 mins; ko1 Site: left antecubital; 11:32 Follow up: Response: No adverse reaction; IV Status: Completed infusion jl7 11:20 Drug: Geodon IM 10 mg Route: IM; Site: left deltoid; jl7 14:36 Follow up: Response: No adverse reaction jl7 14:35 Not Given (Other Intervention Used): morphine IVP or IV 4 mg IVP once over 4 mins jl7 Medication: 09:09 VIS not applicable for this client. jl7 Intake: 12:00 IV: 1000ml; Total: 1000ml. jl7 Outcome: 11:29 Decision to Hospitalize by Provider. rt 15:05 Admitted to Med/surg accompanied by tech, family with patient, via stretcher, room 218, jl7 with chart, Report called to MARIE Mendoza 15:05 Condition: stable 15:05 Discharge instructions given to patient, family, Instructed on the need for admit, Demonstrated understanding of instructions. 15:06 Patient left the ED. jl7 Signatures: Dispatcher [employer] EDMS Romina Owens, RN RN aa5 Bruno Gardner RN RN jl7 Amna Diego Kathy RN RN ko1 Derek Rivera MD MD rt Corrections: (The following items were deleted from the chart) 09:12 09:09 BP 130 / 88; Pulse 60bpm; Resp 15bpm; Pulse Ox 96%; jl7 jl7
[2022-07-01] MEDS ORDERED: ACETAMINOPHEN 650MG/RECT SUPP PR PRN (13:08)
[2022-07-01] MEDS ORDERED: ONDANSETRON 4 MG/2 ML VIAL IV PRN (13:13)
--- NOTE | 2022-07-01 13:15 | P.HP ---
Certification for Inpatient Patient admitted to: Inpatient With expected LOS: >2 Midnights Patient will require the following post-hospital care: None Practitioner: I am a practitioner with admitting privileges, knowledge of patient current condition, hospital course, and medical plan of care. Services: Services provided to patient in accordance with Admission requirements found in Title 42 Section 412.3 of the Code of Federal Regulations Patient History Date of Service: 07/01/22 Reason for admission: Abdominal pain. History of Present Illness: Patient is an 82-year-old female with a past medical history significant for breast cancer, DM 2, HLD, hypertension, dementia who presents with complaint of abdominal pain located in the lower quadrants. Patient is alert and oriented x2. Patient is confused and unable to provide accurate history. Patient's spouse stated that patient has having abdominal pain since this morning. Patient indicated that abdominal pain is located in the lower quadrants quadrants. Patient rated pain as 8/10 in severity and described pain as aching quality. Patient reported associated signs and symptoms of nausea and generalized malaise. Patient denies any other signs or symptoms. Symptoms are aggravated or relieved by nothing. Patient was brought to the hospital for medical evaluation. Of Note, patient is at her baseline mental status per spouse report. Allergies No Known Drug Allergies Allergy (Verified 04/09/15 14:54) Unknown Home Medications: Aspirin [[place] Aspirin] 81 mg PO DAILY 09/11/15 Citalopram [Celexa*] 20 mg PO DAILY 09/11/15 Loperamide [Imodium*] 4 mg PO Q4HP PRN 09/11/15 Losartan Potassium [Cozaar] 100 mg PO DAILY 09/11/15 Meloxicam [Mobic] 15 mg PO DAILY 09/11/15 Metoprolol Tartrate [Lopressor*] 25 mg PO BID 09/11/15 Tramadol HCl [Ultram] 50 mg PO Q6H 09/11/15 Amlodipine Besylate [Norvasc] 10 mg PO DAILY #30 tablet 09/14/15 Codeine/APAP [Tylenol #3*] 1 tab PO Q6HP PRN #30 tab 09/14/15 - Past Medical/Surgical History Diabetic: Yes -: HTN -: DIABETES -: DEPRESSION -: breast cancer -: right breast removal 10/2005 -: Cholecystectomy -: hernia repair - Social History Smoking Status: Never smoker Alcohol use: No CD- Drugs: No Caffeine use: No Place of Residence: Home Review of Systems is unable to be obtained (Patient is confused.) Physical Examination - Physical Exam General: Alert, In no apparent distress, Oriented x2, Cooperative HEENT: Atraumatic, PERRLA, Mucous membr. moist/pink, EOMI, Sclerae nonicteric Neck: Supple, 2+ carotid pulse no bruit, No LAD, Without JVD or thyroid abnor mality Respiratory: Clear to auscultation bilaterally, Normal air movement Cardiovascular: No edema, Regular rate/rhythm, Normal S1 S2 Capillary refill: <2 Seconds Gastrointestinal: Normal bowel sounds, Distended, Tenderness Musculoskeletal: No clubbing, No tenderness Integumentary: No rashes, No breakdown, No significant lesion Neurological: Normal speech, Normal strength at 5/5 x4 extr, Normal tone, Normal affect Lymphatics: No axilla or inguinal lymphadenopathy - Studies Laboratory Data (last 24 hrs) 07/01/22 08:52: Sodium 133 L, Potassium 4.4, BUN 36 H, Creatinine 1.19 H, Glucose 193 H, Total Bilirubin 0.5, AST 22, ALT 22, Alkaline Phosphatase 74, Lipase 43 07/01/22 08:52: WBC 10.60, Hgb 11.4 L, Hct 34.7 L, Plt Count 230 Assessment and Plan - Plan --SBO. CT imaging indicates Dilated proximal small bowel loops with fecalization, concerning for obstruction. The transition point is just left of midline, approximately at the level of the umbilicus, closely related to the superior margin of a hernia repair mesh. Surgeon consulted. Nursing staff unable to insert an NG tube. We will keep patient NPO. We will await further recommendation from surgeon. Continue IV hydration and supportive care. --Acute pain. We will manage pain with current pain medication regimen. --Nausea. Antiemetics on board. Continue supportive care. --DM2. BS monitoring with sliding scale insulin. --Dementia. Stable. Continue home medication when appropriate. --Hyperlipidemia. Continue home medication when appropriate. --Hypertension. Poorly controlled. Continue home medications and labetalol as needed. --History of breast cancer. Status post right breast mastectomy. Continue supportive care. -- Anemia of chronic disease. H&H stable. We will continue to monitor hemoglobin and transfuse if less than 7.0. --CKD 3A. Stable. We will continue to monitor renal functions. --Depression. Continue home medication when appropriate. -- DVT prophylaxis with SCDs. Discharge Plan: Home Plan to discharge in: Greater than 2 days - Advance Directives Does patient have a Living Will: No Does patient have a Durable POA for Healthcare: No - Code Status/Comfort Care Code Status Assessed: Yes Physician Review: Patient Assessed, Agree with Above Assessment and Plan Critical Care: No
[2022-07-01] MEDS: INSULIN -REGULAR HUMAN 50 UNIT/0.5 ML ML SQ SCH ×3 (13:30→20:53)
[2022-07-01 14:37] LABS: Phosphorus 3.6 mg/dL (2.5-4.9)
[2022-07-01] MEDS: NA CHLORIDE 0.9% 1,000 ML IV SCH (16:05)
[2022-07-01 19:27] LABS: Specific Gravity > 1.030 (1.005-1.030); Urine Bacteria None Seen /HPF (<20); Urine Bilirubin NEGATIVE (Negative); Urine Blood Negative (Negative); Urine Clarity Clear (Clear); Urine Color Light-Yellow (Yellow); Urine Glucose TRACE (Negative); Urine Mucus Slight /HPF (None Seen); Urine Protein 1+ (Negative); Urine RBC None Seen /HPF (None Seen); Urine Urobilinogen Normal (Normal); Urine pH 5.5 (5.0-7.0)
--- NOTE | 2022-07-01 19:41 | CON ---
Date of Consultation: 07/01/2022 Diagnosis: Small bowel obstruction. History Of Present Illness: This is the case of an 82-year-old patient, who came early this morning with severe abdominal pain. She states she was nauseous after she ate yesterday. The patient was ad mitted to the hospital and about an hour ago, she had a bowel movement and she passed some gas and sh shaila said the pain was completely away. Her abdomen got soft and she has no complaints and no pain at t his moment. She has history in the past of multiple surgeries even almost 12 to 13 years ago, she che[place] s to have an extensive surgery for lysis of adhesions, hernias repair, even mesh placement. She mulu eves it was the diet she ate yesterday afternoon. Right now, she is passing gas and the abdomen is n ice and soft, and she has no abdominal pain. Allergies: NONE. Past Surgical History: Includes hernias repair, lysis of adhesions. Medications: Reviewed. Social History: She does not smoke. She does not drink alcohol. Past Medical History: Includes high blood pressure. Review of Systems: When she came here with nausea, vomiting, abdominal pain, right now she has no nausea, she has no abd ominal pain and she is passing gas. No dysuria, hematuria, hematochezia, or melena. Ten points othe rwise unremarkable. Physical Examination: General: The patient is awake, alert. HEENT: Pupils are equal and reactive. Anicteric. Neck: Supple. Chest: Clear. Abdomen: Soft and depressible. No guarding or rebound. No peritoneal signs. Small midline incisio n. No hernias palpated. Breasts: Deferred. Pelvic: Deferred. Rectal: Deferred. Extremities: Good capillary refill. Laboratory Data: Blood work shows WBC count of 10.6, hemoglobin 11.4, platelets of 230. CAT scan of the abdomen and pelvis interpreted by Dr. Bean, small bowel obstruction, transition point in the a nterior abdominal wall. Assessment: This is the case of an 82-year-old patient with a history of bowel obstruction in the [facility], history of hernias. She has been doing well, but she ate yesterday and after that developed pain overnight and suddenly resolved this morning. She understands the options of laparotomy, laparoscop y, possible bowel resection, and she considered that when she came last night, but right now she stat es she has no pain whatsoever and she preferred not to have any intervention. I do agree with her sh e is improving, but when we saw the CAT scan of her, we see some fecalization of the areas of the sma ll bowel that probably related to a narrow point at some point in the small bowel and so dealing with that, I do not think will be any improvement at this moment on the size of the small bowel, but she was counseled and advised the importance of taking her time eating, making sure she should her food p roperly and if this continues or the pain comes back, a small bowel series will help us determine a l ittle bit better the extent of her possible stenosis and she might have to have a surgical interventi on done to remove the segment. At this moment, she does not want any surgical intervention and she l ooks completely benign. So, I believe we can advance diet and see how she does clinically. DANIEL/EDUARD Voice ID: [id number] Report ID: [id number]
[2022-07-01] MEDS: MORPHINE 4 MG/ML SYR IV PRN (20:51)
[2022-07-02] MEDS: INSULIN -REGULAR HUMAN 50 UNIT/0.5 ML ML SQ SCH ×6 (01:00→21:30)
[2022-07-02] MEDS: NA CHLORIDE 0.9% 1,000 ML IV SCH ×2 (03:20→16:49)
[2022-07-02 03:53] LABS: Hematocrit 31.9 % (36.0-45.0); Lymphocytes % 10.8 % (15.3-44.8); MCV 94.5 fL (80-100); MPV 8.2 fL (7.6-11.3); RBC Red Blood Cell Count 3.38 M/uL (3.86-4.86)
[2022-07-02 04:21] LABS: Albumin 3.1 g/dL (3.4-5.0); Bilirubin Total 0.6 mg/dL (0.2-1.0); Potassium 4.5 mEq/L (3.5-5.1); Protein, Total 6.9 g/dL (6.4-8.2)
[2022-07-02] MEDS: MORPHINE 4 MG/ML SYR IV PRN ×2 (04:22→10:04)
[2022-07-02] MEDS ORDERED: LOPERAMIDE HCL 2 MG CAPSULE PO PRN (09:39)
[2022-07-02] MEDS: METOPROLOL TAR 25 MG TAB PO SCH ×2 (10:49→22:00)
[2022-07-02] MEDS: LOSARTAN POTASSIUM 50 MG TABLET PO SCH (10:49)
[2022-07-02] MEDS: TRAMADOL HCL 50 MG TAB PO SCH ×3 (10:50→22:27)
--- NOTE | 2022-07-02 12:59 | P.PN ---
Subjective Date of Service: 07/03/22 Chief Complaint: Abdominal pain. Subjective: No new changes, Improving Physical Examination - Vital Signs Temperature: 97.6 F Blood Pressure: 169/77 Pulse: 72 Respirations: 18 Pulse Ox (%): 97 - Physical Exam General: Alert, Oriented x3 HEENT: Atraumatic, Normocephalic Neck: Supple Respiratory: Normal air movement Cardiovascular: Regular rate/rhythm, Normal S1 S2 Gastrointestinal: Soft and benign Neurological: Normal speech Assessment And Plan - Plan Assessment and Plan - Plan --SBO. CT imaging indicates Dilated proximal small bowel loops with fecalization, concerning for obstruction. The transition point is just left of midline, approximately at the level of the umbilicus, closely related to the superior margin of a hernia repair mesh. Surgeon consulted. Nursing staff unable to insert an NG tube. We will keep patient NPO. We will await further recommendation from surgeon. Continue IV hydration and supportive care. for possible intervention in am. --Acute pain. We will manage pain with current pain medication regimen. --Nausea. Antiemetics on board. Continue supportive care. keep NPO. --DM2. BS monitoring with sliding scale insulin. --Dementia. Stable. Continue home medication when appropriate. --Hyperlipidemia. Continue home medication when appropriate. --Hypertension. Poorly controlled. Continue home medications and labetalol as needed. --History of breast cancer. Status post right breast mastectomy. Continue supportive care. -- Anemia of chronic disease. H&H stable. We will continue to monitor hemoglobin and transfuse if less than 7.0. --CKD 3A. Stable. We will continue to monitor renal functions. --Depression. Continue home medication when appropriate. -- DVT prophylaxis with SCDs. Discharge Plan: Home Plan to discharge in: Greater than 2 days Physician Review: Patient Assessed, Agree with Above Assessment and Plan
[2022-07-03] MEDS: INSULIN -REGULAR HUMAN 50 UNIT/0.5 ML ML SQ SCH ×6 (01:30→20:47)
[2022-07-03] MEDS: TRAMADOL HCL 50 MG TAB PO SCH ×2 (04:00→10:00)
--- NOTE | 2022-07-03 05:02 | EKG ---
Test Date: 2022-07-01 Test Time: 08:56:03 Machine Stone Polisher Apprentice: JASON MEASUREMENT RESULTS: Intervals: Rate: 75 VT: 148 QRSD: 90 QT: 398 QTc: 444 [place]: P: 9 VT: 148 QRS: -35 T: 50 INTERPRETIVE STATEMENTS: Normal sinus rhythm Left axis deviation Abnormal ECG Compared to ECG 07/01/2022 08:54:55 No significant changes Electronically Signed On 07-03-22 04:55:07 CDT by Tony Mccormack
--- NOTE | 2022-07-03 05:02 | EKG ---
Test Date: 2022-07-01 Test Time: 08:54:55 Fitness Specialist: JASON MEASUREMENT RESULTS: Intervals: Rate: 77 OR: 150 QRSD: 92 QT: 346 QTc: 391 [place]: P: 4 OR: 150 QRS: -34 T: 51 INTERPRETIVE STATEMENTS: Normal sinus rhythm Left axis deviation Abnormal ECG Compared to ECG 05/12/2021 21:50:36 Left-axis deviation now present Left ventricular hypertrophy no longer present T-wave abnormality no longer present Electronically Signed On 07-03-22 04:55:08 CDT by Tony Mccormack
[2022-07-03] MEDS: NA CHLORIDE 0.9% 1,000 ML IV SCH ×2 (06:00→20:59)
[2022-07-03] MEDS ORDERED: HOME MED 1 EA UNK (Losartan Potassium [Cozaar] 100 MG Tablet) PO SCH (09:00)
[2022-07-03] MEDS: METOPROLOL TAR 25 MG TAB PO SCH (09:00)
[2022-07-03] MEDS ORDERED: ASPIRIN 81 MG CHEWABLE TABLET PO SCH (09:00)
[2022-07-03] MEDS ORDERED: AMLODIPINE 10 MG TAB PO SCH (09:00)
[2022-07-03] MEDS ORDERED: HOME MED 1 EA UNK (Meloxicam [Mobic] 15 MG Tablet) PO SCH (09:00)
[2022-07-03] MEDS: LOSARTAN POTASSIUM 50 MG TABLET PO SCH (09:00)
[2022-07-03] MEDS ORDERED: CITALOPRAM 10 MG TABLET PO SCH (09:00)
--- NOTE | 2022-07-03 11:16 | CON ---
Date of Consultation: 07/02/2022 Reason For Consultation: Cardiac clearance for possible surgery for small bowel obstruction. History Of Present Illness: Ms. Parr is 82. Has a history of breast cancer, diabetes, hypertensio n, dyslipidemia. Had a normal heart catheterization in 2014, comes in with small bowel obstruction, surgery is pending. She had been treated conservatively for now. She has no allergies and is having no cardiac symptoms. Medications: At home includes Norvasc, losartan, metoprolol, and aspirin. Physical Examination: That was done by Dr. Grimm was unremarkable. She is in sinus rhythm. She has a small bowel obstructi on by examination and workup. Diagnostic Data: EKG is nonspecific. Chest x-ray is negative. Troponin is negative. Echocardiogra m is pending. Impression And Plan: Patient has no cardiac symptoms. No evidence of congestive heart failure or co ronary artery disease by examination and she is cleared to undergo surgery by Dr. Rothman if surgery is recommended. We will be available for questions. RINA/EDUARD Voice ID: [id number] Report ID: [id number]
--- NOTE | 2022-07-03 12:31 | PN ---
Date of Progress Note: 07/02/2022 Diagnosis: Bowel obstruction. Subjective: This is the case of an 82-year-old patient, who comes to us few days ago with bowel obst ruction, even fecalization of the small bowel. She has been n.p.o., bowel rest. Yesterday, she felt better in the morning to the point that she wanted to try some diet. She states she has no belly ac he, abdomen soft and depressible, had a bowel movement, but then after she ate, she started vomiting and a lot of cramping. So, we discussed with the patient the importance of re-evaluating her conditi on and since the 3 days she has not even tolerated clear liquid diet, she may have to once again cont emplate the idea of the laparotomy, laparoscopy, possible bowel resection, possible ostomy with benef its, alternatives, and risks fully explained to her, which include, but not limited to infection, ble eding, damage to adjacent structures, anesthesia complication, recurrence, TX, and even . We le t her just talked to the family. This morning when I went there, she was moving around, walking arou nd and when asked her about the surgery, she says she did not recall the Surgery and she has not been vomiting or any nausea for the last week. I explained to her that she did exactly that yesterday in front of all the nurses, the primary doctor and me, and we witnessed of this projectile vomiting. S he does not recall that, so I requested the family to come to the hospital because I need to discuss the case with them. They kindly came, did talk to the mom, and explained to her that we note she wan ts to go home, but at the same time she cannot go home in these conditions. She went ahead and then said it is okay with surgery that she agreed yes. She has been vomiting and she cannot keep anything in. After she eats, she had severe cramp in the abdomen, which we understand since we saw that her imaging with bowel obstruction. The family once again fully explained as the lady the benefits, alte rnatives, and risks of diagnostic laparoscopy, laparoscopic possible open bowel resection, possible e xploratory laparotomy, lysis of adhesions, but she has previous mesh in that region, she has previous hernia repairs. She even thinks she may have some bowel resections in the past, so may be a case th at may take some significant amount of time, so I advised her of the surgery. We even contacted prim [facility] doctors and let them know that this patient most likely will be in the ICU. Today, she is no bet ter. She just has a sip of Coke even though she was advised not to do so and she got sick anyway and she was explained the importance of being compliance with treatment since doing that may cause aspir ation pneumonia, which in that case may be result in . So she is going to trying to cooperate. She is a sweet lady, although she just obviously trying to see if she can do something on her own, b ut obviously it is not working and she is getting worse. For that reason, she will allow us to do th e surgery today. The patient was already booked in OR and she understood all the risks and son is at bedside and they will sign a consent. DANIEL/EDUARD Voice ID: [id number] Report ID: [id number]
--- NOTE | 2022-07-03 13:07 | P.PN ---
Subjective Date of Service: 07/03/22 Chief Complaint: Abdominal pain. Subjective: No new changes, NPO Physical Examination - Vital Signs Temperature: 97.6 F Blood Pressure: 169/77 Pulse: 72 Respirations: 18 Pulse Ox (%): 97 - Physical Exam General: Alert, Oriented x3 HEENT: Atraumatic, Normocephalic Neck: Supple Respiratory: Normal air movement Cardiovascular: Regular rate/rhythm, Normal S1 S2 Gastrointestinal: Soft and benign Musculoskeletal: No swelling Neurological: Normal speech Assessment And Plan - Plan Assessment and Plan - Plan --SBO. CT imaging indicates Dilated proximal small bowel loops with fecalization, concerning for obstruction. has been evaluated by surgeon and is to get intervention today. --Acute pain. We will manage pain with current pain medication regimen. --Nausea. Antiemetics on board. Continue supportive care. keep NPO pending review. --DM2. BS monitoring with sliding scale insulin. --Dementia. Stable. Continue home medication when appropriate. --Hyperlipidemia. Continue home medication when appropriate. --Hypertension. Poorly controlled. Continue home medications and labetalol as needed. --History of breast cancer. Status post right breast mastectomy. Continue supportive care. -- Anemia of chronic disease. H&H stable. We will continue to monitor hemoglobin and transfuse if less than 7.0. --CKD 3A. Stable. We will continue to monitor renal functions. --Depression. Continue home medication when appropriate. -- DVT prophylaxis with SCDs. Discharge Plan: Home Plan to discharge in: Greater than 2 days Physician Review: Patient Assessed, Agree with Above Assessment and Plan
[2022-07-03] MEDS ORDERED: propofoL 200 MG/20 ML VIAL IV ONE (13:33)
[2022-07-03] MEDS ORDERED: LIDOCAINE 2% MPF 5 ML VIAL ONE (13:34)
[2022-07-03] MEDS ORDERED: FENTANYL CITR 100 MCG/2 ML ONE (13:34)
[2022-07-03] MEDS ORDERED: ROCURONIUM 50 MG/5 ML VIAL IV ONE (13:34)
[2022-07-03] MEDS ORDERED: ONDANSETRON 4 MG/2 ML VIAL ONE ×2 (13:34→15:41)
--- NOTE | 2022-07-03 13:55 | ECHO ---
HEIGHT: 5 ft 2 in WEIGHT: 159 lb 12.8 oz DATE OF STUDY: 07/03/[address]: Matt Grimm MD 2-DIMENSIONAL: YES M.MODE: YES DOPPLER: YES COLOR FLOW: YES TDS: PORTABLE: DEFINITY: BUBBLE STUDY: DIAGNOSIS: CONGESTIVE HEART FAILURE CARDIAC HISTORY: CATHERIZATION: SURGERY: PROSTHETIC VALVE: PACEMAKER: MEASUREMENTS (cm) DIASTOLIC (NORMALS) SYSTOLIC (NORMALS) IVSd 1.0 (0.6-1.2) LA Diam 4.2 (1.9-4.0) LVEF 74% LVIDd 4.7 (3.5-5.7) LVIDs 2.7 (2.0-3.5) %FS 43% LVPWd 1.0 (0.6-1.2) Ao Diam 2.6 (2.0-3.7) 2 DIMENSIONAL ASSESSMENT: RIGHT ATRIUM: NORMAL LEFT ATRIUM: ENLARGED RIGHT VENTRICLE: NORMAL LEFT VENTRICLE: NORMAL TRICUSPID VALVE: MILD TRICUSPID REGURGITATION MITRAL VALVE: MILD MITRAL REGURGITATION PULMONIC VALVE: NORMAL AORTIC VALVE: MILD AORTIC INSUFFICIENCY PERICARDIAL EFFUSION: NONE AORTIC ROOT: NORMAL LEFT VENTRICULAR WALL MOTION: NORMAL DOPPLER/COLOR FLOW: SEE BELOW COMMENTS: 1. NORMAL LEFT VENTRICULAR EJECTION FRACTION GREATER THAN 60% 2. NORMAL WALL MOTION 3. LEFT ATRIAL ENLARGEMENT 4. MILD TRICUSPID REGURGITATION, MITRAL REGURGITATION, AORTIC INSUFFICIENCY 5. MODERATE DIASTOLIC DYSFUNCTION 6. RIGHT VENTRICULAR SYSTOLIC PRESSURE IS 40-45 mmHg TECHNOLOGIST: DAPHNEY BALTAZAR
[2022-07-03] MEDS ORDERED: NA CHLORIDE 0.9% 1,000 ML ONE ×2 (14:13→17:09)
[2022-07-03] MEDS ORDERED: CIPROFLOXACIN 400mg IV 400 MG/200 ML BAG IV ONE (14:26)
[2022-07-03] MEDS ORDERED: dexAMETHasone 4 MG/ML VIAL ONE (15:41)
[2022-07-03] MEDS ORDERED: Mastisol Adhesive Liq ONE (16:29)
[2022-07-03] MEDS ORDERED: NEOSTIGMINE 1 MG/ML -10 ML VIAL ONE (16:30)
[2022-07-03] MEDS ORDERED: GLYCOPYRROLATE 0.2 MG/ML SYR ONE (16:30)
--- NOTE | 2022-07-03 16:53 | P.BOP ---
Preoperative diagnosis: small bowel obstruction, abdominal pain Postoperative diagnosis: same, extensive lysis od adhesions Primary procedure: Exploratory laparotomy, small bowel resection and anastomosis, Secondary procedure: Laparoscopic extensive lysis of adhesions, diagnostic lapar oscopy Estimated blood loss: <50cc Specimen: small bowel Findings: see dictation Anesthesia: General Complications: None Transferred to: Recovery Room Condition: Good
[2022-07-03] MEDS: HYDROMORPHONE HCL 1 MG/ML INJ ONE ×2 (17:03→17:20)
[2022-07-03] MEDS: METRONIDAZOLE 500mg IVPB 500 MG/100 ML BAG IV SCH (18:01)
[2022-07-03] MEDS: MORPHINE 4 MG/ML SYR IV PRN (18:58)
--- NOTE | 2022-07-03 19:13 | OP ---
Date of Procedure: 07/03/2022 Surgeon: Tristan Rothman MD Preoperative Diagnoses: Small bowel obstruction, abdominal pain. Postoperative Diagnoses: Small bowel obstruction, abdominal pain plus extensive lysis of adhesions. Procedures: Exploratory laparotomy, small bowel resection with anastomosis, laparoscopic extensive l ysis of adhesions, and diagnostic laparoscopy. Estimated Blood Loss: Less than 50 cc. Specimen: Small bowel. Findings: The patient has an area of devitalized bowel creating a kink and creating a stricture not allowing this bowel to properly work and that bowel was resected segment. Complications: None. Anesthesia: General plus local. Indication: This is the case of an 82-year-old patient with small bowel obstruction, persistent, so I talked with the family and with the patient. The patient decided to go for diagnostic laparotomy, possible bowel resection, possible ostomy with benefits, alternatives, and risks including, but not l imited to infection, bleeding, damage to adjacent structures, anesthesia complication, bile leak, MN and even . She also understands this may not relieve any symptoms. She might need more than on e surgical intervention. She has previous surgeries in the abdomen with last surgery to have also in carcerated hernia repair with adhesions found even mesh have to be placed. It was more than 10 years ago. She has been on and off having that issue with the adhesions too, but this time the bowel did not want to open and she continue with vomiting and bowel obstruction, so we went for surgery. Procedure In Detail: The patient was brought to the operating room, placed in supine position. Anes thesia was done without complication. Abdominal area was prepped and draped in the usual sterile fas hion. A time-out was called. An incision was made on the epigastric area just to put a Medhat troca r in that region under direct visualization. Vicryl #1 placed inside the fascia. This allowed me to do a diagnostic laparoscopy and understand was causing the obstruction. We proceeded to run the sma ll bowel and took a look at the liver, the stomach and the large bowel, and the problem is the small bowel attached to the anterior abdominal wall, was partially attached to the midline incision and par tially attached to the mesh. That bowel skin looks devitalized. We see the area of transition point , so we proceeded then to do extensive lysis of adhesions. This allowed me to release the bowel. I even have to cut a little bit of the mesh not to cause an enterotomy. That bowel is going to be emma paul anyway, but we did not want to cause any enterotomy inside the belly, but that helped us also to tack the small bowel. Then, after we did lysis of adhesions, took about half the case just to do so, then we put a grasper in that area to be removed and we made a small laparotomy. The incision was c arried down to fascia. Fascia was opened under direct visualization. We eviscerated the small bowel . Once again, we ran it again. We noticed the area of concern is the area that we have in our hands . We obtained proximal and distal control of that, transected that with a JUAN MANUEL 80. Transected the me senteric with the help of LigaSure. I have to mention that the lysis of adhesions previously were do ne with LigaSure. We also have 5 mm trocar on each side of the abdomen to help us also to do that an d was introduced in direct visualization. Once again, coming back to the laparotomy. Once we exteri orized this small bowel, we were able to obtain proximal and distal control, transected the proximal and distal with a JUAN MANUEL 80. Then, caused 2 enterotomies and fired a JUAN MANUEL 80 in between creating the fuentes stomosis, then closing the enterotomies with a TA60. At the end of the anastomosis, we secured that area with 3-0 silk. The mesentery was closed with the help of 0 chromic. No bleeding. Excellent an astomosis. This bowel looks viable with no cyanosis. We carefully repositioned in the abdomen. Onc e in the abdominal cavity, located the NG tube and made sure it was in the stomach and irrigated the abdomen profusely, once again checked the anastomosis and looks viable with no bleeding. The proxima l dilated bowel now decompressing the previously collapsed bowel, ensuring good connection between. At that moment, I proceeded then to close the midline incision with #1 PDS in a running fashion. The area was irrigated. Hemostasis obtained. Subcutaneous tissue closed with 3-0 chromic. Epigastric incision was closed with Vicryl and then the skin was closed with ryanne. Sponge count, instrument counts correct. Irrigation was done before closure. The patient sent to recovery in stable conditio nChadwick SANCHEZ/EDUARD Voice ID: [id number] Report ID: [id number]
[2022-07-03] MEDS: CIPROFLOXACIN 400mg IV 400 MG/200 ML BAG IV SCH (20:50)
[2022-07-04] MEDS: INSULIN -REGULAR HUMAN 50 UNIT/0.5 ML ML SQ SCH ×6 (00:55→20:13)
[2022-07-04] MEDS: METRONIDAZOLE 500mg IVPB 500 MG/100 ML BAG IV SCH ×3 (00:56→17:29)
[2022-07-04] MEDS: MORPHINE 4 MG/ML SYR IV PRN ×4 (04:46→23:31)
[2022-07-04 05:09] LABS: Absolute Lymphocytes (CBC) 0.8 K/uL (0.7-4.9); Hematocrit 30.3 % (36.0-45.0); Lymphocytes % 10.1 % (15.3-44.8); MCV 94.6 fL (80-100); MPV 8.3 fL (7.6-11.3); RBC Red Blood Cell Count 3.21 M/uL (3.86-4.86)
[2022-07-04 05:44] LABS: Magnesium 1.7 mg/dL (1.6-2.4); Phosphorus 2.9 mg/dL (2.5-4.9); Potassium 4.3 mEq/L (3.5-5.1)
[2022-07-04] MEDS ORDERED: MAGNESIUM SULFATE 1 gm IVPB 1 GM/100 ML BAG IV ONE (08:00)
[2022-07-04] MEDS: CIPROFLOXACIN 400mg IV 400 MG/200 ML BAG IV SCH ×2 (08:11→20:14)
--- NOTE | 2022-07-04 08:33 | P.PN ---
Subjective Date of Service: 07/04/22 Chief Complaint: Abdominal pain. Physical Examination - Vital Signs Temperature: 97.7 F Blood Pressure: 171/60 Pulse: 71 Respirations: 12 Pulse Ox (%): 97 Assessment And Plan - Plan Assessment and Plan - Plan --SBO. CT imaging indicates Dilated proximal small bowel loops with fecalization, concerning for obstruction. has been evaluated by surgeon and is to get intervention today. --Acute pain. We will manage pain with current pain medication regimen. --Nausea. Antiemetics on board. Continue supportive care. keep NPO pending review. --DM2. BS monitoring with sliding scale insulin. --Dementia. Stable. Continue home medication when appropriate. --Hyperlipidemia. Continue home medication when appropriate. --Hypertension. Poorly controlled. Continue home medications and labetalol as needed. --History of breast cancer. Status post right breast mastectomy. Continue supportive care. -- Anemia of chronic disease. H&H stable. We will continue to monitor hemoglobin and transfuse if less than 7.0. --CKD 3A. Stable. We will continue to monitor renal functions. --Depression. Continue home medication when appropriate. -- DVT prophylaxis with SCDs. Discharge Plan: Home Plan to discharge in: Greater than 2 days Physician Review: Patient Assessed, Agree with Above Assessment and Plan
[2022-07-04] MEDS: NA CHLORIDE 0.9% 1,000 ML IV SCH (08:40)
--- NOTE | 2022-07-04 10:35 | P.PN ---
Subjective Date of Service: 07/04/22 Chief Complaint: Abdominal pain. Subjective: No new changes, Improving (Had operative repair of small bowel obstruction deemed secondary to adhesions.) Physical Examination - Vital Signs Temperature: 97.7 F Blood Pressure: 171/60 Pulse: 71 Respirations: 12 Pulse Ox (%): 97 - Physical Exam General: In no apparent distress HEENT: Atraumatic, Normocephalic Neck: Supple Respiratory: Normal air movement Cardiovascular: Regular rate/rhythm, Normal S1 S2 Gastrointestinal: Soft and benign Musculoskeletal: No swelling Assessment And Plan - Plan Assessment and Plan - Plan --SBO. She is status post repair of small bowel obstruction with adhesions found attaching anterior abdominal wall to the small intestine. She had repair of adhesions and primary anastomosis of intestine. She is kept n.p.o. for the next 3 days. We will start TPN for nutrition. --DM2. BS monitoring with sliding scale insulin. --Dementia. Stable. Continue home medication when appropriate. --Hyperlipidemia. Continue home medication when appropriate. --Hypertension. Fairly controlled blood pressure. Will monitor per unit protocol. --History of breast cancer. Status post right breast mastectomy. Continue supportive care. -- Anemia of chronic disease. H&H stable. We will continue to monitor hemoglobin and transfuse if less than 7.0. --CKD 3A. Stable. We will continue to monitor renal functions. --Depression. Continue home medication when appropriate. -- DVT prophylaxis with SCDs. Physician Review: Patient Assessed, Agree with Above Assessment and Plan
[2022-07-04] MEDS ORDERED: DEXTROSE 10%-WATER 500 ML IV PRN (10:36)
[2022-07-04] MEDS ORDERED: GLUCAGON 1 MG/VIAL IM PRN (10:36)
[2022-07-04] MEDS ORDERED: D50W 25 GM/50 ML SYRINGE IV PRN (10:36)
[2022-07-04] MEDS ORDERED: D10W 125 ML IV PRN (10:46)
[2022-07-04 11:29] LABS: Absolute Lymphocytes (CBC) 1.1 K/uL (0.7-4.9); Hematocrit 28.7 % (36.0-45.0); Lymphocytes % 13.7 % (15.3-44.8); MCV 94.8 fL (80-100); MPV 7.9 fL (7.6-11.3); RBC Red Blood Cell Count 3.03 M/uL (3.86-4.86)
[2022-07-04 12:02] LABS: Phosphorus 2.2 mg/dL (2.5-4.9); Prealbumin 14.5 mg/dL (20-40)
[2022-07-04] MEDS ORDERED: POTASSIUM PHOS IN 0.9 % NACL 15 MMOL/250 ML BAG IV ONE (14:15)
[2022-07-04] MEDS: HALOPERIDOL LACT 5 MG/ML INJ IV PRN ×2 (15:55→22:13)
[2022-07-04] MEDS: AA 4.25 %/D5W/ELECTROLYTES 2,000 ML IV SCH (18:25)
--- NOTE | 2022-07-04 22:35 | PN ---
Date of Progress Note: 07/04/2022 Diagnosis: Status post laparotomy with bowel resection and anastomosis. Subjective: Patient is doing better. She is awake and alert. She is still obviously like before, c onfused. She wants to go home and she wants to take her IVs out and NG tube out. She is not mad or in trouble. She just believes that she is okay and she wants to go home. Unfortunately, these activ ities may compromise the treatment, which is necessary for her survival. So, she was restrained. Objective: Chest: Clear. Abdomen: Intact surgical site. Bowel sounds diminished. Extremities: Good capillary refill. Laboratory Data: Blood work shows a WBC count of 8 with hemoglobin of 9.4, platelets of 189. BUN is 20, calcium 7.8. Assessment: An 82-year-old patient with bowel obstruction and anastomosis with small-bowel resection . Patient is doing better. By tomorrow afternoon, probably we can give her some ice chips and medic ations by mouth. I remember that she comes with the bowel obstruction and even though we created fuentes stomosis and removed the area of concern and let that ileus break. So, feeding her too early may onc e again give us the same problem that we had before, which is nausea, vomiting, but at the same time if by tomorrow we hear bowel sounds and we get some gas, then we will might just once again start liq uid diet. We will follow the patient clinically and decide on that tomorrow. DANIEL/EDUARD Voice ID: [id number] Report ID: [id number]
[2022-07-05] MEDS: METRONIDAZOLE 500mg IVPB 500 MG/100 ML BAG IV SCH ×3 (01:06→16:36)
[2022-07-05] MEDS: INSULIN -REGULAR HUMAN 50 UNIT/0.5 ML ML SQ SCH ×6 (01:09→20:45)
[2022-07-05] MEDS: MORPHINE 4 MG/ML SYR IV PRN ×4 (01:09→21:22)
[2022-07-05] MEDS: HALOPERIDOL LACT 5 MG/ML INJ IV PRN ×2 (04:47→22:51)
[2022-07-05 05:31] LABS: Absolute Lymphocytes (CBC) 1.8 K/uL (0.7-4.9); Hematocrit 29.9 % (36.0-45.0); Lymphocytes % 21.2 % (15.3-44.8); MCV 95.9 fL (80-100); RBC Red Blood Cell Count 3.12 M/uL (3.86-4.86)
[2022-07-05 05:46] LABS: Magnesium 1.9 mg/dL (1.6-2.4); Phosphorus 2.3 mg/dL (2.5-4.9)
[2022-07-05] MEDS: HYDRALAZINE HCL 20 MG/ML VIAL IV PRN (07:13)
[2022-07-05] MEDS ORDERED: POTASSIUM PHOS IN 0.9 % NACL 15 MMOL/250 ML BAG IV ONE (08:00)
[2022-07-05] MEDS: CIPROFLOXACIN 400mg IV 400 MG/200 ML BAG IV SCH ×2 (09:01→20:44)
[2022-07-05] MEDS: AA 4.25 %/D5W/ELECTROLYTES 2,000 ML, Lipids 20% 250 ML with MULTIVITAMINS INJ 10 ML IV SCH ×3 (16:36)
--- NOTE | 2022-07-05 20:17 | PN ---
Date of Progress Note: 07/05/2022 Subjective: Status post bowel resection with anastomosis and bowel obstruction. The patient is doin g better. She states she is passing gas. Objective: Chest: Clear. Abdomen: Soft and depressible. Intact surgical site. Bowel sounds positive. Extremities: Good capillary refill. Laboratory Data: WBC count shows 8.7, hemoglobin of 9.7. Plan: I started clear liquid diet. Out of bed. I understand she pulled her NG tube and she put the Alejandra even with the balloon inflated. If she goes to the floor, we have to evaluate what kind of ob servation she will need next to her. DANIEL/MODRaza Voice ID: [id number] Report ID: [id number]
--- NOTE | 2022-07-05 23:16 | P.PN ---
Date of Service: 07/05/22 Subjective Doing well; pleasantly confused; advanced dementia Physical Examination - Physical Exam General: Alert, In no apparent distress, Oriented x2, Cooperative Respiratory: Clear to auscultation bilaterally, Normal air movement Cardiovascular: No edema, Regular rate/rhythm, Normal S1 S2 Gastrointestinal: Normal bowel sounds, Distended, Tenderness Musculoskeletal: No clubbing, No tenderness Integumentary: No rashes, No breakdown, No significant lesion Neurological: Normal speech, Normal strength at 5/5 x4 extr, Normal tone, Normal affect Assessment and Plan - Assessment/Plan --SBO. CT imaging indicates Dilated proximal small bowel loops with fecalization, concerning for obstruction. The transition point is just left of midline, approximately at the level of the umbilicus, closely related to the superior margin of a hernia repair mesh. Surgeon consulted. Nursing staff unable to insert an NG tube. We will keep patient NPO. We will await further recommendation from surgeon. Continue IV hydration and supportive care. --Acute pain. We will manage pain with current pain medication regimen. --Nausea. Antiemetics on board. Continue supportive care. --DM2. BS monitoring with sliding scale insulin. --Dementia. Stable. Continue home medication when appropriate. --Hyperlipidemia. Continue home medication when appropriate. --Hypertension. Poorly controlled. Continue home medications and labetalol as needed. --History of breast cancer. Status post right breast mastectomy. Continue supportive care. -- Anemia of chronic disease. H&H stable. We will continue to monitor hemoglobin and transfuse if less than 7.0. --CKD 3A. Stable. We will continue to monitor renal functions. --Depression. Continue home medication when appropriate. -- DVT prophylaxis with SCDs. Discharge Plan: Home Plan to discharge in: Greater than 2 days - Advance Directives Does patient have a Living Will: No Does patient have a Durable POA for Healthcare: No - Code Status/Comfort Care Code Status Assessed: Yes Physician Review: Patient Assessed, Agree with Above Assessment and Plan Critical Care: No
[2022-07-06] MEDS: METRONIDAZOLE 500mg IVPB 500 MG/100 ML BAG IV SCH ×3 (00:12→16:22)
[2022-07-06] MEDS: INSULIN -REGULAR HUMAN 50 UNIT/0.5 ML ML SQ SCH ×6 (00:13→21:14)
[2022-07-06] MEDS: HYDRALAZINE HCL 20 MG/ML VIAL IV PRN (00:20)
[2022-07-06] MEDS: MORPHINE 4 MG/ML SYR IV PRN (04:28)
[2022-07-06 05:28] LABS: Magnesium 1.9 mg/dL (1.6-2.4); Phosphorus 2.5 mg/dL (2.5-4.9)
[2022-07-06 05:40] VITALS: BMI 31.1
[2022-07-06 05:52] LABS: Potassium 4.2 mEq/L (3.5-5.1)
[2022-07-06] MEDS: CIPROFLOXACIN 400mg IV 400 MG/200 ML BAG IV SCH ×2 (08:44→21:14)
[2022-07-06] MEDS ORDERED: SODIUM PHOSPHATE 20 MM in NA CHLORIDE 0.9% 250 ML IV ONE (09:00)
--- NOTE | 2022-07-06 13:00 | PN ---
Date of Progress Note: 07/06/2022 Diagnosis: Status post small bowel obstruction, status post small bowel resection with anastomosis. Doing well. Tolerating clear liquid diet. No nausea. No vomiting. Passing flatus. Objective: Chest: Clear. Abdomen: Soft and depressible. Intact surgical site. Extremities: Good capillary refill. Laboratory Data: Blood work shows WBC count of 8.7, hemoglobin of 9.7, and potassium is 4.2. Plan: Will be advanced diet to full liquid diet. It is okay from the surgical standpoint to move to the floor whenever the medical doctor believes it is safe. Ambulation, incentive spirometry. HM/MODL Voice ID: [id number] Report ID: [id number]
[2022-07-06] MEDS: AA 4.25 %/D5W/ELECTROLYTES 2,000 ML IV SCH (18:37)
[2022-07-07] MEDS: METRONIDAZOLE 500mg IVPB 500 MG/100 ML BAG IV SCH ×3 (01:05→18:15)
[2022-07-07] MEDS: INSULIN -REGULAR HUMAN 50 UNIT/0.5 ML ML SQ SCH ×6 (01:06→20:02)
[2022-07-07] MEDS: HYDRALAZINE HCL 20 MG/ML VIAL IV PRN (01:55)
--- NOTE | 2022-07-07 10:34 | P.PN ---
Date of Service: 07/06/22 Subjective Doing well; tolerating her diet; pleasantly confused; advanced dementia Physical Examination - Physical Exam General: Alert, In no apparent distress, Oriented x2, Cooperative Respiratory: Clear to auscultation bilaterally, Normal air movement Cardiovascular: No edema, Regular rate/rhythm, Normal S1 S2 Gastrointestinal: Normal bowel sounds, minimally tender but otherwise doing much better. Musculoskeletal: No clubbing, No tenderness Neurological: Generalized weakness but no focal deficits Assessment and Plan - Assessment/Plan --SBO; status post bowel resection. Patient clinically doing well. Started on a diet and advancing as tolerated --DM2. BS monitoring with sliding scale insulin. --Dementia. Stable. Continue home medication when appropriate. --Hyperlipidemia. Continue home medication when appropriate. --Hypertension. Poorly controlled. Continue home medications and labetalol as needed. --History of breast cancer. Status post right breast mastectomy. Continue supportive care. -- Anemia of chronic disease. H&H stable. We will continue to monitor hemoglobin and transfuse if less than 7.0. --CKD 3A. Stable. We will continue to monitor renal functions. --Depression. Continue home medication when appropriate. -- DVT prophylaxis with SCDs. Discharge Plan: Home Plan to discharge in: Greater than 2 days - Advance Directives Does patient have a Living Will: No Does patient have a Durable POA for Healthcare: No - Code Status/Comfort Care Code Status Assessed: Yes Physician Review: Patient Assessed, Agree with Above Assessment and Plan Critical Care: No
[2022-07-07] MEDS: CIPROFLOXACIN 400mg IV 400 MG/200 ML BAG IV SCH ×2 (10:52→20:03)
[2022-07-07] MEDS ORDERED: INSULIN -REGULAR HUMAN 50 UNIT/0.5 ML ML SQ SCH (12:00)
--- NOTE | 2022-07-07 13:23 | PN ---
Date of Progress Note: 07/07/2022 Diagnosis: Small bowel obstruction, status post laparotomy bowel resection. Subjective: Doing great. No nausea. No vomiting. Passing flatus. Objective: Chest: Clear. Abdomen: Soft and depressible. Intact surgical site. Bowel sounds positive. Extremities: Good capillary refill. Plan: Advance diet. May discharge home whenever they believe it is safe medically and follow up in my office in a week. DANIEL/EDUARD Voice ID: [id number] Report ID: [id number]
[2022-07-07] MEDS: AA 4.25 %/D5W/ELECTROLYTES 2,000 ML IV SCH (18:03)
--- NOTE | 2022-07-07 19:02 | P.PN ---
Date of Service: 07/07/22 Subjective Patient continues to do well. Working with physical therapy and try to build patient's strength. Out of bed and ambulating. Physical Examination - Physical Exam General: Alert, In no apparent distress, Oriented x2, Cooperative Respiratory: Clear to auscultation bilaterally, Normal air movement Cardiovascular: No edema, Regular rate/rhythm, Normal S1 S2 Gastrointestinal: Normal bowel sounds, minimally tender but otherwise doing much better. Musculoskeletal: No clubbing, No tenderness Neurological: Generalized weakness but no focal deficits Assessment and Plan - Assessment/Plan --SBO; status post bowel resection. Patient clinically doing well. Started on a diet and advancing as tolerated --DM2. BS monitoring with sliding scale insulin. --Dementia. Stable. Continue home medication when appropriate. --Hyperlipidemia. Continue home medication when appropriate. --Hypertension. Poorly controlled. Continue home medications and labetalol as needed. --History of breast cancer. Status post right breast mastectomy. Continue supportive care. --Anemia of chronic disease. H&H stable. --CKD 3A. Stable. We will continue to monitor renal functions. --Depression. Continue home medication when appropriate. --DVT prophylaxis with SCDs. Discharge Plan: Home Plan to discharge in: Greater than 2 days - Advance Directives Does patient have a Living Will: No Does patient have a Durable POA for Healthcare: No - Code Status/Comfort Care Code Status Assessed: Yes Physician Review: Patient Assessed, Agree with Above Assessment and Plan Critical Care: No
[2022-07-08] MEDS: INSULIN -REGULAR HUMAN 50 UNIT/0.5 ML ML SQ SCH ×6 (00:02→21:00)
[2022-07-08] MEDS: METRONIDAZOLE 500mg IVPB 500 MG/100 ML BAG IV SCH ×3 (00:27→17:39)
[2022-07-08] MEDS: MORPHINE 4 MG/ML SYR IV PRN (00:46)
[2022-07-08] MEDS: ACETAMINOPHEN 325 MG TABLET PO PRN (01:33)
--- NOTE | 2022-07-08 07:06 | P.PN ---
Date of Service: 07/08/22 Subjective Doing well during post-op period; advance diet as tolerated Physical Examination - Physical Exam General: Alert, In no apparent distress, Oriented x2, Cooperative Respiratory: Clear to auscultation bilaterally, Normal air movement Cardiovascular: No edema, Regular rate/rhythm, Normal S1 S2 Gastrointestinal: Normal bowel sounds, minimally tender but otherwise doing much better. Musculoskeletal: No clubbing, No tenderness Neurological: Generalized weakness but no focal deficits Assessment and Plan - Assessment/Plan --SBO; status post bowel resection. Patient clinically doing well. Tolerating diet --DM2. BS monitoring with sliding scale insulin. --Dementia. Stable. --Hyperlipidemia. Stable --Hypertension. Stable --History of breast cancer. Status post right breast mastectomy. --Anemia of chronic disease. H&H stable. --CKD 3A. Stable. --Depression. Continue home medication when appropriate. --DVT prophylaxis with SCDs. Discharge Plan: Home Plan to discharge in: Greater than 2 days - Advance Directives Does patient have a Living Will: No Does patient have a Durable POA for Healthcare: No - Code Status/Comfort Care Code Status Assessed: Yes Physician Review: Patient Assessed, Agree with Above Assessment and Plan Critical Care: No
[2022-07-08] MEDS: CIPROFLOXACIN 400mg IV 400 MG/200 ML BAG IV SCH ×2 (10:19→21:01)
[2022-07-08 11:24] LABS: Absolute Lymphocytes (CBC) 0.5 K/uL (0.7-4.9); Hematocrit 30.5 % (36.0-45.0); Lymphocytes % 4.7 % (15.3-44.8); MCV 93.9 fL (80-100); MPV 8.3 fL (7.6-11.3); RBC Red Blood Cell Count 3.24 M/uL (3.86-4.86)
[2022-07-08 11:39] LABS: Magnesium 2.3 mg/dL (1.6-2.4); Potassium 5.1 mEq/L (3.5-5.1)
[2022-07-08 12:42] LABS: Blood Morphology Comment NOT SEEN (NOT SEEN); Platelet Estimate ADEQ; White Blood Cell Scan OK (OK)
[2022-07-08] MEDS: AA 4.25 %/D5W/ELECTROLYTES 2,000 ML, Lipids 20% 250 ML with MULTIVITAMINS INJ 10 ML IV SCH ×3 (17:35)
[2022-07-08] MEDS: QUETIAPINE 25 MG TAB PO SCH (21:01)
[2022-07-09] MEDS: METRONIDAZOLE 500mg IVPB 500 MG/100 ML BAG IV SCH ×3 (00:28→16:52)
[2022-07-09] MEDS: INSULIN -REGULAR HUMAN 50 UNIT/0.5 ML ML SQ SCH ×6 (00:38→21:39)
[2022-07-09 05:53] LABS: Absolute Lymphocytes (CBC) 0.8 K/uL (0.7-4.9); Lymphocytes % 7.7 % (15.3-44.8); MPV 8.4 fL (7.6-11.3); RBC Red Blood Cell Count 3.11 M/uL (3.86-4.86)
[2022-07-09 06:11] LABS: Albumin 2.3 g/dL (3.4-5.0); Bilirubin Total 0.4 mg/dL (0.2-1.0); Magnesium 2.4 mg/dL (1.6-2.4); Potassium 5.5 mEq/L (3.5-5.1); Protein, Total 6.4 g/dL (6.4-8.2)
[2022-07-09] MEDS: CIPROFLOXACIN 400mg IV 400 MG/200 ML BAG IV SCH ×2 (09:09→21:39)
--- NOTE | 2022-07-09 13:21 | PN ---
Date of Progress Note: 07/09/2022 The patient is doing well. She is active. She still confused sometimes, but she answered the questi ons that we asked in [place]ic mainly. She states she has not eaten the diet because nobody had vince t her any food, but we witnessed that we put the food on her she was eating carrots. So f rom that standpoint, it is difficult to follow her and see how she does clinically. Apparently, she is eating. We are trying to even ask her today if there is any specific part of the food that she do es not like and she says if they bring her food, she will eat. So, we are going to trying to give he r some soft diet. Intact surgical site, so we have not much to worry about that area. She has not v omited. She has no nausea. She is passing flatus. So, whenever she can tolerate diet, we can stop the PPN and then eventually be discharged home properly and we have the issue of the confusion, but t he primary doctors are working on that. DANIEL/EDUARD Voice ID: [id number] Report ID: [id number]
[2022-07-09] MEDS ORDERED: CODEINE 30MG/APAP 300MG TAB PO PRN (14:28)
[2022-07-09] MEDS: AA 4.25 %/D5W/ELECTROLYTES 2,000 ML IV SCH (17:49)
[2022-07-09] MEDS: QUETIAPINE 25 MG TAB PO SCH (21:39)
[2022-07-10] MEDS: INSULIN -REGULAR HUMAN 50 UNIT/0.5 ML ML SQ SCH ×6 (01:10→20:00)
[2022-07-10] MEDS ORDERED: NA CHLORIDE 0.9% 500 ML IV ONE (07:36)
[2022-07-10] MEDS: NA CHLORIDE 0.9% 1,000 ML IV SCH ×2 (09:06→22:26)
[2022-07-10 10:34] LABS: Absolute Lymphocytes (CBC) 0.7 K/uL (0.7-4.9); Hematocrit 28.9 % (36.0-45.0); Lymphocytes % 7.1 % (15.3-44.8); MCV 93.2 fL (80-100); MPV 8.6 fL (7.6-11.3)
[2022-07-10 10:53] LABS: Potassium 6.2 mEq/L (3.5-5.1)
[2022-07-10] MEDS ORDERED: INSULIN -REGULAR HUMAN 50 UNIT/0.5 ML ML IV ONE (11:12)
[2022-07-10] MEDS ORDERED: SODIUM BICARB 50 MEQ/50ML VIAL IV ONE (13:00)
[2022-07-10 19:06] LABS: Magnesium 2.5 mg/dL (1.6-2.4)
[2022-07-10 19:21] LABS: Potassium 6.2 mEq/L (3.5-5.1)
[2022-07-10] MEDS ORDERED: CALCIUM GLUCONATE 1 GM IVPB 1 GM/50 ML BAG IV ONE (20:49)
[2022-07-10] MEDS ORDERED: INSULIN 70/30 100 UNITS/ML SQ ONE (20:51)
[2022-07-10] MEDS: QUETIAPINE 25 MG TAB PO SCH (21:11)
[2022-07-11] MEDS: INSULIN -REGULAR HUMAN 50 UNIT/0.5 ML ML SQ SCH ×6 (04:00→20:00)
[2022-07-11 08:06] LABS: Absolute Lymphocytes (CBC) 0.6 K/uL (0.7-4.9); MCV 92.6 fL (80-100); RBC Red Blood Cell Count 3.02 M/uL (3.86-4.86)
[2022-07-11 08:23] LABS: Bilirubin Total 0.4 mg/dL (0.2-1.0); Magnesium 2.4 mg/dL (1.6-2.4); Phosphorus 5.4 mg/dL (2.5-4.9); Potassium 5.1 mEq/L (3.5-5.1); Protein, Total 5.7 g/dL (6.4-8.2)
[2022-07-11] MEDS: ACETAMINOPHEN 325 MG TABLET PO PRN (10:25)
[2022-07-11] MEDS: NA CHLORIDE 0.9% 1,000 ML IV SCH ×3 (10:29→20:29)
--- NOTE | 2022-07-11 10:58 | CON ---
Date of Consultation: 07/11/2022 Reason For Consultation: Elevated BUN and creatinine, fluid management. History Of Present Illness: All the information has been obtained from the record as the patient is pleasantly confused, does not provide any history, has dementia. This is an 82-year-old female with significant past medical history of breast cancer, status post mastectomy on the right, diabetes comp licated with neuropathy, no retinopathy, hypertension, hyperlipidemia, dementia, the patient was brou ght to the hospital because of worsening altered mental status and abdominal pain with nausea and vom iting, decreased intake. Upon arrival to the hospital, the patient's creatinine 0.921. The patient' s kidney function gradually started declining starting on the 08 of July, currently creatinine up to 2.9. For that reason, we have been consulted. Apparently, the patient when came to the hospital be ing on Mobic and losartan. The patient also received contrast on the CT on admission. Again, the yvette ahmadi was admitted on the and the rise in the creatinine was till the , which doubt to be re lated to the contrast. The patient had surgery around the and occasional low blood pressure. O nly losartan was discontinued also on the . No other insulting incident. The patient yesterday had decrease in urine output. Alejandra was inserted, 1000 mL of urine was drained on the insertion, the n, over the night the patient put around 2.5 L. Past Medical History: Includes; 1.Diabetes complicated with neuropathy, no retinopathy. 2.Hypertension. 3.Hyperlipidemia. 4.Breast cancer, status post right mastectomy. Past Surgical History: Includes; 1.Right mastectomy in 2005. 2.Cholecystectomy. 3.Hernia repair. Social History: Denied smoking, denied drinking, denied drugs abuse. Review of Systems: None obtainable. Home Medications: Include aspirin, citalopram, loperamide, losartan, meloxicam, metoprolol, tramadol , amlodipine, and codeine. Allergies: NO KNOWN DRUGS ALLERGY. Physical Examination: General: When I saw the patient; the patient sitting in the bed, not on any distress. Vital Signs: Blood pressure 141/63, pulse of 90, afebrile. Chest: Clear to auscultation. Heart: S1, S2. Regular. Abdomen: Mild tenderness. No guarding or rebound. Alejandra in place. Bowel sound appreciated. Extremities: No edema. Neuro: Alert, confused. No focality. Laboratory Data: Hemoglobin 9.5. Sodium 134, potassium 5.1, bicarb 24, BUN 97, creatinine 2.3 has i mproved from yesterday of 2.9, GFR 22, calcium 7.8, phosphorus 5.4, magnesium 2.4, albumin 2, correct ed calcium is 9.4. Current Medications: The patient on include; 1.Hydralazine. 2.Quetiapine. 3.Zofran. Assessment And Plan: 1.Acute kidney injury, mostly secondary to poor perfusion ATN/toxic ATN and obstructive uropathy sec ondary to urine retention secondary to pain medication, on the recovery. I am going to continue on I V hydration, continue to maintain Alejandra as the patient put almost 2.5 L. I will increase IV fluid to 100 per hour to maintain good hydration and we will follow up. We will send for basic workup. 2.Hyponatremia, mostly secondary to depletional. Continue normal saline. 3.Hyperkalemia secondary to renal failure. I agree with holding any ARB. Currently, potassium down to 5.1. No need for bicarb. Continue hydration and we will follow up. 4.Anemia possible secondary to chronic disease with the presence of acute kidney injury. I am going to try to rule out light chain disease. We will send for serum protein electrophoresis and we will follow up the patient. We will send for anemia workup. 5.Small bowel obstruction. Follow up with primary and Surgery. Thank you, Dr. Grimm for allowing us to participate in the care of your patient. Time spent examining the patient [id number], reviewing data, lab and radiology, discussing with the family, discussing with the front desk team member including hospitalist and nursing staff more than 65 minutes . PEDRO PABLO Voice ID: [id number] Report ID: [id number]
--- NOTE | 2022-07-11 11:33 | RAD REPORT ---
EXAM DESCRIPTION: US - Renal Ultrasound-Complete - 07/11/2022 11:09 am CLINICAL HISTORY: TIP COMPARISON: Abdomen Pelvis W Contrast dated 07/01/2022 FINDINGS: Both kidneys are normal in size, shape and echotexture. The right kidney measures 8.5 cm. No hydronephrosis, focal mass or perinephric fluid. The left kidney measures 10 cm. Mild left sided hydronephrosis. No focal mass or perinephric fluid. The urinary bladder is incompletely distended without gross abnormality seen. Alejandra catheter present. IMPRESSION: Mild left-sided hydronephrosis .
[2022-07-11 12:07] LABS: Potassium 4.8 mEq/L (3.5-5.1); Prealbumin 10.5 mg/dL (20-40)
[2022-07-11 12:31] LABS: Urine Bacteria <20 /HPF (<20); Urine Bilirubin NEGATIVE (Negative); Urine Blood Trace (Negative); Urine Clarity Clear (Clear); Urine Color Light-Yellow (Yellow); Urine Glucose NEGATIVE (Negative); Urine Mucus Slight /HPF (None Seen); Urine Protein NEGATIVE (Negative); Urine Urobilinogen Normal (Normal); Urine pH 6.5 (5.0-7.0)
[2022-07-11] MEDS ORDERED: CEFTRIAXONE 1,000 MG in NA CHLORIDE 0.9% 50 ML IVPB ONE (14:14)
[2022-07-11] MEDS ORDERED: TAMSULOSIN 0.4 MG SR CAP PO ONE (14:24)
[2022-07-11] MEDS: QUETIAPINE 25 MG TAB PO SCH (19:46)
[2022-07-11] MEDS: TAMSULOSIN 0.4 MG SR CAP PO SCH (19:46)
[2022-07-11] MEDS: ENSURE HIGH PROTEIN 237 ML CAN PO SCH (19:46)
[2022-07-12] MEDS: INSULIN -REGULAR HUMAN 50 UNIT/0.5 ML ML SQ SCH ×6 (04:00→20:00)
[2022-07-12 04:20] LABS: RBC Red Blood Cell Count 2.94 M/uL (3.86-4.86)
[2022-07-12 04:53] LABS: Albumin 2.1 g/dL (3.4-5.0); Ferritin 194.4 ng/mL (8-388); Phosphorus 3.7 mg/dL (2.5-4.9); Potassium 4.4 mEq/L (3.5-5.1); Thyroid Stimulating Hormone 2.92 uIU/mL (0.358-3.740); Uric Acid 6.6 mg/dL (2.6-6.0)
--- NOTE | 2022-07-12 06:58 | P.PN ---
Date of Service: 07/09/22 Subjective Patient is clinically doing much better. The family wants her to go home. However, her renal function has worsened. I will continue to monitor closely. Urine output has been decreasing. Will reassess over next 24-48 hours. She may get to go home in the morning for renal function improves. Monitor nutritional status as well. She is eating fairly well. Physical Examination - Physical Exam General: Alert, In no apparent distress, Oriented x1, Advanced dementia; Cooperative Respiratory: Clear to auscultation bilaterally, Normal air movement Cardiovascular: No edema, Regular rate/rhythm, Normal S1 S2 Gastrointestinal: Normal bowel sounds, minimally tender but otherwise doing much better. Musculoskeletal: No clubbing, No tenderness Neurological: Generalized weakness but no focal deficits Assessment and Plan - Assessment/Plan --SBO; status post bowel resection. Patient clinically doing well. Started on a diet and advancing as tolerated; doing well with no new complaints --DM2. BS monitoring with sliding scale insulin. --Dementia. Stable. Continue home medication when appropriate. --Hypertension. Stable --History of breast cancer. Status post right breast mastectomy. Continue supportive care. --Anemia of chronic disease. H&H stable. We will continue to monitor hemoglobin and transfuse if less than 7.0. --CKD 3A. Stable. We will continue to monitor renal functions. --Depression. Continue home medication when appropriate. -- DVT prophylaxis with SCDs. Discharge Plan: Home Plan to discharge in: Greater than 2 days - Advance Directives Does patient have a Living Will: No Does patient have a Durable POA for Healthcare: No - Code Status/Comfort Care Code Status Assessed: Yes Physician Review: Patient Assessed, Agree with Above Assessment and Plan Critical Care: No
[2022-07-12] MEDS ORDERED: NA CHLORIDE 0.9% 100 ML ONE (08:34)
[2022-07-12] MEDS: NA CHLORIDE 0.9% 1,000 ML IV SCH ×2 (08:57→20:49)
[2022-07-12] MEDS: SOD FERRIC GLUC COMPLX/SUCROSE 125 MG in NA CHLORIDE 0.9% 100 ML IV SCH (09:00)
[2022-07-12] MEDS: ENSURE HIGH PROTEIN 237 ML CAN PO SCH ×2 (09:00→20:48)
--- NOTE | 2022-07-12 12:03 | P.DS ---
Admission Date: 07/01/22 Discharge Date: 07/12/22 Disposition: ROUTINE DISCHARGE Discharge Condition: GOOD Reason for Admission: Abdominal pain. Brief History of Present Illness: 82-year-old female patient with medical history significant for hypertension, bulimia, diabetes who also has issues of recurrent small bowel obstruction was admitted for evaluation of abdominal pain and suspected small bowel obstruction. The study confirmed obstruction. Surgeon was consulted for management recommendation. Hospital Course: She did undergo laparotomy and she had to confirm adhesions with small bowel obstruction. She underwent adhesiolysis and small bowel enterostomy with primary reanastomosis. She did well postsurgery and she was admitted to the ICU for evaluation and monitoring for at least 24. She was transferred to regular floor and has been transition to oral feeds with tolerance. Over the course of hospital stay she developed worsening kidney function which improved with hydration. She is discharged today to continue present care and oral diet and to follow-up with surgeon and other medical providers as scheduled. Vital Signs/Physical Exam: Temp Pulse Resp BP Pulse Ox 97.9 F 98 H 20 157/56 H 95 07/12/22 08:00 07/12/22 08:00 07/12/22 08:00 07/12/22 08:00 07/12/22 08:00 General: Alert HEENT: Atraumatic, Normocephalic Neck: Supple Respiratory: Normal air movement Cardiovascular: Normal pulses, Regular rate/rhythm Gastrointestinal: Soft and benign Musculoskeletal: No swelling Laboratory Data at Discharge: WBC Cancelled 07/11/22 10:45 Hgb Cancelled 07/11/22 10:45 Hct Cancelled 07/11/22 10:45 Plt Count Cancelled 07/11/22 10:45 Sodium 137 mEq/L (136-145) D 07/12/22 03:30 Potassium 4.4 mEq/L (3.5-5.1) 07/12/22 03:30 BUN 64 mg/dL (7-18) H 07/12/22 03:30 Creatinine 1.47 mg/dL (0.55-1.02) H 07/12/22 03:30 Glucose 182 mg/dL (74-106) H 07/12/22 03:30 Uric Acid 6.6 mg/dL (2.6-6.0) H 07/12/22 03:30 Phosphorus 3.7 mg/dL (2.5-4.9) 07/12/22 03:30 Magnesium 2.0 mg/dL (1.6-2.4) 07/12/22 03:30 Total Bilirubin 0.4 mg/dL (0.2-1.0) 07/11/22 07:47 AST 19 U/L (15-37) 07/11/22 07:47 ALT 14 U/L (13-56) 07/11/22 07:47 Alkaline Phosphatase 45 U/L (45-117) 07/11/22 07:47 Triglycerides 73 mg/dL (<150) 07/11/22 11:39 Lipase 43 U/L (13-75) 07/01/22 08:52 Home Medications: Aspirin [[place] Aspirin] 81 mg PO DAILY 09/11/15 Citalopram [Celexa*] 20 mg PO DAILY 09/11/15 Losartan Potassium [Cozaar] 100 mg PO DAILY 09/11/15 Meloxicam [Mobic] 15 mg PO DAILY 09/11/15 Metoprolol Tartrate [Lopressor*] 25 mg PO BID 09/11/15 Tramadol HCl [Ultram] 50 mg PO Q6H 09/11/15 Amlodipine Besylate [Norvasc] 10 mg PO DAILY #30 tablet 09/14/15 Acetaminophen [Tylenol*] 650 mg PO Q6H PRN tab 07/12/22 Physician Discharge Instructions: OK TO DC IV AND DC HOME FOLLOW-UP WITH PRIMARY CARE PROVIDER IN 1-2 WEEKS FOLLOW-UP WITH General surgery IN 1-2 WEEKS RETURN TO THE ER IF symptoms worsen CALL DR. RIDER AT [phone] IF ANY QUESTIONS REGARDING HOSPITAL STAY. PLEASE CALL THE FLOOR AT [phone] IF ANY MEDICATION OR NURSING QUESTIONS. Diet: AHA Activity: Fall precautions Followup: OOT,OOT [Primary Care Provider] -
--- NOTE | 2022-07-12 15:13 | P.PN ---
Subjective Date of Service: 07/12/22 Chief Complaint: Abdominal pain. Subjective: No new changes Physical Examination - Vital Signs Temperature: 97.9 F Blood Pressure: 157/56 Pulse: 98 Respirations: 20 Pulse Ox (%): 95 - Physical Exam General: Other (appears as her stated age) HEENT: Atraumatic, Normocephalic Neck: Supple, JVD not distended Respiratory: Other (symmetric chest expansion) Cardiovascular: No rubs, No murmurs Gastrointestinal: Soft and benign, No guarding Musculoskeletal: No clubbing Integumentary: No warmth Neurological: Normal tone Urinary: Other (no bladder distention) External genitalia: Deferred Rectal: Deferred Assessment And Plan - Plan 1. Acute kidney injury, mostly secondary to poor perfusion ATN/toxic ATN and obstructive uropathy secondary to urine retention secondary to pain medication. improved. Serum creatinine improved to 1.5. received IV fluid. Encourage liberal by mouth fluid intake. 2. Hyponatremia, improved. Monitor. Encourage po solid food intake tid. 3. Hyperkalemia secondary to renal failure. Improved. IV/PO hydration. Low K diet. 4. Anemia. Monitor CBC. 5. Small bowel obstruction. Per primary team and Surgery. Physician Review: Patient Assessed, Agree with Above Assessment and Plan
[2022-07-12] MEDS: TAMSULOSIN 0.4 MG SR CAP PO SCH (20:47)
[2022-07-12] MEDS: QUETIAPINE 25 MG TAB PO SCH (20:48)
[2022-07-13] MEDS: NA CHLORIDE 0.9% 1,000 ML IV SCH ×3 (02:29→20:04)
[2022-07-13] MEDS: INSULIN -REGULAR HUMAN 50 UNIT/0.5 ML ML SQ SCH ×6 (04:00→19:22)
[2022-07-13 08:27] LABS: Albumin 1.9 g/dL (3.4-5.0); Magnesium 1.7 mg/dL (1.6-2.4); Phosphorus 2.6 mg/dL (2.5-4.9); Potassium 4.4 mEq/L (3.5-5.1)
[2022-07-13] MEDS: SOD FERRIC GLUC COMPLX/SUCROSE 125 MG in NA CHLORIDE 0.9% 100 ML IV SCH (08:28)
[2022-07-13] MEDS: ENSURE HIGH PROTEIN 237 ML CAN PO SCH ×2 (08:30→20:02)
--- NOTE | 2022-07-13 11:01 | P.PN ---
Subjective Date of Service: 07/14/22 Chief Complaint: Abdominal pain. Subjective: No new changes, Improving Physical Examination - Vital Signs Temperature: 97.9 F Blood Pressure: 159/71 Pulse: 83 Respirations: 16 Pulse Ox (%): 94 - Physical Exam General: Alert HEENT: Atraumatic, Normocephalic Respiratory: Normal air movement, Diminished Cardiovascular: Regular rate/rhythm, Normal S1 S2 Gastrointestinal: Soft and benign Musculoskeletal: No swelling Neurological: Normal speech Assessment And Plan - Plan Assessment and Plan - Assessment/Plan --SBO; status post bowel resection. Patient clinically doing well. Started on a diet and advancing as tolerated; doing well with no new complaints --DM2. BS monitoring with sliding scale insulin. --Dementia. Stable. Continue home medication when appropriate. --Hypertension. Stable --History of breast cancer. Status post right breast mastectomy. Continue supportive care. --Anemia of chronic disease. H&H stable. We will continue to monitor hemoglobin and transfuse if less than 7.0. --CKD 3A. Stable. We will continue to monitor renal functions. --Depression. Continue home medication when appropriate. --Deconditioning: Pt has issues with mobility and weakness, family is wantin SNF. we will arrange for this prior to DC. -- DVT prophylaxis with SCDs. Discharge Plan: SNF. Plan to discharge in: Greater than 2 days Physician Review: Patient Assessed, Agree with Above Assessment and Plan
[2022-07-13] MEDS: HYDRALAZINE HCL 20 MG/ML VIAL IV PRN (15:56)
[2022-07-13] MEDS: ACETAMINOPHEN 325 MG TABLET PO PRN (16:01)
--- NOTE | 2022-07-13 16:47 | P.PN ---
Subjective Date of Service: 07/13/22 Chief Complaint: Abdominal pain. today no over nght events stable VS Cr down to 1.0 pending placement Physical exam General: Awake, NAD HEENT: Atraumatic, Normocephalic Neck: Supple, no elevated JVD Respiratory: CTAB Cardiovascular: No rubs, No murmurs Gastrointestinal: Soft and benign, Non-distended Musculoskeletal: No clubbing Integumentary: No warmth ExT : no edema #. Acute kidney injury resolved mostly secondary to poor perfusion ATN/toxic ATN and obstructive uropathy secondary to urine retention secondary to pain medication. improved. Encourage liberal by mouth fluid intake. #. Hyponatremia, resolved. Monitor. Encourage po solid food intake tid. #. Hyperkalemia secondary to renal failure. Improved. IV/PO hydration. Low K diet. #. Anemia. Monitor CBC. #today no o. Small bowel obstruction. Per primary team and Surgery. Physical Examination - Vital Signs Temperature: 97.9 F Blood Pressure: 159/71 Pulse: 83 Respirations: 16 Pulse Ox (%): 94 Assessment And Plan Physician Review: Patient Assessed, Agree with Above Assessment and Plan
[2022-07-13] MEDS: QUETIAPINE 25 MG TAB PO SCH (20:01)
[2022-07-13] MEDS: TAMSULOSIN 0.4 MG SR CAP PO SCH (20:02)
[2022-07-13] MEDS ORDERED: GLUCAGON 1 MG/VIAL IM PRN (21:42)
[2022-07-13] MEDS ORDERED: D50W 25 GM/50 ML SYRINGE IV PRN (21:42)
[2022-07-14] MEDS: NA CHLORIDE 0.9% 1,000 ML IV SCH (04:23)
[2022-07-14 06:43] LABS: Albumin 1.7 g/dL (3.4-5.0); Magnesium 1.6 mg/dL (1.6-2.4); Phosphorus 2.8 mg/dL (2.5-4.9); Potassium 4.1 mEq/L (3.5-5.1)
[2022-07-14] MEDS: INSULIN -REGULAR HUMAN 50 UNIT/0.5 ML ML SQ SCH ×4 (07:30→19:29)
[2022-07-14] MEDS ORDERED: MAGNESIUM SULFATE 1 gm IVPB 1 GM/100 ML BAG IV ONE (09:07)
[2022-07-14] MEDS: ENSURE HIGH PROTEIN 237 ML CAN PO SCH ×2 (09:18→19:32)
[2022-07-14] MEDS: SOD FERRIC GLUC COMPLX/SUCROSE 125 MG in NA CHLORIDE 0.9% 100 ML IV SCH (09:18)
--- NOTE | 2022-07-14 09:59 | P.PN ---
Subjective Date of Service: 07/14/22 Chief Complaint: Abdominal pain. Subjective: No new changes Physical Examination - Vital Signs Temperature: 98.4 F Blood Pressure: 139/65 Pulse: 72 Respirations: 14 Pulse Ox (%): 94 - Physical Exam HEENT: Atraumatic, Normocephalic Neck: Supple Respiratory: Normal air movement Cardiovascular: Regular rate/rhythm, Normal S1 S2 Gastrointestinal: Soft and benign Assessment And Plan - Plan Assessment and Plan - Assessment/Plan --SBO; status post bowel resection. Patient clinically doing well. Started on a diet and advancing as tolerated; doing well with no new complaints --DM2. BS monitoring with sliding scale insulin. --Dementia. Stable. Continue home medication when appropriate. --Hypertension. Stable --History of breast cancer. Status post right breast mastectomy. Continue supportive care. --Anemia of chronic disease. H&H stable. We will continue to monitor hemoglobin and transfuse if less than 7.0. --CKD 3A. Stable. We will continue to monitor renal functions. --Depression. Continue home medication when appropriate. --Deconditioning: Pt has issues with mobility and weakness, family is wantin SNF. we will arrange for this prior to DC. -- DVT prophylaxis with SCDs. Dispo: [facility] pacement. Physician Review: Patient Assessed, Agree with Above Assessment and Plan
--- NOTE | 2022-07-14 10:35 | P.PN ---
Subjective Date of Service: 07/14/22 Chief Complaint: Abdominal pain. Subjective Pt admitted with Small bowel obstruction , had TIP today no over night events stable VS Cr down to 1.0 , will dc IVF pending placement Physical exam General: Awake, NAD HEENT: Atraumatic, Normocephalic Neck: Supple, no elevated JVD Respiratory: CTAB Cardiovascular: No rubs, No murmurs Gastrointestinal: Soft and benign, Non-distended Musculoskeletal: No clubbing Integumentary: No warmth ExT : no edema #. Acute kidney injury resolved mostly secondary to poor perfusion ATN/toxic ATN and obstructive uropathy secondary to urine retention secondary to pain medication. improved. Encourage liberal by mouth fluid intake. will dc IVF #. Hyponatremia, resolved. Monitor. Encourage po solid food intake tid. #. Hyperkalemia secondary to renal failure. Improved. IV/PO hydration. Low K diet. #. Anemia. Monitor CBC. #today no o. Small bowel obstruction. Per primary team and Surgery. #--SBO; status post bowel resection. Patient clinically doing well. Started on a diet and advancing as tolerated; doing well with no new complaints Physical Examination - Vital Signs Temperature: 98.4 F Blood Pressure: 139/65 Pulse: 72 Respirations: 14 Pulse Ox (%): 94 Assessment And Plan Physician Review: Patient Assessed, Agree with Above Assessment and Plan
[2022-07-14] MEDS: ACETAMINOPHEN 325 MG TABLET PO PRN (12:53)
[2022-07-14] MEDS: QUETIAPINE 25 MG TAB PO SCH (19:33)
[2022-07-14] MEDS: TAMSULOSIN 0.4 MG SR CAP PO SCH (19:33)
[2022-07-15] MEDS ORDERED: POLYETHYL GLY 3350 17 GM/DOSE PO PRN (04:39)
[2022-07-15 06:26] LABS: Albumin 1.8 g/dL (3.4-5.0); Magnesium 1.7 mg/dL (1.6-2.4); Phosphorus 2.8 mg/dL (2.5-4.9)
[2022-07-15] MEDS: INSULIN -REGULAR HUMAN 50 UNIT/0.5 ML ML SQ SCH ×4 (07:30→19:15)
[2022-07-15] MEDS: ENSURE HIGH PROTEIN 237 ML CAN PO SCH ×2 (08:18→19:15)
[2022-07-15] MEDS ORDERED: MAGNESIUM SULFATE 1 gm IVPB 1 GM/100 ML BAG IV ONE (09:00)
[2022-07-15] MEDS: SOD FERRIC GLUC COMPLX/SUCROSE 125 MG in NA CHLORIDE 0.9% 100 ML IV SCH (09:40)
[2022-07-15] MEDS: ACETAMINOPHEN 325 MG TABLET PO PRN (10:35)
--- NOTE | 2022-07-15 11:45 | P.PN ---
Subjective Date of Service: 07/15/22 Chief Complaint: Abdominal pain. No acute events overnight. She reports generalized weakness. She denies any chest pain, palpitations, or shortness of breath. She is pending SNF placement. Appreciate CM assistance. Review of Systems 10-point ROS is otherwise unremarkable General: Weakness (generalized) Physical Examination - Vital Signs Temperature: 98 F Blood Pressure: 168/74 Pulse: 75 Respirations: 18 Pulse Ox (%): 94 - Physical Exam General: Alert, In no apparent distress, Oriented x3 HEENT: Atraumatic, Sclerae nonicteric Neck: JVD not distended Respiratory: Clear to auscultation bilaterally, Normal air movement Cardiovascular: No edema, Regular rate/rhythm, Normal S1 S2, No gallops, No rubs, No murmurs Gastrointestinal: Normal bowel sounds, Soft and benign, Non-distended, No tenderness, No rebound, No guarding Musculoskeletal: No clubbing Integumentary: No rashes Neurological: Normal speech, Normal affect Assessment And Plan - Plan # Proximal Small Bowel Obstruction s/p Exploratory Laparotomy, Small Bowel Resection with Anastomosis, Laparoscopic Extensive Lysis of Adhesions, and Diagnostic Laparoscopy # SIRS Criteria and Lactic Acidosis due to above - no evidence of infection # History of Hernia s/p Mesh Repair # Deconditioning - CT abdomen/pelvis = "dilated proximal small bowel loops with fecalization, concerning for obstruction. The transition point is just left of midline, approximately at the level of the umbilicus, closely related to the superior margin of a hernia repair mesh as described above." - General Surgery consulted and spoke with Dr. Rothman - recommendations appreciated - S/P exploratory laparotomy, small bowel resection with anastomosis, laparoscopic extensive lysis of adhesions, diagnostic laparoscopy on 07/03 - He has cleared for discharge from surgical standpoint - Doing well post-operatively - diet has been advanced - Pending placement into [facility] # Type II Diabetes Mellitus - Correction scale insulin # Dementia - Continue qHS quetiapine # Chronic Diastolic Congestive Heart Failure # Hypertension # Breast Cancer s/p Right Mastectomy # Depression - Reconcile home medications once verified # Microscopic Hematuria - Follow-up with PCP for further evaluation Resolved Hospital Problems # KDIGO Stage III Acute Kidney Injury with Mild Left Hydronephrosis on Chronic Kidney Disease Stage III # Hyponatremia Dilan Carreno M.D.
[2022-07-15] MEDS: DOCUSATE NA 100 MG CAP PO PRN (12:52)
[2022-07-15] MEDS: TAMSULOSIN 0.4 MG SR CAP PO SCH (19:11)
[2022-07-15] MEDS: QUETIAPINE 25 MG TAB PO SCH (19:11)
--- NOTE | 2022-07-16 05:20 | PN ---
Date of Progress Note: 07/15/2022 Chief Complaint: Abdominal pain. Subjective: The patient presented to the hospital because of abdominal pain. She was found to have small bowel obstruction and acute kidney injury. Nephrology consultation was requested for acute kid alex injury. The patient developed ATN with toxic ATN and obstructive uropathy secondary to urinary r etention and urinary retention was caused by pain medication. Review of Systems: Denies chest pain or palpitation. Physical Examination: Lungs: Clear to auscultation bilaterally. Heart: S1, S2. Abdomen: Soft. Extremities: No edema. Impression And Plan: 1.Acute kidney injury, resolved. Avoid nephrotoxic medication. The patient developed acute tubular necrosis secondary to renal hypoperfusion and obstructive uropathy triggered by urinary retention an d bladder outlet obstruction secondary to pain medication. The patient was encouraged to increase p. o. fluid intake. Anemia, chronic kidney disease. Continue to monitor CBC. 2.Hyperkalemia secondary to renal failure, improved. Continue adequate hydration and low-potassium diet. 3.Hyponatremia, resolved. The patient had hyponatremia in setting of acute kidney injury with bladd er outlet obstruction. 4.Small bowel obstruction, status post resection. The patient has been followed by primary team and Surgery. MICHAEL/EDUARD Voice ID: [id number] Report ID: [id number]
[2022-07-16 06:18] LABS: Albumin 1.8 g/dL (3.4-5.0); Magnesium 1.9 mg/dL (1.6-2.4); Phosphorus 2.6 mg/dL (2.5-4.9); Potassium 3.9 mEq/L (3.5-5.1)
[2022-07-16] MEDS: INSULIN -REGULAR HUMAN 50 UNIT/0.5 ML ML SQ SCH ×4 (07:30→21:00)
[2022-07-16] MEDS: ENSURE HIGH PROTEIN 237 ML CAN PO SCH ×3 (08:13→21:00)
[2022-07-16] MEDS ORDERED: POTASSIUM CL SA 10 MEQ TAB PO ONE (09:00)
[2022-07-16] MEDS: FERROUS SULFATE 325 MG TAB PO SCH (09:04)
--- NOTE | 2022-07-16 12:17 | PN ---
Date of Progress Note: 07/16/2022 Subjective: The patient was admitted to the hospital with hyponatremia, acute kidney injury secondar y to Mobic and losartan. Kidney function has been improved significantly. Physical Examination: Vital Signs: Blood pressure 113/55, pulse of 79, afebrile. Chest: Clear to auscultation. Heart: S1, S2. Regular. Abdomen: Soft, nontender. Extremity: No edema. Neuro: Alert. No focality. Laboratory Data: Hemoglobin 9.5. Sodium 138, potassium 3.9, bicarb 27, BUN 14, creatinine 0.6. Melvin cium 7.9, phosphorus 2.6, magnesium 1.9, albumin 1.8, corrected calcium is 9.5. Current Medications: The patient on include ferrous sulfate, Flomax, Ensure, insulin. Assessment And Plan: 1.Acute kidney injury, multifactorial secondary to low blood pressure, Mobic and toxic ATN, had been recovered, nonoliguric. Kidney function has been normalized. We will monitor off IV fluids. 2.Hyponatremia, depletional, resolved. 3.Hyperkalemia secondary to renal failure/ARB, resolved. 4.Anemia of iron deficiency anemia. Serum protein electrophoresis is still pending. We will follow up. 5.Small bowel obstruction, resolved. 6.Hypertension, controlled, optimal with the presence of recent acute kidney injury. Keep holding A RB. DIANNA/EDUARD Voice ID: [id number] Report ID: [id number]
--- NOTE | 2022-07-16 16:53 | P.PN ---
Subjective Date of Service: 07/16/22 Chief Complaint: Abdominal pain. No acute events overnight. She denies any concerns this morning. Her IV line went bad - iron supplementation was switched from IV to PO. She is pending SNF placement. Appreciate CM assistance. Review of Systems 10-point ROS is otherwise unremarkable General: Weakness (generalized) Physical Examination - Vital Signs Temperature: 97.5 F Blood Pressure: 113/55 Pulse: 79 Respirations: 19 Pulse Ox (%): 98 Assessment And Plan - Plan - Physical Exam General: Alert, In no apparent distress, Oriented x3 HEENT: Atraumatic, Sclerae nonicteric Neck: JVD not distended Respiratory: Clear to auscultation bilaterally, Normal air movement Cardiovascular: No edema, Regular rate/rhythm, No murmurs Gastrointestinal: Soft, Non-distended, No tenderness Musculoskeletal: No clubbing Integumentary: No rashes Neurological: Normal speech, Normal affect # Proximal Small Bowel Obstruction s/p Exploratory Laparotomy, Small Bowel Resection with Anastomosis, Laparoscopic Extensive Lysis of Adhesions, and Diagnostic Laparoscopy # SIRS Criteria and Lactic Acidosis due to above - no evidence of infection # History of Hernia s/p Mesh Repair # Deconditioning - CT abdomen/pelvis = "dilated proximal small bowel loops with fecalization, concerning for obstruction. The transition point is just left of midline, approximately at the level of the umbilicus, closely related to the superior margin of a hernia repair mesh as described above." - General Surgery consulted and spoke with Dr. Rothman - recommendations appreciated - S/P exploratory laparotomy, small bowel resection with anastomosis, laparoscopic extensive lysis of adhesions, diagnostic laparoscopy on 07/03 - He has cleared for discharge from surgical standpoint - Doing well post-operatively - diet has been advanced - Pending placement into [facility] # Type II Diabetes Mellitus - Correction scale insulin # Dementia - Continue qHS quetiapine # Chronic Diastolic Congestive Heart Failure # Hypertension # Breast Cancer s/p Right Mastectomy # Depression - Reconcile home medications once verified # Microscopic Hematuria - Follow-up with PCP for further evaluation Resolved Hospital Problems # KDIGO Stage III Acute Kidney Injury with Mild Left Hydronephrosis on Chronic Kidney Disease Stage III # Hyponatremia 07/16/2022: Pending placement into [facility]. Appreciate CM assistance. Dilan Carreno M.D.
[2022-07-16] MEDS: DOCUSATE NA 100 MG CAP PO PRN (17:44)
[2022-07-16] MEDS: TAMSULOSIN 0.4 MG SR CAP PO SCH (20:47)
[2022-07-16] MEDS: QUETIAPINE 25 MG TAB PO SCH (20:47)
[2022-07-16 23:41] LABS: Albumin, (SPE) 2.2 g/dL (3.8-4.8); Alpha-1-Globulins 0.5 g/dL (0.2-0.3); Alpha-2-Globulins 0.8 g/dL (0.5-0.9); Gamma Globulins 0.9 g/dL (0.8-1.7); INTERPRETATION REPORT
[2022-07-17] MEDS: INSULIN -REGULAR HUMAN 50 UNIT/0.5 ML ML SQ SCH ×3 (07:30→16:30)
[2022-07-17] MEDS: ENSURE HIGH PROTEIN 237 ML CAN PO SCH (09:00)
[2022-07-17] MEDS: FERROUS SULFATE 325 MG TAB PO SCH (10:37)
[2022-07-17 10:57] VITALS: O2SAT 94
--- NOTE | 2022-07-17 12:08 | P.PN ---
Subjective Date of Service: 07/17/22 Chief Complaint: Abdominal pain. Subjective: The patient was admitted to the hospital with hyponatremia, acute kidney injury secondary to Mobic and losartan. Kidney function has been improved significantly. Review of Systems General: Unremarkable ENT: Unremarkable Respiratory: Unremarkable Cardiovascular: Unremarkable Gastrointestinal: Unremarkable Genitourinary: Incontinence Physical Examination - Vital Signs Temperature: 98.6 F Blood Pressure: 148/50 Pulse: 76 Respirations: 20 Pulse Ox (%): 94 - Physical Exam General: Oriented x3 HEENT: Atraumatic Neck: Supple, 2+ carotid pulse no bruit, Without JVD or thyroid abnormality Respiratory: Clear to auscultation bilaterally Cardiovascular: No edema Capillary refill: <2 Seconds Gastrointestinal: Normal bowel sounds, Non-distended Musculoskeletal: No clubbing, No swelling Neurological: Normal gait, Cranial nerves 3-12 intact, Normal reflexes 2+ Urinary: Alejandra catheter - Studies Hemoglobin 9.5 BUN 14 creatinine 0.6 GFR of 88 bicarb 27 sodium 138 potassium 3.9 Assessment And Plan - Plan 1. Acute kidney injury, multifactorial secondary to low blood pressure, Mobic and toxic ATN, had been recovered, nonoliguric. Kidney function has been normalized. We will monitor off IV fluids. 2. Hyponatremia, depletional, resolved. 3. Hyperkalemia secondary to renal failure/ARB, resolved. 4. Anemia of iron deficiency anemia. Serum protein electrophoresis is still pending. We will follow up. 5. Small bowel obstruction, resolved. 6. Hypertension, controlled, optimal with the presence of recent acute kidney injury. Keep holding ARB. 7-urinary retention. Bladder retraining advised the nurse to clamp it for an hour and also the patient of filling the urge will follow-up Physician Review: Patient Assessed, Agree with Above Assessment and Plan
--- NOTE | 2022-07-17 15:20 | P.DS ---
Admission Date: 07/01/22 Discharge Date: 07/17/22 Disposition: TRANSFER TO SENIOR LIVING Comment: [facility] Discharge Condition: GOOD Reason for Admission: Abdominal pain. Consultations: 1. General Surgery 2. Nephrology Procedures: - 07/03/2022 - Exploratory Laparotomy, Small Bowel Resection and Anastomosis, Laparoscopic Extensive Lysis of Adhesions, Diagnostic Laparoscopy Hospital Course: DIAGNOSES: # Proximal Small Bowel Obstruction s/p Exploratory Laparotomy, Small Bowel Resection with Anastomosis, Laparoscopic Extensive Lysis of Adhesions, and Diagnostic Laparoscopy # SIRS Criteria and Lactic Acidosis due to above - no evidence of infection # KDIGO Stage III Acute Kidney Injury with Mild Left Hydronephrosis on Chronic Kidney Disease Stage III - resolved # Hyponatremia - improved # History of Hernia s/p Mesh Repair # Deconditioning # Type II Diabetes Mellitus # Dementia # Chronic Diastolic Congestive Heart Failure # Hypertension # Breast Cancer s/p Right Mastectomy # Depression # Microscopic Hematuria HOSPITAL COURSE: Ms. Divya Parr is a 82 year old female with a past medical history significant for type II diabetes mellitus, dementia, chronic diastolic congestive heart failure, chronic kidney disease stage III, hypertension, breast cancer s/p right mastectomy, and depression who was admitted to the [facility] on 07/01/2022 for abdominal pain. Upon further evaluation, her CT abdomen/pelvis revealed, "dilated proximal small bowel loops with fecalization, concerning for obstruction. The transition point is just left of midline, approximately at the level of the umbilicus, closely related to the superior margin of a hernia repair mesh as described above." General Surgery was consulted and she was evaluated by Dr. Elizabeth. On 07/03/2022, she underwent exploratory laparotomy, small bowel resection and anastomosis, laparoscopic extensive lysis of adhesions, and diagnostic laparoscopy. She tolerated the procedure well. She was initially started on TPN and, over the course of her hospitalization, her diet was gradually reintroduced and advanced. Her postoperative course was complicated by an acute kidney injury. Nephrology was consulted and she was evaluated by Dr. Echols. It was thought that her acute kidney injury was multifactorial and, over the course of her hospitalization, her renal function improved. Physical therapy was consulted and it was thought that she would benefit from retirement facility placement. With the assistance of case management, she was accepted into [facility]. On 07/17/2022, she was seen on morning rounds and deemed medically stable for discharge. She was discharged with instructions to schedule follow-up appointments with her PCP, with General Surgery (Dr. Elizabeth), and with Nephrology (Dr. Echols). She and her family members were given the opportunity to ask questions and reported no further questions. Furthermore, all questions were answered to the best of my ability. A copy of this discharge summary will be sent to the above providers to facilitate continuity of care. Today, I personally spent 25 minutes on her case, of which greater than 50% of the time was spent in patient education, counseling, and coordination of care as described above. - Physical Exam General: Alert, In no apparent distress, Oriented x2, Cooperative HEENT: Atraumatic, Sclerae nonicteric Neck: Supple, Without JVD Respiratory: Clear to auscultation bilaterally, Normal air movement Cardiovascular: No edema, Regular rate/rhythm, Normal S1 S2 Gastrointestinal: Normal bowel sounds, Non-distended, No tenderness Integumentary: No rashes Neurological: Normal speech, Normal strength at 5/5 x4 extr, Normal tone, Normal affect Vital Signs/Physical Exam: Temp Pulse Resp BP Pulse Ox 98.6 F 76 20 148/50 H 94 07/17/22 12:07 07/17/22 12:07 07/17/22 12:07 07/17/22 12:07 07/17/22 12:07 Laboratory Data at Discharge: WBC Cancelled 07/11/22 10:45 Hgb Cancelled 07/11/22 10:45 Hct Cancelled 07/11/22 10:45 Plt Count Cancelled 07/11/22 10:45 Sodium 138 mEq/L (136-145) 07/16/22 05:43 Potassium 3.9 mEq/L (3.5-5.1) 07/16/22 05:43 BUN 14 mg/dL (7-18) 07/16/22 05:43 Creatinine 0.69 mg/dL (0.55-1.02) 07/16/22 05:43 Glucose 130 mg/dL (74-106) H 07/16/22 05:43 Uric Acid 6.6 mg/dL (2.6-6.0) H 07/12/22 03:30 Phosphorus 2.6 mg/dL (2.5-4.9) 07/16/22 05:43 Magnesium 1.9 mg/dL (1.6-2.4) 07/16/22 05:43 Total Bilirubin 0.4 mg/dL (0.2-1.0) 07/11/22 07:47 AST 19 U/L (15-37) 07/11/22 07:47 ALT 14 U/L (13-56) 07/11/22 07:47 Alkaline Phosphatase 45 U/L (45-117) 07/11/22 07:47 Triglycerides 73 mg/dL (<150) 07/11/22 11:39 Lipase 43 U/L (13-75) 07/01/22 08:52 Home Medications: RX: Aspirin [[place] Aspirin] 81 mg PO DAILY 09/11/15 RX: Citalopram [Celexa*] 20 mg PO DAILY 09/11/15 RX: Losartan Potassium [Cozaar] 100 mg PO DAILY 09/11/15 RX: Meloxicam [Mobic] 15 mg PO DAILY 09/11/15 RX: Metoprolol Tartrate [Lopressor*] 25 mg PO BID 09/11/15 RX: Tramadol HCl [Ultram] 50 mg PO Q6H 09/11/15 RX: Amlodipine Besylate [Norvasc] 10 mg PO DAILY #30 tablet 09/14/15 RX: Acetaminophen [Tylenol*] 650 mg PO Q6H PRN tab 07/12/22 RX: Docusate [Colace Cap*] 100 mg PO BID PRN cap 07/17/22 RX: Ferrous Sulfate [Ferrous Sulfate*] 325 mg PO DAILY tab 07/17/22 RX: Polyethyl Gly 3350 [Glycolax*] 17 gm PO DAILY PRN udbot 07/17/22 Physician Discharge Instructions: FOLLOW-UP WITH PRIMARY CARE PROVIDER IN 1-2 WEEKS - There was blood in your urine study. Please have your PCP repeat your urine study FOLLOW-UP WITH GENERAL SURGERY (DR. ELIZABETH) IN 1-2 WEEKS FOLLOW-UP WITH NEPHROLOGY (DR. ECHOLS) IN 1-2 WEEKS RETURN TO THE ER IF symptoms worsen PLEASE CALL THE FLOOR AT [phone] IF ANY MEDICATION OR NURSING QUESTIONS. Diet: AHA Activity: Fall precautions Followup: Tristan Elizabeth MD [ACTIVE - CAN ADMIT] - Bradly Echols MD [ACTIVE - CAN ADMIT] - Time spent managing pt's care (in minutes): 25
[2022-07-17 15:57] VITALS: TEMP 97.5
[2022-07-17 17:32] LABS: SARS-CoV-2 Antigen Rapid Res Negative (Negative)
[2022-07-17 19:58] VITALS: BP 157/72
[2022-07-17] MEDS: QUETIAPINE 25 MG TAB PO SCH (20:07)
[2022-07-17] MEDS ORDERED: TAMSULOSIN 0.4 MG SR CAP PO SCH (21:00)
== END 2022-07-17 20:20 | DRG 329 ==
LOC: ER 08:25 → ERHOLD 13:07 → 2ND 14:35 → 3RD-ICU 07-03 16:36 → 4TH 07-06 17:25
PROVIDERS: ADMIT Hospitalist; ATTEND Internal Medicine
PROC: 0DN80ZZ Release Small Intestine, Open Approach (ICD-10-PCS; 2022-07-03)
PROC: 0DB80ZZ Excision of Small Intestine, Open Approach (ICD-10-PCS; principal; 2022-07-03 16:00)
DX: K56.50 Intestinal adhesions [bands], unspecified as to partial versus complete obstruction (principal); N17.0 Acute kidney failure with tubular necrosis; E87.20 Acidosis, unspecified; F03.93 Unspecified dementia, unspecified severity, with mood disturbance; E87.1 Hypo-osmolality and hyponatremia; R65.10 Systemic inflammatory response syndrome (SIRS) of non-infectious origin without acute organ dysfunction; I50.32 Chronic diastolic (congestive) heart failure; I13.0 Hypertensive heart and chronic kidney disease with heart failure and stage 1 through stage 4 chronic kidney disease, or unspecified chronic kidney disease; N13.30 Unspecified hydronephrosis; N18.31 Chronic kidney disease, stage 3a; E11.22 Type 2 diabetes mellitus with diabetic chronic kidney disease; D63.1 Anemia in chronic kidney disease; E87.5 Hyperkalemia; E78.00 Pure hypercholesterolemia, unspecified; D63.8 Anemia in other chronic diseases classified elsewhere; R31.29 Other microscopic hematuria; R33.0 Drug induced retention of urine; T50.995A Adverse effect of other drugs, medicaments and biological substances, initial encounter; Z78.1 Physical restraint status; Z85.3 Personal history of malignant neoplasm of breast; Z79.82 Long term (current) use of aspirin; Z90.11 Acquired absence of right breast and nipple; Z90.49 Acquired absence of other specified parts of digestive tract; Z79.899 Other long term (current) drug therapy; Z20.822 Contact with and (suspected) exposure to COVID-19
CPT/HCPCS: 36415; 74177; 76770; 80048; 80053; 80069; 81001; 82550; 82607; 82728; 82947; 83540; 83605; 83690; 83735; 83880; 84100; 84134; 84165; 84443; 84466; 84478; 84484; 84550; 85025; 85044; 87086; 87088; 87811; 88305; 88307; 93005; 93306; 94010; 96361; 96365; 96372; 96375; 97110; 97161; 97530; 99285; J0360; J0610; J0696; J0744; J1100; J1170; J1630; J1815; J2001; J2405; J2543; J2704; J2710; J2916; J3010; J3475; J3486; J7030; J7040; J7050; Q9967

== ENCOUNTER 2023-09-18 18:03 | Emergency (ER) | payer OTHER ==
[2023-09-18 20:38] LABS: Sqamous Epithelial 20-50 /HPF (None Seen); Urine Bacteria <20 /HPF (<20); Urine Bilirubin NEGATIVE (Negative); Urine Blood Trace (Negative); Urine Clarity Extremely Turbid (Clear); Urine Color Yellow (Yellow); Urine Culture Reflex Order NOT NEEDED; Urine Glucose NEGATIVE (Negative); Urine Ketones TRACE (Negative); Urine Microscopic Reflex YN ORDER UMIC; Urine Mucus 4+ /HPF (None Seen); Urine Nitrite NEGATIVE (Negative); Urine Protein 1+ (Negative); Urine Urobilinogen Normal (Normal); Urine WBC >50 /HPF (<5); Urine pH 5.5 (5.0-7.0)
[2023-09-18 20:40] LABS: Absolute Basophils 0.1 K/uL (0-0.5); Absolute Lymphocytes (CBC) 2.5 K/uL (0.7-4.9); Absolute Monocytes 0.4 K/uL (0.1-1.3); Absolute Neutrophil 4.6 K/uL (1.8-8.0); Basophils % 0.7 % (0-1.3); Eosinophils % 0.6 % (0-4.4); Hematocrit 36.4 % (36.0-45.0); Lymphocytes % 32.5 % (15.3-44.8); MCH 31.3 pg (27.0-35.0); MCHC 32.9 g/dL (32.0-36.0); Monocytes % 5.8 % (3.3-12.3); Neutrophils % 60.4 % (41.7-73.7); Nucleated Red Blood Cells % 0.1 % (0-0); Platelets 231 thou/uL (152-406); RBC Red Blood Cell Count 3.83 M/uL (3.86-4.86); Red Cell Distribution Width 14.2 % (12.1-15.2)
[2023-09-18 20:54] LABS: Albumin 4.1 g/dL (3.4-5.0); Anion Gap 13.5 mEq/L (5.0-15.0); Globulin 4.1 g/dL (2.3-3.5); Potassium 4.5 mEq/L (3.5-5.1); Protein, Total 8.2 g/dL (6.4-8.2)
--- NOTE | 2023-09-18 21:25 | EDPHYS ---
Physician Documentation [facility] Name: Divya Parr Age: 83 yrs Sex: Female : 1940 Arrival Date: 09/18/2023 Time: 18:03 Bed 14 Private MD: ED Physician Prashanth Shahid HPI: 09/17 19:38 This 83 yrs old Female presents to ER via Wheelchair with complaints of bo1 Decreased Appetite, Headache. 19:38 This 83 yrs old Female presents to ER via Wheelchair with complaints of bo1 Decreased Appetite, Neck pain. 19:38 Onset: The symptoms/episode began/occurred gradually, 4 day(s) ago. Associated signs bo1 and symptoms: The patient has no apparent associated signs or symptoms. The symptoms are alleviated by nothing. the symptoms are aggravated by nothing. Pt is here with another family member that is a pt in a different room. Hx is obtained from the pt's son. He tells me that the pt has been "sleeping a lot" and "has less than normal appetite.". Historical: - Allergies: 18:18 NKDA; kc6 - PMHx: 18:18 Alzheimer's disease; Cancer; memory problem; Hypertension; Hypercholesterolemia; kc6 Diabetes - NIDDM; Dementia; - PSHx: 18:18 R knee; R mastectomy; kc6 - Immunization history:: Adult Immunizations up to date. - Infectious Disease History:: Denies. - Social history:: Smoking status: Patient denies any tobacco usage or history of. ROS: 19:41 Constitutional: Negative for fever, chills, and weight loss, bo1 19:41 Neck: Positive for pain at rest, 19:41 Cardiovascular: Negative for chest pain, palpitations, 19:41 Respiratory: Negative for cough, shortness of breath, 19:41 Abdomen/GI: Negative for abdominal pain, nausea and vomiting, nausea, vomiting, and diarrhea, 19:41 Back: Negative for pain at rest, 19:41 : Negative for urinary symptoms, 19:41 Skin: Negative for rash, 19:41 Neuro: Negative for dizziness, weakness, 19:41 All other systems are negative, Exam: 19:43 Constitutional: This is a well developed, well nourished patient who is awake, alert, bo1 and in no acute distress. 19:43 Constitutional: The patient appears in no acute distress, alert, awake, comfortable, 19:43 Eyes: Exam is negative for 19:43 Neck: Exam negative for External neck: no acute changes, Normal ROM, 19:43 Cardiovascular: Pulses: no pulse deficits are appreciated, Heart sounds: normal, 19:43 Respiratory: the patient does not display signs of respiratory distress, Respirations: normal, Breath sounds: are clear throughout, 19:43 Abdomen/GI: Inspection: abdomen appears normal, Palpation: abdomen is soft and non-tender, 19:43 Musculoskeletal/extremity: Extremities: all appear grossly normal, with no appreciated pain with palpation, 19:43 Skin: Exam negative for acute changes, diaphoresis, rash, 19:43 Neuro: Exam negative for acute changes, Pt speaks Czech and is NAD. 19:43 Psych: Behavior/mood is pleasant, cooperative, Affect is calm, Oriented to person, place, Vital Signs: 18:17 BP 179 / 75; Pulse 65; Resp 19 S; Temp 97.6(O); Pulse Ox 97% on R/A; Weight 60.33 kg kc6 (M); Height 5 ft. 1 in. (R); 19:00 BP 136 / 99; Pulse 63; Resp 17; Pulse Ox 99% on R/A; tl4 19:30 BP 195 / 68; Pulse 69; Resp 18; Pulse Ox 100% on R/A; tl4 20:02 BP 203 / 97; Pulse 65; Resp 20; Pulse Ox 99% on R/A; tl4 20:39 BP 178 / 68; Pulse 64; Resp 18; Pulse Ox 98% on R/A; tl4 21:38 BP 115 / 87; Pulse 66; Resp 18; Temp 98.3(O); Pulse Ox 99% on R/A; tl4 18:17 Body Mass Index 25.13 (60.33 kg, 154.94 cm) kc MDM: 18:22 Patient medically screened. bo1 21:17 Data reviewed: vital signs, nurses notes. ED course: Urine is contaminated appearing. ec2 Metabolic profile shows kidney disease with a creatinine 1.77 and GFR of 29. CBC reassuring. . 09/17 18:23 Order name: CBC with Diff; Complete Time: 21:14 bo1 09/17 18:23 Order name: CMP; Complete Time: 21:14 bo1 09/17 18:23 Order name: Urinalysis w/ reflexes; Complete Time: 21:14 bo1 09/17 18:23 Order name: IV Saline Lock; Complete Time: 20:32 bo1 09/17 18:23 Order name: Labs collected and sent; Complete Time: 20:32 bo1 Administered Medications: No medications were administered Disposition Summary: 09/18/23 21:24 Discharge Ordered Notes: Location: Home ec2 Condition: Stable ec2 Diagnosis - Encounter for general adult medical examination ec2 Followup: ec2 - With: Private Physician - When: - Reason: Re-evaluation by your physician Discharge Instructions: - Discharge Summary Sheet ec2 - Weakness, [id number] ec2 Forms: - Medication Reconciliation Form ec2 - Antibiotic Education ec2 - Prescription Opioid Use ec2 - Patient Portal Instructions ec2 - Leadership Thank You Letter ec2 Signatures: Dispatcher [employer] Mary Campos, MARIE RN kc6 Prashanth Shahid MD MD ec2 OeiDomingo MD MD bo1 Corrections: (The following items were deleted from the chart) 18:18 18:18 PMHx: Cancer; kc6 kc6
--- NOTE | 2023-09-18 21:25 | ER ---
Nurse's Notes [facility] Name: Divya Parr Age: 83 yrs Sex: Female : 1940 Arrival Date: 09/18/2023 Time: 18:03 Bed 14 Private MD: Diagnosis: Encounter for general adult medical examination Presentation: 09/17 18:17 Chief complaint: Patient's son or daughter states: she hasn't been wanting to eat or kc6 drink for 3-4 days, has been sleeping a lot, and complaining of a headache. Coronavirus screen: At this time, the client does not indicate any symptoms associated with coronavirus-19. Ebola Screen: No symptoms or risks identified at this time. Initial Sepsis Screen: Does the patient meet any 2 criteria? No. Patient's initial sepsis screen is negative. Does the patient have a suspected source of infection? No. Patient's initial sepsis screen is negative. Risk Assessment: Do you want to hurt yourself or someone else? Patient reports no desire to harm self or others. Onset of symptoms was September 14, 2023. 18:17 Method Of Arrival: Wheelchair kc6 18:17 Acuity: YVETTE 3 kc6 Triage Assessment: 21:39 Headache History: Denies prior headaches. General: Appears in no apparent distress. tl4 Behavior is calm, cooperative. Pain: Also complains of no other associated symptoms. Pain: Denies pain. Pain currently is 0 out of 10 on a pain scale. Pain began unknown. Historical: - Allergies: 18:18 NKDA; kc6 - PMHx: 18:18 Alzheimer's disease; Cancer; memory problem; Hypertension; Hypercholesterolemia; kc6 Diabetes - NIDDM; Dementia; - PSHx: 18:18 R knee; R mastectomy; kc6 - Immunization history:: Adult Immunizations up to date. - Infectious Disease History:: Denies. - Social history:: Smoking status: Patient denies any tobacco usage or history of. Screenin:39 [facility] ED Fall Risk Assessment (Adult) History of falling in the last 3 months, tl4 including since admission No falls in past 3 months (0 pts) Confusion or Disorientation No (0 pts) Intoxicated or Sedated No (0 pts) Impaired Gait No (0 pts) Mobility Assist Device Used No (0 pt) Altered Elimination No (0 pt) Score/Fall Risk Level 0 - 2 = Low Risk Oriented to surroundings, Maintained a safe environment, Educated pt \T\ family on fall prevention, incl call for assistance when getting out of bed, Assessed \T\ reinforced patient's understanding of fall precautions. Abuse screen: Denies threats or abuse. Denies injuries from another. Nutritional screening: No deficits noted. Tuberculosis screening: No symptoms or risk factors identified. Assessment: 19:15 General: Appears in no apparent distress. Behavior is cooperative. Pain: Denies pain. tl4 Neuro: Level of Consciousness is awake, alert, obeys commands, Oriented to person, Pt appears confused to place, time, and event. Pt states she thinks she is here so her son can take her house. Pt advised why she presented to the ER. Afterward, pt unaware of why she is here and that she is in the ER. Denies weakness dizziness. Cardiovascular: Denies chest pain, palpitations, shortness of breath, Capillary refill < 3 seconds Patient's skin is warm and dry. Respiratory: Airway is patent Respiratory effort is even, unlabored, Respiratory pattern is regular, symmetrical, Breath sounds are clear bilaterally. GI: No signs and/or symptoms were reported involving the gastrointestinal system. Reports normal bowel habits, Patient currently denies abdominal pain, diarrhea, intolerance of fluids, intolerance of food, nausea, vomiting. : No signs and/or symptoms were reported regarding the genitourinary system. EENT: No signs and/or symptoms were reported regarding the EENT system. Derm: No signs and/or symptoms reported regarding the dermatologic system. Musculoskeletal: No signs and/or symptoms reported regarding the musculoskeletal system. 19:28 Reassessment: Pt appeared very upset and was trying to leave the room. Pt assisted back tl4 into bed with difficulty. Pt speaks Brazilian only. Via International Accounting Manager Shannon ([phone]), pt is upset because she does not know why she is here. Pt does not know where she is. Situation explained to patient. Pt became more and more upset stating she wants to go home, she is ok at home and does not need to be in the clinic. Son states patient has been complaining of pain in her 'brain', doesn't want to eat, sleeps all the time, and won't use her AC. Pt states none of that is true. Pt states her son does not want her to be in her house. Pt agrees to lab work and urine, but does not want to stay in the hospital. Extensive amount of time spent with claims processor due to pt needing to be redirected to answer questions. Pt repetitive in her questions and needs to be asked multiple times to answer the same question. Vital Signs: 18:17 BP 179 / 75; Pulse 65; Resp 19 S; Temp 97.6(O); Pulse Ox 97% on R/A; Weight 60.33 kg kc6 (M); Height 5 ft. 1 in. (R); 19:00 BP 136 / 99; Pulse 63; Resp 17; Pulse Ox 99% on R/A; tl4 19:30 BP 195 / 68; Pulse 69; Resp 18; Pulse Ox 100% on R/A; tl4 20:02 BP 203 / 97; Pulse 65; Resp 20; Pulse Ox 99% on R/A; tl4 20:39 BP 178 / 68; Pulse 64; Resp 18; Pulse Ox 98% on R/A; tl4 21:38 BP 115 / 87; Pulse 66; Resp 18; Temp 98.3(O); Pulse Ox 99% on R/A; tl4 18:17 Body Mass Index 25.13 (60.33 kg, 154.94 cm) [facility] ED Course: 18:08 Patient arrived in ED. im 18:17 Domingo Coronel MD is Attending Physician. bo1 18:18 Triage completed. kc6 18:18 Arm band placed on. kc6 20:01 Attending Physician role handed off by Domingo Coronel MD ec2 20:01 Prashanth Shahid MD is Attending Physician. ec2 20:32 CBC with Diff Sent. tl4 20:32 CMP Sent. tl4 20:32 Urinalysis w/ reflexes Sent. tl4 20:41 Patient has correct armband on for positive identification. Placed in gown. Bed in low tl4 position. Call light in reach. Side rails up X2. Provided Education on: call palmer, ed process. Client placed on continuous cardiac and pulse oximetry monitoring. NIBP monitoring applied. Door closed. Noise minimized. Lights dimmed. Moved to private room. Warm blanket given. Pillow given. 20:43 No provider procedures requiring assistance completed. Inserted saline lock: 22 gauge tl4 in right antecubital area, using aseptic technique. Blood collected. Flushed with 10 mL NS. 21:39 IV discontinued, intact, bleeding controlled, No redness/swelling at site. Pressure tl4 dressing applied. Administered Medications: No medications were administered Medication: 20:39 VIS not applicable for this client. tl4 Outcome: 21:24 Discharge ordered by . ec2 21:39 Discharged to home via wheelchair, with family, tl4 21:39 Condition: stable 21:39 Discharge instructions given to family, by Dr Shahid Instructed on discharge instructions, follow up and referral plans. Demonstrated understanding of instructions, follow-up care, 21:40 Patient left the ED. tl4 Signatures: Mary Cardoza RN RN kc6 Solange Conley Edwin, MD MD ec2 Bonifacio Franklin RN RN tl4 Domingo Coronel MD MD bo1 Corrections: (The following items were deleted from the chart) 18:18 18:18 PMHx: Cancer; kc6 kc6
[2023-09-18 22:12] VITALS: BP 115/87; TEMP 98.3; O2SAT 99
== END 2023-09-18 21:40 | disposition home or self-care (01) ==
LOC: ER 18:03
DX: Z00.00 Encounter for general adult medical examination without abnormal findings (principal); R51.9 Headache, unspecified; G30.9 Alzheimer's disease, unspecified; F02.80 Dementia in other diseases classified elsewhere, unspecified severity, without behavioral disturbance, psychotic disturbance, mood disturbance, and anxiety; I10 Essential (primary) hypertension; E11.9 Type 2 diabetes mellitus without complications; E78.00 Pure hypercholesterolemia, unspecified; Z85.9 Personal history of malignant neoplasm, unspecified; Z90.11 Acquired absence of right breast and nipple
CPT/HCPCS: 36415; 80053; 81001; 85025; 99284

== ENCOUNTER 2023-09-26 17:43 | Emergency (ER) | payer OTHER ==
[2023-09-26 19:13] LABS: Absolute Lymphocytes (CBC) 2.1 K/uL (0.7-4.9); Absolute Monocytes 0.4 K/uL (0.1-1.3); Absolute Neutrophil 3.2 K/uL (1.8-8.0); Basophils % 0.5 % (0-1.3); Eosinophils % 0.7 % (0-4.4); Hematocrit 35.5 % (36.0-45.0); Hemoglobin 11.8 g/dL (12.0-15.0); Lymphocytes % 36.8 % (15.3-44.8); MCH 31.3 pg (27.0-35.0); MCHC 33.4 g/dL (32.0-36.0); MCV 93.9 fL (80-100); Monocytes % 7.1 % (3.3-12.3); Neutrophils % 54.9 % (41.7-73.7); Platelets 247 thou/uL (152-406); RBC Red Blood Cell Count 3.78 M/uL (3.86-4.86); Red Cell Distribution Width 14.3 % (12.1-15.2)
[2023-09-26 19:29] LABS: Anion Gap 9.8 mEq/L (5.0-15.0); Bilirubin Direct 0.2 mg/dL (0-0.2); Bilirubin Indirect, Calculated 0.6 mg/dL (0.2-0.8); Bilirubin Total 0.8 mg/dL (0.2-1.0); Globulin 4.2 g/dL (2.3-3.5); Potassium 4.8 mEq/L (3.5-5.1); Protein, Total 8.2 g/dL (6.4-8.2)
[2023-09-26] MEDS ORDERED: NA CHLORIDE 0.9% 1,000 ML ONE (20:43)
--- NOTE | 2023-09-26 21:09 | RAD REPORT ---
EXAM DESCRIPTION: CT - Head Brain Wo Cont - 09/26/2023 8:32 pm CLINICAL HISTORY: headache, AMS COMPARISON: Head Brain Wo Cont dated 05/12/2021; Head Brain Wo Cont dated 07/27/2015 TECHNIQUE: Noncontrast head CT images were obtained without IV contrast. Multiplanar reformats were generated and reviewed. All CT scans are performed using dose optimization technique as appropriate and may include automated exposure control or mA/KV adjustment according to patient size. FINDINGS: Motion artifact somewhat limits evaluation despite attempts at repeat imaging. No intracranial hemorrhage, mass, or edema. Midline structures are unremarkable. Normal ventricular caliber for age. Fischer-white matter differentiation is preserved, without evidence of acute infarct. No abnormal extra- axial fluid collections. Mastoid air cells and visualized portions of the paranasal sinuses are clear. No acute bony findings. IMPRESSION: No evidence of an acute intracranial process.
--- NOTE | 2023-09-26 21:16 | RAD REPORT ---
EXAM DESCRIPTION: CT - Abdomen Pelvis Wo Contrast - 09/26/2023 8:32 pm CLINICAL HISTORY: anorexia, AMS, UTI COMPARISON: Abdomen Pelvis Wo Contrast dated 08/26/2022; Abdomen Pelvis W Contrast dated ; Abdomen Pelvis W Contrast dated 05/13/2021; Abdomen Pelvis W Contrast dated 03/06/2021 TECHNIQUE: Thin cut axial CT imaging of the abdomen and pelvis was performed without IV contrast. Mu ltiplanar reformats were generated and reviewed. All CT scans are performed using dose optimization technique as appropriate and may include automated exposure control or mA/KV adjustment according to patient size. FINDINGS: No suspicious findings in the lung bases. Mild pericardial effusion. The liver, spleen, adrenal glands, and pancreas show no suspicious findings. Gallbladder was surgical ly removed. Symmetric renal contour, without suspicious parenchymal findings within limits of noncontrast techniq ue. No evidence of radiopaque calculi or hydroureteronephrosis. No dilated bowel loops or bowel wall thickening. No free air, free fluid or inflammatory stranding. N o hernia, mass or bulky lymphadenopathy. The urinary bladder is without significant finding. No suspicious bony findings. IMPRESSION: No acute intra-abdominal process. Mild pericardial effusion. Status post cholecystectomy.
--- NOTE | 2023-09-26 22:19 | EDPHYS ---
Physician Documentation [facility] Name: Divya Parr Age: 83 yrs Sex: Female : 1940 Arrival Date: 09/26/2023 Time: 17:43 Bed 15 Private MD: ED Physician Prashanth Shahid HPI: 09/25 20:15 This 83 yrs old Female presents to ER via Wheelchair with complaints of rn Headache, Vision Problem, Dizziness. 20:15 Onset: The symptoms/episode began/occurred 2 week(s) ago. Severity of symptoms: At rn their worst the symptoms were moderate in the emergency department the symptoms are unchanged. The patient has experienced similar episodes in the past. The patient has been recently seen at the [facility] Emergency Department. Family reports seen recently a couple of weeks ago for malaise and fatigue, headache, blurred vision, dizziness and lack of appetite. Symptoms have not improved. No fever. No vomiting or diarrhea. No trauma.. Historical: - Allergies: 18:10 NKDA; tl4 - PMHx: 18:10 Alzheimer's disease; Cancer; memory problem; Hypertension; Hypercholesterolemia; tl4 Diabetes - NIDDM; Dementia; - PSHx: 18:10 R knee; R mastectomy; tl4 - Immunization history:: Adult Immunizations unknown. - Infectious Disease History:: Denies. - Social history:: Smoking status: Patient denies any tobacco usage or history of. - Family history:: not pertinent. - Hospitalizations: : No recent hospitalization is reported. ROS: 20:15 Constitutional: Negative for fever, chills Cardiovascular: Negative for chest pain, rn palpitations, and edema, Respiratory: Negative for shortness of breath, cough, wheezing, and pleuritic chest pain, Abdomen/GI: Negative for abdominal pain, positive for anorexia MS/Extremity: Negative for injury and deformity, Skin: Negative for injury, rash, and discoloration, Neuro: Negative for numbness, tingling, and seizure, Exam: 20:15 Constitutional: This is a well developed, well nourished patient who is awake, alert, rn and in no acute distress. ENT: Dry mucous membranes Cardiovascular: Regular rate and rhythm. No pulse deficits. Abdomen/GI: Soft, non-tender Vital Signs: 18:08 BP 106 / 60; Pulse 80; Resp 16; Temp 97.8(O); Pulse Ox 98% on R/A; Weight 70.31 kg; tl4 Height 5 ft. 0 in. ; 21:00 BP 141 / 66; Pulse 64; Resp 18; Pulse Ox 100% on R/A; pc2 23:00 BP 136 / 61; Pulse 67; Resp 16; Pulse Ox 100% on R/A; pc2 18:08 Body Mass Index 30.27 (70.31 kg, 152.4 cm) tl4 MDM: 18:14 Patient medically screened. rn 20:37 Data reviewed: vital signs. ED course: Patient signed out to me by previous physician, ec2 in brief patient arrives today for multiple weeks nonspecific complaints along with fatigue, headache, decreased p.o. intake. Patient has decreased renal function with a creatinine of 2.3, previously creatinine of 1.77. Ordered for crystalloid. Plan is to follow-up CT abdomen pelvis, CT scan of the head and reassess.. 21:36 ED course: CT scan of the head shows no acute intracranial process, CT of the pelvis ec2 shows no acute intra-abdominal process, mild pericardial effusion, patient remains hemodynamically stable, no evidence of hypotension. I do not suspect this to be the source of the patient's problem today. . 21:47 ED course: EKG independently reviewed and interpreted by me, shows normal sinus rhythm, ec2 rate of 64, no acute ST segment elevations, intervals are nonconcerning. . 09/25 18:20 Order name: CBC with Diff; Complete Time: 20:19 rn 09/25 18:20 Order name: Basic Metabolic Panel; Complete Time: 20:19 rn 09/25 18:20 Order name: LFT's; Complete Time: 20:19 rn 09/25 18:20 Order name: CT Head Brain wo Cont; Complete Time: 21:36 rn 09/25 20:19 Order name: Abdomen ; Complete Time: 21:36 EDMS 09/25 18:20 Order name: EKG; Complete Time: 18:20 rn 09/25 18:20 Order name: IV Start; Complete Time: 18:59 rn 09/25 18:20 Order name: EKG - Nurse/Tech; Complete Time: 21:49 rn 09/25 21:58 Order name: Misc. Order: finish fluids then dc; Complete Time: 23:18 ec2 Administered Medications: 20:50 Drug: NS 0.9% IV 1000 ml IV at 1 bolus Per protocol; 1000 mL bolus Route: IV; Rate: 1 pc2 bolus; Site: left antecubital; 21:20 Follow up: Response: No adverse reaction; IV Status: Completed infusion; IV Intake: pc2 1000ml Disposition Summary: 09/26/23 22:19 Discharge Ordered Notes: Location: Home ec2 Condition: Stable ec2 Diagnosis - Dehydration ec2 Followup: ec2 - With: Private Physician - When: - Reason: Re-evaluation by your physician Discharge Instructions: - Discharge Summary Sheet ec2 - Dehydration, Adult ec2 Forms: - Medication Reconciliation Form ec2 - Antibiotic Education ec2 - Prescription Opioid Use ec2 - Patient Portal Instructions ec2 - Leadership Thank You Letter ec2 Signatures: Dispatcher [employer] EDDemetris Garibay MD MD rn Corral, Edwin, MD MD ec2 Bonifacio Franklin RN RN [id number] Candie Johnston, RN RN pc2 Corrections: (The following items were deleted from the chart) 18:11 18:10 PMHx: Cancer; tl4 tl4 18:11 18:10 PMHx: Cancer; tl4 tl4 18:11 18:10 PMHx: Cancer; tl4 tl4 18:11 18:10 PMHx: Cancer, Breast; tl4 tl4 20:19 18:20 Abdomen Pelvis W Con+CT.RAD.BRZ ordered. [facility] EDMN 21:11 20:15 Constitutional: This is a well developed, well nourished patient who is awake, rn alert, and in no acute distress. ENT: Dry mucous membranes Cardiovascular: Regular rate and rhythm. No pulse deficits. Abdomen/GI: Soft, non-tender rn
--- NOTE | 2023-09-26 22:19 | ER ---
Nurse's Notes [facility] Name: Divya Parr Age: 83 yrs Sex: Female : 1940 Arrival Date: 09/26/2023 Time: 17:43 Bed 15 Private MD: Diagnosis: Dehydration Presentation: 09/25 18:08 Chief complaint: Patient states: Via [employer] #[id number], pt presents for tl4 blurry vision, decreased appetite, and headache that is ongoing. Pt evaluated last week for similar without changes in those symptoms. Coronavirus screen: At this time, the client does not indicate any symptoms associated with coronavirus-19. Ebola Screen: No symptoms or risks identified at this time. Initial Sepsis Screen: Does the patient meet any 2 criteria? No. Patient's initial sepsis screen is negative. Does the patient have a suspected source of infection? No. Patient's initial sepsis screen is negative. Risk Assessment: Do you want to hurt yourself or someone else? Patient reports no desire to harm self or others. Onset of symptoms is unknown. 18:08 Method Of Arrival: Wheelchair tl4 18:08 Acuity: YVETTE 3 tl4 Triage Assessment: 18:11 Headache History: The patient has had previous headaches and this one is similar to tl4 previous episodes. General: Appears in no apparent distress. Behavior is calm, cooperative. Pain: Complains of pain in scalp Pain currently is 5 out of 10 on a pain scale. Pain began gradually, Also complains of decreased appetite. EENT: No signs and/or symptoms were reported regarding the EENT system. Neuro: Level of Consciousness is awake, alert, obeys commands, Reports blurred vision headache. Cardiovascular: Capillary refill < 3 seconds Patient's skin is warm and dry. Respiratory: Airway is patent Respiratory effort is even, unlabored, Respiratory pattern is regular, symmetrical. GI: Reports intolerance of fluids, intolerance of food. : No signs and/or symptoms were reported regarding the genitourinary system. Derm: No signs and/or symptoms reported regarding the dermatologic system. Musculoskeletal: No signs and/or symptoms reported regarding the musculoskeletal system. Historical: - Allergies: 18:10 NKDA; tl4 - PMHx: 18:10 Alzheimer's disease; Cancer; memory problem; Hypertension; Hypercholesterolemia; tl4 Diabetes - NIDDM; Dementia; - PSHx: 18:10 R knee; R mastectomy; tl4 - Immunization history:: Adult Immunizations unknown. - Infectious Disease History:: Denies. - Social history:: Smoking status: Patient denies any tobacco usage or history of. - Family history:: not pertinent. - Hospitalizations: : No recent hospitalization is reported. Screenin:00 [facility] ED Fall Risk Assessment (Adult) History of falling in the last 3 months, pc2 including since admission No falls in past 3 months (0 pts) Confusion or Disorientation No (0 pts) Intoxicated or Sedated No (0 pts) Impaired Gait No (0 pts) Mobility Assist Device Used No (0 pt) Altered Elimination No (0 pt) Score/Fall Risk Level 0 - 2 = Low Risk Oriented to surroundings, Maintained a safe environment, Educated pt \T\ family on fall prevention, incl call for assistance when getting out of bed, Hourly rounding (assess needs \T\ fall precautionary measures) done. Abuse screen: Denies threats or abuse. Denies injuries from another. Nutritional screening: No deficits noted. Tuberculosis screening: No symptoms or risk factors identified. Assessment: 20:36 General: Received patient to ED 15 at this time [address].. pc2 Vital Signs: 18:08 BP 106 / 60; Pulse 80; Resp 16; Temp 97.8(O); Pulse Ox 98% on R/A; Weight 70.31 kg; tl4 Height 5 ft. 0 in. ; 21:00 BP 141 / 66; Pulse 64; Resp 18; Pulse Ox 100% on R/A; pc2 23:00 BP 136 / 61; Pulse 67; Resp 16; Pulse Ox 100% on R/A; pc2 18:08 Body Mass Index 30.27 (70.31 kg, 152.4 cm) tl4 ED Course: 17:48 Patient arrived in ED. im 18:10 Triage completed. tl4 18:12 Arm band placed on left wrist. tl4 18:14 Demetris Dennison MD is Attending Physician. rn 18:50 Inserted saline lock: 20 gauge in left antecubital area, using aseptic technique. Blood nj1 collected. Flushed with 10 mL NS. 19:13 Radiology exam delayed due to lab results not completed at this time. (BUN/Creatinine). nj 20:33 CT Head Brain wo Cont In Process Unspecified. EDMS 20:34 Attending Physician role handed off by Demetris Dennison MD ec2 20:34 Prashanth Shahid MD is Attending Physician. ec2 20:34 Abdomen In Process Unspecified. EDMS 20:37 Candie Johnston, RN is Primary Nurse. pc2 20:37 Patient taken to an exam room, via wheelchair. pc2 21:00 Patient has correct armband on for positive identification. Bed in low position. Call pc2 light in reach. Side rails up X 1. Adult w/ patient. Provided Education on: POC and time frame. 23:21 No provider procedures requiring assistance completed. pc2 23:22 IV discontinued, intact, bleeding controlled, No redness/swelling at site. Pressure pc2 dressing applied. Administered Medications: 20:50 Drug: NS 0.9% IV 1000 ml IV at 1 bolus Per protocol; 1000 mL bolus Route: IV; Rate: 1 pc2 bolus; Site: left antecubital; 21:20 Follow up: Response: No adverse reaction; IV Status: Completed infusion; IV Intake: pc2 1000ml Medication: 23:21 VIS not applicable for this client. pc2 Intake: 21:20 IV: 1000ml; Total: 1000ml. pc2 Outcome: 22:19 Discharge ordered by MD. ec2 23:21 Discharged to home ambulatory, with family, pc2 23:21 Condition: stable 23:21 Discharge instructions given to patient, family, Instructed on discharge instructions, follow up and referral plans. Demonstrated understanding of instructions, follow-up care, 23:22 Patient left the ED. pc2 Signatures: Dispatcher [employer] EDKS Demetris Dennison MD MD rn Jordan, Nathan nj Jaco, Norma, RN RN nj1 Solange Conley Edwin, MD MD ec2 Bonifacio Franklin RN RN [id number] Candie Johnston, RN RN pc2 Corrections: (The following items were deleted from the chart) 18:11 18:10 PMHx: Cancer; tl4 tl4 18:11 18:10 PMHx: Cancer; tl4 tl4 18:11 18:10 PMHx: Cancer; tl4 tl4 18:11 18:10 PMHx: Cancer, Breast; tl4 tl4
[2023-09-26 23:40] VITALS: TEMP 97.8
[2023-09-26 23:43] VITALS: O2SAT 100
[2023-09-26 23:44] VITALS: BP 136/61
== END 2023-09-26 23:22 | disposition home or self-care (01) ==
LOC: ER 17:43
DX: E86.0 Dehydration (principal); E11.9 Type 2 diabetes mellitus without complications; I10 Essential (primary) hypertension; G30.9 Alzheimer's disease, unspecified; F02.80 Dementia in other diseases classified elsewhere, unspecified severity, without behavioral disturbance, psychotic disturbance, mood disturbance, and anxiety
CPT/HCPCS: 85025; 80048; 36415; 80076; 70450; 74176; 99284; J7030; 93005

== ENCOUNTER 2024-06-05 20:34 | Emergency (ER) | payer OTHER ==
[2024-06-05 21:07] LABS: Absolute Lymphocytes (CBC) 1.7 K/uL (0.7-4.9); Absolute Monocytes 0.6 K/uL (0.1-1.3); Basophils % 0.5 % (0-1.3); Eosinophils % 0.6 % (0-4.4); Hematocrit 33.1 % (36.0-45.0); Hemoglobin 11.5 g/dL (12.0-15.0); MCH 31.6 pg (27.0-35.0); MCHC 34.6 g/dL (32.0-36.0); MCV 91.3 fL (80-100); MPV 7.7 fL (7.6-11.3); Monocytes % 7.8 % (3.3-12.3); Neutrophils % 68.1 % (41.7-73.7); Platelets 234 thou/uL (152-406); RBC Red Blood Cell Count 3.63 M/uL (3.86-4.86); Red Cell Distribution Width 14.6 % (12.1-15.2)
--- NOTE | 2024-06-05 21:27 | RAD REPORT ---
EXAMINATION: Head C Spine Mpr Wo Con CLINICAL INDICATION: Female, 83 years old. STROKE ALERT TECHNIQUE: Axial CT images from the skull base to the vertex without intravenous contrast. Axial CT i mages through the cervical spine were obtained without intravenous contrast. Sagittal and coronal reformatted images were created from the data set. Coronal and sagittal reformatted images were creat ed from the data set. One or more of the following dose reduction techniques were used: Automated exposure control, adjustment of the mA and/or kV according to patient size, and/or iterative reconstr uction. Unless otherwise specified, incidental findings do not require dedicated imaging follow-up. [id number]. COMPARISON: 08/26/22 FINDINGS: Head: INTRACRANIAL: No acute intracranial hemorrhage. No hydrocephalus. No mass effect or midline shift. Mi ld chronic small vessel ischemic changes.Mild cerebral atrophy. VASCULATURE: No visualized abnormalities in the arteries or dural venous sinuses. SCALP/SKULL: No calvarial fracture identified. No acute soft tissue abnormality. SINUSES: The visualized paranasal sinuses are mostly clear. No significant mastoid fluid. Cervical spine: ALIGNMENT: The cervical spine has normal alignment without scoliosis or spondylolisthesis. BONE: Vertebral body heights are maintained. No aggressive osseous lesions. DEGENERATIVE: Multilevel cervical spondylosis with evidence of bilateral neural foraminal narrowing. No high grade central spinal stenosis. Neural foraminal narrowing is noted bilaterally at C3-4, C4-5, C5-6, and, to a lesser extent, C6-C7 . SOFT TISSUE: No significant abnormalities in the soft tissue of the neck. The visualized lung apices are clear. IMPRESSION: No acute intracranial abnormality. No acute fracture or traumatic malalignment of the cervical spine. The findings were communicated to Dr. Rivera on 06/05/2024 9:21 PM.
[2024-06-05 21:28] LABS: ALT/SGPT 29 U/L (13-56); AST/SGOT 22 U/L (15-37); Albumin 3.4 g/dL (3.4-5.0); Albumin/Globulin Ratio 0.8 (1.1-1.8); Alkaline Phosphatase 84 U/L (45-117); Anion Gap 7.8 mEq/L (5.0-15.0); BUN Blood Urea Nitrogen 29 mg/dL (7-18); Bicarbonate 27 mEq/L (21-32); Bilirubin Total 0.4 mg/dL (0.2-1.0); Globulin 4.2 g/dL (2.3-3.5); Glomerular Filtration Rate 32 ml/min (=/>90); Glucose Level 132 mg/dL (74-106); PT Prothrombin Time 11.6 SECONDS (10-13.0); PTT, Activated Partial Thromb 31.6 SECONDS (27.2-37.4); Potassium 3.8 mEq/L (3.5-5.1); Protein, Total 7.6 g/dL (6.4-8.2); Protime INR 1.02; Sodium Level 136 mEq/L (136-145)
--- NOTE | 2024-06-05 21:29 | RAD REPORT ---
EXAMINATION: Head angio CLINICAL INDICATION: Female, 83 years old. HEADACHE TECHNIQUE: Axial CT images were obtained through the head after intravenous contrast utilizing angiog raphic protocol with 3D post-processing (maximum intensity projection images, volume rendered images and/or shaded surface rendered images). One or more of the following dose reduction technique s were used: Automated exposure control, adjustment of the mA and/or kV according to patient size, and/or iterative reconstruction. Unless otherwise specified, incidental findings do not require dedic ated imaging follow-up. COMPARISON: No prior exam. FINDINGS: RIGHT: ICA: Atherosclerotic calcifications but no flow limiting stenosis. NITESH: Patent. Absent right A1 segment. MCA: Patent SHOWPLACE MANAGER: Patent LEFT: ICA: Patent NITESH: Patent MCA: Patent SHOWPLACE MANAGER: Patent Vertebrobasilar: The vertebral arteries are patent. The basilar artery is normal in appearance. 3D images confirm these findings. IMPRESSION: No occlusion, aneurysm, or hemodynamically significant stenosis identified.
[2024-06-05 21:33] LABS: Bilirubin Direct < 0.2 mg/dL (0-0.2); Bilirubin Indirect, Calculated 0.2 mg/dL (0.2-0.8)
--- NOTE | 2024-06-05 21:33 | RAD REPORT ---
EXAMINATION: Neck Angio CLINICAL INDICATION: Female, 83 years old. headache, neck pain TECHNIQUE: Axial CT images were obtained from the aortic arch to the skull base after intravenous con trast utilizing angiographic protocol with 3D post-processing (maximum intensity projection images, volume rendered images and/or shaded surface rendered images). One or more of the following dose redu ction techniques were used: Automated exposure control, adjustment of the mA and/or kV according to patient size, and/or iterative reconstruction. Unless otherwise specified, incidental findings do not require dedicated imaging follow-up. [id number]. NASCET criteria used. Mild 0-49% stenosis Moderate 50-69% stenosis Severe 70-99% stenosis COMPARISON: Same-day neck CT FINDINGS: AORTA: Atherosclerotic changes but otherwise unremarkable. RIGHT: - CCA: Patent - ICA: Patent - ECA: Atherosclerotic changes without flow limiting stenosis. LEFT: - CCA: Patent - ICA: Atherosclerotic changes but no flow limiting stenosis. - ECA: Patent VERTEBRAL: Patent SOFT TISSUE: No significant neck soft tissue abnormalities. The visualized lung apices are clear. 3D images confirm these findings. IMPRESSION: No arterial dissection or stenosis identified within the neck.
--- NOTE | 2024-06-05 21:40 | RAD REPORT ---
EXAM: Chest Single View HISTORY: 83 years Female headache COMPARISON: 08/27/2022 FINDINGS: LUNGS/PLEURA: The lungs are clear. No pleural effusions or pneumothorax. No pulmonary edema. CARDIAC/MEDIASTINUM: Mild cardiomegaly UPPER ABDOMEN: No significant abnormality. BONES: No acute abnormality. LINES/TUBES/OTHER: N/A IMPRESSION: No evidence of acute cardiopulmonary disease.
[2024-06-05] MEDS ORDERED: MORPHINE 2 MG/ML SYR ONE (21:41)
[2024-06-05] MEDS ORDERED: Magnesium Sulfate 2gm IVPB 2 G/50 ML BAG IV ONE (21:41)
--- NOTE | 2024-06-05 22:44 | ER ---
Nurse's Notes [facility] Name: Divya Parr Age: 83 yrs Sex: Female : 1940 Arrival Date: 06/05/2024 Time: 20:34 Bed 15 Private MD: Diagnosis: Headache;Cervicalgia Presentation: 06/05 20:37 Chief complaint: Patient states: SUDDEN ONSET OF HEADACHE, NECK PAIN, AND LEFT ARM ha1 PAIN. DIZZINESS FOR PAST TWO MONTH. 20:37 Coronavirus screen: Client denies travel out of the [place] in the last 14 days. Ebola ha1 Screen: No symptoms or risks identified at this time. No acute neurological deficit is noted. The patients blood glucose was checked before arriving to the hospital and was found to be normal. Initial Sepsis Screen: Does the patient meet any 2 criteria? No. Patient's initial sepsis screen is negative. Does the patient have a suspected source of infection? No. Patient's initial sepsis screen is negative. Risk Assessment: Do you want to hurt yourself or someone else? Patient reports no desire to harm self or others. Onset of symptoms was June 05, 2024. 20:37 Method Of Arrival: Wheelchair ha1 20:37 Acuity: YVETTE 2 ha1 Triage Assessment: 20:00 The onset of the patients symptoms was June 05, 2024 at 20:20. General: Appears ha1 comfortable, Behavior is calm, cooperative. Pain: Complains of pain in NECK PAIN, BACK OF HEAD, AND LRFT ARM. Neuro: Level of Consciousness is awake, alert, obeys commands, Oriented to person, place, time, situation, Moves all extremities. Full function Speech is normal, Facial symmetry appears normal, Reports headache occipital area. Cardiovascular: Capillary refill < 3 seconds Patient's skin is warm and dry. Respiratory: Airway is patent Respiratory effort is even, unlabored, Respiratory pattern is regular, symmetrical. Historical: - Allergies: 20:37 NKDA; ha1 - PMHx: 20:37 Alzheimer's disease; Dementia; Diabetes - NIDDM; Hypercholesterolemia; Hypertension; ha1 memory problem; - PSHx: 20:37 R knee; R mastectomy; ha1 - Immunization history:: Adult Immunizations up to date. - Infectious Disease History:: Denies. - Social history:: Smoking status: Patient denies any tobacco usage or history of. - Family history:: not pertinent. Screenin:09 [facility] ED Fall Risk Assessment (Adult) History of falling in the last 3 months, cp4 including since admission No falls in past 3 months (0 pts) Confusion or Disorientation No (0 pts) Intoxicated or Sedated No (0 pts) Impaired Gait No (0 pts) Mobility Assist Device Used No (0 pt) Altered Elimination No (0 pt) Score/Fall Risk Level 0 - 2 = Low Risk Oriented to surroundings, Maintained a safe environment, Assessed \T\ reinforced patient's understanding of fall precautions, Hourly rounding (assess needs \T\ fall precautionary measures) done. Abuse screen: Denies threats or abuse. Denies injuries from another. Nutritional screening: No deficits noted. Tuberculosis screening: No symptoms or risk factors identified. Assessment: 21:09 VAN Scoring: Arm Drift: Patients demonstrates NO arm weakness. Patient is VAN Negative. cp4 Visual Disturbance: No visual disturbance noted. Aphasia: No aphasia noted. Neglect: No neglect noted. Anika Swallow Protocol Exclusion Criteria: NPO for medical/surgical reason by provider order Yes. TNKase (Tenecteplase) Screening: Not Applicable. General: Appears in no apparent distress. comfortable, Behavior is calm, cooperative, appropriate for age. Pain: Complains of pain in headache. Neuro: Level of Consciousness is awake, alert, obeys commands, Oriented to person, place, time, situation. Cardiovascular: Patient's skin is warm and dry. Respiratory: Airway is patent Trachea Respiratory effort is even, unlabored. GI: No signs and/or symptoms were reported involving the gastrointestinal system. : No signs and/or symptoms were reported regarding the genitourinary system. EENT: No signs and/or symptoms were reported regarding the EENT system. Derm: No signs and/or symptoms reported regarding the dermatologic system. Musculoskeletal: No signs and/or symptoms reported regarding the musculoskeletal system. 23:10 [place]antam Swallow Protocol Brief Cognitive Screen What is your name? Normal, Where are you cp4 right now? Normal, What year is it? Normal. Oral Mechanism Examination Facial Symmetry: Normal, Motion: Normal, Lip Closure: Normal, 3 oz Water Swallow Challenge: Pt able to drink all water without stopping, coughing, choking or throat clearing: Yes Result: MIKAELA MEEK Notified: Derek Rivera MD. Vital Signs: 20:37 BP 151 / 68; Pulse 66; Resp 17 S; Temp 98.2(T); Pulse Ox 99% on R/A; Weight 67.13 kg; ha1 Height 5 ft. 0 in. ; Pain 8/10; 22:40 BP 145 / 65; Pulse 64; Resp 18; Pulse Ox 99% ; cp4 20:37 Body Mass Index 28.90 (67.13 kg, 152.4 cm) ha1 20:37 Pain Scale: Adult ha1 NIH Stroke Scale Scores: 21:09 NIHSS Score: 0 cp4 ED Course: 20:36 Patient arrived in ED. jj6 20:36 Derek Rivera MD is Attending Physician. rt 20:52 Triage completed. ha1 20:52 Caty Ni is Primary Nurse. cp4 21:09 Bed in low position. Call light in reach. Side rails up X2. cp4 21:09 Initial lab(s) drawn, by me, sent to lab. Inserted saline lock: 22 gauge in left 4 antecubital area, using aseptic technique. Blood collected. Flushed with 10 mL NS. 21:13 Head C Spine Mpr Wo Con In Process Unspecified. EDMS 21:26 CT Head Angio In Process Unspecified. EDMS 21:26 CT Neck Angio In Process Unspecified. EDMS 21:35 Stroke CXR 1 View In Process Unspecified. EDMS 23:08 Provided Education on: discharge instructions. cp4 23:08 No provider procedures requiring assistance completed. intact, bleeding controlled, No cp4 redness/swelling at site. Pressure dressing applied. 23:10 Arm band placed on right wrist. Patient placed in waiting room. cp4 Administered Medications: 21:45 Drug: morphine IVP or IV 2 mg IVP once over 4 mins Route: IVP; Infused Over: 4 mins; cp4 Site: left antecubital; 23:08 Follow up: Response: No adverse reaction cp4 21:45 Drug: Magnesium Sulfate IVPB 2 grams IVPB once over 1 hrs Route: IVPB; Infused Over: 1 cp4 hrs; Site: left antecubital; 23:13 Follow up: IV Status: Completed infusion cp4 23:08 Drug: HYDROcodone-acetaminophen PO 5 mg-325 mg 1 tabs PO once Route: PO; cp4 23:08 Follow up: Response: No adverse reaction cp4 Medication: 21:09 VIS not applicable for this client. cp4 Outcome: 22:43 Discharge ordered by MD. rt 23:08 Discharged to home via wheelchair, cp4 23:08 Condition: stable 23:08 Discharge instructions given to patient, family, Instructed on discharge instructions, follow up and referral plans. medication usage, Demonstrated understanding of instructions, follow-up care, medications, Prescriptions given X 1, 23:12 Patient left the ED. cp4 NIH Stroke Scale - NIH Stroke Score Date: 06/05/2024 Time: 21:09 Total Score = 0 10. Dysarthria (speech clarity - read or repeat words) - 0(Normal) 11. Extinction and Inattention (visual/tactile/auditory/spatial/personal) - 0(No abnormality) 1a. Level of Consciousness (LOC) - 0(Alert) 1b. Level of Consciousness (LOC) (Month \T\ Age) - 0(Both) 1c. LOC Commands (Open \T\ Closes Eyes/Reconsignment Clerk) - 0(Both) 2. Best Gaze (Lateral Gaze Paresis) - 0(Normal) 3. Visual Field Loss - 0(No visual loss) 4. Facial Palsy - 0(Normal) 5a. Left Arm: Motor (10-second hold) - 0(No drift) 5b. Right Arm: Motor (10-second hold) - 0(No drift) 6a. Left Leg: Motor (5-second hold - always test supine) - 0(No drift) 6b. Right Leg: Motor (5-second hold - always test supine) - 0(No drift) 7. Limb Ataxia (finger/nose \T\ heel/robles - test with eyes open) - 0(Absent) 8. Sensory Loss (pinprick arms/legs/face) - 0(Normal) 9. Best Language: Aphasia (description/naming/reading) - 0(No aphasia) Initials: cp4 Signatures: Dispatcher [employer] EDScarlett Hurt [id number] Kathrine Moreno RN RN ha1 Derek Rivera MD MD rt Potter, Christina cp4
--- NOTE | 2024-06-05 22:44 | EDPHYS ---
Physician Documentation [facility] Name: Divya Parr Age: 83 yrs Sex: Female : 1940 Arrival Date: 06/05/2024 Time: 20:34 Bed 15 Private MD: ED Physician Derek Rivera HPI: 06/05 21:39 This 83 yrs old Female presents to ER via Wheelchair with complaints of S/S of rt Possible Stroke. 21:39 Patient reportedly has been having dizziness for about a month. Since yesterday, the rt patient developed a neck pain, about 30 minutes prior to arrival she developed the pain to the back of her head. Denies injury, other acute complaints, symptoms are moderate in severity, no other aggravating or alleviating factors.. Historical: - Allergies: 20:37 NKDA; ha1 - PMHx: 20:37 Alzheimer's disease; Dementia; Diabetes - NIDDM; Hypercholesterolemia; Hypertension; ha1 memory problem; - PSHx: 20:37 R knee; R mastectomy; ha1 - Immunization history:: Adult Immunizations up to date. - Infectious Disease History:: Denies. - Social history:: Smoking status: Patient denies any tobacco usage or history of. - Family history:: not pertinent. ROS: 21:39 Constitutional: Negative for fever, chills, and weight loss, Cardiovascular: Negative rt for chest pain, palpitations, and edema, Respiratory: Negative for shortness of breath, cough, wheezing, and pleuritic chest pain, Abdomen/GI: Negative for abdominal pain, nausea, vomiting, diarrhea, and constipation, MS/Extremity: Negative for injury and deformity, Skin: Negative for injury, rash, and discoloration, 21:39 Neck: Positive for pain at rest, Negative for injury or acute deformity, 21:39 Neuro: Positive for dizziness, headache, Exam: 21:39 Radiologist reports: No acute findings rt 21:39 Constitutional: This is a well developed, well nourished patient who is awake, alert, and in no acute distress. Head/Face: Normocephalic, atraumatic. Chest/axilla: Normal chest wall appearance and motion. Nontender with no deformity. No lesions are appreciated. Cardiovascular: Regular rate and rhythm with a normal S1 and S2. No gallops, murmurs, or rubs. Normal PMI, no JVD. No pulse deficits. Respiratory: Lungs have equal breath sounds bilaterally, clear to auscultation and percussion. No rales, rhonchi or wheezes noted. No increased work of breathing, no retractions or nasal flaring. Abdomen/GI: Soft, non-tender, with normal bowel sounds. No distension or tympany. No guarding or rebound. No evidence of tenderness throughout. Skin: Warm, dry with normal turgor. Normal color with no rashes, no lesions, and no evidence of cellulitis. MS/ Extremity: Pulses equal, no cyanosis. Neurovascular intact. Full, normal range of motion. 21:39 Eyes: Extraocular muscles are intact, no visual field deficit. 21:39 ECG was reviewed by the Attending Physician. 21:39 Neuro: Speech normal, no facial asymmetry, cranial nerves II through XII intact, strength and sensation intact in upper and lower extremities, no ataxia on [id number], Vital Signs: 20:37 BP 151 / 68; Pulse 66; Resp 17 S; Temp 98.2(T); Pulse Ox 99% on R/A; Weight 67.13 kg; ha1 Height 5 ft. 0 in. ; Pain 8/10; 22:40 BP 145 / 65; Pulse 64; Resp 18; Pulse Ox 99% ; cp4 20:37 Body Mass Index 28.90 (67.13 kg, 152.4 cm) ha1 20:37 Pain Scale: Adult ha NIH Stroke Scale Scores: 21:09 NIHSS Score: 0 cp4 MDM: 20:37 Medical Screening Exam initiated rt 23:17 Differential diagnosis: CVA, headache, tension headache, skeletal neck pain, vertebral rt artery dissection, arterial occlusion. TNKase (Tenecteplase) Screening: Not Applicable. Data reviewed: vital signs, nurses notes, lab test result(s), EKG, radiologic studies. Consideration of Admission/Observation Escalation of care including admission/observation considered. Registration, she was labeled as signs of a stroke. Patient has a neck pain with a headache. Patient's NIHSS is 0, her symptoms are not consistent with a CVA, CT scans are unremarkable. At this time, I do not suspect ischemia as the etiology of her presentation, do not believe that she would benefit from admission at this time.. I considered the following discharge prescriptions or medication management in the emergency department Medications were administered in the Emergency Department. See MAR. Independent interpretation of the following test(s) in the Emergency Department CT Scan: My interpretation is No intracranial hemorrhage seen on my interpretation of CT scan images. Care significantly affected by the following chronic conditions: Diabetes. Counseling: I had a detailed discussion with the patient and/or guardian regarding the historical points, exam findings, and any diagnostic results supporting the discharge/admit diagnosis, lab results, radiology results, the need for outpatient follow up, to return to the emergency department if symptoms worsen or persist or if there are any questions or concerns that arise at home. Response to treatment: the patient's symptoms have markedly improved after treatment. 06/05 20:45 Order name: Basic Metabolic Panel; Complete Time: 21:35 rt 06/05 20:45 Order name: CBC with Diff; Complete Time: 21:35 rt 06/05 20:45 Order name: Hepatic Function; Complete Time: 21:35 rt 06/05 20:45 Order name: High Sensitivity Troponin; Complete Time: 21:35 rt 06/05 20:45 Order name: Protime (+inr); Complete Time: 21:35 rt 06/05 20:45 Order name: Ptt, Activated; Complete Time: 21:35 06/05 20:56 Order name: Glucose, Ancillary Testing; Complete Time: 21:35 EDMS 06/05 20:45 Order name: CT Head Angio; Complete Time: 21:35 rt 06/05 20:45 Order name: CT Neck Angio; Complete Time: 21:35 rt 06/05 20:45 Order name: Stroke CXR 1 View; Complete Time: 21:42 rt 06/05 21:05 Order name: Head C Spine Mpr Wo Con; Complete Time: 21:35 EDMS 06/05 20:45 Order name: EKG; Complete Time: 20:46 06/05 20:45 Order name: Accucheck; Complete Time: 20:52 rt 06/05 20:45 Order name: Cardiac monitoring; Complete Time: 20:52 rt 06/05 20:45 Order name: EKG - Nurse/Tech; Complete Time: 21:40 rt 06/05 20:45 Order name: IV Saline Lock; Complete Time: 20:52 rt 06/05 20:45 Order name: Labs collected and sent; Complete Time: 20:52 rt 06/05 20:45 Order name: NPO; Complete Time: 20:53 rt 06/05 20:45 Order name: O2 Per Protocol; Complete Time: 20:53 rt 06/05 20:45 Order name: O2 Sat Monitoring; Complete Time: :53 rt 06/05 20:45 Order name: Stroke Swallow Screen; Complete Time: 20:53 rt EC:39 Rate is 63 beats/min. Rhythm is regular, Normal Sinus Rhythm with No ectopy. QRS Barlow rt is Normal. ID interval is normal. QRS interval is normal. QT interval is normal. No Q waves. T waves are Normal. No ST changes noted. Interpreted by me. Administered Medications: 21:45 Drug: morphine IVP or IV 2 mg IVP once over 4 mins Route: IVP; Infused Over: 4 mins; cp4 Site: left antecubital; 23:08 Follow up: Response: No adverse reaction cp4 21:45 Drug: Magnesium Sulfate IVPB 2 grams IVPB once over 1 hrs Route: IVPB; Infused Over: 1 cp4 hrs; Site: left antecubital; 23:13 Follow up: IV Status: Completed infusion cp4 23:08 Drug: HYDROcodone-acetaminophen PO 5 mg-325 mg 1 tabs PO once Route: PO; cp4 23:08 Follow up: Response: No adverse reaction cp4 Disposition Summary: 06/05/24 22:43 Discharge Ordered Notes: Location: Home rt Problem: new rt Symptoms: have improved rt Condition: Stable rt Diagnosis - Headache rt - Cervicalgia rt Followup: rt - With: Private Physician - When: 2 - 3 days - Reason: Discharge Instructions: - Discharge Summary Sheet rt - General Headache Without Cause rt - Musculoskeletal Pain rt Forms: - Medication Reconciliation Form rt - Antibiotic Education rt - Prescription Opioid Use rt - Patient Portal Instructions rt - Leadership Thank You Letter rt Prescriptions: - Cyclobenzaprine 5 mg Oral tablet - take 1 tablet ORAL route 3 times per day As needed; 10 tablet; Refills: 0, rt Product Selection Permitted NIH Stroke Scale - NIH Stroke Score Date: 06/05/2024 Time: 21:09 Total Score = 0 10. Dysarthria (speech clarity - read or repeat words) - 0(Normal) 11. Extinction and Inattention (visual/tactile/auditory/spatial/personal) - 0(No abnormality) 1a. Level of Consciousness (LOC) - 0(Alert) 1b. Level of Consciousness (LOC) (Month \T\ Age) - 0(Both) 1c. LOC Commands (Open \T\ Closes Eyes/Information Systems Director) - 0(Both) 2. Best Gaze (Lateral Gaze Paresis) - 0(Normal) 3. Visual Field Loss - 0(No visual loss) 4. Facial Palsy - 0(Normal) 5a. Left Arm: Motor (10-second hold) - 0(No drift) 5b. Right Arm: Motor (10-second hold) - 0(No drift) 6a. Left Leg: Motor (5-second hold - always test supine) - 0(No drift) 6b. Right Leg: Motor (5-second hold - always test supine) - 0(No drift) 7. Limb Ataxia (finger/nose \T\ heel/robles - test with eyes open) - 0(Absent) 8. Sensory Loss (pinprick arms/legs/face) - 0(Normal) 9. Best Language: Aphasia (description/naming/reading) - 0(No aphasia) Initials: cp4 Signatures: Dispatcher [employer] EDMS Kathrine Moreno, RN RN ha1 Derek Rivera MD MD rt Potter, Christina cp4 Corrections: (The following items were deleted from the chart) 20:45 20:45 BASIC METABOLIC PANEL+C.LAB.BRZ ordered. EDMS EDMS 20:45 20:45 CBC+H.LAB.BRZ ordered. EDMS EDMS 20:45 20:45 HEPATIC FUNCTION+C.LAB.BRZ ordered. EDMS EDMS 20:45 20:45 Troponin High Sensitivity+C.LAB.BRZ ordered. EDMS EDMS 20:45 20:45 PROTIME (+INR)+COAG.LAB.BRZ ordered. EDMS EDMS 20:45 20:45 PTT, ACTIVATED+COAG.LAB.BRZ ordered. EDMS EDMS 20:46 20:46 CT-STROKE BRAIN W/O CONTRAST+CT.RAD.BRZ ordered. EDMS EDMS
[2024-06-05] MEDS ORDERED: HYDROCODONE/APAP 5/325 MG TAB ONE (23:06)
--- NOTE | 2024-06-07 12:11 | EKG ---
Test Date: 2024-06-05 Test Time: 21:34:39 Ice Plant Operator: XIMENA MEASUREMENT RESULTS: Intervals: Rate: 63 MA: 152 QRSD: 94 QT: 406 QTc: 415 [place]: P: 64 MA: 152 QRS: -27 T: 26 INTERPRETIVE STATEMENTS: Normal sinus rhythm Normal ECG Compared to ECG 09/26/2023 21:45:18 T-wave abnormality no longer present Possible ischemia no longer present Electronically Signed On 06-07-24 12:08:08 CDT by Vipin Peres
[2024-06-08 00:20] VITALS: TEMP 98.2; O2SAT 99
[2024-06-08 00:21] VITALS: BP 145/65
== END 2024-06-05 23:12 | disposition home or self-care (01) ==
LOC: ER 20:34
DX: R51.9 Headache, unspecified (principal); M54.2 Cervicalgia; R42 Dizziness and giddiness; I10 Essential (primary) hypertension; G30.9 Alzheimer's disease, unspecified; F02.80 Dementia in other diseases classified elsewhere, unspecified severity, without behavioral disturbance, psychotic disturbance, mood disturbance, and anxiety
CPT/HCPCS: 96365; 93005; 85025; 80048; 36415; 85610; 82565; 82947; 80076; 85730; 84484; 70450; 72125; 70496; 70498; 71045; 96375; 99285; Q9967; J3475; J2270